=== PATIENT | male | born 1935 | race Caucasian/White ===

== ENCOUNTER 2017-03-06 02:50 | Inpatient (IN) | payer MEDICARE, OTHER ==
[2017-03-06] VITALS (13 sets, daily range): BP systolic 92–126; BP diastolic 53–92; PULSE 54–88; RESP 16–24; TEMP 97.1–98.5; O2SAT 95–99
[~2017-03-06] VITALS: Ht 188 cm; Wt 72.0 kg
[2017-03-06] MEDS ORDERED: METO25TA3 PO (03:14)
[2017-03-06] MEDS ORDERED: BACT800T5 PO (03:14)
[2017-03-06] MEDS ORDERED: SPIR25TA PO (03:14)
[2017-03-06] MEDS ORDERED: FURO40TA PO (03:14)
[2017-03-06] MEDS ORDERED: PANT40TA3 PO (03:14)
[2017-03-06] MEDS ORDERED: DIGO0.12 PO (03:14)
[2017-03-06] MEDS ORDERED: ASPI325T PO (03:14)
[2017-03-06] MEDS ORDERED: ENAL5TAB PO (03:14)
[2017-03-06] MEDS ORDERED: CALC600T4 PO (03:14)
[2017-03-06] MEDS ORDERED: SODIUM CHLOR 0.9% 1000 ML INJ 1,000 ML IV SCH ×2 (03:17→05:51)
[2017-03-06] MEDS ORDERED: ONDANSETRON HCL 4 MG/2 ML VIAL IVP ONE (03:30)
[2017-03-06] MEDS ORDERED: MORPHINE SULFATE 4 MG/ML INJ IV PUSH ONE (03:30)
[2017-03-06] MEDS ORDERED: SODIUM CHLORIDE 0.9% FLUSH 10 ML FLUSH IV FLUSH PRN ×2 (03:30→06:00)
[2017-03-06] MEDS ORDERED: DIATRIZOATE MEGLUM/DIATRIZOATE SOD 9 ML CUP ONE (03:33)
--- NOTE | 2017-03-06 03:36 | PD ---
HPI Chief Complaint: Abdominal Pain Time Seen by Provider: 03:09 Travel History International Travel<30 days: No Contact w/Intl Traveler<30days: No Traveled to known affect area: No History of Present Illness HPI 81 year old male with history of bladder cancer, presents to ER with complaints of abdominal pain. Patient reports that he was recently seen at [facility] on March 03, 2017, at that time, he was diagnosed with a partial small bowel obstruction. Reports that he felt fine and was discharged from the emergency room. Reports that ultimately, he was told to follow up the [facility] as he also has "heart issues." Patient reports that he was unable to follow-up with the [facility] at this time. Patient reports that he began to feel nauseous and began to have severe lower abdominal pain. Patient is concerned for possible small bowel obstruction at this time, request a second opinion by [place] [facility]. Patient also reports that he is currently taking bactrim for an infection to his colon. PFSH Past Medical History Hx Anticoagulant Therapy: Yes (Aspirin) Cancer: Yes (bladder) Cardiovascular Problems: Yes (Mitral valve, aortic valve) Gastrointestinal Disorders: Yes (bowel obstuction) Tetanus Vaccination: Unknown Influenza Vaccination: Yes Past Surgical History Eye Surgery: Yes Social History Alcohol Use: No Tobacco Use: No Substance Use: No Allergies-Medications (Allergen,Severity, Reaction): Coded Allergies: Penicillins (Verified Allergy, Severe, 03/06/17) iohexol (Verified Allergy, Severe, Anaphylaxis, 03/06/17) Reported Meds & Prescriptions Reported Meds & Active Scripts Active Reported Bactrim DS (Sulfamethoxazole-Trimethoprim) 800-160 Mg Tab 1 Tab PO BID Spironolactone 25 Mg Tab 25 Mg PO DAILY Pantoprazole (Pantoprazole Sodium) 40 Mg Tab 40 Mg PO DAILY Metoprolol Tartrate 25 Mg Tab 12.5 Mg PO BID Furosemide 40 Mg Tab 40 Mg PO DAILY Enalapril (Enalapril Maleate) 5 Mg Tab 5 Mg PO DAILY Digoxin 0.125 Mg Tab 0.125 Mg PO DAILY Calcium Carbonate 1,500 Mg Tab 500 Mg PO BID 1,500 mg calcium carbonate (600 mg elemental calcium) Aspirin 325 Mg Tab 325 Mg PO DAILY Review of Systems General / Constitutional: No: Fever Eyes: No: Visual changes HENT: No: Headaches Cardiovascular: No: Chest Pain or Discomfort Respiratory: No: Shortness of Breath Gastrointestinal: Positive: Nausea, Vomiting, Abdominal Pain Genitourinary: No: Dysuria Musculoskeletal: No: Pain Skin: No Rash Neurologic: No: Weakness Psychiatric: No: Depression Endocrine: No: Polydipsia Hematologic/Lymphatic: No: Easy Bruising Physical Exam Narrative GENERAL: moderate distress SKIN: Focused skin assessment warm/dry. HEAD: Atraumatic. Normocephalic. EYES: Pupils equal and round. No scleral icterus. No injection or drainage. ENT: No nasal bleeding or discharge. Mucous membranes pink and moist. NECK: Trachea midline. No JVD. CARDIOVASCULAR: Regular rate and rhythm. No murmur appreciated. RESPIRATORY: No accessory muscle use. Clear to auscultation. Breath sounds equal bilaterally. GASTROINTESTINAL: Abdomen soft, increased tenderness to lower abdomen MUSCULOSKELETAL: No obvious deformities. No clubbing. No cyanosis. No edema. NEUROLOGICAL: Awake and alert. No obvious cranial nerve deficits. Motor grossly within normal limits. Normal speech. PSYCHIATRIC: Appropriate mood and affect; insight and judgment normal. Data Data Last Documented VS Vital Signs Date Time Temp Pulse Resp B/P (MAP) Pulse Ox O2 Delivery O2 Flow Rate FiO2 03/06/17 04:24 82 22 102/54 (70) 96 Room Air 03/06/17 02:51 97.1 Orders Orders Complete Blood Count With Diff (03/06/17 03:17) Comprehensive Metabolic Panel (03/06/17 03:17) Lipase (03/06/17 03:17) Lactic Acid (03/06/17 03:17) Prothrombin Time / Inr (Pt) (03/06/17 03:17) Act Partial Throm Time (Ptt) (03/06/17 03:17) Ct Abd/Pel W/O Iv Contrast (03/06/17 03:17) Iv Access Insert/Monitor (03/06/17 03:17) Ecg Monitoring (03/06/17 03:17) Oximetry (03/06/17 03:17) NPO (03/06/17 03:17) Morphine Inj (Morphine Inj) (03/06/17 03:30) Ondansetron Inj (Zofran Inj) (03/06/17 03:30) Sodium Chlor 0.9% 1000 Ml Inj (Ns 1000 M (03/06/17 03:17) Sodium Chloride 0.9% Flush (Ns Flush) (03/06/17 03:30) Chest, Single Ap (03/06/17 03:17) Oral Contrast - Adult (03/06/17 03:20) Diatrizoate Liq ( Gastroview Liq) (03/06/17 03:33) Sodium Chlor 0.9% 1000 Ml Inj (Ns 1000 M (03/06/17 04:45) Vancomycin Inj (Vancomycin Inj) (03/06/17 04:32) Aztreonam Inj (Azactam Inj) (03/06/17 04:32) Metronidazole 500 Mg Inj (Flagyl 500 Mg (03/06/17 04:32) Blood Culture (03/06/17 04:32) Consult General Surgery (03/06/17 ) (Hub Use Only)Inp Phy Cons/Ref (03/06/17 ) Arterial Blood Gas (Abg) (03/06/17 ) Admit Order (Ed Use Only) (03/06/17 05:50) Labs Laboratory Tests Test 03/06/17 03:45 White Blood Count 16.4 TH/MM3 Red Blood Count 5.32 MIL/MM3 Hemoglobin 17.6 GM/DL Hematocrit 52.4 % Mean Corpuscular Volume 98.5 FL Mean Corpuscular Hemoglobin 33.0 PG Mean Corpuscular Hemoglobin Concent 33.5 % Red Cell Distribution Width 13.8 % Platelet Count 246 TH/MM3 Mean Platelet Volume 8.2 FL Neutrophils (%) (Auto) 88.2 % Lymphocytes (%) (Auto) 7.0 % Monocytes (%) (Auto) 4.1 % Eosinophils (%) (Auto) 0.3 % Basophils (%) (Auto) 0.4 % Neutrophils # (Auto) 14.5 TH/MM3 Lymphocytes # (Auto) 1.2 TH/MM3 Monocytes # (Auto) 0.7 TH/MM3 Eosinophils # (Auto) 0.1 TH/MM3 Basophils # (Auto) 0.1 TH/MM3 CBC Comment DIFF FINAL Differential Comment Prothrombin Time 11.4 SEC Prothromb Time International Ratio 1.0 RATIO Activated Partial Thromboplast Time 23.8 SEC Blood Urea Nitrogen 15 MG/DL Creatinine 1.76 MG/DL Random Glucose 145 MG/DL Total Protein 8.9 GM/DL Albumin 4.4 GM/DL Calcium Level 10.4 MG/DL Alkaline Phosphatase 78 U/L Aspartate Amino Transf (AST/SGOT) 20 U/L Alanine Aminotransferase (ALT/SGPT) 27 U/L Total Bilirubin 1.0 MG/DL Sodium Level 135 MEQ/L Potassium Level 4.2 MEQ/L Chloride Level 97 MEQ/L Carbon Dioxide Level 24.5 MEQ/L Anion Gap 14 MEQ/L Estimat Glomerular Filtration Rate 37 ML/MIN Lactic Acid Level 5.7 mmol/L Lipase 206 U/L MDM Medical Decision Making Medical Screen Exam Complete: Yes Emergency Medical Condition: Yes Medical Record Reviewed: Yes Interpretation(s) Vital Signs Date Time Temp Pulse Resp B/P (MAP) Pulse Ox O2 Delivery O2 Flow Rate FiO2 03/06/17 02:51 97.1 83 24 93/53 (66) 95 Room Air Differential Diagnosis Differential includes SBO, pSBO, colitis, electrolyte abnormality, ischemic colitis Narrative Course 81 year old male who presents to ER with c/o of abdominal pain with nausea and vomiting. lab work a swell as ct with oral contrast ordered. ivf and antiemetics ordered as well. Vital Signs Date Time Temp Pulse Resp B/P (MAP) Pulse Ox O2 Delivery O2 Flow Rate FiO2 03/06/17 04:24 82 22 102/54 (70) 96 Room Air 03/06/17 02:51 97.1 83 24 93/53 (66) 95 Room Air Laboratory Tests Test 03/06/17 03:45 White Blood Count 16.4 TH/MM3 (4.0-11.0) Red Blood Count 5.32 MIL/MM3 (4.50-5.90) Hemoglobin 17.6 GM/DL (13.0-17.0) Hematocrit 52.4 % (39.0-51.0) Mean Corpuscular Volume 98.5 FL (80.0-100.0) Mean Corpuscular Hemoglobin 33.0 PG (27.0-34.0) Mean Corpuscular Hemoglobin Concent 33.5 % (32.0-36.0) Red Cell Distribution Width 13.8 % (11.6-17.2) Platelet Count 246 TH/MM3 (150-450) Mean Platelet Volume 8.2 FL (7.0-11.0) Neutrophils (%) (Auto) 88.2 % (16.0-70.0) Lymphocytes (%) (Auto) 7.0 % (9.0-44.0) Monocytes (%) (Auto) 4.1 % (0.0-8.0) Eosinophils (%) (Auto) 0.3 % (0.0-4.0) Basophils (%) (Auto) 0.4 % (0.0-2.0) Neutrophils # (Auto) 14.5 TH/MM3 (1.8-7.7) Lymphocytes # (Auto) 1.2 TH/MM3 (1.0-4.8) Monocytes # (Auto) 0.7 TH/MM3 (0-0.9) Eosinophils # (Auto) 0.1 TH/MM3 (0-0.4) Basophils # (Auto) 0.1 TH/MM3 (0-0.2) CBC Comment DIFF FINAL Differential Comment Prothrombin Time 11.4 SEC (9.8-11.6) Prothromb Time International Ratio 1.0 RATIO Activated Partial Thromboplast Time 23.8 SEC (24.3-30.1) Blood Urea Nitrogen 15 MG/DL (7-18) Creatinine 1.76 MG/DL (0.60-1.30) Random Glucose 145 MG/DL (74-106) Total Protein 8.9 GM/DL (6.4-8.2) Albumin 4.4 GM/DL (3.4-5.0) Calcium Level 10.4 MG/DL (8.5-10.1) Alkaline Phosphatase 78 U/L (45-117) Aspartate Amino Transf (AST/SGOT) 20 U/L (15-37) Alanine Aminotransferase (ALT/SGPT) 27 U/L (12-78) Total Bilirubin 1.0 MG/DL (0.2-1.0) Sodium Level 135 MEQ/L (136-145) Potassium Level 4.2 MEQ/L (3.5-5.1) Chloride Level 97 MEQ/L (98-107) Carbon Dioxide Level 24.5 MEQ/L (21.0-32.0) Anion Gap 14 MEQ/L (5-15) Estimat Glomerular Filtration Rate 37 ML/MIN (>89) Lactic Acid Level 5.7 mmol/L (0.4-2.0) Lipase 206 U/L (73-393) lactic acid 5.7, patient has been pancultured, will give Azactam, Flagyl and vancomycin as patient has a penicillin allergy. 30cc/kg bolus of IVF ordered Last Impressions Chest X-Ray 03/06/17316 Signed Impressions: Service Date/Time: Monday, March 06, 2017 03:20 - CONCLUSION: 1. Emphysematous changes. 2. Blunting of the left costophrenic angle either related to pleural scarring or tiny effusion. 3. No appreciable free air. Rebel Agee Jr., MD Abdomen/Pelvis CT 03/06/17316 Signed Impressions: Service Date/Time: Monday, March 06, 2017 04:50 - CONCLUSION: 1. Diffuse dilatation of the small bowel without an obstructing mass or lesion. There is a left inguinal hernia containing sigmoid colon but this is not felt relating to the dilatation of the small bowel. 2. Trace amount of free fluid. 3. Small left pleural effusion. Rebel Agee Jr., MD case reviewed with dr. kimbrough who accepts pt to service Patient reports that his allergy to IV dye is severe allergic reaction which causes him to "pass out." There is a concern for possible ischemic colitis, call made to Dr. Olsen with general surgery. He will see patient in consult. Critical Care Narrative Aggregate critical care time was 30 minutes. Time to perform other separately billable procedures was not included in the critical care time. My time did not include minutes spent treating any other patients simultaneously or on activities that did not directly contribute to the patient's treatment. The services I provided to this patient were to treat and/or prevent clinically significant deterioration that could result in: , decompensation, deterioration I provided critical care services requiring my management, as noted below: Chart data review, documentation time, medication orders and management, vital sign assessments/reviewing monitor data, ordering and reviewing lab tests, ordering and interpreting/reviewing x-rays and diagnostic studies, care of the patient and discussion of the patient with the admitting physicians. Diagnosis Primary Impression: Small bowel obstruction Additional Impression: Lactic acidosis Admitting Information Admitting Physician Requests: Admit Chelsie Landeros DO Mar 06, 2017 03:36
--- NOTE | 2017-03-06 03:54 | RADRPT ---
EXAM DATE/TIME: 03/06/2017 03:20 [facility] COMPARISON: No previous studies available for comparison. EXTERNAL COMPARISON : none INDICATIONS : Free air. MEDICAL HISTORY : Congestive heart failure. Carcinoma, bladder. Arrhythmia. SURGICAL HISTORY : None. ENCOUNTER: Initial ACUITY: 3 days PAIN SCORE: 0/10 LOCATION: Bilateral chest FINDINGS: 2 portable upright views of the chest show emphysematous changes. Calcified granulomas within the rig ht lung base. Blunting of the left costophrenic angle. No infiltrates. Heart is normal in size. Aorta is calcified and tortuous. Bony structures are unremarkable. No pneumoperitoneum observed below eith er hemidiaphragm. CONCLUSION: 1. Emphysematous changes. 2. Blunting of the left costophrenic angle either related to pleural scarring or tiny effusion. 3. No appreciable free air. Rebel Agee Jr., MD on March 06, 2017 at 3:51 Board Certified Radiologist. This report was verified electronically.
[2017-03-06 03:59] LABS: AUTOMATED NEUTROPHIL # 14.5 TH/MM3 (1.8-7.7); BASOPHIL # 0.1 TH/MM3 (0-0.2); BASOPHIL % 0.4 % (0.0-2.0); EOSINOPHIL # 0.1 TH/MM3 (0-0.4); EOSINOPHIL % 0.3 % (0.0-4.0); HEMATOCRIT 52.4 % (39.0-51.0); HEMO FLAGS DIFF FINAL; LYMPHOCYTE # 1.2 TH/MM3 (1.0-4.8); MEAN CELL VOLUME 98.5 FL (80.0-100.0); MEAN CORPUSCULAR HGB CONC 33.5 % (32.0-36.0); MONO % 4.1 % (0.0-8.0); NEUT % 88.2 % (16.0-70.0); PLATELET COUNT 246 TH/MM3 (150-450); RED BLOOD COUNT 5.32 MIL/MM3 (4.50-5.90); RED CELL DISTRIBUTION WIDTH 13.8 % (11.6-17.2); WHITE BLOOD COUNT 16.4 TH/MM3 (4.0-11.0)
[2017-03-06 04:05] LABS: APTT (PATIENT) 23.8 SEC (24.3-30.1); PROTHROMBIN TIME - PATIENT 11.4 SEC (9.8-11.6)
[2017-03-06 04:20] LABS: ANION GAP 14 MEQ/L (5-15); AST (GOT) 20 U/L (15-37); BICARBONATE 24.5 MEQ/L (21.0-32.0); BLOOD UREA NITROGEN 15 MG/DL (7-18); CHLORIDE 97 MEQ/L (98-107); GLOMERULAR FILTRATION RATE 37 ML/MIN (>89); POTASSIUM 4.2 MEQ/L (3.5-5.1); SODIUM (NA) 135 MEQ/L (136-145)
[2017-03-06 04:21] LABS: ALT (GPT) 27 U/L (12-78)
[2017-03-06 04:23] LABS: ALKALINE PHOSPHATASE 78 U/L (45-117)
[2017-03-06] MEDS ORDERED: metroNIDAZOLE 500 MG INJ 100 ML IV STA (04:32)
[2017-03-06] MEDS ORDERED: AZTREONAM INJ 2,000 MG in SODIUM CHLORIDE 0.9% INJ 100 ML IV STA (04:32)
[2017-03-06] MEDS ORDERED: VANCOMYCIN INJ 1,000 MG in SODIUM CHLOR 0.9% 250 ML INJ 250 ML IV STA (04:32)
[2017-03-06] MEDS ORDERED: SODIUM CHLOR 0.9% 1000 ML INJ 1,000 ML IV ONE (04:45)
--- NOTE | 2017-03-06 05:20 | RADRPT ---
EXAM DATE/TIME: 03/06/2017 04:50 [facility] COMPARISON: No previous studies available for comparison. INDICATIONS : Right lower quadrant pain with nausea and constipation. ORAL CONTRAST: Prescribed oral contrast ingested. RADIATION DOSE: 6.64 CTDIvol (mGy) MEDICAL HISTORY : Carcinoma, bladder. Bowel obstruction. SURGICAL HISTORY : Mitral valve replacement. ENCOUNTER: Initial ACUITY: 3 days PAIN SCALE: 8/10 LOCATION: Right lower quadrant TECHNIQUE: Volumetric scanning of the abdomen and pelvis was performed. Using automated exposure control and ad justment of the mA and/or kV according to patient size, radiation dose was kept as low as reasonably achievable to obtain optimal diagnostic quality images. DICOM format image data is available electro nically for review and comparison. FINDINGS: LOWER LUNGS: A small left pleural effusion. Tiny hiatal hernia. Calcified granuloma within the right lung base. LIVER: Homogeneous density without lesion. There is no dilation of the biliary tree. No calcified gallston es. SPLEEN: Normal size without lesion. PANCREAS: Within normal limits. KIDNEYS: Normal in size and shape. There is no mass, stone, or hydronephrosis. ADRENAL GLANDS: Within normal limits. VASCULAR: There is no aortic aneurysm. BOWEL/MESENTERY: Diffuse dilatation of the small bowel extending to the ileocecal valve. No obstructing mass or lesion observed. The colon is normal in caliber. Scattered colonic diverticuli. A trace amount of ascitic f luid. No free air. The appendix is normal by CT criteria. ABDOMINAL WALL: Within normal limits. RETROPERITONEUM: There is no lymphadenopathy. BLADDER: No wall thickening or mass. REPRODUCTIVE: Within normal limits. INGUINAL: There is a left renal hernia containing sigmoid colon. No CT evidence to suggest obstruction or incar ceration. MUSCULOSKELETAL: Within normal limits for patient age. CONCLUSION: 1. Diffuse dilatation of the small bowel without an obstructing mass or lesion. There is a left ingui nal hernia containing sigmoid colon but this is not felt relating to the dilatation of the small chris l. 2. Trace amount of free fluid. 3. Small left pleural effusion. Rebel Agee Jr., MD on March 06, 2017 at 5:14 Board Certified Radiologist. This report was verified electronically.
[2017-03-06] MEDS ORDERED: RESP: ALBUTEROL 2.5 MG/IPRATROPIUM 0.5 MG NEB (PRN) INH (06:00)
[2017-03-06] MEDS ORDERED: LACTULOSE SYRUP 20 GM/30 ML CUP PO PRN (06:00)
[2017-03-06] MEDS ORDERED: ACETAMINOPHEN 325 MG TAB PO PRN (06:00)
[2017-03-06] MEDS ORDERED: MAGNESIUM HYDROXIDE SUSP 30 ML CUP PO PRN (06:00)
[2017-03-06] MEDS ORDERED: BISACODYL 10 MG SUPP RECTAL PRN (06:00)
[2017-03-06] MEDS ORDERED: CHLORHEXIDINE GLUCONATE 2 % 1 PACK (2 CLOTHS) TOP PRN (06:00)
[2017-03-06] MEDS ORDERED: MISCELLANEOUS NURSING INFORMATION XX SCH (06:00)
[2017-03-06] MEDS ORDERED: SENNOSIDES 8.6 MG TAB PO PRN (06:00)
[2017-03-06] MEDS ORDERED: HEPARIN SODIUM - SQ 10,000 UNITS/ML VIAL SQ SCH (06:00)
[2017-03-06 06:03] LABS: BLOOD GAS BASE EXCESS -2.3 mmol/L (-2-2); BLOOD GAS CARBOXYHEMOGLOBIN 0.8 % (0-4); BLOOD GAS HCO3 22 mmol/L (22-26); BLOOD GAS METHEMOGLOBIN 0.6 % (0-2); BLOOD GAS O2 HGB SATURATION 95 % (90-100); BLOOD GAS OXYGEN CONTENT 17.8 Vol % (12.0-20.0); BLOOD GAS PCO2 35 mmHg (38-42); BLOOD GAS PO2 81 mmHG (61-120); BLOOD GAS TOTAL HGB 13.3 G/DL (12.0-16.0); CRITICAL VALUE NO; DRAW SITE RT RADIAL; FIO2 21 %; NUMBER OF ARTERIAL PUNCTURES 1; OXYGEN DEVICE ROOM AIR; STAT YES; TEMP CORR TO 98.6; ULNAR PULSE PRESENT
--- NOTE | 2017-03-06 06:45 | HHI.HP ---
HPI Service Critical Care Medicine Primary Care Physician Rohith Sanders M.D. Admission Diagnosis Sepsis, SBO, possible ischemic colitis Diagnosis: Chief Complaint: Abdominal pain. Travel History International Travel<30 Days: No Contact w/Intl Traveler <30 Da: No Traveled to Known Affected Are: No History of Present Illness 81 y/o man presents with a crescendo pattern of cramping abdominal pain, lasting for past several weeks. Now with vomiting and abdominal distention. Episodic explosive bowel movements. No prior abdominal surgery and left inguinal hernia is easily reducible. Dehydrated. No peritoneal irritation. Minimal tenderness to palpation. Lactic acid 5.7, wbc 16,000. CT abdomen shows small bowel obstruction, distal. No obvious transition point. at bedside. Hx significant for bladder cancer 40 years ago. Heart failure. Review of Systems Constitutional: DENIES: Diaphoretic episodes, Fatigue, Fever, Weight gain, Weight loss, Chills, Dizziness, Change in appetite, Night Sweats Endocrine: DENIES: Heat/cold intolerance, Polydipsia, Polyuria, Polyphagia Eyes: DENIES: Blurred vision, Diplopia, Eye inflammation, Eye pain, Vision loss , Photosensitivity, Double Vision Ears, nose, mouth, throat: DENIES: Tinnitus, Hearing loss, Vertigo, Nasal discharge, Oral lesions, Throat pain, Hoarseness, Ear Pain, Running Nose, Epistaxis, Sinus Pain, Toothache, Odynophagia Cardiovascular: DENIES: Chest pain, Palpitations, Syncope, Dyspnea on Exertion , PND, Lower Extremity Edema, Orthopnea, Claudication Gastrointestinal: COMPLAINS OF: Abdominal pain, Constipation, Diarrhea, Vomiting, Anorexia Integumentary: DENIES: Abnormal pigmentation, Nail changes, Pruritus, Rash Hematologic/lymphatic: DENIES: Bruising, Lymphadenopathy Immunologic/allergic: DENIES: Eczema, Urticaria Past Family Social History Allergies: Coded Allergies: Penicillins (Verified Allergy, Severe, 03/06/17) iohexol (Verified Allergy, Severe, Anaphylaxis, 03/06/17) Past Medical History Past Medical History Hx Anticoagulant Therapy: Yes (Aspirin) Cancer: Yes (bladder) Cardiovascular Problems: Yes (Mitral valve, aortic valve) Gastrointestinal Disorders: Yes (bowel obstuction) Tetanus Vaccination: Unknown Influenza Vaccination: Yes Past Surgical History Eye Surgery: Yes Social History Alcohol Use: No Tobacco Use: No Substance Use: No Allergies-Medications Allergies-Medications (Allergen,Severity, Reaction): Coded Allergies: Penicillins (Verified Allergy, Severe, 03/06/17) iohexol (Verified Allergy, Severe, Anaphylaxis, 03/06/17) Reported Meds & Prescriptions Reported Meds & Active Scripts Active Reported Bactrim DS (Sulfamethoxazole-Trimethoprim) 800-160 Mg Tab 1 Tab PO BID Spironolactone 25 Mg Tab 25 Mg PO DAILY Pantoprazole (Pantoprazole Sodium) 40 Mg Tab 40 Mg PO DAILY Metoprolol Tartrate 25 Mg Tab 12.5 Mg PO BID Furosemide 40 Mg Tab 40 Mg PO DAILY Enalapril (Enalapril Maleate) 5 Mg Tab 5 Mg PO DAILY Digoxin 0.125 Mg Tab 0.125 Mg PO DAILY Calcium Carbonate 1,500 Mg Tab 500 Mg PO BID 1,500 mg calcium carbonate (600 mg elemental calcium) Aspirin 325 Mg Tab 325 Mg PO DAILY Physical Exam Vital Signs Vital Signs Date Time Temp Pulse Resp B/P (MAP) Pulse Ox O2 Delivery O2 Flow Rate FiO2 03/06/17 06:18 78 22 112/58 (76) 96 Room Air 03/06/17 06:10 96 03/06/17 04:24 82 22 102/54 (70) 96 Room Air 03/06/17 02:51 97.1 83 24 93/53 (66) 95 Room Air Physical Exam Gen: Ill-appearing elderly man Head: Normal. Neck: Supple, airway widely patent. Lungs: Clear, no adventitious sounds. Heart: Irreg, no JVD. Abdomen: Mildly distended. Nontender. Tympanitic No guarding. BS few. Extremities: Tepid, well perfused. Neuro: O X 3, alert. Follows commands. Moves 4 limbs to command. Laboratory Laboratory Tests Test 03/06/17 03:45 03/06/17 05:50 White Blood Count 16.4 Red Blood Count 5.32 Hemoglobin 17.6 Hematocrit 52.4 Mean Corpuscular Volume 98.5 Mean Corpuscular Hemoglobin 33.0 Mean Corpuscular Hemoglobin Concent 33.5 Red Cell Distribution Width 13.8 Platelet Count 246 Mean Platelet Volume 8.2 Neutrophils (%) (Auto) 88.2 Lymphocytes (%) (Auto) 7.0 Monocytes (%) (Auto) 4.1 Eosinophils (%) (Auto) 0.3 Basophils (%) (Auto) 0.4 Neutrophils # (Auto) 14.5 Lymphocytes # (Auto) 1.2 Monocytes # (Auto) 0.7 Eosinophils # (Auto) 0.1 Basophils # (Auto) 0.1 CBC Comment DIFF FINAL Differential Comment Prothrombin Time 11.4 Prothromb Time International Ratio 1.0 Activated Partial Thromboplast Time 23.8 Blood Urea Nitrogen 15 Creatinine 1.76 Random Glucose 145 Total Protein 8.9 Albumin 4.4 Calcium Level 10.4 Alkaline Phosphatase 78 Aspartate Amino Transf (AST/SGOT) 20 Alanine Aminotransferase (ALT/SGPT) 27 Total Bilirubin 1.0 Sodium Level 135 Potassium Level 4.2 Chloride Level 97 Carbon Dioxide Level 24.5 Anion Gap 14 Estimat Glomerular Filtration Rate 37 Lactic Acid Level 5.7 Lipase 206 Blood Gas Puncture Site RT RADIAL Blood Gas Patient Temperature 98.6 Blood Gas HCO3 22 Blood Gas Base Excess -2.3 Blood Gas Oxygen Saturation 95 Arterial Blood pH 7.41 Arterial Blood Partial Pressure CO2 35 Arterial Blood Partial Pressure O2 81 Arterial Blood Oxygen Content 17.8 Arterial Blood Carboxyhemoglobin 0.8 Arterial Blood Methemoglobin 0.6 Blood Gas Hemoglobin 13.3 Oxygen Delivery Device ROOM AIR Blood Gas Inspired Oxygen 21 Date/Time Source Procedure Growth Status 03/06/17 04:44 Blood Peripheral Aerobic Blood Culture Pending Received 03/06/17 04:44 Blood Peripheral Anaerobic Blood Culture Pending Received Result Diagram: 03/06/17 0345 03/06/17 0345 Caprini VTE Risk Assessment Caprini VTE Risk Assessment: Mod/High Risk (score >= 2) Caprini Risk Assessment Model Point Value = 1 Point Value = 2 Point Value = 3 Point Value = 5 Age 41-60 Minor surgery BMI > 25 kg/m2 Swollen legs Varicose veins or History of unexplained or recurrent spontaneous Oral contraceptives or hormone replacement Sepsis (< 1 month) Serious lung disease, including pneumonia (< 1 month) Abnormal pulmonary function Acute myocardial infarction Congestive heart failure (< 1 month) History of inflammatory bowel disease Medical patient at bed rest Age 61-74 Arthroscopic surgery Major open surgery (> 45 min) Laparoscopic surgery (> 45 min) Malignancy Confined to bed (> 72 hours) Immobilizing plaster cast Central venous access Age >= 75 History of VTE Family history of VTE Factor V Leiden Prothrombin [id number] Lupus anticoagulant Anticardiolipin antibodies Elevated serum homocysteine Heparin-induced thrombocytopenia Other congenital or acquired thrombophilia Stroke (< 1 month) Elective arthroplasty Hip, pelvis, or leg fracture Acute spinal cord injury (< 1 month) Prophylaxis Regimen Total Risk Factor Score Risk Level Prophylaxis Regimen 0-1 Low Early ambulation 2 Moderate Order ONE of the following: *Sequential Compression Device (SCD) *Heparin 5000 units SQ BID 3-4 Higher Order ONE of the following medications: *Heparin 5000 units SQ TID *Enoxaparin/Lovenox 40 mg SQ daily (WT < 150 kg, CrCl > 30 mL/min) *Enoxaparin/Lovenox 30 mg SQ daily (WT < 150 kg, CrCl > 10-29 mL/min) *Enoxaparin/Lovenox 30 mg SQ BID (WT < 150 kg, CrCl > 30 mL/min) AND/OR *Sequential Compression Device (SCD) 5 or more Highest Order ONE of the following medications: *Heparin 5000 units SQ TID (Preferred with Epidurals) *Enoxaparin/Lovenox 40 mg SQ daily (WT < 150 kg, CrCl > 30 mL/min) *Enoxaparin/Lovenox 30 mg SQ daily (WT < 150 kg, CrCl > 10-29 mL/min) *Enoxaparin/Lovenox 30 mg SQ BID (WT < 150 kg, CrCl > 30 mL/min) AND *Sequential Compression Device (SCD) Assessment and Plan Assessment and Plan Assessment: 1. Small bowel obstruction. 2. JOSEE. 3. Dehydration. 4. Hx of bladder cancer. Plan: 1. IV hydration isotonic fluid. 2. NG to LIS. 3. Protonix. 4. Heparin sq for DVT. 5. Antiobiotic coverage. 6. I&O. 7. GI consult. 8. Serial abdominal exam. Overall impression: Man is critically ill with severe dehydration, acute kidney injury, and small bowel obstruction. Ideally we would define the cause of his obstruction prior to intervention but might not have that luxury. For now he will have NG decompression, seral exams, and aggressive fluid resuscitation. Discussed with patient's at bedside. Critical Care 43 mins Martin Ruiz MD Mar 06, 2017 06:45
[2017-03-06] MEDS: SODIUM CHLORIDE 0.9% FLUSH 10 ML FLUSH IV FLUSH SCH ×2 (08:18→20:06)
[2017-03-06] MEDS: NS + KCL 20 MEQ INJ 1,000 ML IV SCH ×2 (08:18→17:33)
[2017-03-06] MEDS: PANTOPRAZOLE SODIUM 40 MG VIAL IV PUSH SCH (08:18)
[2017-03-06] MEDS: DOCUSATE SODIUM 50 MG/SENNA 8.6 MG TAB PO SCH ×2 (08:18→21:00)
[2017-03-06] MEDS: DIGOXIN 0.5 MG/2 ML VIAL IV PUSH SCH (08:18)
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
[2017-03-06 13:21] LABS: BLOOD, URINE NEG (NEG); GLUCOSE,URINE NEG (NEG); KETONE, URINE NEG (NEG); MUCUS URINE FEW /lpf (OCC); NITRITE,URINE NEG (NEG); PH, URINE 5.5 (5.0-8.5); SQUAMOUS EPITHELIAL CELL URINE <1 /hpf (0-5); URINE COLOR YELLOW (YELLW/STRAW)
[2017-03-06 13:23] LABS: COMMENT (UR) CULT NOT INDICATED; CULTURE IF INDICATED CULT NOT INDICATED
[2017-03-06] MEDS ORDERED: PILL SPLITTER OTHER PRN (14:45)
[2017-03-06] MEDS: METOPROLOL TARTRATE 25 MG TAB PO SCH ×2 (14:52→21:00)
[2017-03-06 16:27] LABS: AUTOMATED NEUTROPHIL # 5.1 TH/MM3 (1.8-7.7); BASOPHIL % 0.6 % (0.0-2.0); EOSINOPHIL # 0.2 TH/MM3 (0-0.4); EOSINOPHIL % 2.7 % (0.0-4.0); HEMATOCRIT 39.6 % (39.0-51.0); HEMO FLAGS DIFF FINAL; LYMPH % 17.3 % (9.0-44.0); LYMPHOCYTE # 1.2 TH/MM3 (1.0-4.8); MEAN CELL VOLUME 97.9 FL (80.0-100.0); MEAN CORPUSCULAR HEMOGLOBIN 33.4 PG (27.0-34.0); MEAN CORPUSCULAR HGB CONC 34.1 % (32.0-36.0); MONO % 7.8 % (0.0-8.0); NEUT % 71.6 % (16.0-70.0); PLATELET COUNT 175 TH/MM3 (150-450); RED BLOOD COUNT 4.05 MIL/MM3 (4.50-5.90); RED CELL DISTRIBUTION WIDTH 14.3 % (11.6-17.2); WHITE BLOOD COUNT 7.1 TH/MM3 (4.0-11.0)
[2017-03-06 16:43] LABS: BICARBONATE 25.2 MEQ/L (21.0-32.0); POTASSIUM 4.3 MEQ/L (3.5-5.1)
--- NOTE | 2017-03-06 17:04 | RADRPT ---
EXAM DATE/TIME: 03/06/2017 16:14 [place] COMPARISON: CT ABDOMEN & PELVIS W/O CONTRAST, March 06, 2017, 4:50. CHEST SINGLE AP, March 06, 2017, 3:20. INDICATIONS : Abdominal pain. MEDICAL HISTORY : None. SURGICAL HISTORY : None. ENCOUNTER: Initial ACUITY: 2 days PAIN SCORE: 8/10 LOCATION: Abdomen FINDINGS: Mild fluid and gaseous distention of small bowel throughout the abdomen. Colon is decompressed. No carlton spicious calcific densities are seen. Regional skeleton is grossly intact with degenerative changes p resent in the spine and hips. CONCLUSION: Mild fluid and gaseous distention of small bowel Luca Lam MD on March 06, 2017 at 17:02 Board Certified Radiologist. This report was verified electronically.
[2017-03-06] MEDS: HEPARIN SODIUM - SQ 10,000 UNITS/ML VIAL SQ SCH (18:07)
[2017-03-06] MEDS: CHLORHEXIDINE GLUCONATE 2 % 1 PACK (2 CLOTHS) TOP SCH (20:07)
[2017-03-06] MEDS ORDERED: PADIMATE (CHAPSTICK) 4.5 GM TUBE TOPICAL PRN (20:30)
[2017-03-07] VITALS (11 sets, daily range): BP systolic 99–126; BP diastolic 57–64; PULSE 56–114; RESP 16–25; TEMP 95.5–98.4; O2SAT 95–99
--- NOTE | 2017-03-07 05:18 | EKG ---
Date Performed: 03/06/2017 Time Performed: 12:07:25 PTAGE: 81 years EKG: ATRIAL FIBRILLATION MARKED LEFT AXIS DEVIATION SEPTAL MYOCARDIAL INFARCTION , PROBABLY OLD ABNORMAL ECG NO PREVIOUS TRACING DOCTOR: Eliu Ojeda Interpretating Date/Time 03/07/2017 05:09:20
[2017-03-07 05:19] LABS: INTERNATIONAL NORMALIZED RATIO 1.1 RATIO; PROTHROMBIN TIME - PATIENT 12.3 SEC (9.8-11.6)
[2017-03-07 05:20] LABS: AUTOMATED NEUTROPHIL # 3.7 TH/MM3 (1.8-7.7); BASOPHIL # 0.1 TH/MM3 (0-0.2); BASOPHIL % 1.2 % (0.0-2.0); EOSINOPHIL # 0.3 TH/MM3 (0-0.4); EOSINOPHIL % 5.1 % (0.0-4.0); HEMATOCRIT 38.7 % (39.0-51.0); HEMO FLAGS DIFF FINAL; LYMPH % 19.7 % (9.0-44.0); LYMPHOCYTE # 1.1 TH/MM3 (1.0-4.8); MEAN CELL VOLUME 98.4 FL (80.0-100.0); MEAN CORPUSCULAR HEMOGLOBIN 33.2 PG (27.0-34.0); MEAN CORPUSCULAR HGB CONC 33.8 % (32.0-36.0); MONO % 7.6 % (0.0-8.0); NEUT % 66.4 % (16.0-70.0); PLATELET COUNT 166 TH/MM3 (150-450); RED BLOOD COUNT 3.93 MIL/MM3 (4.50-5.90); RED CELL DISTRIBUTION WIDTH 14.2 % (11.6-17.2); WHITE BLOOD COUNT 5.6 TH/MM3 (4.0-11.0)
[2017-03-07 05:31] LABS: ANION GAP 5 MEQ/L (5-15); AST (GOT) 18 U/L (15-37); BICARBONATE 24.7 MEQ/L (21.0-32.0); BLOOD UREA NITROGEN 11 MG/DL (7-18); CHLORIDE 108 MEQ/L (98-107); GLOMERULAR FILTRATION RATE 69 ML/MIN (>89); MAGNESIUM 1.8 MG/DL (1.5-2.5); POTASSIUM 4.3 MEQ/L (3.5-5.1); SODIUM (NA) 138 MEQ/L (136-145)
[2017-03-07 05:36] LABS: ALKALINE PHOSPHATASE 49 U/L (45-117); ALT (GPT) 14 U/L (12-78); TOTAL BILIRUBIN ADULT 0.6 MG/DL (0.2-1.0)
[2017-03-07] MEDS: HEPARIN SODIUM - SQ 10,000 UNITS/ML VIAL SQ SCH ×2 (06:42→17:57)
[2017-03-07] MEDS: NS + KCL 20 MEQ INJ 1,000 ML IV SCH (06:53)
[2017-03-07] MEDS ORDERED: DEXTROSE 50% IN WATER 50 ML VIAL(D50) IV PUSH PRN (07:00)
[2017-03-07] MEDS ORDERED: GLUCAGON 1 MG/ML VIAL IM PRN (07:00)
[2017-03-07] MEDS: PANTOPRAZOLE SODIUM 40 MG VIAL IV PUSH SCH (08:17)
[2017-03-07] MEDS: SPIRONOLACTONE 25 MG TAB PO SCH (08:17)
[2017-03-07] MEDS: SODIUM CHLORIDE 0.9% FLUSH 10 ML FLUSH IV FLUSH SCH ×2 (08:17→21:33)
[2017-03-07] MEDS: METOPROLOL TARTRATE 25 MG TAB PO SCH ×2 (08:17→21:00)
[2017-03-07] MEDS: DIGOXIN 0.5 MG/2 ML VIAL IV PUSH SCH (08:17)
[2017-03-07] MEDS: DOCUSATE SODIUM 50 MG/SENNA 8.6 MG TAB PO SCH ×2 (08:18→21:00)
[2017-03-07] MEDS: FUROSEMIDE 40 MG TAB PO SCH (10:00)
[2017-03-07] MEDS: SULFAMETHOXAZOLE-TRIMETHOPRIM DS 800-160 MG TAB PO SCH ×2 (10:00→21:32)
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
[2017-03-07] MEDS ORDERED: DIATRIZOATE MEGLUM/DIATRIZOATE SOD 120 ML BTL (for RAD DIAG) PO ONE (11:55)
--- NOTE | 2017-03-07 12:32 | RADRPT ---
EXAM DATE/TIME: 03/07/2017 10:12 [place] COMPARISON: ABDOMEN KUB ONLY, March 06, 2017, 16:14. INDICATIONS : Lower left quadarant abdominal pain FLUORO TIME: 0 minutes IMAGE COUNT: 7 CONTRAST: [facility] IMAGING TIME(S): 15 min, 30 min, 45 min, 1 hr MEDICAL HISTORY : None. SURGICAL HISTORY : None. ENCOUNTER: Initial ACUITY: 3 days PAIN SCORE: 2/10 LOCATION: Bilateral abdomen FINDINGS: [facility] radiograph: The driver manager radiograph demonstrates residual oral contrast within the colon. The patient was allowed to consume Gastrografin. There was prompt transit of contrast from the stomac h into the small bowel. Note is made of a hiatal hernia the gastroesophageal junction. There was contrast identified within the terminal ileum and colon at 45 minutes. The exam demonstrates some moderately thickened loops of distal small bowel but no bowel obstruction. CONCLUSION: There was normal transit of barium from the stomach down to the colon. The exam does demonstrate some thickening of the small bowel diffusely throughout the ileum suggesting enteritis. No findings to in dicate obstruction are seen. Liang Chen MD on March 07, 2017 at 12:29 Board Certified Radiologist. This report was verified electronically.
[2017-03-07] MEDS: ONDANSETRON HCL 4 MG/2 ML VIAL IV PUSH PRN (12:44)
--- NOTE | 2017-03-07 13:52 | HHI.PR ---
Subjective Subjective Notes Patient has extensive diarrhea Abdominal pain, except for crampiness with the diarrhea, has resolved. Objective Vitals/I&O Vital Signs Date Time Temp Pulse Resp B/P (MAP) Pulse Ox O2 Delivery O2 Flow Rate FiO2 03/07/17 12:00 114 03/07/17 08:00 98.2 21 106/64 (78) 99 03/07/17 07:00 Room Air Labs Laboratory Tests Test 03/06/17 16:05 03/06/17 20:25 03/07/17 04:49 03/07/17 12:32 White Blood Count 7.1 5.6 Red Blood Count 4.05 3.93 Hemoglobin 13.5 13.1 Hematocrit 39.6 38.7 Mean Corpuscular Volume 97.9 98.4 Mean Corpuscular Hemoglobin 33.4 33.2 Mean Corpuscular Hemoglobin Concent 34.1 33.8 Red Cell Distribution Width 14.3 14.2 Platelet Count 175 166 Mean Platelet Volume 8.0 7.7 Neutrophils (%) (Auto) 71.6 66.4 Lymphocytes (%) (Auto) 17.3 19.7 Monocytes (%) (Auto) 7.8 7.6 Eosinophils (%) (Auto) 2.7 5.1 Basophils (%) (Auto) 0.6 1.2 Neutrophils # (Auto) 5.1 3.7 Lymphocytes # (Auto) 1.2 1.1 Monocytes # (Auto) 0.6 0.4 Eosinophils # (Auto) 0.2 0.3 Basophils # (Auto) 0.0 0.1 CBC Comment DIFF FINAL DIFF FINAL Differential Comment Blood Urea Nitrogen 12 11 Creatinine 1.20 1.04 Random Glucose 77 67 Calcium Level 8.1 8.1 Sodium Level 138 138 Potassium Level 4.3 4.3 Chloride Level 107 108 Carbon Dioxide Level 25.2 24.7 Anion Gap 6 5 Estimat Glomerular Filtration Rate 58 69 Lactic Acid Level 1.1 1.0 0.9 B-Type Natriuretic Peptide 219 Prothrombin Time 12.3 Prothromb Time International Ratio 1.1 Total Protein 5.2 Albumin 2.6 Phosphorus Level 2.9 Magnesium Level 1.8 Alkaline Phosphatase 49 Aspartate Amino Transf (AST/SGOT) 18 Alanine Aminotransferase (ALT/SGPT) 14 Total Bilirubin 0.6 Date/Time Source Procedure Growth Status 03/06/17 04:44 Blood Peripheral Aerobic Blood Culture - Preliminary NO GROWTH IN 1 DAY Resulted 03/06/17 04:44 Anaerobic Blood Culture - Preliminary Staphylococcus Epidermidis Resulted Radiology Last 48 hours Impressions Chest X-Ray 03/06/17316 Signed Impressions: Service Date/Time: Monday, March 06, 2017 03:20 - CONCLUSION: 1. Emphysematous changes. 2. Blunting of the left costophrenic angle either related to pleural scarring or tiny effusion. 3. No appreciable free air. Rebel Agee Jr., MD Abdomen/Pelvis CT 03/06/17316 Signed Impressions: Service Date/Time: Monday, March 06, 2017 04:50 - CONCLUSION: 1. Diffuse dilatation of the small bowel without an obstructing mass or lesion. There is a left inguinal hernia containing sigmoid colon but this is not felt relating to the dilatation of the small bowel. 2. Trace amount of free fluid. 3. Small left pleural effusion. Rebel Agee Jr., MD Abdomen: Non-distended, Non-tender A/P Assessment and Plan Assessment: Partial SBO, resolved Plan: Start full liquids Decrease IVF, due to hx CHF Likely transfer to floor later today or tomorrow. Discussed with Dr. Best and nurse Lynnette, as well as patient. Emerson Hendricks MD Mar 07, 2017 13:52
[2017-03-07 15:33] LABS: C. DIFF EPI 027 PRESUMPTIVE NEGATIVE (NEGATIVE)
--- NOTE | 2017-03-07 16:31 | HHI.GIFU ---
Subjective Remarks Pt on commode, having loose water stool after small bowel xray. Denies pain, n/ v (Sadie Valenzuela) Objective Vitals I&O Vital Signs Date Time Temp Pulse Resp B/P (MAP) Pulse Ox O2 Delivery O2 Flow Rate FiO2 03/07/17 16:00 98.4 98 25 102/59 (73) 99 03/07/17 16:00 92 03/07/17 14:00 86 03/07/17 12:00 114 03/07/17 12:00 98.1 99 16 117/60 (79) 97 03/07/17 10:00 72 03/07/17 08:00 98.2 66 21 106/64 (78) 99 03/07/17 08:00 70 03/07/17 07:00 Room Air 03/07/17 07:00 97 03/07/17 06:00 76 03/07/17 05:00 56 03/07/17 05:00 97.8 56 16 126/57 (80) 99 03/07/17 02:00 58 03/07/17 00:00 65 03/07/17 00:00 97.6 65 17 109/57 (74) 95 03/06/17 22:00 64 03/06/17 20:00 67 03/06/17 20:00 97.9 64 24 98/58 (71) 99 03/06/17 20:00 Room Air 03/06/17 18:00 54 I/O 03/06/17 03/06/17 03/06/17 03/07/17 03/07/17 03/07/17 07:00 15:00 23:00 07:00 15:00 23:00 Intake Total 2200 ml 664 ml 916 ml Output Total 700 ml 950 ml 500 ml Balance 1500 ml -286 ml 916 ml -500 ml Intake Oral 0 ml IV Total 2200 ml 664 ml 916 ml Output Urine Total 700 ml 950 ml 500 ml # Voids 1 2 # Bowel Movements 0 0 0 9 Laboratory Laboratory Tests Test 03/06/17 20:25 03/07/17 04:49 03/07/17 12:32 Lactic Acid Level 1.0 0.9 White Blood Count 5.6 Red Blood Count 3.93 Hemoglobin 13.1 Hematocrit 38.7 Mean Corpuscular Volume 98.4 Mean Corpuscular Hemoglobin 33.2 Mean Corpuscular Hemoglobin Concent 33.8 Red Cell Distribution Width 14.2 Platelet Count 166 Mean Platelet Volume 7.7 Neutrophils (%) (Auto) 66.4 Lymphocytes (%) (Auto) 19.7 Monocytes (%) (Auto) 7.6 Eosinophils (%) (Auto) 5.1 Basophils (%) (Auto) 1.2 Neutrophils # (Auto) 3.7 Lymphocytes # (Auto) 1.1 Monocytes # (Auto) 0.4 Eosinophils # (Auto) 0.3 Basophils # (Auto) 0.1 CBC Comment DIFF FINAL Differential Comment Prothrombin Time 12.3 Prothromb Time International Ratio 1.1 Blood Urea Nitrogen 11 Creatinine 1.04 Random Glucose 67 Total Protein 5.2 Albumin 2.6 Calcium Level 8.1 Phosphorus Level 2.9 Magnesium Level 1.8 Alkaline Phosphatase 49 Aspartate Amino Transf (AST/SGOT) 18 Alanine Aminotransferase (ALT/SGPT) 14 Total Bilirubin 0.6 Sodium Level 138 Potassium Level 4.3 Chloride Level 108 Carbon Dioxide Level 24.7 Anion Gap 5 Estimat Glomerular Filtration Rate 69 Stool C. difficile Toxin (PCR) NEGATIVE Stl C. difficile Toxin Epiderm 027 PRESUMPTIVE NEGATIVE Date/Time Source Procedure Growth Status 03/06/17 04:44 Blood Peripheral Aerobic Blood Culture - Preliminary NO GROWTH IN 1 DAY Resulted 03/06/17 04:44 Anaerobic Blood Culture - Preliminary Staphylococcus Epidermidis Resulted Imaging Last Impressions Small Bowel X-Ray 03/07/17 0800 Signed Impressions: Service Date/Time: Tuesday, March 07, 2017 10:12 - CONCLUSION: There was normal transit of barium from the stomach down to the colon. The exam does demonstrate some thickening of the small bowel diffusely throughout the ileum suggesting enteritis. No findings to indicate obstruction are seen. Liang Chen MD Abdomen X-Ray 03/06/17 1600 Signed Impressions: Service Date/Time: Monday, March 06, 2017 16:14 - CONCLUSION: Mild fluid and gaseous distention of small bowel Luca Lam MD Chest X-Ray 03/06/17 0317 Signed Impressions: Service Date/Time: Monday, March 06, 2017 03:20 - CONCLUSION: 1. Emphysematous changes. 2. Blunting of the left costophrenic angle either related to pleural scarring or tiny effusion. 3. No appreciable free air. Rebel Agee Jr., MD Abdomen/Pelvis CT 03/06/17 0317 Signed Impressions: Service Date/Time: Monday, March 06, 2017 04:50 - CONCLUSION: 1. Diffuse dilatation of the small bowel without an obstructing mass or lesion. There is a left inguinal hernia containing sigmoid colon but this is not felt relating to the dilatation of the small bowel. 2. Trace amount of free fluid. 3. Small left pleural effusion. Rebel Agee Jr., MD Physical Exam HEENT: normocephalic; atraumatic; no jaundice. CHEST: respirations even unlabored ABDOMEN: deferred, pt on commode EXTREMITIES: No clubbing, cyanosis SKIN: Normal; no rash; no jaundice. ROUNDING MACHINE TENDER: No focal deficits; alert and oriented times three. (Sadie Valenzuela [employer]SEM[employer]ER) Assessment and Plan Plan ASSESSMENT: - Abnormal imaging suspicious for SBO with abdominal pain, N/V. Pt has had recurrent episodes over past month (3 episodes). About a month ago, he was hospitalized at [facility] for the same and GS recommended surgery. The patient states he refused, as he wanted to go to [facility], where he is already established with his valvular heart dz. He improved and went home, had another episode, but was not able to get into [place]. States this episode began suddenly last night. CT scan abdomen and pelvis (03/16/17)----> revealed diffuse dilatation of the small bowel without an obstructing mass or lesion. There is a left inguinal hernia containing the sigmoid colon but this is not felt to be the cause of the dilatation of the small bowel. Trace amount of free fluid. Small left pleural effusion. He has a hx of bladder cancer 40 years ago, treated with resection of the tumor. He has not had any other abdominal surgeries. Of note, he has a neurogenic bladder and has frequent UTI's and has been taking antibiotics frequently for this. NPO for now. NGT to [facility] if n/v. Stool studies. GS following. - Constipation, takes colace as needed. notes that his bouts of abdominal pain/bloating usually occur after colace, but he is probably taking the colace because of his recurrent symptoms. Did have a few loose stools and therefore will check cdiff, - Leukocytosis, WBC 16.4. Could be related to above. Also has neurogenic bladder with recurrent UTIs, being treated with bactrim ds at home. Need U/A, stool studies. - JOSEE, per CCM - Valvular heart disease, Neurogenic bladder, Remote hx of bladder cancer, s/p resection of tumor 40 years ago per attending. 03/07/17 c diff neg, other stool studies pending. having watery loose stool after small bowel xr which suggests enteritis; no obstruction. liquid diet per GS, will se how he does PLAN: - liquid diet per GS - await stool cx - GS following - Supportive care - Further recommendations to follow based on results of above - Pt seen and examined by Heriberto and myself and this note is written on her behalf (Sadie Valenzuela) Sadie Valenzuela Mar 07, 2017 16:31 Nessa Louis MD Mar 07, 2017 18:35
--- NOTE | 2017-03-07 17:39 | ECHRPT ---
Indication: Heart Failure CONCLUSIONS Mildly dilated left ventricle. Wall thickness is normal. The left ventricular systolic function is mildly reduced with an estimated ejection fraction in the range of 40- 45%. Moderate mitral valve regurgitation. Posterior mitral valve leaflet prolapse. Mitral annular calcification is present. Aortic valve sclerosis is present. Trace aortic valve regurgitation. There is moderate tricuspid valve regurgitation. There is estimated mild pulmonary hypertension present (48 mmHg). BP: 112 / 71 HR: 78 Rhythm: MEASUREMENTS (Male / Female) Normal Values Technical Quality: 2D ECHO LV Diastolic Diameter PLAX 5.6 cm 4.2 - 5.9 / 3.9 - 5.3 cm LV Systolic Diameter PLAX 4.6 cm IVS Diastolic Thickness 0.8 cm 0.6 - 1.0 / 0.6 - 0.9 cm LVPW Diastolic Thickness 0.8 cm 0.6 - 1.0 / 0.6 - 0.9 cm LV Relative Wall Thickness 0.3 RV Internal Dim ED PLAX 2.6 cm LA Systolic Diameter LX 4.5 cm 3.0 - 4.0 / 2.7 - 3.8 cm DOPPLER MR Peak Velocity 466.0 cm/s MR Peak Gradient 86.9 mmHg Mitral E Point Velocity 123.0 cm/s Mitral A Point Velocity 63.8 cm/s Mitral E to A Ratio 1.9 TR Peak Velocity 309.0 cm/s TR Peak Gradient 38.2 mmHg Right Atrial Pressure 10.0 mmHg Pulmonary Artery Systolic Pressu 48.2 mmHg Right Ventricular Systolic Press 48.2 mmHg FINDINGS LEFT VENTRICLE Mildly dilated left ventricle. Wall thickness is normal. The left ventricular systolic function is mildly reduced with an estimated ejection fraction in the range of 40- 45%. RIGHT VENTRICLE Normal right ventricular size and systolic function. LEFT ATRIUM The left atrial size is normal. RIGHT ATRIUM The right atrial size is normal. ATRIAL SEPTUM Normal atrial septal thickness without atrial level shunting by limited color doppler interrogation. AORTA The aortic root and proximal ascending aorta are normal in size on limited imaging. MITRAL VALVE Moderate mitral valve regurgitation. Posterior mitral valve leaflet prolapse. Mitral annular calcification is present. AORTIC VALVE Aortic valve sclerosis is present. Trace aortic valve regurgitation. TRICUSPID VALVE There is moderate tricuspid valve regurgitation. There is estimated mild pulmonary hypertension present (48 mmHg). PULMONARY VALVE No pulmonary valve regurgitation or stenosis. VESSELS The inferior vena cava is normal in size. PERICARDIUM No pericardial effusion. Joycelyn Layton MD, FACC (Electronically Signed) Final Date:07 March 2017 17:38
[2017-03-08] VITALS: BP 99/60; PULSE 75; RESP 17; TEMP 96.3; O2SAT 99
[2017-03-08] MEDS: CHLORHEXIDINE GLUCONATE 2 % 1 PACK (2 CLOTHS) TOP SCH (03:41)
[2017-03-08 04:00] VITALS: BP 99/62; PULSE 72; RESP 17; TEMP 96.2; O2SAT 98
[2017-03-08 05:37] LABS: AUTOMATED NEUTROPHIL # 3.7 TH/MM3 (1.8-7.7); BASOPHIL # 0.1 TH/MM3 (0-0.2); BASOPHIL % 1.1 % (0.0-2.0); EOSINOPHIL # 0.3 TH/MM3 (0-0.4); EOSINOPHIL % 4.8 % (0.0-4.0); HEMATOCRIT 36.1 % (39.0-51.0); HEMO FLAGS DIFF FINAL; LYMPH % 18.8 % (9.0-44.0); LYMPHOCYTE # 1.1 TH/MM3 (1.0-4.8); MEAN CORPUSCULAR HGB CONC 33.7 % (32.0-36.0); MONO % 9.9 % (0.0-8.0); NEUT % 65.4 % (16.0-70.0); PLATELET COUNT 171 TH/MM3 (150-450); RED BLOOD COUNT 3.68 MIL/MM3 (4.50-5.90); RED CELL DISTRIBUTION WIDTH 14.1 % (11.6-17.2); WHITE BLOOD COUNT 5.7 TH/MM3 (4.0-11.0)
[2017-03-08 05:54] LABS: BICARBONATE 23.1 MEQ/L (21.0-32.0); POTASSIUM 3.8 MEQ/L (3.5-5.1)
[2017-03-08] MEDS: HEPARIN SODIUM - SQ 10,000 UNITS/ML VIAL SQ SCH ×2 (06:32→16:53)
[2017-03-08 08:00] VITALS: BP 92/51; PULSE 59; RESP 16; TEMP 96; O2SAT 97
[2017-03-08] MEDS: DOCUSATE SODIUM 50 MG/SENNA 8.6 MG TAB PO SCH ×2 (08:30→21:00)
[2017-03-08] MEDS: PANTOPRAZOLE SODIUM 40 MG VIAL IV PUSH SCH (08:30)
[2017-03-08] MEDS: DIGOXIN 0.5 MG/2 ML VIAL IV PUSH SCH (08:30)
[2017-03-08] MEDS: METOPROLOL TARTRATE 25 MG TAB PO SCH ×2 (08:31→21:43)
[2017-03-08] MEDS: SULFAMETHOXAZOLE-TRIMETHOPRIM DS 800-160 MG TAB PO SCH ×2 (08:31→21:42)
[2017-03-08] MEDS: FUROSEMIDE 40 MG TAB PO SCH (08:31)
[2017-03-08] MEDS: SPIRONOLACTONE 25 MG TAB PO SCH (08:31)
--- NOTE | 2017-03-08 09:58 | HHI.PR ---
Subjective Remarks Patient states he has tolerated the liquid diet that he's had and wants to be advanced We will defer to surgery since there on the case A.m. labs Diet per surgery Increase activity Denies any diarrhea or constipation at the moment Objective Vitals Vital Signs Date Time Temp Pulse Resp B/P (MAP) Pulse Ox O2 Delivery O2 Flow Rate FiO2 03/08/17 08:00 96.0 59 16 92/51 (65) 97 03/08/17 04:00 96.2 72 17 99/62 (74) 98 03/08/17 00:00 96.3 75 17 99/60 (73) 99 03/07/17 20:00 95.5 69 17 99/61 (74) 98 03/07/17 19:17 Room Air 03/07/17 16:00 98.4 98 25 102/59 (73) 99 03/07/17 16:00 92 03/07/17 14:00 86 03/07/17 12:00 114 03/07/17 12:00 98.1 99 16 117/60 (79) 97 03/07/17 10:00 72 I/O 03/07/17 03/07/17 03/07/17 03/08/17 03/08/17 03/08/17 07:00 15:00 23:00 07:00 15:00 23:00 Intake Total 916 ml 240 ml Output Total 700 ml 200 ml Balance 916 ml -700 ml 40 ml Intake Oral 0 ml 240 ml IV Total 916 ml Output Urine Total 700 ml 200 ml # Voids 2 # Bowel Movements 12 3 Result Diagram: 03/08/17 0500 03/08/17 0500 Other Results Laboratory Tests Test 03/06/17 03:45 03/06/17 05:50 03/06/17 09:15 03/06/17 10:42 White Blood Count 16.4 TH/MM3 Red Blood Count 5.32 MIL/MM3 Hemoglobin 17.6 GM/DL Hematocrit 52.4 % Mean Corpuscular Volume 98.5 FL Mean Corpuscular Hemoglobin 33.0 PG Mean Corpuscular Hemoglobin Concent 33.5 % Red Cell Distribution Width 13.8 % Platelet Count 246 TH/MM3 Mean Platelet Volume 8.2 FL Neutrophils (%) (Auto) 88.2 % Lymphocytes (%) (Auto) 7.0 % Monocytes (%) (Auto) 4.1 % Eosinophils (%) (Auto) 0.3 % Basophils (%) (Auto) 0.4 % Neutrophils # (Auto) 14.5 TH/MM3 Lymphocytes # (Auto) 1.2 TH/MM3 Monocytes # (Auto) 0.7 TH/MM3 Eosinophils # (Auto) 0.1 TH/MM3 Basophils # (Auto) 0.1 TH/MM3 CBC Comment DIFF FINAL Differential Comment Prothrombin Time 11.4 SEC Prothromb Time International Ratio 1.0 RATIO Activated Partial Thromboplast Time 23.8 SEC Blood Urea Nitrogen 15 MG/DL Creatinine 1.76 MG/DL Random Glucose 145 MG/DL Total Protein 8.9 GM/DL Albumin 4.4 GM/DL Calcium Level 10.4 MG/DL Alkaline Phosphatase 78 U/L Aspartate Amino Transf (AST/SGOT) 20 U/L Alanine Aminotransferase (ALT/SGPT) 27 U/L Total Bilirubin 1.0 MG/DL Sodium Level 135 MEQ/L Potassium Level 4.2 MEQ/L Chloride Level 97 MEQ/L Carbon Dioxide Level 24.5 MEQ/L Anion Gap 14 MEQ/L Estimat Glomerular Filtration Rate 37 ML/MIN Lactic Acid Level 5.7 mmol/L 1.6 mmol/L Lipase 206 U/L Blood Gas Puncture Site RT RADIAL Blood Gas Patient Temperature 98.6 Blood Gas HCO3 22 mmol/L Blood Gas Base Excess -2.3 mmol/L Blood Gas Oxygen Saturation 95 % Arterial Blood pH 7.41 Arterial Blood Partial Pressure CO2 35 mmHg Arterial Blood Partial Pressure O2 81 mmHG Arterial Blood Oxygen Content 17.8 Vol % Arterial Blood Carboxyhemoglobin 0.8 % Arterial Blood Methemoglobin 0.6 % Blood Gas Hemoglobin 13.3 G/DL Oxygen Delivery Device ROOM AIR Blood Gas Inspired Oxygen 21 % Nasal Screen MRSA (PCR) MRSA NOT DETECTED Test 03/06/17 12:45 03/06/17 16:05 03/06/17 20:25 03/07/17 04:49 Urine Color YELLOW Urine Turbidity CLEAR Urine pH 5.5 Urine Specific [place] 1.010 Urine Protein NEG mg/dL Urine Glucose (UA) NEG mg/dL Urine Ketones NEG mg/dL Urine Occult Blood NEG Urine Nitrite NEG Urine Bilirubin NEG Urine Urobilinogen LESS THAN 2.0 MG/DL Urine Leukocyte Esterase SMALL Urine RBC 1 /hpf Urine WBC 4 /hpf Urine Squamous Epithelial Cells <1 /hpf Urine Mucus FEW /lpf Microscopic Urinalysis Comment CULT NOT INDICATED White Blood Count 7.1 TH/MM3 5.6 TH/MM3 Red Blood Count 4.05 MIL/MM3 3.93 MIL/MM3 Hemoglobin 13.5 GM/DL 13.1 GM/DL Hematocrit 39.6 % 38.7 % Mean Corpuscular Volume 97.9 FL 98.4 FL Mean Corpuscular Hemoglobin 33.4 PG 33.2 PG Mean Corpuscular Hemoglobin Concent 34.1 % 33.8 % Red Cell Distribution Width 14.3 % 14.2 % Platelet Count 175 TH/MM3 166 TH/MM3 Mean Platelet Volume 8.0 FL 7.7 FL Neutrophils (%) (Auto) 71.6 % 66.4 % Lymphocytes (%) (Auto) 17.3 % 19.7 % Monocytes (%) (Auto) 7.8 % 7.6 % Eosinophils (%) (Auto) 2.7 % 5.1 % Basophils (%) (Auto) 0.6 % 1.2 % Neutrophils # (Auto) 5.1 TH/MM3 3.7 TH/MM3 Lymphocytes # (Auto) 1.2 TH/MM3 1.1 TH/MM3 Monocytes # (Auto) 0.6 TH/MM3 0.4 TH/MM3 Eosinophils # (Auto) 0.2 TH/MM3 0.3 TH/MM3 Basophils # (Auto) 0.0 TH/MM3 0.1 TH/MM3 CBC Comment DIFF FINAL DIFF FINAL Differential Comment Blood Urea Nitrogen 12 MG/DL 11 MG/DL Creatinine 1.20 MG/DL 1.04 MG/DL Random Glucose 77 MG/DL 67 MG/DL Calcium Level 8.1 MG/DL 8.1 MG/DL Sodium Level 138 MEQ/L 138 MEQ/L Potassium Level 4.3 MEQ/L 4.3 MEQ/L Chloride Level 107 MEQ/L 108 MEQ/L Carbon Dioxide Level 25.2 MEQ/L 24.7 MEQ/L Anion Gap 6 MEQ/L 5 MEQ/L Estimat Glomerular Filtration Rate 58 ML/MIN 69 ML/MIN Lactic Acid Level 1.1 mmol/L 1.0 mmol/L 0.9 mmol/L B-Type Natriuretic Peptide 219 PG/ML Prothrombin Time 12.3 SEC Prothromb Time International Ratio 1.1 RATIO Total Protein 5.2 GM/DL Albumin 2.6 GM/DL Phosphorus Level 2.9 MG/DL Magnesium Level 1.8 MG/DL Alkaline Phosphatase 49 U/L Aspartate Amino Transf (AST/SGOT) 18 U/L Alanine Aminotransferase (ALT/SGPT) 14 U/L Total Bilirubin 0.6 MG/DL Test 03/07/17 12:32 03/08/17 05:00 Stool C. difficile Toxin (PCR) NEGATIVE Stl C. difficile Toxin Epiderm 027 PRESUMPTIVE NEGATIVE White Blood Count 5.7 TH/MM3 Red Blood Count 3.68 MIL/MM3 Hemoglobin 12.1 GM/DL Hematocrit 36.1 % Mean Corpuscular Volume 98.0 FL Mean Corpuscular Hemoglobin 33.0 PG Mean Corpuscular Hemoglobin Concent 33.7 % Red Cell Distribution Width 14.1 % Platelet Count 171 TH/MM3 Mean Platelet Volume 8.0 FL Neutrophils (%) (Auto) 65.4 % Lymphocytes (%) (Auto) 18.8 % Monocytes (%) (Auto) 9.9 % Eosinophils (%) (Auto) 4.8 % Basophils (%) (Auto) 1.1 % Neutrophils # (Auto) 3.7 TH/MM3 Lymphocytes # (Auto) 1.1 TH/MM3 Monocytes # (Auto) 0.6 TH/MM3 Eosinophils # (Auto) 0.3 TH/MM3 Basophils # (Auto) 0.1 TH/MM3 CBC Comment DIFF FINAL Differential Comment Blood Urea Nitrogen 12 MG/DL Creatinine 1.13 MG/DL Random Glucose 76 MG/DL Calcium Level 8.2 MG/DL Sodium Level 142 MEQ/L Potassium Level 3.8 MEQ/L Chloride Level 111 MEQ/L Carbon Dioxide Level 23.1 MEQ/L Anion Gap 8 MEQ/L Estimat Glomerular Filtration Rate 62 ML/MIN Imaging Last Impressions Small Bowel X-Ray 03/07/17 0800 Signed Impressions: Service Date/Time: Tuesday, March 07, 2017 10:12 - CONCLUSION: There was normal transit of barium from the stomach down to the colon. The exam does demonstrate some thickening of the small bowel diffusely throughout the ileum suggesting enteritis. No findings to indicate obstruction are seen. Liang Chen MD Abdomen X-Ray 03/06/17 1600 Signed Impressions: Service Date/Time: Monday, March 06, 2017 16:14 - CONCLUSION: Mild fluid and gaseous distention of small bowel Luca Lam MD Chest X-Ray 03/06/17 0317 Signed Impressions: Service Date/Time: Monday, March 06, 2017 03:20 - CONCLUSION: 1. Emphysematous changes. 2. Blunting of the left costophrenic angle either related to pleural scarring or tiny effusion. 3. No appreciable free air. Rebel Agee Jr., MD Abdomen/Pelvis CT 03/06/17 0317 Signed Impressions: Service Date/Time: Monday, March 06, 2017 04:50 - CONCLUSION: 1. Diffuse dilatation of the small bowel without an obstructing mass or lesion. There is a left inguinal hernia containing sigmoid colon but this is not felt relating to the dilatation of the small bowel. 2. Trace amount of free fluid. 3. Small left pleural effusion. Rebel Agee Jr., MD Objective Remarks GENERAL: Awake alert and oriented talkative and cooperative very thin at appearing male SKIN: Warm and dry. HEAD: Atraumatic. Normocephalic. EYES: Pupils equal and round. No scleral icterus. No injection or drainage. Extraocular muscles intact ENT: No nasal bleeding or discharge. Mucous membranes pink and moist. Tongue is midline NECK: Trachea midline. No JVD. Supple CARDIOVASCULAR: Regular rate and rhythm. S1 and S2 no S3 or S4 no heave or thrill or rub or gallop RESPIRATORY: No accessory muscle use. Clear to auscultation. Breath sounds equal bilaterally. GASTROINTESTINAL: Abdomen soft, non-tender, nondistended. Hepatic and splenic margins not palpable. MUSCULOSKELETAL: Extremities without clubbing, cyanosis, or edema. No obvious deformities. NEUROLOGICAL: Awake and alert. No obvious cranial nerve deficits. Motor grossly within normal limits. 4 out of 5 muscle strength in the arms and legs. Normal speech. PSYCHIATRIC: Appropriate mood and affect; insight and judgment normal. Medications and IVs Current Medications Morphine Sulfate (Morphine Inj) 4 mg ONCE ONCE IV PUSH Last administered on 04:22; Start 03/06/17 at 03:30; Stop 03/06/17 at 03:31; Status DC Ondansetron HCl (Zofran Inj) 4 mg ONCE ONCE IVP Last administered on 04:23; Start 03/06/17 at 03:30; Stop 03/06/17 at 03:31; Status DC Sodium Chloride 1,000 ml @ 1,000 mls/hr Q1H IV Last administered on 03/06/17 04:22; Start 03/06/17 at 03:17; Stop 03/06/17 at 04:16; Status DC Sodium Chloride (NS Flush) 2 ml UNSCH PRN IV FLUSH FLUSH AFTER USING IV ACCESS ; Start 03/06/17 at 03:30; Stop 03/06/17 at 06:11; Status DC Diatrizoate Meglum/ Diatrizoate Sod (Md Jose Storm) 18 ml STK-MED ONCE .ROUTE Last administered on 03/06/17 03:53; Start 03/06/17 at 03:33; Stop 03/06/17 at 03:34; Status DC Sodium Chloride 1,000 ml @ 999 mls/hr BOLUS ONCE IV Last administered on 03/06 04:36; Start 03/06/17 at 04:45; Stop 03/06/17 at 05:45; Status DC Vancomycin HCl 1000 mg/Sodium Chloride 250 ml @ 250 mls/hr ONCE STAT IV Last administered on 03/06/17 06:16; Start 03/06/17 at 04:32; Stop 03/06/17 at 05:31 ; Status DC Aztreonam 2000 mg/ Sodium Chloride 100 ml @ 200 mls/hr ONCE STAT IV Last administered on 03/06/17 04:47; Start 03/06/17 at 04:32; Stop 03/06/17 at 05:01 ; Status DC Metronidazole 100 ml @ 100 mls/hr ONCE STAT IV Last administered on 05:21; Start 03/06/17 at 04:32; Stop 03/06/17 at 05:31; Status DC Sodium Chloride 1,000 ml @ 84 mls/hr [id number] IV ; Start 03/06/17 at 05:51; Stop 03/06/17 at 06:11; Status DC Sodium Chloride (NS Flush) 2 ml UNSCH PRN IV FLUSH FLUSH AFTER USING IV ACCESS ; Start 03/06/17 at 06:00 Sodium Chloride (NS Flush) 2 ml BID IV FLUSH Last administered on 03/07/17 21: 33; Start 03/06/17 at 09:00 Acetaminophen (Tylenol) 650 mg Q6H PRN PO PAIN 1-10 AND/OR FEVER >101F; Start 03/06/17 at 06:00; Stop 03/06/17 at 06:33; Status DC Morphine Sulfate (Morphine Inj) 2 mg Q2H PRN IV PUSH PAIN SCALE 6 TO 10; Start 03/06/17 at 06:00 Pantoprazole Sodium (Protonix Inj) 40 mg DAILY IV PUSH Last administered on 08:30; Start 03/06/17 at 09:00 Ondansetron HCl (Zofran Inj) 4 mg Q6H PRN IV PUSH NAUSEA OR VOMITING Last administered on 03/07/17 12:44; Start 03/06/17 at 06:00 Albuterol/ Ipratropium (Duoneb Neb) 1 ampule Q2HR NEB PRN INH WHEEZING; Start 03/06/17 at 06:00 Heparin Sodium (Porcine) (Heparin Inj) 5,000 units Q8HR SQ Last administered on 03/06/17 06:23; Start 03/06/17 at 06:00; Stop 03/06/17 at 07:02; Status DC Miscellaneous Information 1 [id number] XX ; Start 03/06/17 at 06:00 Chlorhexidine Gluconate (Chlorhexidine 2% Cloth) 3 pack Taper DAILY@04 TOP ; Start 03/07/17 at 04:00; Stop 03/03/18 at 03:59 Chlorhexidine Gluconate (Chlorhexidine 2% Cloth) 3 pack UNSCH PRN TOP HYGIENIC CARE; Start 03/06/17 at 06:00 Senna/Docusate Sodium (Re-Colace) 1 tab BID PO Last administered on 08:18; Start 03/06/17 at 09:00 Magnesium Hydroxide (Milk Of Magnesia Liq) 30 ml Q12H PRN PO MILD - MODERATE CONSTIPATION; Start 03/06/17 at 06:00; Stop 03/06/17 at 06:36; Status DC Sennosides (Senokot) 17.2 mg Q12H PRN PO MODERATE - SEVERE CONSTIPATION; Start 03/06/17 at 06:00; Stop 03/06/17 at 06:33; Status DC Bisacodyl (Dulcolax Supp) 10 mg DAILY PRN RECTAL SEVERE CONSITIPATION; Start 03/06/17 at 06:00 Lactulose (Lactulose Liq) 30 ml DAILY PRN PO SEVERE CONSITIPATION; Start at 06:00; Stop 03/06/17 at 06:33; Status DC Digoxin (Lanoxin Inj) 0.125 mg DAILY IV PUSH Last administered on 03/08/17 08: 30; Start 03/06/17 at 09:00 Potassium Chloride/Sodium Chloride 1,000 ml @ 50 mls/hr Q20H IV Last administered on 03/06/17 08:18; Start 03/06/17 at 06:45; Stop 03/07/17 at 14:43 ; Status DC Heparin Sodium (Porcine) (Heparin Inj) 5,000 units Q12H SQ Last administered on 03/08/17 06:32; Start 03/06/17 at 18:00 Metoprolol Tartrate (Lopressor) 12.5 mg BID PO Last administered on 03/08/17 08:31; Start 03/06/17 at 15:00 Spironolactone (Aldactone) 25 mg DAILY PO Last administered on 03/08/17 08:31 ; Start 03/07/17 at 09:00 Miscellaneous (Pill Splitter) 1 ea UNSCH PRN OTHER SEE LABEL COMMENTS; Start 03/06/17 at 14:45 Padimate O (Chapstick) 1 applic UNSCH PRN TOPICAL DRY LIPS; Start 03/06/17 at 20:30 Dextrose (D50w (Vial) Inj) 50 ml UNSCH PRN IV PUSH HYPOGLYCEMIA-SEE COMMENTS Last administered on 03/07/17 07:08; Start 03/07/17 at 07:00 Glucagon (Glucagon Inj) 1 mg STAT PRN IM HYPOGLYCEMIA-SEE COMMENTS; Start 03/07 at 07:00 Furosemide (Lasix) 40 mg DAILY PO Last administered on 03/08/17 08:31; Start 03/07/17 at 10:00 Trimethoprim/ Sulfamethoxazole (Bactrim Ds 800-160 Mg) 1 tab BID PO Last administered on 03/08/17 08:31; Start 03/07/17 at 10:00 Diatrizoate Meglum/ Diatrizoate Sod ( Gastroview Liq) 360 ml STK-MED ONCE PO Last administered on 03/07/17 11:55; Start 03/07/17 at 11:55; Stop 03/07/17 at 11:56; Status DC A/P Assessment and Plan 81 yo male, critically ill with severe dehydration, acute kidney injury, and small bowel obstruction. Ideally we would define the cause of his obstruction prior to intervention but might not have that luxury. For now he will have NG decompression, serial exams, and aggressive fluid resuscitation. NG tube has been removed Small bowel obstruction. JOSEE. Dehydration. Hx of bladder cancer. IV hydration isotonic fluid. NG to LIS. Protonix. Heparin sq for DVT. Antibiotic coverage. Monitor I&O. GI consult, gen surgery consult . Had serial abdominal exam appears stable at this moment Advance diet to CLD Discussed with patient, nurse Diet per surgery Discharge Planning May need SNF versus home health care Jonatan Aburto DO Mar 08, 2017 09:58
--- NOTE | 2017-03-08 11:19 | HHI.GIFU ---
Subjective Remarks Patient is resting in bed tolerating fulls okay, denies abd pain, nausea or vomiting. No bm today, he had diarrhea all day yesterday after having SBFT (Aidee Horne) Objective Vitals I&O Vital Signs Date Time Temp Pulse Resp B/P (MAP) Pulse Ox O2 Delivery O2 Flow Rate FiO2 03/08/17 08:00 96.0 59 16 92/51 (65) 97 03/08/17 04:00 96.2 72 17 99/62 (74) 98 03/08/17 00:00 96.3 75 17 99/60 (73) 99 03/07/17 20:00 95.5 69 17 99/61 (74) 98 03/07/17 19:17 Room Air 03/07/17 16:00 98.4 98 25 102/59 (73) 99 03/07/17 16:00 92 03/07/17 14:00 86 03/07/17 12:00 114 03/07/17 12:00 98.1 99 16 117/60 (79) 97 I/O 03/07/17 03/07/17 03/07/17 03/08/17 03/08/17 03/08/17 07:00 15:00 23:00 07:00 15:00 23:00 Intake Total 916 ml 240 ml Output Total 700 ml 200 ml Balance 916 ml -700 ml 40 ml Intake Oral 0 ml 240 ml IV Total 916 ml Output Urine Total 700 ml 200 ml # Voids 2 # Bowel Movements 12 3 Laboratory Laboratory Tests Test 03/07/17 12:32 03/08/17 05:00 Stool C. difficile Toxin (PCR) NEGATIVE Stl C. difficile Toxin Epiderm 027 PRESUMPTIVE NEGATIVE White Blood Count 5.7 Red Blood Count 3.68 Hemoglobin 12.1 Hematocrit 36.1 Mean Corpuscular Volume 98.0 Mean Corpuscular Hemoglobin 33.0 Mean Corpuscular Hemoglobin Concent 33.7 Red Cell Distribution Width 14.1 Platelet Count 171 Mean Platelet Volume 8.0 Neutrophils (%) (Auto) 65.4 Lymphocytes (%) (Auto) 18.8 Monocytes (%) (Auto) 9.9 Eosinophils (%) (Auto) 4.8 Basophils (%) (Auto) 1.1 Neutrophils # (Auto) 3.7 Lymphocytes # (Auto) 1.1 Monocytes # (Auto) 0.6 Eosinophils # (Auto) 0.3 Basophils # (Auto) 0.1 CBC Comment DIFF FINAL Differential Comment Blood Urea Nitrogen 12 Creatinine 1.13 Random Glucose 76 Calcium Level 8.2 Sodium Level 142 Potassium Level 3.8 Chloride Level 111 Carbon Dioxide Level 23.1 Anion Gap 8 Estimat Glomerular Filtration Rate 62 Date/Time Source Procedure Growth Status 03/06/17 04:44 Blood Peripheral Aerobic Blood Culture - Preliminary NO GROWTH IN 2 DAYS Resulted 03/06/17 04:44 Anaerobic Blood Culture - Preliminary Staphylococcus Epidermidis Resulted Imaging Last Impressions Small Bowel X-Ray 03/07/17 0800 Signed Impressions: Service Date/Time: Tuesday, March 07, 2017 10:12 - CONCLUSION: There was normal transit of barium from the stomach down to the colon. The exam does demonstrate some thickening of the small bowel diffusely throughout the ileum suggesting enteritis. No findings to indicate obstruction are seen. Liang Chen MD Abdomen X-Ray 03/06/17 1600 Signed Impressions: Service Date/Time: Monday, March 06, 2017 16:14 - CONCLUSION: Mild fluid and gaseous distention of small bowel Luca Lam MD Chest X-Ray 03/06/17316 Signed Impressions: Service Date/Time: Monday, March 06, 2017 03:20 - CONCLUSION: 1. Emphysematous changes. 2. Blunting of the left costophrenic angle either related to pleural scarring or tiny effusion. 3. No appreciable free air. Rebel Agee Jr., MD Abdomen/Pelvis CT 03/06/17316 Signed Impressions: Service Date/Time: Monday, March 06, 2017 04:50 - CONCLUSION: 1. Diffuse dilatation of the small bowel without an obstructing mass or lesion. There is a left inguinal hernia containing sigmoid colon but this is not felt relating to the dilatation of the small bowel. 2. Trace amount of free fluid. 3. Small left pleural effusion. Rebel Agee Jr., MD Physical Exam HEENT: normocephalic; atraumatic; no jaundice. CHEST: respirations even unlabored ABDOMEN: soft, nondistended, active bowel sound in 4 regions EXTREMITIES: No clubbing, cyanosis SKIN: Normal; no rash; no jaundice. [employer]SEM[employer]ER G[employer]MENT FORM: No focal deficits; alert and oriented times three. (Aidee Horne) Assessment and Plan Plan ASSESSMENT: - Abnormal imaging suspicious for SBO with abdominal pain, N/V. Pt has had recurrent episodes over past month (3 episodes). About a month ago, he was hospitalized at [facility] for the same and GS recommended surgery. The patient states he refused, as he wanted to go to [facility], where he is already established with his valvular heart dz. He improved and went home, had another episode, but was not able to get into [place]. States this episode began suddenly last night. CT scan abdomen and pelvis (03/16/17)----> revealed diffuse dilatation of the small bowel without an obstructing mass or lesion. There is a left inguinal hernia containing the sigmoid colon but this is not felt to be the cause of the dilatation of the small bowel. Trace amount of free fluid. Small left pleural effusion. He has a hx of bladder cancer 40 years ago, treated with resection of the tumor. He has not had any other abdominal surgeries. Of note, he has a neurogenic bladder and has frequent UTI's and has been taking antibiotics frequently for this. NPO for now. NGT to [facility] if n/v. Stool studies. GS following. - Constipation, takes colace as needed. notes that his bouts of abdominal pain/bloating usually occur after colace, but he is probably taking the colace because of his recurrent symptoms. Did have a few loose stools and therefore will check cdiff, - Leukocytosis, WBC 16.4. Could be related to above. Also has neurogenic bladder with recurrent UTIs, being treated with bactrim ds at home. Need U/A, stool studies. - JOSEE, per [facility] - Valvular heart disease, Neurogenic bladder, Remote hx of bladder cancer, s/p resection of tumor 40 years ago per attending. 03/07/17 c diff neg, other stool studies pending. having watery loose stool after small bowel xr which suggests enteritis; no obstruction. liquid diet per GS, will se how he does 03/08/17-- No diarrhea today, tolerating fulls okay, no abd pain WBC today 5.7 PLAN: - Full liquid, - GS following - Supportive care - Further recommendations to follow based on results of above - Pt seen and examined by Heriberto and myself and this note is written on her behalf (Aidee Horne) Physician Comments seen, examined agree with above ok to dc home from [facility] point if tolerates food egd/colonoscopy op gi will sign off (Nessa Louis MD) Aidee Horne Mar 08, 2017 11:19 Nessa Louis MD Mar 08, 2017 13:58
[2017-03-08 12:00] VITALS: BP 98/61; PULSE 58; RESP 16; TEMP 95.5; O2SAT 97
--- NOTE | 2017-03-08 12:57 | HHI.PR ---
Subjective Subjective Notes sitting up. Had half a banana and full liquids, no N/V, stools between soft and diarrhea. Objective Vitals/I&O Vital Signs Date Time Temp Pulse Resp B/P (MAP) Pulse Ox O2 Delivery O2 Flow Rate FiO2 03/08/17 12:00 95.5 58 16 98/61 (73) 97 03/07/17 19:17 Room Air Labs Laboratory Tests Test 03/08/17 05:00 White Blood Count 5.7 Red Blood Count 3.68 Hemoglobin 12.1 Hematocrit 36.1 Mean Corpuscular Volume 98.0 Mean Corpuscular Hemoglobin 33.0 Mean Corpuscular Hemoglobin Concent 33.7 Red Cell Distribution Width 14.1 Platelet Count 171 Mean Platelet Volume 8.0 Neutrophils (%) (Auto) 65.4 Lymphocytes (%) (Auto) 18.8 Monocytes (%) (Auto) 9.9 Eosinophils (%) (Auto) 4.8 Basophils (%) (Auto) 1.1 Neutrophils # (Auto) 3.7 Lymphocytes # (Auto) 1.1 Monocytes # (Auto) 0.6 Eosinophils # (Auto) 0.3 Basophils # (Auto) 0.1 CBC Comment DIFF FINAL Differential Comment Blood Urea Nitrogen 12 Creatinine 1.13 Random Glucose 76 Calcium Level 8.2 Sodium Level 142 Potassium Level 3.8 Chloride Level 111 Carbon Dioxide Level 23.1 Anion Gap 8 Estimat Glomerular Filtration Rate 62 Date/Time Source Procedure Growth Status 03/06/17 04:44 Blood Peripheral Aerobic Blood Culture - Preliminary NO GROWTH IN 2 DAYS Resulted 03/06/17 04:44 Anaerobic Blood Culture - Preliminary Staphylococcus Epidermidis Resulted Radiology Last 48 hours Impressions Chest X-Ray 03/06/17316 Signed Impressions: Service Date/Time: Monday, March 06, 2017 03:20 - CONCLUSION: 1. Emphysematous changes. 2. Blunting of the left costophrenic angle either related to pleural scarring or tiny effusion. 3. No appreciable free air. Rbeel Agee Jr., MD Abdomen/Pelvis CT 03/06/17316 Signed Impressions: Service Date/Time: [place], March 06, 2017 04:50 - CONCLUSION: 1. Diffuse dilatation of the small bowel without an obstructing mass or lesion. There is a left inguinal hernia containing sigmoid colon but this is not felt relating to the dilatation of the small bowel. 2. Trace amount of free fluid. 3. Small left pleural effusion. Rebel Agee Jr., MD Abdomen: Non-distended, Non-tender A/P Assessment and Plan Normal SBFT. Moving bowels. Wants regular food. Will order. Mikael Olsen MD Mar 08, 2017 12:57
[2017-03-08 16:00] VITALS: BP 123/64; PULSE 65; RESP 16; TEMP 96.7; O2SAT 99
[2017-03-08 20:00] VITALS: BP 115/70; PULSE 73; RESP 17; TEMP 96.6; O2SAT 96
[2017-03-08] MEDS: SODIUM CHLORIDE 0.9% FLUSH 10 ML FLUSH IV FLUSH SCH (21:45)
[2017-03-09] VITALS: BP 108/72; PULSE 71; RESP 17; TEMP 96.2; O2SAT 96
[2017-03-09] MEDS: CHLORHEXIDINE GLUCONATE 2 % 1 PACK (2 CLOTHS) TOP SCH (01:06)
[2017-03-09] MEDS: MORPHINE SULFATE 4 MG/ML INJ IV PUSH PRN ×3 (05:44→18:22)
[2017-03-09] MEDS: HEPARIN SODIUM - SQ 10,000 UNITS/ML VIAL SQ SCH ×2 (05:48→18:22)
[2017-03-09 08:00] VITALS: BP 116/67; PULSE 78; RESP 16; TEMP 97.1; O2SAT 96
[2017-03-09 08:34] LABS: BASOPHIL # 0.1 TH/MM3 (0-0.2); BASOPHIL % 0.9 % (0.0-2.0); EOSINOPHIL # 0.3 TH/MM3 (0-0.4); EOSINOPHIL % 4.1 % (0.0-4.0); HEMATOCRIT 40.5 % (39.0-51.0); HEMO FLAGS DIFF FINAL; LYMPHOCYTE # 0.9 TH/MM3 (1.0-4.8); MEAN CELL VOLUME 97.8 FL (80.0-100.0); MEAN CORPUSCULAR HEMOGLOBIN 33.2 PG (27.0-34.0); MONO % 9.2 % (0.0-8.0); NEUT % 72.8 % (16.0-70.0); PLATELET COUNT 188 TH/MM3 (150-450); RED BLOOD COUNT 4.14 MIL/MM3 (4.50-5.90); RED CELL DISTRIBUTION WIDTH 14.1 % (11.6-17.2); WHITE BLOOD COUNT 6.9 TH/MM3 (4.0-11.0)
[2017-03-09 08:52] LABS: ALT (GPT) 17 U/L (12-78); ANION GAP 8 MEQ/L (5-15); AST (GOT) 19 U/L (15-37); BICARBONATE 24.9 MEQ/L (21.0-32.0); BLOOD UREA NITROGEN 10 MG/DL (7-18); CHLORIDE 106 MEQ/L (98-107); GLOMERULAR FILTRATION RATE 58 ML/MIN (>89); MAGNESIUM 1.7 MG/DL (1.5-2.5); POTASSIUM 3.5 MEQ/L (3.5-5.1); SODIUM (NA) 139 MEQ/L (136-145)
[2017-03-09 09:00] LABS: ALKALINE PHOSPHATASE 50 U/L (45-117); TOTAL BILIRUBIN ADULT 0.5 MG/DL (0.2-1.0)
[2017-03-09] MEDS: PANTOPRAZOLE SODIUM 40 MG VIAL IV PUSH SCH (09:16)
[2017-03-09] MEDS: DIGOXIN 0.5 MG/2 ML VIAL IV PUSH SCH (09:16)
[2017-03-09] MEDS: DOCUSATE SODIUM 50 MG/SENNA 8.6 MG TAB PO SCH ×2 (09:16→20:48)
[2017-03-09] MEDS: SULFAMETHOXAZOLE-TRIMETHOPRIM DS 800-160 MG TAB PO SCH ×2 (09:17→20:48)
[2017-03-09] MEDS: FUROSEMIDE 40 MG TAB PO SCH (09:17)
[2017-03-09] MEDS: METOPROLOL TARTRATE 25 MG TAB PO SCH ×2 (09:17→20:50)
[2017-03-09] MEDS: SPIRONOLACTONE 25 MG TAB PO SCH (09:17)
[2017-03-09 09:49] LABS: HEMOGLOBIN A1a 0.9 %; HEMOGLOBIN A1b 1.1 %; HEMOGLOBIN Ao 85.2 %; HEMOGLOBIN LA1C 2.1 %; HEMOGLOBIN P3 5.3 %
[2017-03-09 12:00] VITALS: BP 95/55; PULSE 64; RESP 17; TEMP 96.5; O2SAT 97
[2017-03-09] MEDS: ONDANSETRON HCL 4 MG/2 ML VIAL IV PUSH PRN ×2 (13:22→18:22)
--- NOTE | 2017-03-09 15:58 | HHI.PR ---
Subjective Subjective Notes Resting in bed Wants to try some oatmeal this morning Objective Vitals/I&O Vital Signs Date Time Temp Pulse Resp B/P (MAP) Pulse Ox O2 Delivery O2 Flow Rate FiO2 03/09/17 12:00 96.5 64 17 95/55 (68) 97 03/07/17 19:17 Room Air Labs Laboratory Tests Test 03/09/17 07:38 White Blood Count 6.9 Red Blood Count 4.14 Hemoglobin 13.7 Hematocrit 40.5 Mean Corpuscular Volume 97.8 Mean Corpuscular Hemoglobin 33.2 Mean Corpuscular Hemoglobin Concent 34.0 Red Cell Distribution Width 14.1 Platelet Count 188 Mean Platelet Volume 8.1 Neutrophils (%) (Auto) 72.8 Lymphocytes (%) (Auto) 13.0 Monocytes (%) (Auto) 9.2 Eosinophils (%) (Auto) 4.1 Basophils (%) (Auto) 0.9 Neutrophils # (Auto) 5.0 Lymphocytes # (Auto) 0.9 Monocytes # (Auto) 0.6 Eosinophils # (Auto) 0.3 Basophils # (Auto) 0.1 CBC Comment DIFF FINAL Differential Comment Blood Urea Nitrogen 10 Creatinine 1.21 Random Glucose 85 Total Protein 5.8 Albumin 2.8 Calcium Level 8.1 Phosphorus Level 3.1 Magnesium Level 1.7 Alkaline Phosphatase 50 Aspartate Amino Transf (AST/SGOT) 19 Alanine Aminotransferase (ALT/SGPT) 17 Total Bilirubin 0.5 Sodium Level 139 Potassium Level 3.5 Chloride Level 106 Carbon Dioxide Level 24.9 Anion Gap 8 Estimat Glomerular Filtration Rate 58 Hemoglobin A1c 5.5 Free Thyroxine 1.10 Thyroid Stimulating Hormone 3rd Gen 3.730 Date/Time Source Procedure Growth Status 03/06/17 04:44 Blood Peripheral Aerobic Blood Culture - Preliminary NO GROWTH IN 3 DAYS Resulted 03/06/17 04:44 Anaerobic Blood Culture - Final Staphylococcus Epidermidis Resulted Radiology Last 48 hours Impressions Chest X-Ray 03/06/17 9722 Signed Impressions: Service Date/Time: Monday, March 06, 2017 03:20 - CONCLUSION: 1. Emphysematous changes. 2. Blunting of the left costophrenic angle either related to pleural scarring or tiny effusion. 3. No appreciable free air. Rebel Agee Jr., MD Abdomen/Pelvis CT 03/06/17 0317 Signed Impressions: Service Date/Time: Monday, March 06, 2017 04:50 - CONCLUSION: 1. Diffuse dilatation of the small bowel without an obstructing mass or lesion. There is a left inguinal hernia containing sigmoid colon but this is not felt relating to the dilatation of the small bowel. 2. Trace amount of free fluid. 3. Small left pleural effusion. Rebel Agee Jr., MD Cardiovascular: Regular Lungs: Clear Abdomen: Non-distended, Non-tender Extremities: No edema A/P Assessment and Plan 81-year-old male with abdominal pain and CT abdomen and pelvis suspicious for small bowel obstruction. -SBFT unremarkable -Regular diet----encouraged small, frequent, bland meals -OOB and mobilize -Continue non op treatment at this time Attending Statement patient seen at bedside appears to be improving Attestation The exam, history, and the medical decision-making described in the above note were completed with the assistance of the mid-level provider. I reviewed and agree with the findings presented. I attest that I had a [id number] encounter with the patient on the same day, and personally performed and documented my assessment and findings in the medical record. Cheri Veliz Mar 09, 2017 15:58 Johnny Villar MD Mar 18, 2017 13:01
[2017-03-09 16:00] VITALS: BP_SYST 171; BP_SYST 179; BP_DIAS 129; BP_DIAS 86; PULSE 106; RESP 17; TEMP 96.7; O2SAT 100
--- NOTE | 2017-03-09 17:45 | HHI.PR ---
Subjective Remarks Patient states he has tolerated the liquid diet that he's had and wants to be advanced We will defer to surgery since there on the case A.m. labs Diet per surgery Increase activity Denies any diarrhea or constipation at the moment 03-09 NOT TOLERATING A DIET --- HAVING LOTS OF ABDOMINAL PAIN WILL TRY GAS-EX ARTEM RN AND PATIENT WENT BACKWARDS ON THE DIET TO CLEAR LIQUIDS Objective Vitals Vital Signs Date Time Temp Pulse Resp B/P (MAP) Pulse Ox O2 Delivery O2 Flow Rate FiO2 03/09/17 12:00 96.5 64 17 95/55 (68) 97 03/09/17 08:00 97.1 78 16 116/67 (83) 96 03/09/17 05:49 16 03/09/17 00:00 96.2 71 17 108/72 (84) 96 03/08/17 20:00 96.6 73 17 115/70 (85) 96 I/O 03/08/17 03/08/17 03/08/17 03/09/17 03/09/17 03/09/17 07:00 15:00 23:00 07:00 15:00 23:00 Intake Total 240 ml 960 ml 240 ml Output Total 200 ml 500 ml 1800 ml Balance 40 ml -500 ml 960 ml -1560 ml Intake Oral 240 ml 960 ml 240 ml Output Urine Total 200 ml 500 ml 1800 ml # Voids 1 # Bowel Movements 3 Result Diagram: 03/09/17 0738 03/09/1738 Other Results Laboratory Tests Test 03/06/17 20:25 03/07/17 04:49 03/07/17 12:32 03/08/17 05:00 Lactic Acid Level 1.0 mmol/L 0.9 mmol/L White Blood Count 5.6 TH/MM3 5.7 TH/MM3 Red Blood Count 3.93 MIL/MM3 3.68 MIL/MM3 Hemoglobin 13.1 GM/DL 12.1 GM/DL Hematocrit 38.7 % 36.1 % Mean Corpuscular Volume 98.4 FL 98.0 FL Mean Corpuscular Hemoglobin 33.2 PG 33.0 PG Mean Corpuscular Hemoglobin Concent 33.8 % 33.7 % Red Cell Distribution Width 14.2 % 14.1 % Platelet Count 166 TH/MM3 171 TH/MM3 Mean Platelet Volume 7.7 FL 8.0 FL Neutrophils (%) (Auto) 66.4 % 65.4 % Lymphocytes (%) (Auto) 19.7 % 18.8 % Monocytes (%) (Auto) 7.6 % 9.9 % Eosinophils (%) (Auto) 5.1 % 4.8 % Basophils (%) (Auto) 1.2 % 1.1 % Neutrophils # (Auto) 3.7 TH/MM3 3.7 TH/MM3 Lymphocytes # (Auto) 1.1 TH/MM3 1.1 TH/MM3 Monocytes # (Auto) 0.4 TH/MM3 0.6 TH/MM3 Eosinophils # (Auto) 0.3 TH/MM3 0.3 TH/MM3 Basophils # (Auto) 0.1 TH/MM3 0.1 TH/MM3 CBC Comment DIFF FINAL DIFF FINAL Differential Comment Prothrombin Time 12.3 SEC Prothromb Time International Ratio 1.1 RATIO Blood Urea Nitrogen 11 MG/DL 12 MG/DL Creatinine 1.04 MG/DL 1.13 MG/DL Random Glucose 67 MG/DL 76 MG/DL Total Protein 5.2 GM/DL Albumin 2.6 GM/DL Calcium Level 8.1 MG/DL 8.2 MG/DL Phosphorus Level 2.9 MG/DL Magnesium Level 1.8 MG/DL Alkaline Phosphatase 49 U/L Aspartate Amino Transf (AST/SGOT) 18 U/L Alanine Aminotransferase (ALT/SGPT) 14 U/L Total Bilirubin 0.6 MG/DL Sodium Level 138 MEQ/L 142 MEQ/L Potassium Level 4.3 MEQ/L 3.8 MEQ/L Chloride Level 108 MEQ/L 111 MEQ/L Carbon Dioxide Level 24.7 MEQ/L 23.1 MEQ/L Anion Gap 5 MEQ/L 8 MEQ/L Estimat Glomerular Filtration Rate 69 ML/MIN 62 ML/MIN Stool C. difficile Toxin (PCR) NEGATIVE Stl C. difficile Toxin Epiderm 027 PRESUMPTIVE NEGATIVE Test 03/09/17 07:38 White Blood Count 6.9 TH/MM3 Red Blood Count 4.14 MIL/MM3 Hemoglobin 13.7 GM/DL Hematocrit 40.5 % Mean Corpuscular Volume 97.8 FL Mean Corpuscular Hemoglobin 33.2 PG Mean Corpuscular Hemoglobin Concent 34.0 % Red Cell Distribution Width 14.1 % Platelet Count 188 TH/MM3 Mean Platelet Volume 8.1 FL Neutrophils (%) (Auto) 72.8 % Lymphocytes (%) (Auto) 13.0 % Monocytes (%) (Auto) 9.2 % Eosinophils (%) (Auto) 4.1 % Basophils (%) (Auto) 0.9 % Neutrophils # (Auto) 5.0 TH/MM3 Lymphocytes # (Auto) 0.9 TH/MM3 Monocytes # (Auto) 0.6 TH/MM3 Eosinophils # (Auto) 0.3 TH/MM3 Basophils # (Auto) 0.1 TH/MM3 CBC Comment DIFF FINAL Differential Comment Blood Urea Nitrogen 10 MG/DL Creatinine 1.21 MG/DL Random Glucose 85 MG/DL Total Protein 5.8 GM/DL Albumin 2.8 GM/DL Calcium Level 8.1 MG/DL Phosphorus Level 3.1 MG/DL Magnesium Level 1.7 MG/DL Alkaline Phosphatase 50 U/L Aspartate Amino Transf (AST/SGOT) 19 U/L Alanine Aminotransferase (ALT/SGPT) 17 U/L Total Bilirubin 0.5 MG/DL Sodium Level 139 MEQ/L Potassium Level 3.5 MEQ/L Chloride Level 106 MEQ/L Carbon Dioxide Level 24.9 MEQ/L Anion Gap 8 MEQ/L Estimat Glomerular Filtration Rate 58 ML/MIN Hemoglobin A1c 5.5 % Free Thyroxine 1.10 NG/DL Thyroid Stimulating Hormone 3rd Gen 3.730 uIU/ML Imaging Last Impressions Small Bowel X-Ray 03/07/17 0800 Signed Impressions: Service Date/Time: Tuesday, March 07, 2017 10:12 - CONCLUSION: There was normal transit of barium from the stomach down to the colon. The exam does demonstrate some thickening of the small bowel diffusely throughout the ileum suggesting enteritis. No findings to indicate obstruction are seen. Liang Chen MD Abdomen X-Ray 03/06/17 1600 Signed Impressions: Service Date/Time: Monday, March 06, 2017 16:14 - CONCLUSION: Mild fluid and gaseous distention of small bowel Luca Lam MD Chest X-Ray 03/06/17316 Signed Impressions: Service Date/Time: Monday, March 06, 2017 03:20 - CONCLUSION: 1. Emphysematous changes. 2. Blunting of the left costophrenic angle either related to pleural scarring or tiny effusion. 3. No appreciable free air. Rebel Agee Jr., MD Abdomen/Pelvis CT 03/06/17316 Signed Impressions: Service Date/Time: Monday, March 06, 2017 04:50 - CONCLUSION: 1. Diffuse dilatation of the small bowel without an obstructing mass or lesion. There is a left inguinal hernia containing sigmoid colon but this is not felt relating to the dilatation of the small bowel. 2. Trace amount of free fluid. 3. Small left pleural effusion. Rebel Agee Jr., MD Objective Remarks GENERAL: Awake alert and oriented talkative and cooperative very thin at appearing male SKIN: Warm and dry. HEAD: Atraumatic. Normocephalic. EYES: Pupils equal and round. No scleral icterus. No injection or drainage. Extraocular muscles intact ENT: No nasal bleeding or discharge. Mucous membranes pink and moist. Tongue is midline NECK: Trachea midline. No JVD. Supple CARDIOVASCULAR: Regular rate and rhythm. S1 and S2 no S3 or S4 no heave or thrill or rub or gallop RESPIRATORY: No accessory muscle use. Clear to auscultation. Breath sounds equal bilaterally. GASTROINTESTINAL: Abdomen soft, non-tender, nondistended. Hepatic and splenic margins not palpable. MUSCULOSKELETAL: Extremities without clubbing, cyanosis, or edema. No obvious deformities. NEUROLOGICAL: Awake and alert. No obvious cranial nerve deficits. Motor grossly within normal limits. 4 out of 5 muscle strength in the arms and legs. Normal speech. PSYCHIATRIC: Appropriate mood and affect; insight and judgment normal. Medications and IVs Current Medications Morphine Sulfate (Morphine Inj) 4 mg ONCE ONCE IV PUSH Last administered on 04:22; Start 03/06/17 at 03:30; Stop 03/06/17 at 03:31; Status DC Ondansetron HCl (Zofran Inj) 4 mg ONCE ONCE IVP Last administered on 04:23; Start 03/06/17 at 03:30; Stop 03/06/17 at 03:31; Status DC Sodium Chloride 1,000 ml @ 1,000 mls/hr Q1H IV Last administered on 03/06/17 04:22; Start 03/06/17 at 03:17; Stop 03/06/17 at 04:16; Status DC Sodium Chloride (NS Flush) 2 ml UNSCH PRN IV FLUSH FLUSH AFTER USING IV ACCESS ; Start 03/06/17 at 03:30; Stop 03/06/17 at 06:11; Status DC Diatrizoate Meglum/ Diatrizoate Sod (Md Jose Storm) 18 ml STK-MED ONCE .ROUTE Last administered on 03/06/17 03:53; Start 03/06/17 at 03:33; Stop 03/06/17 at 03:34; Status DC Sodium Chloride 1,000 ml @ 999 mls/hr BOLUS ONCE IV Last administered on 03/06 04:36; Start 03/06/17 at 04:45; Stop 03/06/17 at 05:45; Status DC Vancomycin HCl 1000 mg/Sodium Chloride 250 ml @ 250 mls/hr ONCE STAT IV Last administered on 03/06/17 06:16; Start 03/06/17 at 04:32; Stop 03/06/17 at 05:31 ; Status DC Aztreonam 2000 mg/ Sodium Chloride 100 ml @ 200 mls/hr ONCE STAT IV Last administered on 03/06/17 04:47; Start 03/06/17 at 04:32; Stop 03/06/17 at 05:01 ; Status DC Metronidazole 100 ml @ 100 mls/hr ONCE STAT IV Last administered on 05:21; Start 03/06/17 at 04:32; Stop 03/06/17 at 05:31; Status DC Sodium Chloride 1,000 ml @ 84 mls/hr [id number] IV ; Start 03/06/17 at 05:51; Stop 03/06/17 at 06:11; Status DC Sodium Chloride (NS Flush) 2 ml UNSCH PRN IV FLUSH FLUSH AFTER USING IV ACCESS ; Start 03/06/17 at 06:00 Sodium Chloride (NS Flush) 2 ml BID IV FLUSH Last administered on 03/08/17 21: 45; Start 03/06/17 at 09:00 Acetaminophen (Tylenol) 650 mg Q6H PRN PO PAIN 1-10 AND/OR FEVER >101F; Start 03/06/17 at 06:00; Stop 03/06/17 at 06:33; Status DC Morphine Sulfate (Morphine Inj) 2 mg Q2H PRN IV PUSH PAIN SCALE 6 TO 10 Last administered on 03/09/17 13:22; Start 03/06/17 at 06:00 Pantoprazole Sodium (Protonix Inj) 40 mg DAILY IV PUSH Last administered on 09:16; Start 03/06/17 at 09:00 Ondansetron HCl (Zofran Inj) 4 mg Q6H PRN IV PUSH NAUSEA OR VOMITING Last administered on 03/09/17 13:22; Start 03/06/17 at 06:00 Albuterol/ Ipratropium (Duoneb Neb) 1 ampule Q2HR NEB PRN INH WHEEZING; Start 03/06/17 at 06:00 Heparin Sodium (Porcine) (Heparin Inj) 5,000 units Q8HR SQ Last administered on 03/06/17 06:23; Start 03/06/17 at 06:00; Stop 03/06/17 at 07:02; Status DC Miscellaneous Information 1 [id number] XX ; Start 03/06/17 at 06:00 Chlorhexidine Gluconate (Chlorhexidine 2% Cloth) 3 pack Taper DAILY@04 TOP ; Start 03/07/17 at 04:00; Stop 03/03/18 at 03:59 Chlorhexidine Gluconate (Chlorhexidine 2% Cloth) 3 pack UNSCH PRN TOP HYGIENIC CARE; Start 03/06/17 at 06:00 Senna/Docusate Sodium (Re-Colace) 1 tab BID PO Last administered on 09:16; Start 03/06/17 at 09:00 Magnesium Hydroxide (Milk Of Magnesia Liq) 30 ml Q12H PRN PO MILD - MODERATE CONSTIPATION; Start 03/06/17 at 06:00; Stop 03/06/17 at 06:36; Status DC Sennosides (Senokot) 17.2 mg Q12H PRN PO MODERATE - SEVERE CONSTIPATION; Start 03/06/17 at 06:00; Stop 03/06/17 at 06:33; Status DC Bisacodyl (Dulcolax Supp) 10 mg DAILY PRN RECTAL SEVERE CONSITIPATION; Start 03/06/17 at 06:00 Lactulose (Lactulose Liq) 30 ml DAILY PRN PO SEVERE CONSITIPATION; Start at 06:00; Stop 03/06/17 at 06:33; Status DC Digoxin (Lanoxin Inj) 0.125 mg DAILY IV PUSH Last administered on 03/09/17 09: 16; Start 03/06/17 at 09:00 Potassium Chloride/Sodium Chloride 1,000 ml @ 50 mls/hr Q20H IV Last administered on 03/06/17 08:18; Start 03/06/17 at 06:45; Stop 03/07/17 at 14:43 ; Status DC Heparin Sodium (Porcine) (Heparin Inj) 5,000 units Q12H SQ Last administered on 03/09/17 05:48; Start 03/06/17 at 18:00 Metoprolol Tartrate (Lopressor) 12.5 mg BID PO Last administered on 03/09/17 09:17; Start 03/06/17 at 15:00 Spironolactone (Aldactone) 25 mg DAILY PO Last administered on 03/09/17 09:17 ; Start 03/07/17 at 09:00 Miscellaneous (Pill Splitter) 1 ea UNSCH PRN OTHER SEE LABEL COMMENTS; Start 03/06/17 at 14:45 Padimate O (Chapstick) 1 applic UNSCH PRN TOPICAL DRY LIPS; Start 03/06/17 at 20:30 Dextrose (D50w (Vial) Inj) 50 ml UNSCH PRN IV PUSH HYPOGLYCEMIA-SEE COMMENTS Last administered on 03/07/17 07:08; Start 03/07/17 at 07:00 Glucagon (Glucagon Inj) 1 mg STAT PRN IM HYPOGLYCEMIA-SEE COMMENTS; Start 03/07 at 07:00 Furosemide (Lasix) 40 mg DAILY PO Last administered on 03/09/17 09:17; Start 03/07/17 at 10:00 Trimethoprim/ Sulfamethoxazole (Bactrim Ds 800-160 Mg) 1 tab BID PO Last administered on 03/09/17 09:17; Start 03/07/17 at 10:00 Diatrizoate Meglum/ Diatrizoate Sod ( Gastroview Liq) 360 ml STK-MED ONCE PO Last administered on 03/07/17 11:55; Start 03/07/17 at 11:55; Stop 03/07/17 at 11:56; Status DC Urinary Catheter: No Vascular Central Line Catheter: No A/P Assessment and Plan 81 yo male, critically ill with severe dehydration, acute kidney injury, and small bowel obstruction. Ideally we would define the cause of his obstruction prior to intervention but might not have that luxury. For now he will have NG decompression, serial exams, and aggressive fluid resuscitation. NG tube has been removed Small bowel obstruction. JOSEE. Dehydration. Hx of bladder cancer. IV hydration isotonic fluid. NG to LIS. Protonix. Heparin sq for DVT. Antibiotic coverage. Monitor I&O. GI consult, gen surgery consult . Had serial abdominal exam appears stable at this moment Advance diet to CLD Discussed with patient, nurse Diet per surgery Discharge Planning May need SNF versus home health care Jonatan Aburto DO Mar 09, 2017 17:45
[2017-03-09 20:25] VITALS: BP 97/65; PULSE 78; RESP 18; TEMP 97.3; O2SAT 98
[2017-03-09] MEDS: SIMETHICONE 125 MG CHEWABLE TAB PO SCH (20:48)
[2017-03-09] MEDS: SODIUM CHLORIDE 0.9% FLUSH 10 ML FLUSH IV FLUSH SCH (21:00)
[2017-03-10] MEDS: CHLORHEXIDINE GLUCONATE 2 % 1 PACK (2 CLOTHS) TOP SCH (04:00)
[2017-03-10 04:32] VITALS: O2SAT 94
[2017-03-10] MEDS: SIMETHICONE 125 MG CHEWABLE TAB PO SCH ×3 (05:58→21:58)
[2017-03-10] MEDS: HEPARIN SODIUM - SQ 10,000 UNITS/ML VIAL SQ SCH ×2 (05:59→18:03)
[2017-03-10] MEDS: ONDANSETRON HCL 4 MG/2 ML VIAL IV PUSH PRN ×2 (06:10→15:52)
[2017-03-10 08:00] VITALS: BP 116/69; PULSE 54; RESP 18; TEMP 97; O2SAT 95
[2017-03-10 08:20] LABS: AUTOMATED NEUTROPHIL # 6.1 TH/MM3 (1.8-7.7); BASOPHIL % 0.6 % (0.0-2.0); EOSINOPHIL # 0.1 TH/MM3 (0-0.4); EOSINOPHIL % 1.5 % (0.0-4.0); HEMATOCRIT 45.7 % (39.0-51.0); HEMO FLAGS DIFF FINAL; LYMPH % 11.2 % (9.0-44.0); LYMPHOCYTE # 0.9 TH/MM3 (1.0-4.8); MEAN CELL VOLUME 97.4 FL (80.0-100.0); MEAN CORPUSCULAR HEMOGLOBIN 33.2 PG (27.0-34.0); MEAN CORPUSCULAR HGB CONC 34.1 % (32.0-36.0); MONO % 7.8 % (0.0-8.0); NEUT % 78.9 % (16.0-70.0); PLATELET COUNT 211 TH/MM3 (150-450); RED BLOOD COUNT 4.69 MIL/MM3 (4.50-5.90); RED CELL DISTRIBUTION WIDTH 14.3 % (11.6-17.2); WHITE BLOOD COUNT 7.7 TH/MM3 (4.0-11.0)
[2017-03-10 08:48] LABS: ALT (GPT) 23 U/L (12-78); ANION GAP 9 MEQ/L (5-15); AST (GOT) 26 U/L (15-37); BICARBONATE 26.1 MEQ/L (21.0-32.0); BLOOD UREA NITROGEN 10 MG/DL (7-18); CHLORIDE 101 MEQ/L (98-107); GLOMERULAR FILTRATION RATE 49 ML/MIN (>89); MAGNESIUM 1.9 MG/DL (1.5-2.5); POTASSIUM 3.7 MEQ/L (3.5-5.1); SODIUM (NA) 136 MEQ/L (136-145)
[2017-03-10 08:51] LABS: ALKALINE PHOSPHATASE 55 U/L (45-117); TOTAL BILIRUBIN ADULT 0.5 MG/DL (0.2-1.0)
[2017-03-10] MEDS: SODIUM CHLORIDE 0.9% FLUSH 10 ML FLUSH IV FLUSH SCH ×2 (09:00→21:00)
[2017-03-10] MEDS: DIGOXIN 0.5 MG/2 ML VIAL IV PUSH SCH (09:00)
[2017-03-10] MEDS: PANTOPRAZOLE SODIUM 40 MG VIAL IV PUSH SCH (09:00)
[2017-03-10] MEDS: SPIRONOLACTONE 25 MG TAB PO SCH (09:07)
[2017-03-10] MEDS: FUROSEMIDE 40 MG TAB PO SCH (09:07)
[2017-03-10] MEDS: SULFAMETHOXAZOLE-TRIMETHOPRIM DS 800-160 MG TAB PO SCH ×2 (09:07→21:57)
[2017-03-10] MEDS: DOCUSATE SODIUM 50 MG/SENNA 8.6 MG TAB PO SCH ×2 (09:08→21:58)
[2017-03-10] MEDS: METOPROLOL TARTRATE 25 MG TAB PO SCH ×3 (09:08→21:58)
[2017-03-10 09:14] VITALS: O2SAT 95
[2017-03-10] MEDS: SODIUM CHLOR 0.9% 1000 ML INJ 1,000 ML IV SCH ×2 (09:27→22:00)
[2017-03-10] MEDS: MORPHINE SULFATE 4 MG/ML INJ IV PUSH PRN (09:32)
--- NOTE | 2017-03-10 10:10 | HHI.FF ---
Face to Face Verification Diagnosis: (1) Small bowel obstruction (2) Lactic acidosis Physical Therapy Order: Evaluate and Treat, Improve ambulation, Strength and gait training Occupational Therapy Order: Evaluate and Treat, Gross motor coordination, Fine motor coordination Home Health Nursing Order: Medical education Nursing assessment with vital signs Home Health Aide Order: To Assist In: Bathing and personal care, night worker and meal prep I have seen patient Nestor John on 03/10/17. My clinical findings support the need for the requested home health care services because: Deconditioned w/ increased weakness High risk of falls I certify that my clinical findings support that this patient is homebound because: Unsteady gait/balance Jonatan Aburto DO Mar 10, 2017 10:10
--- NOTE | 2017-03-10 10:49 | HHI.PR ---
Subjective Subjective Notes Resting in bed Had some acute abdominal pain overnight Objective Vitals/I&O Vital Signs Date Time Temp Pulse Resp B/P (MAP) Pulse Ox O2 Delivery O2 Flow Rate FiO2 03/10/17 09:14 95 21 03/10/17 08:00 97.0 54 18 116/69 (85) 03/07/17 19:17 Room Air Labs Laboratory Tests Test 03/10/17 07:17 White Blood Count 7.7 Red Blood Count 4.69 Hemoglobin 15.6 Hematocrit 45.7 Mean Corpuscular Volume 97.4 Mean Corpuscular Hemoglobin 33.2 Mean Corpuscular Hemoglobin Concent 34.1 Red Cell Distribution Width 14.3 Platelet Count 211 Mean Platelet Volume 8.3 Neutrophils (%) (Auto) 78.9 Lymphocytes (%) (Auto) 11.2 Monocytes (%) (Auto) 7.8 Eosinophils (%) (Auto) 1.5 Basophils (%) (Auto) 0.6 Neutrophils # (Auto) 6.1 Lymphocytes # (Auto) 0.9 Monocytes # (Auto) 0.6 Eosinophils # (Auto) 0.1 Basophils # (Auto) 0.0 CBC Comment DIFF FINAL Differential Comment Blood Urea Nitrogen 10 Creatinine 1.40 Random Glucose 106 Total Protein 6.4 Albumin 3.0 Calcium Level 8.8 Phosphorus Level 4.0 Magnesium Level 1.9 Alkaline Phosphatase 55 Aspartate Amino Transf (AST/SGOT) 26 Alanine Aminotransferase (ALT/SGPT) 23 Total Bilirubin 0.5 Sodium Level 136 Potassium Level 3.7 Chloride Level 101 Carbon Dioxide Level 26.1 Anion Gap 9 Estimat Glomerular Filtration Rate 49 Date/Time Source Procedure Growth Status 03/06/17 04:44 Blood Peripheral Aerobic Blood Culture - Preliminary NO GROWTH IN 3 DAYS Resulted 03/06/17 04:44 Anaerobic Blood Culture - Final Staphylococcus Epidermidis Resulted Radiology Last 48 hours Impressions Chest X-Ray 03/06/17 1374 Signed Impressions: Service Date/Time: Monday, March 06, 2017 03:20 - CONCLUSION: 1. Emphysematous changes. 2. Blunting of the left costophrenic angle either related to pleural scarring or tiny effusion. 3. No appreciable free air. Rebel Agee Jr., MD Abdomen/Pelvis CT 03/06/17 0317 Signed Impressions: Service Date/Time: Monday, March 06, 2017 04:50 - CONCLUSION: 1. Diffuse dilatation of the small bowel without an obstructing mass or lesion. There is a left inguinal hernia containing sigmoid colon but this is not felt relating to the dilatation of the small bowel. 2. Trace amount of free fluid. 3. Small left pleural effusion. Rebel Agee Jr., MD Cardiovascular: Regular Lungs: Clear Abdomen: Non-distended, Other (minimally tender to palpation ) Extremities: No edema A/P Assessment and Plan 81-year-old male with abdominal pain and CT abdomen and pelvis suspicious for small bowel obstruction. -SBFT unremarkable -Continue regular diet----encouraged small, frequent, bland meals -OOB and mobilize -IVF until PO intake better -Continue non op treatment at this time Attending Statement patient seen at bedside sbft shows bowel is now open Cheri Veliz Mar 10, 2017 10:49 Johnny Villar MD Mar 18, 2017 13:01
[2017-03-10 12:00] VITALS: BP 113/73; PULSE 80; RESP 19; TEMP 96.3; O2SAT 97
[2017-03-10 16:00] VITALS: BP 107/70; PULSE 67; RESP 16; TEMP 96.3; O2SAT 96
[2017-03-10] MEDS ORDERED: NALOXONE HCL 0.4 MG/ML AMP IV PUSH PRN (16:15)
[2017-03-10] MEDS ORDERED: MAGNESIUM HYDROXIDE SUSP 30 ML CUP PO PRN (16:15)
[2017-03-10] MEDS ORDERED: BISACODYL 10 MG SUPP RECTAL PRN (16:15)
[2017-03-10] MEDS ORDERED: SENNOSIDES 8.6 MG TAB PO PRN (16:15)
[2017-03-10] MEDS ORDERED: LACTULOSE SYRUP 20 GM/30 ML CUP PO PRN (16:15)
--- NOTE | 2017-03-10 16:19 | HHI.PR ---
Subjective Remarks Patient states he has tolerated the liquid diet that he's had and wants to be advanced We will defer to surgery since there on the case A.m. labs Diet per surgery Increase activity Denies any diarrhea or constipation at the moment 10 NOT TOLERATING A DIET --- HAVING LOTS OF ABDOMINAL PAIN WILL TRY GAS-EX ARTEM RN AND PATIENT WENT BACKWARDS ON THE DIET TO CLEAR LIQUIDS 10-10 STILL HAVING LOTS OF ABDOMINAL PAIN BACK ON CLEAR LIQUIDS DOES NOT LIKE THE MORPHINE WILL MAKE PERCOCETS AVAILABLE DW RN AND PT Objective Vitals Vital Signs Date Time Temp Pulse Resp B/P (MAP) Pulse Ox O2 Delivery O2 Flow Rate FiO2 03/10/17 12:00 96.3 80 19 113/73 (86) 97 03/10/17 09:14 95 21 03/10/17 08:00 97.0 54 18 116/69 (85) 95 03/10/17 04:32 94 03/09/17 20:25 97.3 78 18 97/65 (76) 98 I/O 03/09/17 03/09/17 03/09/17 03/10/17 03/10/17 03/10/17 07:00 15:00 23:00 07:00 15:00 23:00 Intake Total 240 ml 415 ml 580 ml Output Total 1800 ml 975 ml 1050 ml Balance -1560 ml -560 ml -470 ml Intake Oral 240 ml 415 ml 580 ml Output Urine Total 1800 ml 975 ml 1050 ml # Bowel Movements 0 Result Diagram: 03/10/1717 03/10/1717 Other Results Laboratory Tests Test 03/08/17 05:00 03/09/17 07:38 03/10/17 07:17 White Blood Count 5.7 TH/MM3 6.9 TH/MM3 7.7 TH/MM3 Red Blood Count 3.68 MIL/MM3 4.14 MIL/MM3 4.69 MIL/MM3 Hemoglobin 12.1 GM/DL 13.7 GM/DL 15.6 GM/DL Hematocrit 36.1 % 40.5 % 45.7 % Mean Corpuscular Volume 98.0 FL 97.8 FL 97.4 FL Mean Corpuscular Hemoglobin 33.0 PG 33.2 PG 33.2 PG Mean Corpuscular Hemoglobin Concent 33.7 % 34.0 % 34.1 % Red Cell Distribution Width 14.1 % 14.1 % 14.3 % Platelet Count 171 TH/MM3 188 TH/MM3 211 TH/MM3 Mean Platelet Volume 8.0 FL 8.1 FL 8.3 FL Neutrophils (%) (Auto) 65.4 % 72.8 % 78.9 % Lymphocytes (%) (Auto) 18.8 % 13.0 % 11.2 % Monocytes (%) (Auto) 9.9 % 9.2 % 7.8 % Eosinophils (%) (Auto) 4.8 % 4.1 % 1.5 % Basophils (%) (Auto) 1.1 % 0.9 % 0.6 % Neutrophils # (Auto) 3.7 TH/MM3 5.0 TH/MM3 6.1 TH/MM3 Lymphocytes # (Auto) 1.1 TH/MM3 0.9 TH/MM3 0.9 TH/MM3 Monocytes # (Auto) 0.6 TH/MM3 0.6 TH/MM3 0.6 TH/MM3 Eosinophils # (Auto) 0.3 TH/MM3 0.3 TH/MM3 0.1 TH/MM3 Basophils # (Auto) 0.1 TH/MM3 0.1 TH/MM3 0.0 TH/MM3 CBC Comment DIFF FINAL DIFF FINAL DIFF FINAL Differential Comment Blood Urea Nitrogen 12 MG/DL 10 MG/DL 10 MG/DL Creatinine 1.13 MG/DL 1.21 MG/DL 1.40 MG/DL Random Glucose 76 MG/DL 85 MG/DL 106 MG/DL Calcium Level 8.2 MG/DL 8.1 MG/DL 8.8 MG/DL Sodium Level 142 MEQ/L 139 MEQ/L 136 MEQ/L Potassium Level 3.8 MEQ/L 3.5 MEQ/L 3.7 MEQ/L Chloride Level 111 MEQ/L 106 MEQ/L 101 MEQ/L Carbon Dioxide Level 23.1 MEQ/L 24.9 MEQ/L 26.1 MEQ/L Anion Gap 8 MEQ/L 8 MEQ/L 9 MEQ/L Estimat Glomerular Filtration Rate 62 ML/MIN 58 ML/MIN 49 ML/MIN Total Protein 5.8 GM/DL 6.4 GM/DL Albumin 2.8 GM/DL 3.0 GM/DL Phosphorus Level 3.1 MG/DL 4.0 MG/DL Magnesium Level 1.7 MG/DL 1.9 MG/DL Alkaline Phosphatase 50 U/L 55 U/L Aspartate Amino Transf (AST/SGOT) 19 U/L 26 U/L Alanine Aminotransferase (ALT/SGPT) 17 U/L 23 U/L Total Bilirubin 0.5 MG/DL 0.5 MG/DL Hemoglobin A1c 5.5 % Free Thyroxine 1.10 NG/DL Thyroid Stimulating Hormone 3rd Gen 3.730 uIU/ML Imaging Last Impressions Small Bowel X-Ray 03/07/17 0800 Signed Impressions: Service Date/Time: Tuesday, March 07, 2017 10:12 - CONCLUSION: There was normal transit of barium from the stomach down to the colon. The exam does demonstrate some thickening of the small bowel diffusely throughout the ileum suggesting enteritis. No findings to indicate obstruction are seen. Liang Chen MD Abdomen X-Ray 03/06/17 1600 Signed Impressions: Service Date/Time: Monday, March 06, 2017 16:14 - CONCLUSION: Mild fluid and gaseous distention of small bowel Luca Lam MD Chest X-Ray 03/06/17316 Signed Impressions: Service Date/Time: Monday, March 06, 2017 03:20 - CONCLUSION: 1. Emphysematous changes. 2. Blunting of the left costophrenic angle either related to pleural scarring or tiny effusion. 3. No appreciable free air. Rebel Agee Jr., MD Abdomen/Pelvis CT 03/06/17316 Signed Impressions: Service Date/Time: Monday, March 06, 2017 04:50 - CONCLUSION: 1. Diffuse dilatation of the small bowel without an obstructing mass or lesion. There is a left inguinal hernia containing sigmoid colon but this is not felt relating to the dilatation of the small bowel. 2. Trace amount of free fluid. 3. Small left pleural effusion. Rebel Agee Jr., MD Objective Remarks GENERAL: Awake alert and oriented talkative and cooperative very thin at appearing male SKIN: Warm and dry. HEAD: Atraumatic. Normocephalic. EYES: Pupils equal and round. No scleral icterus. No injection or drainage. Extraocular muscles intact ENT: No nasal bleeding or discharge. Mucous membranes pink and moist. Tongue is midline NECK: Trachea midline. No JVD. Supple CARDIOVASCULAR: Regular rate and rhythm. S1 and S2 no S3 or S4 no heave or thrill or rub or gallop RESPIRATORY: No accessory muscle use. Clear to auscultation. Breath sounds equal bilaterally. GASTROINTESTINAL: Abdomen soft, MILDLY tender, nondistended. Hepatic and splenic margins not palpable. MUSCULOSKELETAL: Extremities without clubbing, cyanosis, or edema. No obvious deformities. NEUROLOGICAL: Awake and alert. No obvious cranial nerve deficits. Motor grossly within normal limits. 4 out of 5 muscle strength in the arms and legs. Normal speech. PSYCHIATRIC: Appropriate mood and affect; insight and judgment normal. Medications and IVs Current Medications Morphine Sulfate (Morphine Inj) 4 mg ONCE ONCE IV PUSH Last administered on 04:22; Start 03/06/17 at 03:30; Stop 03/06/17 at 03:31; Status DC Ondansetron HCl (Zofran Inj) 4 mg ONCE ONCE IVP Last administered on 04:23; Start 03/06/17 at 03:30; Stop 03/06/17 at 03:31; Status DC Sodium Chloride 1,000 ml @ 1,000 mls/hr Q1H IV Last administered on 03/06/17 04:22; Start 03/06/17 at 03:17; Stop 03/06/17 at 04:16; Status DC Sodium Chloride (NS Flush) 2 ml UNSCH PRN IV FLUSH FLUSH AFTER USING IV ACCESS ; Start 03/06/17 at 03:30; Stop 03/06/17 at 06:11; Status DC Diatrizoate Meglum/ Diatrizoate Sod ( Gastroview Liq) 18 ml STK-MED ONCE .ROUTE Last administered on 03/06/17 03:53; Start 03/06/17 at 03:33; Stop 03/06/17 at 03:34; Status DC Sodium Chloride 1,000 ml @ 999 mls/hr BOLUS ONCE IV Last administered on 03/06 04:36; Start 03/06/17 at 04:45; Stop 03/06/17 at 05:45; Status DC Vancomycin HCl 1000 mg/Sodium Chloride 250 ml @ 250 mls/hr ONCE STAT IV Last administered on 03/06/17 06:16; Start 03/06/17 at 04:32; Stop 03/06/17 at 05:31 ; Status DC Aztreonam 2000 mg/ Sodium Chloride 100 ml @ 200 mls/hr ONCE STAT IV Last administered on 03/06/17 04:47; Start 03/06/17 at 04:32; Stop 03/06/17 at 05:01 ; Status DC Metronidazole 100 ml @ 100 mls/hr ONCE STAT IV Last administered on 05:21; Start 03/06/17 at 04:32; Stop 03/06/17 at 05:31; Status DC Sodium Chloride 1,000 ml @ 84 mls/hr [id number] IV ; Start 03/06/17 at 05:51; Stop 03/06/17 at 06:11; Status DC Sodium Chloride (NS Flush) 2 ml UNSCH PRN IV FLUSH FLUSH AFTER USING IV ACCESS ; Start 03/06/17 at 06:00 Sodium Chloride (NS Flush) 2 ml BID IV FLUSH Last administered on 03/10/17 09 :00; Start 03/06/17 at 09:00 Acetaminophen (Tylenol) 650 mg Q6H PRN PO PAIN 1-10 AND/OR FEVER >101F; Start 03/06/17 at 06:00; Stop 03/06/17 at 06:33; Status DC Morphine Sulfate (Morphine Inj) 2 mg Q2H PRN IV PUSH PAIN SCALE 6 TO 10 Last administered on 03/10/17 09:32; Start 03/06/17 at 06:00 Pantoprazole Sodium (Protonix Inj) 40 mg DAILY IV PUSH Last administered on 09:00; Start 03/06/17 at 09:00 Ondansetron HCl (Zofran Inj) 4 mg Q6H PRN IV PUSH NAUSEA OR VOMITING Last administered on 03/10/17 15:52; Start 03/06/17 at 06:00 Albuterol/ Ipratropium (Duoneb Neb) 1 ampule Q2HR NEB PRN INH WHEEZING; Start 03/06/17 at 06:00 Heparin Sodium (Porcine) (Heparin Inj) 5,000 units Q8HR SQ Last administered on 03/06/17 06:23; Start 03/06/17 at 06:00; Stop 03/06/17 at 07:02; Status DC Miscellaneous Information 1 [id number] ; Start 03/06/17 at 06:00 Chlorhexidine Gluconate (Chlorhexidine 2% Cloth) 3 pack Taper DAILY@04 TOP ; Start 03/07/17 at 04:00; Stop 03/03/18 at 03:59 Chlorhexidine Gluconate (Chlorhexidine 2% Cloth) 3 pack UNSCH PRN TOP HYGIENIC CARE; Start 03/06/17 at 06:00 Senna/Docusate Sodium (Re-Colace) 1 tab BID PO Last administered on 09:08; Start 03/06/17 at 09:00 Magnesium Hydroxide (Milk Of Magnesia Liq) 30 ml Q12H PRN PO MILD - MODERATE CONSTIPATION; Start 03/06/17 at 06:00; Stop 03/06/17 at 06:36; Status DC Sennosides (Senokot) 17.2 mg Q12H PRN PO MODERATE - SEVERE CONSTIPATION; Start 03/06/17 at 06:00; Stop 03/06/17 at 06:33; Status DC Bisacodyl (Dulcolax Supp) 10 mg DAILY PRN RECTAL SEVERE CONSITIPATION; Start 03/06/17 at 06:00 Lactulose (Lactulose Liq) 30 ml DAILY PRN PO SEVERE CONSITIPATION; Start at 06:00; Stop 03/06/17 at 06:33; Status DC Digoxin (Lanoxin Inj) 0.125 mg DAILY IV PUSH Last administered on 03/10/17 09 :00; Start 03/06/17 at 09:00 Potassium Chloride/Sodium Chloride 1,000 ml @ 50 mls/hr Q20H IV Last administered on 03/06/17 08:18; Start 03/06/17 at 06:45; Stop 03/07/17 at 14:43 ; Status DC Heparin Sodium (Porcine) (Heparin Inj) 5,000 units Q12H SQ Last administered on 03/10/17 05:59; Start 03/06/17 at 18:00 Metoprolol Tartrate (Lopressor) 12.5 mg BID PO Last administered on 03/10/17 09:08; Start 03/06/17 at 15:00 Spironolactone (Aldactone) 25 mg DAILY PO Last administered on 03/10/17 09:07 ; Start 03/07/17 at 09:00 Miscellaneous (Pill Splitter) 1 ea UNSCH PRN OTHER SEE LABEL COMMENTS; Start 03/06/17 at 14:45 Padimate O (Chapstick) 1 applic UNSCH PRN TOPICAL DRY LIPS; Start 03/06/17 at 20:30 Dextrose (D50w (Vial) Inj) 50 ml UNSCH PRN IV PUSH HYPOGLYCEMIA-SEE COMMENTS Last administered on 03/07/17 07:08; Start 03/07/17 at 07:00 Glucagon (Glucagon Inj) 1 mg STAT PRN IM HYPOGLYCEMIA-SEE COMMENTS; Start 03/07 at 07:00 Furosemide (Lasix) 40 mg DAILY PO Last administered on 03/10/17 09:07; Start 03/07/17 at 10:00 Trimethoprim/ Sulfamethoxazole (Bactrim Ds 800-160 Mg) 1 tab BID PO Last administered on 03/10/17 09:07; Start 03/07/17 at 10:00 Diatrizoate Meglum/ Diatrizoate Sod ( Gastroview Liq) 360 ml STK-MED ONCE PO Last administered on 03/07/17 11:55; Start 03/07/17 at 11:55; Stop 03/07/17 at 11:56; Status DC Simethicone (Phazyme Chew) 125 mg Q8HR PO Last administered on 03/10/17 14:22 ; Start 03/09/17 at 22:00 Sodium Chloride 1,000 ml @ 84 mls/hr [id number] IV Last administered on 09:27; Start 03/10/17 at 09:00 Urinary Catheter: No Vascular Central Line Catheter: No A/P Assessment and Plan 81 yo male, critically ill with severe dehydration, acute kidney injury, and small bowel obstruction. Ideally we would define the cause of his obstruction prior to intervention but might not have that luxury. For now he will have NG decompression, serial exams, and aggressive fluid resuscitation. NG tube has been removed Small bowel obstruction. JOSEE. Dehydration. Hx of bladder cancer. ABDOMINAL PAIN STILL- LOTS OF GAS- STILL NEEDING PAIN MEDS Protonix. Heparin sq for DVT. Antibiotic coverage. Monitor I&O. GI consult, gen surgery consult . Had serial abdominal exam appears stable at this moment Advance diet to CLEAR LIQUID DIET PERCOCET Discussed with patient, nurse Diet per surgery Discharge Planning May need SNF versus home health care Jonatan Aburto DO Mar 10, 2017 16:19
[2017-03-10] MEDS ORDERED: oxyCODONE/ACETAMINOPHEN 5 MG/325 MG TAB PO PRN ×2 (16:30)
[2017-03-10 20:00] VITALS: BP 108/58; PULSE 80; RESP 22; TEMP 96.2; O2SAT 95
[2017-03-10] MEDS ORDERED: METOCLOPRAMIDE HCL 10 MG/2 ML VIAL IV PUSH ONE (20:15)
[2017-03-11] VITALS: BP 94/53; PULSE 85; RESP 20; TEMP 97.9; O2SAT 93
[2017-03-11] MEDS: CHLORHEXIDINE GLUCONATE 2 % 1 PACK (2 CLOTHS) TOP SCH (03:38)
[2017-03-11] MEDS: ONDANSETRON HCL 4 MG/2 ML VIAL IV PUSH PRN ×2 (05:41→13:07)
[2017-03-11] MEDS: SIMETHICONE 125 MG CHEWABLE TAB PO SCH ×3 (05:44→21:22)
[2017-03-11] MEDS: HEPARIN SODIUM - SQ 10,000 UNITS/ML VIAL SQ SCH ×2 (05:44→18:04)
[2017-03-11] MEDS: SODIUM CHLOR 0.9% 1000 ML INJ 1,000 ML IV SCH ×3 (05:45→16:41)
[2017-03-11 08:00] VITALS: BP 114/73; PULSE 110; RESP 17; TEMP 96.4; O2SAT 91
[2017-03-11] MEDS: SULFAMETHOXAZOLE-TRIMETHOPRIM DS 800-160 MG TAB PO SCH ×3 (08:22→21:09)
[2017-03-11] MEDS: DOCUSATE SODIUM 50 MG/SENNA 8.6 MG TAB PO SCH ×2 (08:22→21:22)
[2017-03-11] MEDS: METOPROLOL TARTRATE 25 MG TAB PO SCH ×2 (08:22→21:09)
[2017-03-11] MEDS: PANTOPRAZOLE SODIUM 40 MG VIAL IV PUSH SCH (08:27)
[2017-03-11] MEDS: SODIUM CHLORIDE 0.9% FLUSH 10 ML FLUSH IV FLUSH SCH ×2 (08:27→21:22)
[2017-03-11] MEDS: SPIRONOLACTONE 25 MG TAB PO SCH (08:27)
[2017-03-11] MEDS: DIGOXIN 0.5 MG/2 ML VIAL IV PUSH SCH (08:27)
--- NOTE | 2017-03-11 10:05 | RADRPT ---
EXAM DATE/TIME: 03/11/2017 08:50 [facility] COMPARISON: ABDOMEN [facility] ONLY, March 06, 2017, 16:14. INDICATIONS : Abdomen distention, pain, nausea, and vomiting. MEDICAL HISTORY : Carcinoma, bladder. Bowel obstruction SURGICAL HISTORY : Mitral valve replacement. ENCOUNTER: Subsequent ACUITY: 1 week PAIN SCORE: 5/10 LOCATION: Bilateral Abdomen. FINDINGS: Essentially stable mild diffuse gaseous distention of small bowel with air noted throughout the colon . No pneumatosis or free air. No abnormal new calcifications. Remainder of exam is unchanged. CONCLUSION: 1. Stable mild diffuse gaseous distention of small bowel consistent with adynamic ileus given normal small bowel transit time on recent small bowel series. Jay Jay Hernandez MD on March 11, 2017 at 9:56 Board Certified Radiologist. This report was verified electronically.
[2017-03-11 10:09] LABS: AUTOMATED NEUTROPHIL # 8.3 TH/MM3 (1.8-7.7); BASOPHIL # 0.1 TH/MM3 (0-0.2); BASOPHIL % 0.6 % (0.0-2.0); EOSINOPHIL % 0.5 % (0.0-4.0); HEMO FLAGS DIFF FINAL; LYMPH % 13.9 % (9.0-44.0); LYMPHOCYTE # 1.5 TH/MM3 (1.0-4.8); MEAN CELL VOLUME 98.9 FL (80.0-100.0); MEAN CORPUSCULAR HEMOGLOBIN 32.9 PG (27.0-34.0); MEAN CORPUSCULAR HGB CONC 33.3 % (32.0-36.0); MONO % 8.7 % (0.0-8.0); NEUT % 76.3 % (16.0-70.0); PLATELET COUNT 250 TH/MM3 (150-450); RED BLOOD COUNT 4.86 MIL/MM3 (4.50-5.90); RED CELL DISTRIBUTION WIDTH 14.2 % (11.6-17.2); WHITE BLOOD COUNT 10.8 TH/MM3 (4.0-11.0)
[2017-03-11 10:42] LABS: ALT (GPT) 26 U/L (12-78); ANION GAP 8 MEQ/L (5-15); AST (GOT) 27 U/L (15-37); BICARBONATE 28.1 MEQ/L (21.0-32.0); BLOOD UREA NITROGEN 12 MG/DL (7-18); CHLORIDE 98 MEQ/L (98-107); GLOMERULAR FILTRATION RATE 41 ML/MIN (>89); SODIUM (NA) 134 MEQ/L (136-145)
[2017-03-11 10:45] LABS: ALKALINE PHOSPHATASE 60 U/L (45-117); TOTAL BILIRUBIN ADULT 0.7 MG/DL (0.2-1.0)
--- NOTE | 2017-03-11 11:37 | HHI.PR ---
Subjective Remarks Patient states he has tolerated the liquid diet that he's had and wants to be advanced We will defer to surgery since there on the case A.m. labs Diet per surgery Increase activity Denies any diarrhea or constipation at the moment 03-09 NOT TOLERATING A DIET --- HAVING LOTS OF ABDOMINAL PAIN WILL TRY GAS-EX ARTEM RN AND PATIENT WENT BACKWARDS ON THE DIET TO CLEAR LIQUIDS 10- STILL HAVING LOTS OF ABDOMINAL PAIN BACK ON CLEAR LIQUIDS DOES NOT LIKE THE MORPHINE WILL MAKE PERCOCETS AVAILABLE DW RN AND PT 10-11 HAD NAUSEA AND VOMITING LAST NIGHT HAS ILEUS ON KUB NOT TOLERATING A FULL DIET YET NEEDS TO TOLERATE A DIET BEFORE DISCHARGE INCREASE FLUIDS TO 150ML/HR POOR ORAL INTAKE STILL Objective Vitals Vital Signs Date Time Temp Pulse Resp B/P (MAP) Pulse Ox O2 Delivery O2 Flow Rate FiO2 03/11/17 08:00 96.4 110 17 114/73 (87) 91 03/11/17 00:00 97.9 85 20 94/53 (67) 93 03/10/17 22:57 18 03/10/17 20:00 96.2 80 22 108/58 (75) 95 03/10/17 16:00 96.3 67 16 107/70 (82) 96 03/10/17 12:00 96.3 80 19 113/73 (86) 97 I/O 03/10/17 03/10/17 03/10/17 03/11/17 03/11/17 03/11/17 07:00 15:00 23:00 07:00 15:00 23:00 Intake Total 580 ml 540 ml 240 ml Output Total 1050 ml 415 ml Balance -470 ml 125 ml 240 ml Intake Oral 580 ml 540 ml 240 ml Output Urine Total 1050 ml 375 ml Emesis 40 ml # Bowel Movements 0 Result Diagram: 03/11/17 0829 03/11/17 0829 Other Results Laboratory Tests Test 03/09/17 07:38 03/10/17 07:17 03/11/17 08:29 White Blood Count 6.9 TH/MM3 7.7 TH/MM3 10.8 TH/MM3 Red Blood Count 4.14 MIL/MM3 4.69 MIL/MM3 4.86 MIL/MM3 Hemoglobin 13.7 GM/DL 15.6 GM/DL 16.0 GM/DL Hematocrit 40.5 % 45.7 % 48.0 % Mean Corpuscular Volume 97.8 FL 97.4 FL 98.9 FL Mean Corpuscular Hemoglobin 33.2 PG 33.2 PG 32.9 PG Mean Corpuscular Hemoglobin Concent 34.0 % 34.1 % 33.3 % Red Cell Distribution Width 14.1 % 14.3 % 14.2 % Platelet Count 188 TH/MM3 211 TH/MM3 250 TH/MM3 Mean Platelet Volume 8.1 FL 8.3 FL 8.4 FL Neutrophils (%) (Auto) 72.8 % 78.9 % 76.3 % Lymphocytes (%) (Auto) 13.0 % 11.2 % 13.9 % Monocytes (%) (Auto) 9.2 % 7.8 % 8.7 % Eosinophils (%) (Auto) 4.1 % 1.5 % 0.5 % Basophils (%) (Auto) 0.9 % 0.6 % 0.6 % Neutrophils # (Auto) 5.0 TH/MM3 6.1 TH/MM3 8.3 TH/MM3 Lymphocytes # (Auto) 0.9 TH/MM3 0.9 TH/MM3 1.5 TH/MM3 Monocytes # (Auto) 0.6 TH/MM3 0.6 TH/MM3 0.9 TH/MM3 Eosinophils # (Auto) 0.3 TH/MM3 0.1 TH/MM3 0.0 TH/MM3 Basophils # (Auto) 0.1 TH/MM3 0.0 TH/MM3 0.1 TH/MM3 CBC Comment DIFF FINAL DIFF FINAL DIFF FINAL Differential Comment Blood Urea Nitrogen 10 MG/DL 10 MG/DL 12 MG/DL Creatinine 1.21 MG/DL 1.40 MG/DL 1.63 MG/DL Random Glucose 85 MG/DL 106 MG/DL 104 MG/DL Total Protein 5.8 GM/DL 6.4 GM/DL 6.7 GM/DL Albumin 2.8 GM/DL 3.0 GM/DL 3.2 GM/DL Calcium Level 8.1 MG/DL 8.8 MG/DL 8.9 MG/DL Phosphorus Level 3.1 MG/DL 4.0 MG/DL 4.2 MG/DL Magnesium Level 1.7 MG/DL 1.9 MG/DL 2.0 MG/DL Alkaline Phosphatase 50 U/L 55 U/L 60 U/L Aspartate Amino Transf (AST/SGOT) 19 U/L 26 U/L 27 U/L Alanine Aminotransferase (ALT/SGPT) 17 U/L 23 U/L 26 U/L Total Bilirubin 0.5 MG/DL 0.5 MG/DL 0.7 MG/DL Sodium Level 139 MEQ/L 136 MEQ/L 134 MEQ/L Potassium Level 3.5 MEQ/L 3.7 MEQ/L 4.0 MEQ/L Chloride Level 106 MEQ/L 101 MEQ/L 98 MEQ/L Carbon Dioxide Level 24.9 MEQ/L 26.1 MEQ/L 28.1 MEQ/L Anion Gap 8 MEQ/L 9 MEQ/L 8 MEQ/L Estimat Glomerular Filtration Rate 58 ML/MIN 49 ML/MIN 41 ML/MIN Hemoglobin A1c 5.5 % Free Thyroxine 1.10 NG/DL Thyroid Stimulating Hormone 3rd Gen 3.730 uIU/ML Imaging Last Impressions Abdomen X-Ray 03/11/17 0000 Signed Impressions: Service Date/Time: Saturday, March 11, 2017 08:50 - CONCLUSION: 1. Stable mild diffuse gaseous distention of small bowel consistent with adynamic ileus given normal small bowel transit time on recent small bowel series. Jay Jay Hernandez MD Small Bowel X-Ray 03/07/17 0800 Signed Impressions: Service Date/Time: Tuesday, March 07, 2017 10:12 - CONCLUSION: There was normal transit of barium from the stomach down to the colon. The exam does demonstrate some thickening of the small bowel diffusely throughout the ileum suggesting enteritis. No findings to indicate obstruction are seen. Liang Chen MD Chest X-Ray 03/06/17316 Signed Impressions: Service Date/Time: Monday, March 06, 2017 03:20 - CONCLUSION: 1. Emphysematous changes. 2. Blunting of the left costophrenic angle either related to pleural scarring or tiny effusion. 3. No appreciable free air. Rebel Agee Jr., MD Abdomen/Pelvis CT 03/06/17316 Signed Impressions: Service Date/Time: Monday, March 06, 2017 04:50 - CONCLUSION: 1. Diffuse dilatation of the small bowel without an obstructing mass or lesion. There is a left inguinal hernia containing sigmoid colon but this is not felt relating to the dilatation of the small bowel. 2. Trace amount of free fluid. 3. Small left pleural effusion. Rebel Agee Jr., MD Objective Remarks GENERAL: Awake alert and oriented talkative and cooperative very thin at appearing male SKIN: Warm and dry. HEAD: Atraumatic. Normocephalic. EYES: Pupils equal and round. No scleral icterus. No injection or drainage. Extraocular muscles intact ENT: No nasal bleeding or discharge. Mucous membranes pink and moist. Tongue is midline NECK: Trachea midline. No JVD. Supple CARDIOVASCULAR: Regular rate and rhythm. S1 and S2 no S3 or S4 no heave or thrill or rub or gallop RESPIRATORY: No accessory muscle use. Clear to auscultation. Breath sounds equal bilaterally. GASTROINTESTINAL: Abdomen soft, MILDLY tender, nondistended. Hepatic and splenic margins not palpable. MUSCULOSKELETAL: Extremities without clubbing, cyanosis, or edema. No obvious deformities. NEUROLOGICAL: Awake and alert. No obvious cranial nerve deficits. Motor grossly within normal limits. 4 out of 5 muscle strength in the arms and legs. Normal speech. PSYCHIATRIC: Appropriate mood and affect; insight and judgment normal. Medications and IVs Current Medications Morphine Sulfate (Morphine Inj) 4 mg ONCE ONCE IV PUSH Last administered on 04:22; Start 03/06/17 at 03:30; Stop 03/06/17 at 03:31; Status DC Ondansetron HCl (Zofran Inj) 4 mg ONCE ONCE IVP Last administered on 04:23; Start 03/06/17 at 03:30; Stop 03/06/17 at 03:31; Status DC Sodium Chloride 1,000 ml @ 1,000 mls/hr Q1H IV Last administered on 03/06/17 04:22; Start 03/06/17 at 03:17; Stop 03/06/17 at 04:16; Status DC Sodium Chloride (NS Flush) 2 ml UNSCH PRN IV FLUSH FLUSH AFTER USING IV ACCESS ; Start 03/06/17 at 03:30; Stop 03/06/17 at 06:11; Status DC Diatrizoate Meglum/ Diatrizoate Sod ( Gastroview Liq) 18 ml STK-MED ONCE .ROUTE Last administered on 03/06/17 03:53; Start 03/06/17 at 03:33; Stop 03/06/17 at 03:34; Status DC Sodium Chloride 1,000 ml @ 999 mls/hr BOLUS ONCE IV Last administered on 03/06 04:36; Start 03/06/17 at 04:45; Stop 03/06/17 at 05:45; Status DC Vancomycin HCl 1000 mg/Sodium Chloride 250 ml @ 250 mls/hr ONCE STAT IV Last administered on 03/06/17 06:16; Start 03/06/17 at 04:32; Stop 03/06/17 at 05:31 ; Status DC Aztreonam 2000 mg/ Sodium Chloride 100 ml @ 200 mls/hr ONCE STAT IV Last administered on 03/06/17 04:47; Start 03/06/17 at 04:32; Stop 03/06/17 at 05:01 ; Status DC Metronidazole 100 ml @ 100 mls/hr ONCE STAT IV Last administered on 05:21; Start 03/06/17 at 04:32; Stop 03/06/17 at 05:31; Status DC Sodium Chloride 1,000 ml @ 84 mls/hr [id number] IV ; Start 03/06/17 at 05:51; Stop 03/06/17 at 06:11; Status DC Sodium Chloride (NS Flush) 2 ml UNSCH PRN IV FLUSH FLUSH AFTER USING IV ACCESS ; Start 03/06/17 at 06:00 Sodium Chloride (NS Flush) 2 ml BID IV FLUSH Last administered on 03/11/17 08 :27; Start 03/06/17 at 09:00 Acetaminophen (Tylenol) 650 mg Q6H PRN PO PAIN 1-10 AND/OR FEVER >101F; Start 03/06/17 at 06:00; Stop 03/06/17 at 06:33; Status DC Morphine Sulfate (Morphine Inj) 2 mg Q2H PRN IV PUSH PAIN SCALE 6 TO 10 Last administered on 03/10/17 09:32; Start 03/06/17 at 06:00; Stop 03/10/17 at 17: 09; Status DC Pantoprazole Sodium (Protonix Inj) 40 mg DAILY IV PUSH Last administered on 08:27; Start 03/06/17 at 09:00 Ondansetron HCl (Zofran Inj) 4 mg Q6H PRN IV PUSH NAUSEA OR VOMITING Last administered on 03/11/17 05:41; Start 03/06/17 at 06:00 Albuterol/ Ipratropium (Duoneb Neb) 1 ampule Q2HR NEB PRN INH WHEEZING; Start 03/06/17 at 06:00 Heparin Sodium (Porcine) (Heparin Inj) 5,000 units Q8HR SQ Last administered on 03/06/17 06:23; Start 03/06/17 at 06:00; Stop 03/06/17 at 07:02; Status DC Miscellaneous Information 1 [id number] XX ; Start 03/06/17 at 06:00 Chlorhexidine Gluconate (Chlorhexidine 2% Cloth) 3 pack Taper DAILY@04 TOP ; Start 03/07/17 at 04:00; Stop 03/03/18 at 03:59 Chlorhexidine Gluconate (Chlorhexidine 2% Cloth) 3 pack UNSCH PRN TOP HYGIENIC CARE; Start 03/06/17 at 06:00 Senna/Docusate Sodium (Re-Colace) 1 tab BID PO Last administered on 09:08; Start 03/06/17 at 09:00; Stop 03/10/17 at 16:13; Status DC Magnesium Hydroxide (Milk Of Magnesia Liq) 30 ml Q12H PRN PO MILD - MODERATE CONSTIPATION; Start 03/06/17 at 06:00; Stop 03/06/17 at 06:36; Status DC Sennosides (Senokot) 17.2 mg Q12H PRN PO MODERATE - SEVERE CONSTIPATION; Start 03/06/17 at 06:00; Stop 03/06/17 at 06:33; Status DC Bisacodyl (Dulcolax Supp) 10 mg DAILY PRN RECTAL SEVERE CONSITIPATION; Start 03/06/17 at 06:00; Stop 03/10/17 at 16:12; Status DC Lactulose (Lactulose Liq) 30 ml DAILY PRN PO SEVERE CONSITIPATION; Start at 06:00; Stop 03/06/17 at 06:33; Status DC Digoxin (Lanoxin Inj) 0.125 mg DAILY IV PUSH Last administered on 03/11/17 08 :27; Start 03/06/17 at 09:00 Potassium Chloride/Sodium Chloride 1,000 ml @ 50 mls/hr Q20H IV Last administered on 03/06/17 08:18; Start 03/06/17 at 06:45; Stop 03/07/17 at 14:43 ; Status DC Heparin Sodium (Porcine) (Heparin Inj) 5,000 units Q12H SQ Last administered on 03/11/17 05:44; Start 03/06/17 at 18:00 Metoprolol Tartrate (Lopressor) 12.5 mg BID PO Last administered on 03/11/17 08:22; Start 03/06/17 at 15:00 Spironolactone (Aldactone) 25 mg DAILY PO Last administered on 03/11/17 08:27 ; Start 03/07/17 at 09:00 Miscellaneous (Pill Splitter) 1 ea UNSCH PRN OTHER SEE LABEL COMMENTS; Start 03/06/17 at 14:45 Padimate O (Chapstick) 1 applic UNSCH PRN TOPICAL DRY LIPS; Start 03/06/17 at 20:30 Dextrose (D50w (Vial) Inj) 50 ml UNSCH PRN IV PUSH HYPOGLYCEMIA-SEE COMMENTS Last administered on 03/07/17 07:08; Start 03/07/17 at 07:00 Glucagon (Glucagon Inj) 1 mg STAT PRN IM HYPOGLYCEMIA-SEE COMMENTS; Start 03/07 at 07:00 Furosemide (Lasix) 40 mg DAILY PO Last administered on 03/10/17 09:07; Start 03/07/17 at 10:00; Status Future Hold Trimethoprim/ Sulfamethoxazole (Bactrim Ds 800-160 Mg) 1 tab BID PO Last administered on 03/11/17 08:22; Start 03/07/17 at 10:00 Diatrizoate Meglum/ Diatrizoate Sod ( Gastroview Liq) 360 ml STK-MED ONCE PO Last administered on 03/07/17 11:55; Start 03/07/17 at 11:55; Stop 03/07/17 at 11:56; Status DC Simethicone (Phazyme Chew) 125 mg Q8HR PO Last administered on 03/10/17 21:58 ; Start 03/09/17 at 22:00 Sodium Chloride 1,000 ml @ 100 mls/hr Q10H IV Last administered on 03/11/17 08:20; Start 03/10/17 at 09:00 Naloxone HCl (Narcan Inj) 0.4 mg UNSCH PRN IV PUSH SEE LABEL COMMENTS; Start 03/10/17 at 16:15 Senna/Docusate Sodium (Re-Colace) 1 tab BID PO Last administered on 08:22; Start 03/10/17 at 21:00 Magnesium Hydroxide (Milk Of Magnesia Liq) 30 ml Q12H PRN PO MILD - MODERATE CONSTIPATION Last administered on 03/10/17 16:50; Start 03/10/17 at 16:15 Sennosides (Senokot) 17.2 mg Q12H PRN PO MODERATE - SEVERE CONSTIPATION Last administered on 03/10/17 16:50; Start 03/10/17 at 16:15 Bisacodyl (Dulcolax Supp) 10 mg DAILY PRN RECTAL SEVERE CONSITIPATION; Start 03/10/17 at 16:15 Lactulose (Lactulose Liq) 30 ml DAILY PRN PO SEVERE CONSITIPATION Last administered on 03/11/17 08:52; Start 03/10/17 at 16:15 Oxycodone/ Acetaminophen (Percocet 5-325 Mg) 1 tab Q6H PRN PO PAIN 3 TO 5 Last administered on 03/10/17 21:57; Start 03/10/17 at 16:30 Oxycodone/ Acetaminophen (Percocet 5-325 Mg) 2 tab Q6H PRN PO PAIN 6 TO 10; Start 03/10/17 at 16:30 Metoclopramide HCl (Reglan Inj) 5 mg ONCE ONCE IV PUSH Last administered on 20:39; Start 03/10/17 at 20:15; Stop 03/10/17 at 20:16; Status DC Urinary Catheter: No Vascular Central Line Catheter: No A/P Assessment and Plan 81 yo male, critically ill with severe dehydration, acute kidney injury, and small bowel obstruction. Ideally we would define the cause of his obstruction prior to intervention but might not have that luxury. For now he will have NG decompression, serial exams, and aggressive fluid resuscitation. NG tube has been removed Small bowel obstruction. JOSEE. BORDERLINE- CONTINUE IV FLUIDS INCREASE TO 150ML/HR Dehydration.- CONTINUE IV FLUIDS INCREASE TO 150ML/HR Hx of bladder cancer.- SELF CATHS MULTIPLE TIMES THROUGHOUT THE DAY ABDOMINAL PAIN STILL- LOTS OF GAS- STILL NEEDING PAIN MEDS NAUSEA AND VOMITING ADYNAMIC ILEUS- SLOWLY INCREASE DIET Protonix. Heparin sq for DVT. Antibiotic coverage. Monitor I&O. GI consult, gen surgery consult . Advance diet to CLEAR LIQUID DIET PERCOCET Discussed with patient, nurse Diet per surgery Discharge Planning May need SNF versus home health care NEEDS TO TOLERATE A DIET BEFORE DC Jonatan Aburto DO Mar 11, 2017 11:37
[2017-03-11 12:00] VITALS: BP 103/55; PULSE 65; RESP 19; TEMP 97.7; O2SAT 96
[2017-03-11 16:00] VITALS: BP 98/61; PULSE 77; RESP 18; TEMP 96.2; O2SAT 98
[2017-03-11 20:00] VITALS: BP 100/55; PULSE 82; RESP 20; TEMP 97.7; O2SAT 95
[2017-03-12] VITALS: BP 92/51; PULSE 62; RESP 20; TEMP 97.6; O2SAT 90
[2017-03-12] MEDS: CHLORHEXIDINE GLUCONATE 2 % 1 PACK (2 CLOTHS) TOP SCH (03:36)
[2017-03-12] MEDS: SODIUM CHLOR 0.9% 1000 ML INJ 1,000 ML IV SCH ×3 (05:44→20:10)
[2017-03-12] MEDS: SIMETHICONE 125 MG CHEWABLE TAB PO SCH ×3 (05:45→20:56)
[2017-03-12] MEDS: HEPARIN SODIUM - SQ 10,000 UNITS/ML VIAL SQ SCH ×2 (05:45→18:34)
[2017-03-12 07:25] LABS: AUTOMATED NEUTROPHIL # 6.5 TH/MM3 (1.8-7.7); BASOPHIL % 0.5 % (0.0-2.0); EOSINOPHIL # 0.3 TH/MM3 (0-0.4); EOSINOPHIL % 3.5 % (0.0-4.0); HEMATOCRIT 37.4 % (39.0-51.0); HEMO FLAGS DIFF FINAL; LYMPH % 12.4 % (9.0-44.0); LYMPHOCYTE # 1.1 TH/MM3 (1.0-4.8); MEAN CELL VOLUME 98.2 FL (80.0-100.0); MEAN CORPUSCULAR HGB CONC 33.6 % (32.0-36.0); MONO % 8.7 % (0.0-8.0); NEUT % 74.9 % (16.0-70.0); PLATELET COUNT 187 TH/MM3 (150-450); RED CELL DISTRIBUTION WIDTH 14.2 % (11.6-17.2); WHITE BLOOD COUNT 8.7 TH/MM3 (4.0-11.0)
[2017-03-12 07:53] LABS: ALKALINE PHOSPHATASE 45 U/L (45-117); ALT (GPT) 16 U/L (12-78); ANION GAP 8 MEQ/L (5-15); AST (GOT) 19 U/L (15-37); BICARBONATE 25.5 MEQ/L (21.0-32.0); BLOOD UREA NITROGEN 13 MG/DL (7-18); CHLORIDE 105 MEQ/L (98-107); GLOMERULAR FILTRATION RATE 62 ML/MIN (>89); SODIUM (NA) 138 MEQ/L (136-145); TOTAL BILIRUBIN ADULT 0.6 MG/DL (0.2-1.0)
[2017-03-12 08:00] VITALS: BP 101/55; PULSE 90; RESP 18; TEMP 96; O2SAT 96
--- NOTE | 2017-03-12 08:15 | HHI.PR ---
Subjective Remarks Patient still with nausea, he did vomit yesterday. He was not able to keep down any food. Says she will try today morning to eat something. Feels improved some in the morning today but not able to eat. No fever or chills. No abd pain. Objective Vitals Vital Signs Date Time Temp Pulse Resp B/P (MAP) Pulse Ox O2 Delivery O2 Flow Rate FiO2 03/12/17 00:00 97.6 62 20 92/51 (65) 90 03/11/17 20:00 97.7 82 20 100/55 (70) 95 03/11/17 16:00 96.2 77 18 98/61 (73) 98 03/11/17 12:00 97.7 65 19 103/55 (71) 96 I/O 03/11/17 03/11/17 03/11/17 03/12/17 03/12/17 03/12/17 06:59 14:59 22:59 06:59 14:59 22:59 Intake Total 240 ml 240 ml 240 ml Output Total 775 ml Balance 240 ml -535 ml 240 ml Intake Oral 240 ml 240 ml 240 ml Output Urine Total 775 ml # Bowel Movements 2 Result Diagram: 03/12/17 0520 03/12/17 0520 Imaging Last Impressions Abdomen X-Ray 03/11/17 0000 Signed Impressions: Service Date/Time: Saturday, March 11, 2017 08:50 - CONCLUSION: 1. Stable mild diffuse gaseous distention of small bowel consistent with adynamic ileus given normal small bowel transit time on recent small bowel series. Jay Jay Hernandez MD Small Bowel X-Ray 03/07/17 0800 Signed Impressions: Service Date/Time: Tuesday, March 07, 2017 10:12 - CONCLUSION: There was normal transit of barium from the stomach down to the colon. The exam does demonstrate some thickening of the small bowel diffusely throughout the ileum suggesting enteritis. No findings to indicate obstruction are seen. Liang Chen MD Chest X-Ray 03/06/17 0317 Signed Impressions: Service Date/Time: Monday, March 06, 2017 03:20 - CONCLUSION: 1. Emphysematous changes. 2. Blunting of the left costophrenic angle either related to pleural scarring or tiny effusion. 3. No appreciable free air. Rebel Agee Jr., MD Abdomen/Pelvis CT 03/06/17 0317 Signed Impressions: Service Date/Time: Monday, March 06, 2017 04:50 - CONCLUSION: 1. Diffuse dilatation of the small bowel without an obstructing mass or lesion. There is a left inguinal hernia containing sigmoid colon but this is not felt relating to the dilatation of the small bowel. 2. Trace amount of free fluid. 3. Small left pleural effusion. Rebel Agee Jr., MD Objective Remarks GENERAL: Ill-appearing elderly male CARDIOVASCULAR: Irregularly irreg rate and rhythm. RESPIRATORY: No accessory muscle use. Clear to auscultation. Breath sounds equal bilaterally. GASTROINTESTINAL: decreased BS. Mildly distended. Nontender. Tympanitic No guarding. MUSCULOSKELETAL: Extremities without clubbing, cyanosis, or edema. No obvious deformities. NEUROLOGICAL: Awake and alert. No obvious cranial nerve deficits. Motor grossly within normal limits.Moves all limbs. A/P Assessment and Plan 81 yo male, critically ill with severe dehydration, acute kidney injury, and small bowel obstruction. Ideally we would define the cause of his obstruction prior to intervention but might not have that luxury. For now he will have NG decompression, seral exams, and aggressive fluid resuscitation. Small bowel obstruction. JOSEE. Dehydration. Hx of bladder cancer. IV hydration isotonic fluid. Protonix. Heparin sq for DVT. Antibiotic coverage. Monitor I&O. GI consult, gen surgery consult . Had serial abdominal exam Advance diet as tolerated DC when tolerated diet and cleared by consultants Discussed with patient, nurse Kiara Fleming MD Mar 12, 2017 08:15
[2017-03-12] MEDS ORDERED: SENN1TAB PO (08:23)
--- NOTE | 2017-03-12 08:23 | HHI.DS ---
Discharge Summary Admission Date Mar 06, 2017 at 05:52 Discharge Date: Mar 14, 2017 Admitting Diagnosis Sepsis, SBO, possible ischemic colitis (1) H/O carcinoma of bladder ICD Code: Z85.51 - Personal history of malignant neoplasm of bladder (2) Dehydration ICD Code: E86.0 - Dehydration (3) JOSEE (acute kidney injury) ICD Code: N17.9 - Acute kidney failure, unspecified (4) Small bowel obstruction ICD Code: K56.609 - Unspecified intestinal obstruction, unspecified as to partial versus complete obstruction Procedures none Brief History - From Admission 81 y/o man presents with a crescendo pattern of cramping abdominal pain, lasting for past several weeks. Now with vomiting and abdominal distention. Episodic explosive bowel movements. No prior abdominal surgery and left inguinal hernia is easily reducible. Dehydrated. No peritoneal irritation. Minimal tenderness to palpation. Lactic acid 5.7, wbc 16,000. CT abdomen shows small bowel obstruction, distal. No obvious transition point. at bedside. Hx significant for bladder cancer 40 years ago. Heart failure. CBC/BMP: 03/12/17 0520 03/12/17 0520 Significant Findings Laboratory Tests Test 03/10/17 07:17 03/11/17 08:29 03/12/17 05:20 Neutrophils (%) (Auto) 78.9 % (16.0-70.0) 76.3 % (16.0-70.0) 74.9 % (16.0-70.0) Lymphocytes # (Auto) 0.9 TH/MM3 (1.0-4.8) Creatinine 1.40 MG/DL (0.60-1.30) 1.63 MG/DL (0.60-1.30) Albumin 3.0 GM/DL (3.4-5.0) 3.2 GM/DL (3.4-5.0) 2.4 GM/DL (3.4-5.0) Estimat Glomerular Filtration Rate 49 ML/MIN (>89) 41 ML/MIN (>89) 62 ML/MIN (>89) Monocytes (%) (Auto) 8.7 % (0.0-8.0) 8.7 % (0.0-8.0) Neutrophils # (Auto) 8.3 TH/MM3 (1.8-7.7) Sodium Level 134 MEQ/L (136-145) Red Blood Count 3.80 MIL/MM3 (4.50-5.90) Hemoglobin 12.6 GM/DL (13.0-17.0) Hematocrit 37.4 % (39.0-51.0) Random Glucose 69 MG/DL (74-106) Total Protein 4.9 GM/DL (6.4-8.2) Calcium Level 8.0 MG/DL (8.5-10.1) Imaging Last Impressions Abdomen X-Ray 03/11/17 0000 Signed Impressions: Service Date/Time: Saturday, March 11, 2017 08:50 - CONCLUSION: 1. Stable mild diffuse gaseous distention of small bowel consistent with adynamic ileus given normal small bowel transit time on recent small bowel series. Jay Jay Hernandez MD Small Bowel X-Ray 03/07/17 0800 Signed Impressions: Service Date/Time: Tuesday, March 07, 2017 10:12 - CONCLUSION: There was normal transit of barium from the stomach down to the colon. The exam does demonstrate some thickening of the small bowel diffusely throughout the ileum suggesting enteritis. No findings to indicate obstruction are seen. Liang Chen MD Chest X-Ray 03/06/17316 Signed Impressions: Service Date/Time: Monday, March 06, 2017 03:20 - CONCLUSION: 1. Emphysematous changes. 2. Blunting of the left costophrenic angle either related to pleural scarring or tiny effusion. 3. No appreciable free air. Rebel Agee Jr., MD Abdomen/Pelvis CT 03/06/17316 Signed Impressions: Service Date/Time: Monday, March 06, 2017 04:50 - CONCLUSION: 1. Diffuse dilatation of the small bowel without an obstructing mass or lesion. There is a left inguinal hernia containing sigmoid colon but this is not felt relating to the dilatation of the small bowel. 2. Trace amount of free fluid. 3. Small left pleural effusion. Rebel Agee Jr., MD PE at Discharge GENERAL: Awake alert and oriented talkative and cooperative very thin at appearing male SKIN: Warm and dry. HEAD: Atraumatic. Normocephalic. EYES: Pupils equal and round. No scleral icterus. No injection or drainage. Extraocular muscles intact ENT: No nasal bleeding or discharge. Mucous membranes pink and moist. Tongue is midline NECK: Trachea midline. No JVD. Supple CARDIOVASCULAR: Regular rate and rhythm. S1 and S2 no S3 or S4 no heave or thrill or rub or gallop RESPIRATORY: No accessory muscle use. Clear to auscultation. Breath sounds equal bilaterally. GASTROINTESTINAL: Abdomen soft, MILDLY tender, nondistended. Hepatic and splenic margins not palpable. MUSCULOSKELETAL: Extremities without clubbing, cyanosis, or edema. No obvious deformities. NEUROLOGICAL: Awake and alert. No obvious cranial nerve deficits. Motor grossly within normal limits. 4 out of 5 muscle strength in the arms and legs. Normal speech. PSYCHIATRIC: Appropriate mood and affect; insight and judgment normal. Pt update on day of discharge No events overnight. Tolerates food. Hospital Course 81 yo male, critically ill with severe dehydration, acute kidney injury, and small bowel obstruction. Ideally we would define the cause of his obstruction prior to intervention but might not have that luxury. For now he will have NG decompression, serial exams, and aggressive fluid resuscitation. Patient with SBO, JOSEE , dehydration, h/o bladder ca. Patient was managed medically no surgery. Surgical team was also following. Patient improved was discharged home in stable conditon to follow up as OP with PCP and consultants. Small bowel obstruction. JOSEE. Dehydration. Hx of bladder cancer. IV hydration isotonic fluid. Protonix. Heparin sq for DVT. Antibiotic coverage. Monitor I&O. GI consult, gen surgery consult . Had serial abdominal exam Advance diet as tolerated DC when tolerated diet and cleared by consultants Pt Condition on Discharge: Stable Discharge Disposition: Disch w/ Home Health Serv Discharge Time: > 30 minutes Discharge Instructions DIET: Follow Instructions for: Heart Healthy Diet Activities you can perform: Regular-No Restrictions Follow up Referrals: Gastroenterology - 2 Weeks PCP Follow-up - 2-3 Days Surgical - 1 Week New Medications: Sennosides-Docusate Sodium (Senna Plus 8.6-50 mg) 8.6 Mg-50 Mg Tab 1 TAB PO BID for Constipation, #60 TAB Continued Medications: Aspirin (Aspirin) 325 Mg Tab 325 MG PO DAILY, #30 TAB 0 Refills Calcium Carbonate (Calcium Carbonate) 1,500 Mg Tab 500 MG PO BID for Calcium Supplement, TAB 0 Refills 1,500 mg calcium carbonate (600 mg elemental calcium) Digoxin (Digoxin) 0.125 Mg Tab 0.125 MG PO DAILY for Regulate Heart Beat, #30 TAB 0 Refills Enalapril (Enalapril) 5 Mg Tab 5 MG PO DAILY, #30 TAB 0 Refills Furosemide (Furosemide) 40 Mg Tab 40 MG PO DAILY, #30 TAB 0 Refills Metoprolol Tartrate (Metoprolol Tartrate) 25 Mg Tab 12.5 MG PO BID, #60 TAB 0 Refills Pantoprazole (Pantoprazole) 40 Mg Tab 40 MG PO DAILY for Reflux, #30 TAB 0 Refills Spironolactone (Spironolactone) 25 Mg Tab 25 MG PO DAILY, #60 TAB 0 Refills Sulfamethoxazole-Trimethoprim (Bactrim DS) 800-160 Mg Tab 1 TAB PO BID for Infection, TAB 0 Refills Kiara Fleming MD Mar 12, 2017 08:23
[2017-03-12] MEDS: METOPROLOL TARTRATE 25 MG TAB PO SCH ×2 (09:00→20:10)
[2017-03-12] MEDS: DOCUSATE SODIUM 50 MG/SENNA 8.6 MG TAB PO SCH ×3 (10:26→20:14)
[2017-03-12] MEDS: SULFAMETHOXAZOLE-TRIMETHOPRIM DS 800-160 MG TAB PO SCH ×2 (10:26→20:10)
[2017-03-12] MEDS: SODIUM CHLORIDE 0.9% FLUSH 10 ML FLUSH IV FLUSH SCH ×2 (10:32→20:10)
[2017-03-12] MEDS: PANTOPRAZOLE SODIUM 40 MG VIAL IV PUSH SCH (10:32)
[2017-03-12 12:00] VITALS: BP 100/63; PULSE 95; RESP 20; TEMP 96.5; O2SAT 98
--- NOTE | 2017-03-12 14:34 | HHI.PR ---
Subjective Subjective Notes Feeling better today Had large BM yesterday Walked in hallways Objective Vitals/I&O Vital Signs Date Time Temp Pulse Resp B/P (MAP) Pulse Ox O2 Delivery O2 Flow Rate FiO2 03/12/17 12:00 96.5 95 20 100/63 (75) 98 03/10/17 09:14 21 Labs Laboratory Tests Test 03/12/17 05:20 White Blood Count 8.7 Red Blood Count 3.80 Hemoglobin 12.6 Hematocrit 37.4 Mean Corpuscular Volume 98.2 Mean Corpuscular Hemoglobin 33.0 Mean Corpuscular Hemoglobin Concent 33.6 Red Cell Distribution Width 14.2 Platelet Count 187 Mean Platelet Volume 8.1 Neutrophils (%) (Auto) 74.9 Lymphocytes (%) (Auto) 12.4 Monocytes (%) (Auto) 8.7 Eosinophils (%) (Auto) 3.5 Basophils (%) (Auto) 0.5 Neutrophils # (Auto) 6.5 Lymphocytes # (Auto) 1.1 Monocytes # (Auto) 0.8 Eosinophils # (Auto) 0.3 Basophils # (Auto) 0.0 CBC Comment DIFF FINAL Differential Comment Blood Urea Nitrogen 13 Creatinine 1.14 Random Glucose 69 Total Protein 4.9 Albumin 2.4 Calcium Level 8.0 Phosphorus Level 2.8 Magnesium Level 2.0 Alkaline Phosphatase 45 Aspartate Amino Transf (AST/SGOT) 19 Alanine Aminotransferase (ALT/SGPT) 16 Total Bilirubin 0.6 Sodium Level 138 Potassium Level 4.0 Chloride Level 105 Carbon Dioxide Level 25.5 Anion Gap 8 Estimat Glomerular Filtration Rate 62 Date/Time Source Procedure Growth Status 03/06/17 04:44 Blood Peripheral Aerobic Blood Culture - Final NO GROWTH IN 5 DAYS Complete 03/06/17 04:44 Anaerobic Blood Culture - Final Staphylococcus Epidermidis Complete Radiology Last 48 hours Impressions Chest X-Ray 03/06/17 5236 Signed Impressions: Service Date/Time: Monday, March 06, 2017 03:20 - CONCLUSION: 1. Emphysematous changes. 2. Blunting of the left costophrenic angle either related to pleural scarring or tiny effusion. 3. No appreciable free air. Rebel Agee Jr., MD Abdomen/Pelvis CT 03/06/17 0317 Signed Impressions: Service Date/Time: Monday, March 06, 2017 04:50 - CONCLUSION: 1. Diffuse dilatation of the small bowel without an obstructing mass or lesion. There is a left inguinal hernia containing sigmoid colon but this is not felt relating to the dilatation of the small bowel. 2. Trace amount of free fluid. 3. Small left pleural effusion. Rebel Agee Jr., MD Cardiovascular: Regular Lungs: Clear Abdomen: Non-distended, Non-tender Extremities: No edema A/P Assessment and Plan 81-year-old male with abdominal pain and CT abdomen and pelvis suspicious for small bowel obstruction. -Minimal abdominal pain after large BM yesterday -KUB shows ileus -Continue soft foods as tolerated + Ensure shakes -SBFT unremarkable -OOB and mobilize -IVF until PO intake better -Continue non op treatment at this time Attending Statement patient seen at bedside abdomen benign large bm advance diet d/c planning Attestation The exam, history, and the medical decision-making described in the above note were completed with the assistance of the mid-level provider. I reviewed and agree with the findings presented. I attest that I had a [id number] encounter with the patient on the same day, and personally performed and documented my assessment and findings in the medical record. Cheri Veliz Mar 12, 2017 14:34 Johnny Villar MD Mar 18, 2017 13:55
[2017-03-12 16:00] VITALS: BP 92/57; PULSE 67; RESP 19; TEMP 96.2; O2SAT 96
[2017-03-12 20:00] VITALS: BP 93/60; PULSE 87; RESP 20; TEMP 97; O2SAT 98
[2017-03-13] VITALS: BP 91/53; PULSE 70; RESP 20; O2SAT 98
[2017-03-13] MEDS: SODIUM CHLOR 0.9% 1000 ML INJ 1,000 ML IV SCH ×3 (01:30→22:57)
[2017-03-13] MEDS: CHLORHEXIDINE GLUCONATE 2 % 1 PACK (2 CLOTHS) TOP SCH ×2 (04:00→22:57)
[2017-03-13] MEDS: HEPARIN SODIUM - SQ 10,000 UNITS/ML VIAL SQ SCH ×2 (05:22→17:42)
[2017-03-13] MEDS: SIMETHICONE 125 MG CHEWABLE TAB PO SCH ×3 (05:22→22:00)
[2017-03-13 08:00] VITALS: BP 108/58; PULSE 72; RESP 17; TEMP 96.9; O2SAT 95
[2017-03-13] MEDS: DIGOXIN 0.125 MG TAB PO SCH (09:00)
[2017-03-13] MEDS: METOPROLOL TARTRATE 25 MG TAB PO SCH ×2 (09:00→21:00)
[2017-03-13] MEDS: DOCUSATE SODIUM 50 MG/SENNA 8.6 MG TAB PO SCH ×2 (09:00→21:00)
[2017-03-13] MEDS: SULFAMETHOXAZOLE-TRIMETHOPRIM DS 800-160 MG TAB PO SCH ×2 (09:39→22:56)
[2017-03-13] MEDS: SODIUM CHLORIDE 0.9% FLUSH 10 ML FLUSH IV FLUSH SCH ×2 (09:43→21:00)
[2017-03-13] MEDS: PANTOPRAZOLE SODIUM 40 MG VIAL IV PUSH SCH (09:43)
--- NOTE | 2017-03-13 11:21 | HHI.PR ---
Subjective Remarks In bed, appears in nad. Says he fels nauseated yesterday. Not much vomiting. Not eating much doesn't feel comfortable to go home. Had diarrhea x1 time. No fever or chills. No abd pain. Objective Vitals Vital Signs Date Time Temp Pulse Resp B/P (MAP) Pulse Ox O2 Delivery O2 Flow Rate FiO2 03/13/17 08:00 96.9 72 17 108/58 (75) 95 03/13/17 00:00 70 20 91/53 (66) 98 03/12/17 20:00 97.0 87 20 93/60 (71) 98 03/12/17 16:00 96.2 67 19 92/57 (69) 96 03/12/17 12:00 96.5 95 20 100/63 (75) 98 I/O 03/12/17 03/12/17 03/12/17 03/13/17 03/13/17 03/13/17 07:00 15:00 23:00 07:00 15:00 23:00 Intake Total 240 ml 772 ml 960 ml 1200 ml Output Total 1250 ml Balance 240 ml 772 ml -290 ml 1200 ml Intake Oral 240 ml 960 ml IV Total 772 ml 1200 ml Output Urine Total 1250 ml # Voids 3 # Bowel Movements 5 Result Diagram: 03/12/17 0520 03/12/17 0520 Imaging Last Impressions Abdomen X-Ray 03/11/17 0000 Signed Impressions: Service Date/Time: Saturday, March 11, 2017 08:50 - CONCLUSION: 1. Stable mild diffuse gaseous distention of small bowel consistent with adynamic ileus given normal small bowel transit time on recent small bowel series. Jay Jay Hernandez MD Small Bowel X-Ray 03/07/17 0800 Signed Impressions: Service Date/Time: Tuesday, March 07, 2017 10:12 - CONCLUSION: There was normal transit of barium from the stomach down to the colon. The exam does demonstrate some thickening of the small bowel diffusely throughout the ileum suggesting enteritis. No findings to indicate obstruction are seen. Liang Chen MD Chest X-Ray 03/06/17 4171 Signed Impressions: Service Date/Time: Monday, March 06, 2017 03:20 - CONCLUSION: 1. Emphysematous changes. 2. Blunting of the left costophrenic angle either related to pleural scarring or tiny effusion. 3. No appreciable free air. Rebel Agee Jr., MD Abdomen/Pelvis CT 03/06/17 0317 Signed Impressions: Service Date/Time: Monday, March 06, 2017 04:50 - CONCLUSION: 1. Diffuse dilatation of the small bowel without an obstructing mass or lesion. There is a left inguinal hernia containing sigmoid colon but this is not felt relating to the dilatation of the small bowel. 2. Trace amount of free fluid. 3. Small left pleural effusion. Rebel Agee Jr., MD Objective Remarks GENERAL: Ill-appearing elderly male CARDIOVASCULAR: Irregularly irreg rate and rhythm. RESPIRATORY: No accessory muscle use. Clear to auscultation. Breath sounds equal bilaterally. GASTROINTESTINAL: decreased BS. Mildly distended. Nontender. Tympanitic No guarding. MUSCULOSKELETAL: Extremities without clubbing, cyanosis, or edema. No obvious deformities. NEUROLOGICAL: Awake and alert. No obvious cranial nerve deficits. Motor grossly within normal limits.Moves all limbs. A/P Assessment and Plan 81 yo male, critically ill with severe dehydration, acute kidney injury, and small bowel obstruction. Ideally we would define the cause of his obstruction prior to intervention but might not have that luxury. For now he will have NG decompression, seral exams, and aggressive fluid resuscitation. Small bowel obstruction. JOSEE. Dehydration. Hx of bladder cancer. IV hydration isotonic fluid. Protonix. Heparin sq for DVT. Antibiotic coverage. Monitor I&O. GI consult, gen surgery consult . Had serial abdominal exam Advance diet as tolerated DC when tolerated diet and cleared by consultants Discussed with patient, nurse, surgicl tesm DC plan: Poss DC tomorrow if tolerated food and improved. Kiara Fleming MD Mar 13, 2017 11:21
[2017-03-13 12:00] VITALS: BP 93/60; PULSE 82; RESP 18; TEMP 96; O2SAT 97
--- NOTE | 2017-03-13 13:03 | HHI.PR ---
Subjective Subjective Notes Resting in bed Uneventful night Objective Vitals/I&O Vital Signs Date Time Temp Pulse Resp B/P (MAP) Pulse Ox O2 Delivery O2 Flow Rate FiO2 03/13/17 12:00 96.0 82 18 93/60 (71) 97 03/10/17 09:14 21 Labs Date/Time Source Procedure Growth Status 03/06/17 04:44 Blood Peripheral Aerobic Blood Culture - Final NO GROWTH IN 5 DAYS Complete 03/06/17 04:44 Anaerobic Blood Culture - Final Staphylococcus Epidermidis Complete Radiology Last 48 hours Impressions Chest X-Ray 03/06/17316 Signed Impressions: Service Date/Time: Monday, March 06, 2017 03:20 - CONCLUSION: 1. Emphysematous changes. 2. Blunting of the left costophrenic angle either related to pleural scarring or tiny effusion. 3. No appreciable free air. Rebel Agee Jr., MD Abdomen/Pelvis CT 03/06/17316 Signed Impressions: Service Date/Time: Monday, March 06, 2017 04:50 - CONCLUSION: 1. Diffuse dilatation of the small bowel without an obstructing mass or lesion. There is a left inguinal hernia containing sigmoid colon but this is not felt relating to the dilatation of the small bowel. 2. Trace amount of free fluid. 3. Small left pleural effusion. Rebel Agee Jr., MD Cardiovascular: Regular Lungs: Clear Abdomen: Non-distended, Non-tender Extremities: No edema A/P Assessment and Plan 81-year-old male with abdominal pain and CT abdomen and pelvis suspicious for small bowel obstruction. -Abdominal exam benign -+BM -Continue soft foods as tolerated + Ensure shakes -SBFT unremarkable -OOB and mobilize -Continue non op treatment at this time -Discussed with Dr. Fleming----likely DC tomorrow if continues to improve Attending Note - Dr. Hendricks Abdomen remains soft; will keep in hospital one more day to make sure he can tolerate solid foods. The exam, history, and the medical decision-making described in the above note were completed with the assistance of the mid-level provider. I reviewed and agree with the findings presented. I attest that I had a [id number] encounter with the patient on the same day, and personally performed and documented my assessment and findings in the medical record. Cheri Veliz Mar 13, 2017 13:03 Emerson Hendricks MD Mar 22, 2017 14:50
[2017-03-13 16:00] VITALS: BP 131/82; PULSE 83; RESP 17; TEMP 96.1; O2SAT 98
[2017-03-13 20:00] VITALS: BP 103/64; PULSE 75; RESP 18; TEMP 97.5; O2SAT 96
[2017-03-14] VITALS: BP 139/82; PULSE 91; RESP 18; TEMP 97.1; O2SAT 99
[2017-03-14] MEDS: SIMETHICONE 125 MG CHEWABLE TAB PO SCH (04:49)
[2017-03-14] MEDS: SODIUM CHLOR 0.9% 1000 ML INJ 1,000 ML IV SCH (04:49)
[2017-03-14] MEDS: HEPARIN SODIUM - SQ 10,000 UNITS/ML VIAL SQ SCH (04:49)
[2017-03-14 08:00] VITALS: BP 100/57; PULSE 76; RESP 15; TEMP 96.7; O2SAT 96
[2017-03-14] MEDS: PANTOPRAZOLE SODIUM 40 MG VIAL IV PUSH SCH (08:29)
[2017-03-14] MEDS: DIGOXIN 0.125 MG TAB PO SCH (08:30)
[2017-03-14] MEDS: METOPROLOL TARTRATE 25 MG TAB PO SCH (08:37)
[2017-03-14] MEDS: DOCUSATE SODIUM 50 MG/SENNA 8.6 MG TAB PO SCH (08:37)
[2017-03-14] MEDS: SODIUM CHLORIDE 0.9% FLUSH 10 ML FLUSH IV FLUSH SCH (08:38)
[2017-03-14] MEDS: SULFAMETHOXAZOLE-TRIMETHOPRIM DS 800-160 MG TAB PO SCH (08:41)
--- NOTE | 2017-03-14 11:32 | HHI.PR ---
Objective Vitals Vital Signs Date Time Temp Pulse Resp B/P (MAP) Pulse Ox O2 Delivery O2 Flow Rate FiO2 03/14/17 08:00 96.7 76 15 100/57 (71) 96 03/14/17 00:00 97.1 91 18 139/82 (101) 99 03/13/17 20:00 97.5 75 18 103/64 (77) 96 03/13/17 16:00 96.1 83 17 131/82 (98) 98 03/13/17 12:00 96.0 82 18 93/60 (71) 97 I/O 03/13/17 03/13/17 03/13/17 03/14/17 03/14/17 03/14/17 06:59 14:59 22:59 06:59 14:59 22:59 Intake Total 1200 ml 1380 ml 750 ml Output Total 600 ml 650 ml 750 ml Balance 1200 ml 780 ml 100 ml -750 ml Intake Oral 480 ml IV Total 1200 ml 900 ml 750 ml Output Urine Total 600 ml 650 ml 750 ml # Voids 3 # Bowel Movements 4 Result Diagram: 03/12/1751903/12/17519 Objective Remarks GENERAL: Ill-appearing elderly male CARDIOVASCULAR: Irregularly irreg rate and rhythm. RESPIRATORY: No accessory muscle use. Clear to auscultation. Breath sounds equal bilaterally. GASTROINTESTINAL: decreased BS. Mildly distended. Nontender. Tympanitic No guarding. MUSCULOSKELETAL: Extremities without clubbing, cyanosis, or edema. No obvious deformities. NEUROLOGICAL: Awake and alert. No obvious cranial nerve deficits. Motor grossly within normal limits.Moves all limbs. A/P Assessment and Plan 81 yo male, critically ill with severe dehydration, acute kidney injury, and small bowel obstruction. Ideally we would define the cause of his obstruction prior to intervention but might not have that luxury. For now he will have NG decompression, seral exams, and aggressive fluid resuscitation. Small bowel obstruction. JOSEE. Dehydration. Hx of bladder cancer. IV hydration isotonic fluid. Protonix. Heparin sq for DVT. Antibiotic coverage. Monitor I&O. GI consult, gen surgery consult . Had serial abdominal exam Advance diet as tolerated DC when tolerated diet and cleared by consultants Discussed with patient, nurse, surgicl tesm DC plan: Poss DC tomorrow if tolerated food and improved. Kiara Fleming MD Mar 14, 2017 11:32
== END 2017-03-14 11:50 | disposition home health service (06) | DRG 389 ==
LOC: NEPC 02:50 → NEDA 05:52 → N03A 07:33 → N07B 03-07 16:50
PROVIDERS: ADMIT Hospitalist; ATTEND Hospitalist
PROC: 0D9670Z Drainage of Stomach with Drainage Device, Via Natural or Artificial Opening (ICD-10-PCS; principal; 2017-03-07)
DX: K56.609 Unspecified intestinal obstruction, unspecified as to partial versus complete obstruction (principal); E87.2 Acidosis; N17.9 Acute kidney failure, unspecified; I50.9 Heart failure, unspecified; I48.91 Unspecified atrial fibrillation; E86.0 Dehydration; N31.9 Neuromuscular dysfunction of bladder, unspecified; K40.90 Unilateral inguinal hernia, without obstruction or gangrene, not specified as recurrent; R19.7 Diarrhea, unspecified; Z91.041 Radiographic dye allergy status; Z85.51 Personal history of malignant neoplasm of bladder; Z95.2 Presence of prosthetic heart valve
CPT/HCPCS: 36600; 71010; 74000; 74176; 74250; 80048; 80053; 81001; 82805; 82948; 83036; 83605; 83690; 83735; 83880; 84100; 84439; 84443; 85025; 85610; 85730; 87040; 87186; 87205; 87493; 87641; 93005; 93306; 94150; 96365; 96375; C9113; J1160; J1644; J2270; J2405; J2765; J3370; J3480; J7030; J7050; Q9963

== ENCOUNTER 2017-03-15 13:59 | Inpatient (IN) | payer MEDICARE, OTHER ==
[~2017-03-15] VITALS: Ht 188 cm; Wt 71.2 kg
[~2017-03-15 13:59] MED LIST: ASPI325T PO; BACT800T5 PO; CALC600T4 PO; DIGO0.12 PO; ENAL5TAB PO; FURO40TA PO; METO25TA3 PO; PANT40TA3 PO; SENN1TAB PO; SPIR25TA PO
[2017-03-15 14:13] VITALS: BP 123/60; PULSE 57; RESP 30; TEMP 97.4; O2SAT 95
[2017-03-15] MEDS ORDERED: SODIUM CHLOR 0.9% 1000 ML INJ 1,000 ML IV SCH (14:36)
--- NOTE | 2017-03-15 14:43 | PD ---
HPI Chief Complaint: GI Complaint Time Seen by Provider: 14:30 Travel History International Travel<30 days: No Contact w/Intl Traveler<30days: No Traveled to known affect area: No History of Present Illness HPI 81-year-old male presents to the emergency department for abdominal pain. Patient was just admitted March 06, 2017 and was discharged yesterday. His is at bedside. She states he was discharged around noon and was doing much better. However, he states he started with the pain again last night. It has been worsening throughout the day. Patient states the exact same pain he just had. Patient reports dry heaving, intense abdominal pain. Patient was admitted for sepsis, small bowel obstruction, possible ischemic colitis, acute kidney injury, dehydration. He has had no prior abdominal surgeries. Patient does have history of bladder cancer 40 years ago. Patient denies any blood in his stool. He denies any chest pain or shortness of breath. No fevers or chills. No alleviating or exacerbating factors. 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) Endocrine: No Gastrointestinal Disorders: Yes (bowel obstuction) Genitourinary: Yes (STRAIGHT CATH Q6) Immune Disorder: No Medical other: Yes (recent diag." bowel obstruction") Musculoskeletal: No Neurologic: No Psychiatric: No Respiratory: No Past Surgical History Eye Surgery: Yes (YUE LOZOYA, SURGERY AT [facility]) Genitourinary Surgery: Yes (BLADDER CANCER SURGERY 40 YRS AGO, PATIENT STRAIGHT CATHS BECAUSE OF IT) Other Surgery: Yes Social History Alcohol Use: Yes (rare) Tobacco Use: No Substance Use: No Allergies-Medications (Allergen,Severity, Reaction): Coded Allergies: Penicillins (Verified Allergy, Severe, 03/06/17) iohexol (Verified Allergy, Severe, Anaphylaxis, 03/06/17) Reported Meds & Prescriptions Reported Meds & Active Scripts Active Senna Plus 8.6-50 mg (Sennosides-Docusate Sodium) 8.6 Mg-50 Mg Tab 1 Tab PO BID Reported Bactrim DS (Sulfamethoxazole-Trimethoprim) 800-160 Mg Tab 1 Tab PO BID Spironolactone 25 Mg Tab 25 Mg PO DAILY Pantoprazole (Pantoprazole Sodium) 40 Mg Tab 40 Mg PO DAILY Metoprolol Tartrate 25 Mg Tab 12.5 Mg PO BID Furosemide 40 Mg Tab 40 Mg PO DAILY Enalapril (Enalapril Maleate) 5 Mg Tab 5 Mg PO DAILY Digoxin 0.125 Mg Tab 0.125 Mg PO DAILY Calcium Carbonate 1,500 Mg Tab 500 Mg PO BID 1,500 mg calcium carbonate (600 mg elemental calcium) Aspirin 325 Mg Tab 325 Mg PO DAILY Review of Systems Except as stated in HPI: all other systems reviewed are Neg Physical Exam Narrative GENERAL: Well-nourished, well-developed elderly male patient, afebrile. Patient is lying on his right side, moaning in pain. SKIN: Focused skin assessment warm/dry. HEAD: Normocephalic. Atraumatic. EYES: No scleral icterus. No injection or drainage. NECK: Supple, trachea midline. No JVD or lymphadenopathy. CARDIOVASCULAR: Regular rate and rhythm without murmurs, gallops, or rubs. RESPIRATORY: Breath sounds equal bilaterally. No accessory muscle use. Lungs sounds are clear to auscultation. Patient is Tachypneic. GASTROINTESTINAL: Abdomen soft and patient has diffuse tenderness, worse in the lower abdomen. MUSCULOSKELETAL: No cyanosis, or edema. BACK: Nontender without obvious deformity. No CVA tenderness. Data Data Last Documented VS Vital Signs Date Time Temp Pulse Resp B/P (MAP) Pulse Ox O2 Delivery O2 Flow Rate FiO2 03/15/17 16:50 82 20 144/89 (107) 98 Room Air 03/15/17 14:13 97.4 Orders Orders Complete Blood Count With Diff (03/15/17 14:36) Comprehensive Metabolic Panel (03/15/17 14:36) Lipase (03/15/17 14:36) Lactic Acid (03/15/17 14:36) Prothrombin Time / Inr (Pt) (03/15/17 14:36) Act Partial Throm Time (Ptt) (03/15/17 14:36) Urinalysis - C+S If Indicated (03/15/17 14:36) Ct Abd/Pel W/O Iv Contrast (03/15/17 14:36) Iv Access Insert/Monitor (03/15/17 14:36) Ecg Monitoring (03/15/17 14:36) Oximetry (03/15/17 14:36) NPO (03/15/17 14:36) Morphine Inj (Morphine Inj) (03/15/17 14:45) Ondansetron Inj (Zofran Inj) (03/15/17 14:45) Sodium Chlor 0.9% 1000 Ml Inj (Ns 1000 M (03/15/17 14:36) Sodium Chloride 0.9% Flush (Ns Flush) (03/15/17 14:45) Electrocardiogram (03/15/17 14:36) Blood Culture (03/15/17 14:38) Oral Contrast - Adult (03/15/17 15:16) Diatrizoate Liq ( Gastroview Liq) (03/15/17 15:27) Insert Ng Tube (03/15/17 17:44) Morphine Inj (Morphine Inj) (03/15/17 17:45) Morphine Inj (Morphine Inj) (03/15/17 18:15) Admit Order (Ed Use Only) (03/15/17 18:10) Labs Laboratory Tests Test 03/15/17 15:10 03/15/17 16:50 White Blood Count 8.4 TH/MM3 Red Blood Count 4.97 MIL/MM3 Hemoglobin 16.3 GM/DL Hematocrit 49.0 % Mean Corpuscular Volume 98.6 FL Mean Corpuscular Hemoglobin 32.9 PG Mean Corpuscular Hemoglobin Concent 33.3 % Red Cell Distribution Width 14.7 % Platelet Count 285 TH/MM3 Mean Platelet Volume 8.2 FL Neutrophils (%) (Auto) 80.6 % Lymphocytes (%) (Auto) 11.2 % Monocytes (%) (Auto) 7.0 % Eosinophils (%) (Auto) 0.7 % Basophils (%) (Auto) 0.5 % Neutrophils # (Auto) 6.8 TH/MM3 Lymphocytes # (Auto) 0.9 TH/MM3 Monocytes # (Auto) 0.6 TH/MM3 Eosinophils # (Auto) 0.1 TH/MM3 Basophils # (Auto) 0.0 TH/MM3 CBC Comment DIFF FINAL Differential Comment Prothrombin Time 11.3 SEC Prothromb Time International Ratio 1.0 RATIO Activated Partial Thromboplast Time 25.2 SEC Blood Urea Nitrogen 7 MG/DL Creatinine 1.23 MG/DL Random Glucose 106 MG/DL Total Protein 6.5 GM/DL Albumin 3.0 GM/DL Calcium Level 9.2 MG/DL Alkaline Phosphatase 51 U/L Aspartate Amino Transf (AST/SGOT) 27 U/L Alanine Aminotransferase (ALT/SGPT) 20 U/L Total Bilirubin 0.8 MG/DL Sodium Level 138 MEQ/L Potassium Level 4.8 MEQ/L Chloride Level 106 MEQ/L Carbon Dioxide Level 20.2 MEQ/L Anion Gap 12 MEQ/L Estimat Glomerular Filtration Rate 57 ML/MIN Lactic Acid Level 2.3 mmol/L Lipase 157 U/L Urine Color YELLOW Urine Turbidity CLEAR Urine pH 6.0 Urine Specific [place] 1.012 Urine Protein TRACE mg/dL Urine Glucose (UA) NEG mg/dL Urine Ketones 10 mg/dL Urine Occult Blood NEG Urine Nitrite NEG Urine Bilirubin NEG Urine Urobilinogen LESS THAN 2.0 MG/DL Urine Leukocyte Esterase NEG Urine RBC 1 /hpf Urine WBC 3 /hpf Urine Squamous Epithelial Cells <1 /hpf Urine Hyaline Casts 1 /lpf Urine Mucus FEW /lpf Microscopic Urinalysis Comment CULT NOT INDICATED MDM Medical Decision Making Medical Screen Exam Complete: Yes Emergency Medical Condition: Yes Medical Record Reviewed: Yes Interpretation(s) CT abdomen/pelvis - CONCLUSION: 1. Increasing small bowel ileus characteristics of worsening high grade small bowel destruction. 2. Increasing fluid in the abdomen. 3. Increasing pleural fluid with small bilateral pleural effusions. 4. Persistent left inguinal hernia containing a segment of sigmoid colon which is not felt to be the obstructing point. Differential Diagnosis Small bowel obstruction versus dehydration versus electrolyte abnormality versus diverticulitis versus UTI versus sepsis Narrative Course 81-year-old male presents to the emergency department for evaluation of abdominal pain. He was discharged yesterday for the same. Patient lying on his right side and moaning in pain. He is dry heaving upon my exam. EKG, CBC, CMP, lipase, lactic acid, PTT, PT/INR, UA are ordered and pending. Chest x-ray and CT abdomen/pelvis without IV contrast, with oral contrast are ordered and pending. Patient is given normal saline 1 L IV bolus, Zofran 4 mg IV, morphine 4 mg IV. EKG shows atrial fibrillation, heart rate 87, no acute ST changes. CBC shows no acute abnormality. CMP shows no acute abnormality. Lipase is 157. Lactic acid is 2.3. Coags are unremarkable. UA is negative for acute infection. Chest x-ray was declined by patient's since he just had one yesterday. CT abdomen/pelvis shows 1. Increasing small bowel ileus characteristics of worsening high grade small bowel destruction; Increasing fluid in the abdomen; Increasing pleural fluid with small bilateral pleural effusions; Persistent left inguinal hernia containing a segment of sigmoid colon which is not felt to be the obstructing point. NG tube is inserted. Dr. Aburto accepted admission. Diagnosis Primary Impression: Small bowel obstruction Admitting Information Admitting Physician Requests: Admit Rachel Talamantes Mar 15, 2017 14:43
[2017-03-15] MEDS ORDERED: MORPHINE SULFATE 4 MG/ML INJ IV PUSH ONE (14:45)
[2017-03-15] MEDS ORDERED: ONDANSETRON HCL 4 MG/2 ML VIAL IVP ONE (14:45)
[2017-03-15] MEDS: SODIUM CHLORIDE 0.9% FLUSH 10 ML FLUSH IV FLUSH PRN ×2 (14:58→17:59)
[2017-03-15] MEDS ORDERED: DIATRIZOATE MEGLUM/DIATRIZOATE SOD 9 ML CUP ONE (15:27)
[2017-03-15 16:27] LABS: AUTOMATED NEUTROPHIL # 6.8 TH/MM3 (1.8-7.7); BASOPHIL % 0.5 % (0.0-2.0); EOSINOPHIL # 0.1 TH/MM3 (0-0.4); EOSINOPHIL % 0.7 % (0.0-4.0); HEMO FLAGS DIFF FINAL; LYMPH % 11.2 % (9.0-44.0); LYMPHOCYTE # 0.9 TH/MM3 (1.0-4.8); MEAN CELL VOLUME 98.6 FL (80.0-100.0); MEAN CORPUSCULAR HEMOGLOBIN 32.9 PG (27.0-34.0); MEAN CORPUSCULAR HGB CONC 33.3 % (32.0-36.0); NEUT % 80.6 % (16.0-70.0); PLATELET COUNT 285 TH/MM3 (150-450); RED BLOOD COUNT 4.97 MIL/MM3 (4.50-5.90); RED CELL DISTRIBUTION WIDTH 14.7 % (11.6-17.2); WHITE BLOOD COUNT 8.4 TH/MM3 (4.0-11.0)
[2017-03-15 16:42] LABS: APTT (PATIENT) 25.2 SEC (24.3-30.1); PROTHROMBIN TIME - PATIENT 11.3 SEC (9.8-11.6)
[2017-03-15 16:50] VITALS: BP 144/89; PULSE 82; RESP 20; O2SAT 98
[2017-03-15 16:51] LABS: ALKALINE PHOSPHATASE 51 U/L (45-117); ALT (GPT) 20 U/L (12-78); ANION GAP 12 MEQ/L (5-15); AST (GOT) 27 U/L (15-37); BICARBONATE 20.2 MEQ/L (21.0-32.0); BLOOD UREA NITROGEN 7 MG/DL (7-18); CHLORIDE 106 MEQ/L (98-107); GLOMERULAR FILTRATION RATE 57 ML/MIN (>89); POTASSIUM 4.8 MEQ/L (3.5-5.1); SODIUM (NA) 138 MEQ/L (136-145); TOTAL BILIRUBIN ADULT 0.8 MG/DL (0.2-1.0)
[2017-03-15 17:04] LABS: BLOOD, URINE NEG (NEG); COMMENT (UR) CULT NOT INDICATED; CULTURE IF INDICATED CULT NOT INDICATED; GLUCOSE,URINE NEG (NEG); HYALINE CAST, URINE 1 /lpf (RARE); KETONE, URINE 10 mg/dL (NEG); MUCUS URINE FEW /lpf (OCC); NITRITE,URINE NEG (NEG); SQUAMOUS EPITHELIAL CELL URINE <1 /hpf (0-5); URINE COLOR YELLOW (YELLW/STRAW)
[2017-03-15] MEDS ORDERED: MORPHINE SULFATE 2 MG/ML INJ IV PUSH ONE ×2 (17:45→18:15)
--- NOTE | 2017-03-15 18:08 | RADRPT ---
EXAM DATE/TIME: 03/15/2017 17:35 [facility] COMPARISON: CT ABDOMEN & PELVIS W/O CONTRAST, March 06, 2017, 4:50. INDICATIONS : Increasingly worse abdominal pain, vomiting. ORAL CONTRAST: No oral contrast ingested. RADIATION DOSE: 6.69 CTDIvol (mGy) MEDICAL HISTORY : Cardiovascular disease. Carcinoma, bladder. SURGICAL HISTORY : Retina seperation. Bowel obstruction ENCOUNTER: Initial ACUITY: 2 days PAIN SCALE: 8/10 LOCATION: abdominal. TECHNIQUE: Volumetric scanning of the abdomen and pelvis was performed. Using automated exposure control and ad justment of the mA and/or kV according to patient size, radiation dose was kept as low as reasonably achievable to obtain optimal diagnostic quality images. DICOM format image data is available electro nically for review and comparison. FINDINGS: LOWER LUNGS: Small bilateral effusions are noted. LIVER: Homogeneous density without lesion. There is no dilation of the biliary tree. No calcified gallston es. SPLEEN: Normal size without lesion. PANCREAS: Within normal limits. KIDNEYS: Normal in size and shape. There is no mass, stone, or hydronephrosis. ADRENAL GLANDS: Within normal limits. VASCULAR: There is no aortic aneurysm. BOWEL/MESENTERY: Small amount of free fluid is identified in the peritoneal cavity. Increasing small bowel distention with air-fluid levels is noted compared to the recent exam. A clearly defined transition is not evide nt. The colon is collapsed and contains stool and gas. A left inguinal hernia containing a segment of sigmoid colon is noted. The colon proximal to this is collapsed. ABDOMINAL WALL: Within normal limits. RETROPERITONEUM: There is no lymphadenopathy. BLADDER: No wall thickening or mass. REPRODUCTIVE: Within normal limits. INGUINAL: There is no lymphadenopathy or hernia. MUSCULOSKELETAL: Lumbar facet arthropathy CONCLUSION: 1. Increasing small bowel ileus characteristics of worsening high grade small bowel destruction. 2. Increasing fluid in the abdomen. 3. Increasing pleural fluid with small bilateral pleural effusions. 4. Persistent left inguinal hernia containing a segment of sigmoid colon which is not felt to be the obstructing point. Taurus Peterson MD on March 15, 2017 at 17:58 Board Certified Radiologist. This report was verified electronically.
[2017-03-15] MEDS ORDERED: MORPHINE SULFATE 4 MG/ML INJ IV PUSH PRN (18:30)
[2017-03-15] MEDS ORDERED: NALOXONE HCL 0.4 MG/ML AMP IV PUSH PRN (18:30)
[2017-03-15] MEDS ORDERED: BISACODYL 10 MG SUPP RECTAL PRN (18:30)
[2017-03-15] MEDS ORDERED: METOPROLOL TARTRATE 5 MG/5 ML VIAL IV PUSH PRN (18:30)
[2017-03-15] MEDS ORDERED: LACTULOSE SYRUP 20 GM/30 ML CUP PO PRN (18:30)
[2017-03-15] MEDS ORDERED: PROCHLORPERAZINE 25 MG SUPP RECTAL PRN (18:30)
[2017-03-15] MEDS ORDERED: ACETAMINOPHEN 325 MG TAB PO PRN (18:30)
[2017-03-15] MEDS ORDERED: SENNOSIDES 8.6 MG TAB PO PRN (18:30)
[2017-03-15] MEDS ORDERED: MAGNESIUM HYDROXIDE SUSP 30 ML CUP PO PRN (18:30)
--- NOTE | 2017-03-15 18:47 | HHI.HP ---
[facility] Rohith Sanders M.D. Admission Diagnosis SBO Diagnoses: (1) H/O carcinoma of bladder Diagnosis: Secondary (2) JOSEE (acute kidney injury) Diagnosis: Secondary (3) Small bowel obstruction Diagnosis: Principal (4) Dehydration Diagnosis: Principal Chief Complaint: Small bowel obstruction Travel History International Travel<30 Days: No Contact w/Intl Traveler <30 Da: No Traveled to Known Affected Are: No History of Present Illness Patient is an 81-year-old gentleman presenting emergency department today after being seen by his home health care RN for abdominal pain. Patient had recently admitted 03/06/17 was discharged yesterday 03/14/17. His is at bedside states, he was discharged yesterday and was doing much better yesterday. However he started having pain last night. And worsened throughout the day today. Patient reports that he was having dry heaving and intense abdominal pain. Patient was admitted for sepsis small bowel obstruction questionable ischemic colitis and acute kidney injury and dehydration. He denies any prior abdominal surgeries but does have a history of bladder cancer 40 years ago denies any blood in the stools denies any chest pain denies any shortness of breath denies any fever or chills no alleviating or exacerbating factors He will be admitted, WE will consult general surgery and NG tube will be placed. He will be given pain medications and IV fluids Review of Systems Constitutional: COMPLAINS OF: Fatigue, DENIES: Diaphoretic episodes, Fever, Weight gain, Weight loss, Chills, Dizziness, Night Sweats Endocrine: DENIES: Heat/cold intolerance, Polydipsia, Polyuria Eyes: DENIES: Blurred vision, Diplopia, Eye inflammation, Eye pain Ears, nose, mouth, throat: DENIES: Tinnitus, Hearing loss, Vertigo Respiratory: DENIES: Apneas, Cough, Snoring, Wheezing Cardiovascular: DENIES: Chest pain, Palpitations, Syncope Gastrointestinal: COMPLAINS OF: Abdominal pain, Nausea, Vomiting, DENIES: Black stools, Bloody stools, Constipation, Diarrhea Genitourinary: COMPLAINS OF: Urinary frequency (uses chronic self- catheterization due to bladder cancer), DENIES: Sexual dysfunction Musculoskeletal: DENIES: Joint pain, Muscle aches, Stiffness Integumentary: DENIES: Abnormal pigmentation, Nail changes Hematologic/lymphatic: DENIES: Bruising, Lymphadenopathy Immunologic/allergic: DENIES: Eczema, Urticaria Neurologic: COMPLAINS OF: Localized weakness, DENIES: Abnormal gait, Headache, Paresthesias, Seizures, Speech Problems Psychiatric: DENIES: Anxiety, Confusion, Mood changes, Depression, Hallucinations, Delusions Except as stated in HPI: all other systems reviewed are Neg Past Family Social History Past Medical History Anticoagulation therapy with aspirin Atrial fibrillation History of bladder cancer Mitral and aortic valve regurgitation History of bowel obstruction Chronic straight catheterization every 6 hours Past Surgical History Retina surgery at [facility] Bladder cancer surgery 40 years ago Patient chronically is straight catheters every 6 hours Reported Medications Reported Meds & Active Scripts Active Senna Plus 8.6-50 mg (Sennosides-Docusate Sodium) 8.6 Mg-50 Mg Tab 1 Tab PO BID Reported Bactrim DS (Sulfamethoxazole-Trimethoprim) 800-160 Mg Tab 1 Tab PO BID Spironolactone 25 Mg Tab 25 Mg PO DAILY Pantoprazole (Pantoprazole Sodium) 40 Mg Tab 40 Mg PO DAILY Metoprolol Tartrate 25 Mg Tab 12.5 Mg PO BID Furosemide 40 Mg Tab 40 Mg PO DAILY Enalapril (Enalapril Maleate) 5 Mg Tab 5 Mg PO DAILY Digoxin 0.125 Mg Tab 0.125 Mg PO DAILY Calcium Carbonate 1,500 Mg Tab 500 Mg PO BID 1,500 mg calcium carbonate (600 mg elemental calcium) Aspirin 325 Mg Tab 325 Mg PO DAILY Allergies: Coded Allergies: Penicillins (Verified Allergy, Severe, 03/06/17) iohexol (Verified Allergy, Severe, Anaphylaxis, 03/06/17) Active Ordered Medications Current Medications Morphine Sulfate (Morphine Inj) 4 mg ONCE ONCE IV PUSH Last administered on 14:56; Start 03/15/17 at 14:45; Stop 03/15/17 at 14:46; Status DC Ondansetron HCl (Zofran Inj) 4 mg ONCE ONCE IVP Last administered on 14:56; Start 03/15/17 at 14:45; Stop 03/15/17 at 14:46; Status DC Sodium Chloride 1,000 ml @ 1,000 mls/hr Q1H IV Last administered on 14:58; Start 03/15/17 at 14:36; Stop 03/15/17 at 15:35; Status DC Sodium Chloride (NS Flush) 2 ml UNSCH PRN IV FLUSH FLUSH AFTER USING IV ACCESS Last administered on 03/15/17 17:59; Start 03/15/17 at 14:45 Diatrizoate Meglum/ Diatrizoate Sod ( Gastroview Liq) 18 ml STK-MED ONCE .ROUTE Last administered on 03/15/17 15:31; Start 03/15/17 at 15:27; Stop 03/15/17 at 15:28; Status DC Morphine Sulfate (Morphine Inj) 2 mg ONCE ONCE IV PUSH Last administered on 17:59; Start 03/15/17 at 17:45; Stop 03/15/17 at 17:47; Status DC Morphine Sulfate (Morphine Inj) 2 mg ONCE ONCE IV PUSH ; Start 03/15/17 at 18: 15; Stop 03/15/17 at 18:22; Status DC Family History Noncontributory at this time Parents are Social History Denies any tobacco Rare alcoholic beverage Denies any substance abuse Physical Exam Vital Signs Vital Signs Date Time Temp Pulse Resp B/P (MAP) Pulse Ox O2 Delivery O2 Flow Rate FiO2 03/15/17 16:50 82 20 144/89 (107) 98 Room Air 03/15/17 14:13 97.4 57 30 123/60 (81) 95 Physical Exam GENERAL: This is a well-nourished, well-developed patient, in moderate distress. SKIN: No rashes, ecchymoses or lesions. Cool and dry. HEAD: Atraumatic. Normocephalic. No temporal or scalp tenderness. EYES: Pupils equal round and reactive. Extraocular motions intact. No scleral icterus. No injection or drainage. ENT: Nose without bleeding, purulent drainage or septal hematoma. Throat without erythema, tonsillar hypertrophy or exudate. Uvula midline. Airway patent NG tube in place tongue is midline NECK: Trachea midline. No JVD or lymphadenopathy. Supple, nontender, no meningeal signs. CARDIOVASCULAR: IRRegular rate and rhythm without murmurs, gallops, or rubs. S1 -S2 no S3 or S4 RESPIRATORY: Clear to auscultation. Breath sounds equal bilaterally. No wheezes , rales, or rhonchi. GASTROINTESTINAL: Abdomen soft, some tenderness and distended. No hepato- splenomegaly, or palpable masses. No guarding. Mild rebound MUSCULOSKELETAL: Extremities without clubbing, cyanosis, or edema. No joint tenderness, effusion, or edema noted. No calf tenderness. Negative Homans sign bilaterally. NEUROLOGICAL: Awake and alert. Cranial nerves II through XII intact. Motor and sensory grossly within normal limits. 4 out of 5 muscle strength in all muscle groups. Normal speech. Insight and judgment is good, mood and behavior is appropriate Laboratory Laboratory Tests Test 03/15/17 15:10 03/15/17 16:50 White Blood Count 8.4 Red Blood Count 4.97 Hemoglobin 16.3 Hematocrit 49.0 Mean Corpuscular Volume 98.6 Mean Corpuscular Hemoglobin 32.9 Mean Corpuscular Hemoglobin Concent 33.3 Red Cell Distribution Width 14.7 Platelet Count 285 Mean Platelet Volume 8.2 Neutrophils (%) (Auto) 80.6 Lymphocytes (%) (Auto) 11.2 Monocytes (%) (Auto) 7.0 Eosinophils (%) (Auto) 0.7 Basophils (%) (Auto) 0.5 Neutrophils # (Auto) 6.8 Lymphocytes # (Auto) 0.9 Monocytes # (Auto) 0.6 Eosinophils # (Auto) 0.1 Basophils # (Auto) 0.0 CBC Comment DIFF FINAL Differential Comment Prothrombin Time 11.3 Prothromb Time International Ratio 1.0 Activated Partial Thromboplast Time 25.2 Blood Urea Nitrogen 7 Creatinine 1.23 Random Glucose 106 Total Protein 6.5 Albumin 3.0 Calcium Level 9.2 Alkaline Phosphatase 51 Aspartate Amino Transf (AST/SGOT) 27 Alanine Aminotransferase (ALT/SGPT) 20 Total Bilirubin 0.8 Sodium Level 138 Potassium Level 4.8 Chloride Level 106 Carbon Dioxide Level 20.2 Anion Gap 12 Estimat Glomerular Filtration Rate 57 Lactic Acid Level 2.3 Lipase 157 Urine Color YELLOW Urine Turbidity CLEAR Urine pH 6.0 Urine Specific [place] 1.012 Urine Protein TRACE Urine Glucose (UA) NEG Urine Ketones 10 Urine Occult Blood NEG Urine Nitrite NEG Urine Bilirubin NEG Urine Urobilinogen LESS THAN 2.0 Urine Leukocyte Esterase NEG Urine RBC 1 Urine WBC 3 Urine Squamous Epithelial Cells <1 Urine Hyaline Casts 1 Urine Mucus FEW Microscopic Urinalysis Comment CULT NOT INDICATED Date/Time Source Procedure Growth Status 03/15/17 15:15 Blood Peripheral Aerobic Blood Culture Pending Received 10 15:15 Blood Peripheral Anaerobic Blood Culture Pending Received Result Diagram: 03/15/17 1510 03/15/17 1510 Imaging CAt scan shows small bowel obstruction Caprini VTE Risk Assessment Caprini VTE Risk Assessment: Mod/High Risk (score >= 2) Caprini Risk Assessment Model Point Value = 1 Point Value = 2 Point Value = 3 Point Value = 5 Age 41-60 Minor surgery BMI > 25 kg/m2 Swollen legs Varicose veins or History of unexplained or recurrent spontaneous Oral contraceptives or hormone replacement Sepsis (< 1 month) Serious lung disease, including pneumonia (< 1 month) Abnormal pulmonary function Acute myocardial infarction Congestive heart failure (< 1 month) History of inflammatory bowel disease Medical patient at bed rest Age 61-74 Arthroscopic surgery Major open surgery (> 45 min) Laparoscopic surgery (> 45 min) Malignancy Confined to bed (> 72 hours) Immobilizing plaster cast Central venous access Age >= 75 History of VTE Family history of VTE Factor V Leiden Prothrombin [id number] Lupus anticoagulant Anticardiolipin antibodies Elevated serum homocysteine Heparin-induced thrombocytopenia Other congenital or acquired thrombophilia Stroke (< 1 month) Elective arthroplasty Hip, pelvis, or leg fracture Acute spinal cord injury (< 1 month) Prophylaxis Regimen Total Risk Factor Score Risk Level Prophylaxis Regimen 0-1 Low Early ambulation 2 Moderate Order ONE of the following: *Sequential Compression Device (SCD) *Heparin 5000 units SQ BID 3-4 Higher Order ONE of the following medications: *Heparin 5000 units SQ TID *Enoxaparin/Lovenox 40 mg SQ daily (WT < 150 kg, CrCl > 30 mL/min) *Enoxaparin/Lovenox 30 mg SQ daily (WT < 150 kg, CrCl > 10-29 mL/min) *Enoxaparin/Lovenox 30 mg SQ BID (WT < 150 kg, CrCl > 30 mL/min) AND/OR *Sequential Compression Device (SCD) 5 or more Highest Order ONE of the following medications: *Heparin 5000 units SQ TID (Preferred with Epidurals) *Enoxaparin/Lovenox 40 mg SQ daily (WT < 150 kg, CrCl > 30 mL/min) *Enoxaparin/Lovenox 30 mg SQ daily (WT < 150 kg, CrCl > 10-29 mL/min) *Enoxaparin/Lovenox 30 mg SQ BID (WT < 150 kg, CrCl > 30 mL/min) AND *Sequential Compression Device (SCD) Assessment and Plan Assessment and Plan Small bowel obstruction consult surgery continue IV pain control continue on fluids and keep nothing by mouth Atrial fibrillation continue on metoprolol IV and digoxin IV A new pain control for small bowel obstruction GI prophylaxis continue on Protonix IV daily DVT prophylaxis continue on Lovenox subcutaneous daily Chronic neurogenic bladder chronically self catheterizes every 6 hours as needed Continue on antibiotics IV Bactrim Code Status Full code Discussed Condition With DISCUSSED WITH PATIENT AND RN AND EMERGENCY ROOM PHYSICIAN AND Physician Certification 2 Midnight Certification Type: Admission for Inpatient Services Order for Inpatient Services The services are ordered in accordance with Medicare regulations or non- Medicare payer requirements, as applicable. In the case of services not specified as inpatient-only, they are appropriately provided as inpatient services in accordance with the 2-midnight benchmark. Estimated LOS (days): 5 5 days is the estimated time the patient will need to remain in the hospital, assuming treatment plan goals are met and no additional complications. Post-Hospital Plan: Not yet determined Jonatan Aburto DO Mar 15, 2017 18:47
[2017-03-15] MEDS: D5-1/2 NS + KCL 20 MEQ INJ 1,000 ML IV SCH (18:48)
[2017-03-15] MEDS: PANTOPRAZOLE SODIUM 40 MG VIAL IV PUSH SCH (18:49)
[2017-03-15 19:00] VITALS: BP 99/65; PULSE 83; RESP 15; TEMP 96.7; O2SAT 95
[2017-03-15 19:31] VITALS: BP 127/67; PULSE 89; RESP 18; O2SAT 96
[2017-03-15 20:00] VITALS: O2SAT 94
[2017-03-15] MEDS: ACETAMINOPHEN 1000 MG/100 ML 100 ML IV SCH (20:00)
[2017-03-15] MEDS: DOCUSATE SODIUM 50 MG/SENNA 8.6 MG TAB PO SCH (21:00)
[2017-03-15] MEDS: SODIUM CHLORIDE 0.9% FLUSH 10 ML FLUSH IV FLUSH SCH (21:00)
[2017-03-15] MEDS: ENOXAPARIN SODIUM 40 MG/0.4 ML SYRINGE SQ SCH (22:18)
[2017-03-16] VITALS (10 sets, daily range): BP systolic 98–103; BP diastolic 57–69; PULSE 70–86; RESP 16–46; TEMP 95.5–97.1; O2SAT 94–98
[2017-03-16] MEDS: ACETAMINOPHEN 1000 MG/100 ML 100 ML IV SCH ×3 (02:00→14:00)
[2017-03-16] MEDS: D5-1/2 NS + KCL 20 MEQ INJ 1,000 ML IV SCH ×2 (03:54→14:21)
[2017-03-16 07:33] LABS: AUTOMATED NEUTROPHIL # 5.1 TH/MM3 (1.8-7.7); BASOPHIL # 0.1 TH/MM3 (0-0.2); EOSINOPHIL # 0.2 TH/MM3 (0-0.4); HEMO FLAGS DIFF FINAL; LYMPH % 14.1 % (9.0-44.0); MEAN CORPUSCULAR HEMOGLOBIN 33.3 PG (27.0-34.0); MEAN CORPUSCULAR HGB CONC 33.6 % (32.0-36.0); NEUT % 73.9 % (16.0-70.0); PLATELET COUNT 215 TH/MM3 (150-450); RED BLOOD COUNT 4.25 MIL/MM3 (4.50-5.90); RED CELL DISTRIBUTION WIDTH 14.7 % (11.6-17.2)
[2017-03-16 08:20] LABS: ALKALINE PHOSPHATASE 42 U/L (45-117); ALT (GPT) 16 U/L (12-78); ANION GAP 6 MEQ/L (5-15); AST (GOT) 18 U/L (15-37); BICARBONATE 24.3 MEQ/L (21.0-32.0); BLOOD UREA NITROGEN 6 MG/DL (7-18); CHLORIDE 108 MEQ/L (98-107); FREE T4 1.24 NG/DL (0.76-1.46); GLOMERULAR FILTRATION RATE 72 ML/MIN (>89); POTASSIUM 4.4 MEQ/L (3.5-5.1); SODIUM (NA) 138 MEQ/L (136-145); TOTAL BILIRUBIN ADULT 0.6 MG/DL (0.2-1.0)
[2017-03-16] MEDS: DOCUSATE SODIUM 50 MG/SENNA 8.6 MG TAB PO SCH ×2 (09:00→19:42)
[2017-03-16] MEDS: PANTOPRAZOLE SODIUM 40 MG VIAL IV PUSH SCH (10:25)
[2017-03-16] MEDS: SODIUM CHLORIDE 0.9% FLUSH 10 ML FLUSH IV FLUSH SCH ×2 (10:25→19:42)
[2017-03-16] MEDS: DIGOXIN 0.5 MG/2 ML VIAL IV PUSH SCH (10:25)
--- NOTE | 2017-03-16 12:39 | HHI.PR ---
Subjective Remarks Patient is an 81-year-old gentleman presenting emergency department today after being seen by his home health care RN for abdominal pain. Patient had recently admitted 03/06/17 was discharged yesterday 03/14/17. His is at bedside states, he was discharged yesterday and was doing much better yesterday. However he started having pain last night. And worsened throughout the day today. Patient reports that he was having dry heaving and intense abdominal pain. Patient was admitted for sepsis small bowel obstruction questionable ischemic colitis and acute kidney injury and dehydration. He denies any prior abdominal surgeries but does have a history of bladder cancer 40 years ago denies any blood in the stools denies any chest pain denies any shortness of breath denies any fever or chills no alleviating or exacerbating factors He will be admitted, WE will consult general surgery and NG tube will be placed. He will be given pain medications and IV fluids 03-16 PATIENT STATES HE IS FEELING BETTER HAS NGT TO LIS HAS NOT SEEN SURGERY YET ARTEM RN AND PT AND CONTINUE CURRENT CARE AM LABS NPO DIET PER SURGERY Objective Vitals Vital Signs Date Time Temp Pulse Resp B/P (MAP) Pulse Ox O2 Delivery O2 Flow Rate FiO2 03/16/17 12:00 97.1 71 18 98/61 (73) 98 03/16/17 09:26 94 03/16/17 08:00 95.5 86 16 101/69 (80) 97 03/16/17 04:00 96.5 70 46 100/60 (73) 94 03/16/17 00:10 74 03/16/17 00:00 95.6 75 17 103/57 (72) 95 03/15/17 20:00 94 03/15/17 19:40 03/15/17 19:31 89 18 127/67 (87) 96 Room Air 03/15/17 19:00 96.7 83 15 99/65 (76) 95 03/15/17 16:50 82 20 144/89 (107) 98 Room Air 03/15/17 14:13 97.4 57 30 123/60 (81) 95 I/O 03/15/17 03/15/17 03/15/17 03/16/17 03/16/17 03/16/17 07:00 15:00 23:00 07:00 15:00 23:00 Intake Total 1000 ml 1067 ml Output Total 1300 ml Balance 1000 ml -233 ml Intake Oral 0 ml 0 ml IV Total 1000 ml 1067 ml Output Urine Total 1200 ml Gastric Drainage Total 100 ml # Voids 1 # Bowel Movements 0 Result Diagram: 03/16/17 0635 03/16/17 0635 Other Results Laboratory Tests Test 03/15/17 15:10 03/15/17 16:50 03/16/17 06:35 White Blood Count 8.4 TH/MM3 7.0 TH/MM3 Red Blood Count 4.97 MIL/MM3 4.25 MIL/MM3 Hemoglobin 16.3 GM/DL 14.1 GM/DL Hematocrit 49.0 % 42.0 % Mean Corpuscular Volume 98.6 FL 99.0 FL Mean Corpuscular Hemoglobin 32.9 PG 33.3 PG Mean Corpuscular Hemoglobin Concent 33.3 % 33.6 % Red Cell Distribution Width 14.7 % 14.7 % Platelet Count 285 TH/MM3 215 TH/MM3 Mean Platelet Volume 8.2 FL 8.2 FL Neutrophils (%) (Auto) 80.6 % 73.9 % Lymphocytes (%) (Auto) 11.2 % 14.1 % Monocytes (%) (Auto) 7.0 % 8.0 % Eosinophils (%) (Auto) 0.7 % 3.0 % Basophils (%) (Auto) 0.5 % 1.0 % Neutrophils # (Auto) 6.8 TH/MM3 5.1 TH/MM3 Lymphocytes # (Auto) 0.9 TH/MM3 1.0 TH/MM3 Monocytes # (Auto) 0.6 TH/MM3 0.6 TH/MM3 Eosinophils # (Auto) 0.1 TH/MM3 0.2 TH/MM3 Basophils # (Auto) 0.0 TH/MM3 0.1 TH/MM3 CBC Comment DIFF FINAL DIFF FINAL Differential Comment Prothrombin Time 11.3 SEC Prothromb Time International Ratio 1.0 RATIO Activated Partial Thromboplast Time 25.2 SEC Blood Urea Nitrogen 7 MG/DL 6 MG/DL Creatinine 1.23 MG/DL 1.00 MG/DL Random Glucose 106 MG/DL 107 MG/DL Total Protein 6.5 GM/DL 5.2 GM/DL Albumin 3.0 GM/DL 2.4 GM/DL Calcium Level 9.2 MG/DL 8.1 MG/DL Alkaline Phosphatase 51 U/L 42 U/L Aspartate Amino Transf (AST/SGOT) 27 U/L 18 U/L Alanine Aminotransferase (ALT/SGPT) 20 U/L 16 U/L Total Bilirubin 0.8 MG/DL 0.6 MG/DL Sodium Level 138 MEQ/L 138 MEQ/L Potassium Level 4.8 MEQ/L 4.4 MEQ/L Chloride Level 106 MEQ/L 108 MEQ/L Carbon Dioxide Level 20.2 MEQ/L 24.3 MEQ/L Anion Gap 12 MEQ/L 6 MEQ/L Estimat Glomerular Filtration Rate 57 ML/MIN 72 ML/MIN Lactic Acid Level 2.3 mmol/L Lipase 157 U/L Urine Color YELLOW Urine Turbidity CLEAR Urine pH 6.0 Urine Specific [place] 1.012 Urine Protein TRACE mg/dL Urine Glucose (UA) NEG mg/dL Urine Ketones 10 mg/dL Urine Occult Blood NEG Urine Nitrite NEG Urine Bilirubin NEG Urine Urobilinogen LESS THAN 2.0 MG/DL Urine Leukocyte Esterase NEG Urine RBC 1 /hpf Urine WBC 3 /hpf Urine Squamous Epithelial Cells <1 /hpf Urine Hyaline Casts 1 /lpf Urine Mucus FEW /lpf Microscopic Urinalysis Comment CULT NOT INDICATED Phosphorus Level 2.5 MG/DL Magnesium Level 2.0 MG/DL Free Thyroxine 1.24 NG/DL Thyroid Stimulating Hormone 3rd Gen 4.640 uIU/ML Imaging Last Impressions Abdomen/Pelvis CT 03/15/17 1436 Signed Impressions: Service Date/Time: Wednesday, March 15, 2017 17:35 - CONCLUSION: 1. Increasing small bowel ileus characteristics of worsening high grade small bowel destruction. 2. Increasing fluid in the abdomen. 3. Increasing pleural fluid with small bilateral pleural effusions. 4. Persistent left inguinal hernia containing a segment of sigmoid colon which is not felt to be the obstructing point. Taurus Peterson MD Objective Remarks GENERAL: This is a well-nourished, well-developed patient, in NO distress. SKIN: No rashes, ecchymoses or lesions. Cool and dry. HEAD: Atraumatic. Normocephalic. No temporal or scalp tenderness. EYES: Pupils equal round and reactive. Extraocular motions intact. No scleral icterus. No injection or drainage. ENT: Nose without bleeding, purulent drainage or septal hematoma. Throat without erythema, tonsillar hypertrophy or exudate. Uvula midline. Airway patent - NG tube in place- tongue is midline NECK: Trachea midline. No JVD or lymphadenopathy. Supple, nontender, no meningeal signs. CARDIOVASCULAR: IRRegular rate and rhythm without murmurs, gallops, or rubs. S1 -S2 no S3 or S4 RESPIRATORY: Clear to auscultation. Breath sounds equal bilaterally. No wheezes , rales, or rhonchi. GASTROINTESTINAL: Abdomen soft, some MILD tenderness and NOT distended. No hepato-splenomegaly, or palpable masses. No guarding. Mild rebound HYPOACTIVE BOWEL SOUNDS MUSCULOSKELETAL: Extremities without clubbing, cyanosis, or edema. No joint tenderness, effusion, or edema noted. No calf tenderness. Negative Homans sign bilaterally. NEUROLOGICAL: Awake and alert. Cranial nerves II through XII intact. Motor and sensory grossly within normal limits. 4 out of 5 muscle strength in all muscle groups. Normal speech. Insight and judgment is good, mood and behavior is appropriate Medications and IVs Current Medications Morphine Sulfate (Morphine Inj) 4 mg ONCE ONCE IV PUSH Last administered on 14:56; Start 03/15/17 at 14:45; Stop 03/15/17 at 14:46; Status DC Ondansetron HCl (Zofran Inj) 4 mg ONCE ONCE IVP Last administered on 14:56; Start 03/15/17 at 14:45; Stop 03/15/17 at 14:46; Status DC Sodium Chloride 1,000 ml @ 1,000 mls/hr Q1H IV Last administered on 14:58; Start 03/15/17 at 14:36; Stop 03/15/17 at 15:35; Status DC Sodium Chloride (NS Flush) 2 ml UNSCH PRN IV FLUSH FLUSH AFTER USING IV ACCESS Last administered on 03/15/17 17:59; Start 03/15/17 at 14:45 Diatrizoate Meglum/ Diatrizoate Sod ( Gastroview Liq) 18 ml STK-MED ONCE .ROUTE Last administered on 03/15/17 15:31; Start 03/15/17 at 15:27; Stop 03/15/17 at 15:28; Status DC Morphine Sulfate (Morphine Inj) 2 mg ONCE ONCE IV PUSH Last administered on 17:59; Start 03/15/17 at 17:45; Stop 03/15/17 at 17:47; Status DC Morphine Sulfate (Morphine Inj) 2 mg ONCE ONCE IV PUSH ; Start 03/15/17 at 18: 15; Stop 03/15/17 at 18:22; Status DC Metoprolol Tartrate (Lopressor Inj) 5 mg Q6H PRN IV PUSH SBP>160, DBP>90; Start 03/15/17 at 18:30 Digoxin (Lanoxin Inj) 0.125 mg DAILY IV PUSH Last administered on 03/16/17 10 :25; Start 03/16/17 at 09:00 Potassium Chloride/Dextrose/ Sod Cl 1,000 ml @ 100 mls/hr Q10H IV Last administered on 03/16/17 03:54; Start 03/15/17 at 18:28 Sodium Chloride (NS Flush) 2 ml UNSCH PRN IV FLUSH FLUSH AFTER USING IV ACCESS ; Start 03/15/17 at 18:30 Sodium Chloride (NS Flush) 2 ml BID IV FLUSH Last administered on 03/16/17 10 :25; Start 03/15/17 at 21:00 Ondansetron HCl (Zofran Inj) 4 mg Q6H PRN IVP NAUSEA OR VOMITING; Start at 18:30 Prochlorperazine (Compazine Supp) 25 mg Q12H PRN RECTAL NAUSEA OR VOMITING; Start 03/15/17 at 18:30 Enoxaparin Sodium (Lovenox Inj) 40 mg Q24H SQ Last administered on 03/15/17 22:18; Start 03/15/17 at 20:00 Acetaminophen (Tylenol) 650 mg Q6H PRN PO PAIN SCALE 1 TO 2; Start 03/15/17 at 18:30 Morphine Sulfate (Morphine Inj) 2 mg Q3H PRN IV PUSH Pain 3-5; if unable to take PO; Start 03/15/17 at 18:30 Morphine Sulfate (Morphine Inj) 4 mg Q3H PRN IV PUSH Pain 6-10;if unable to take PO; Start 03/15/17 at 18:30 Acetaminophen 100 ml @ 400 mls/hr Q6H IV ; Start 03/15/17 at 20:00; Stop at 14:14 Morphine Sulfate (Morphine Inj) 4 mg Q3H PRN IV PUSH BREAKTHROUGH PAIN; Start 03/15/17 at 18:30 Naloxone HCl (Narcan Inj) 0.4 mg UNSCH PRN IV PUSH SEE LABEL COMMENTS; Start 03/15/17 at 18:30 Senna/Docusate Sodium (Re-Colace) 1 tab BID PO ; Start 03/15/17 at 21:00 Magnesium Hydroxide (Milk Of Magnesia Liq) 30 ml Q12H PRN PO Mild constipation ; Start 03/15/17 at 18:30 Sennosides (Senokot) 17.2 mg Q12H PRN PO Moderate constipation; Start at 18:30 Bisacodyl (Dulcolax Supp) 10 mg DAILY PRN RECTAL SEVERE CONSITIPATION; Start 03/15/17 at 18:30 Lactulose (Lactulose Liq) 30 ml DAILY PRN PO SEVERE CONSITIPATION; Start 03/15 at 18:30 Pantoprazole Sodium (Protonix Inj) 40 mg DAILY IV PUSH Last administered on t 10:25; Start 03/15/17 at 18:30 Urinary Catheter: No Vascular Central Line Catheter: No A/P Problem List: (1) H/O carcinoma of bladder ICD Code: Z85.51 - Personal history of malignant neoplasm of bladder (2) JOSEE (acute kidney injury) ICD Code: N17.9 - Acute kidney failure, unspecified (3) Small bowel obstruction ICD Code: K56.609 - Unspecified intestinal obstruction, unspecified as to partial versus complete obstruction (4) Dehydration ICD Code: E86.0 - Dehydration Assessment and Plan Small bowel obstruction consult surgery continue IV pain control continue on fluids and keep nothing by mouth Atrial fibrillation continue on metoprolol IV and digoxin IV pain control for small bowel obstruction GI prophylaxis continue on Protonix IV daily DVT prophylaxis continue on Lovenox subcutaneous daily Chronic neurogenic bladder chronically self catheterizes every 6 hours as needed Continue on antibiotics IV Bactrim Discharge Planning NEEDS TO BE ABLE TO TOLERATE A DIET AND HAVE BMS Jonatan Aburto DO Mar 16, 2017 12:39
--- NOTE | 2017-03-16 15:49 | PD.CONS ---
cc: Jan Judd MD [facility] Service General Surgery Consult Requested By Dr. Aburto Reason for Consult SBO Primary Care Physician Rohith Sanders M.D. History of Present Illness This is an 81 year old male with a past medical history of of macular degeneration, glaucoma, mitral valve regurgitation, a history of fibrillation, and bladder cancer. The patient was just recently admitted for abdominal pain and small bowel obstruction. During that last admission the patient had a small bowel follow-through which did not show an obstruction. The patient was slowly advanced to a regular soft diet was able to tolerate. The patient was able to have a bowel movement. The patient's abdominal exam improved and the patient was treated nonoperatively. The patient was discharged this past Thursday at noon. The is at the bedside and states he had some beef broth with small pieces of chicken. The patient was doing fine Thursday night and when he woke up on Thursday morning he had the acute onset of abdominal pain similar to that presentation around to the emergency department the first time. The patient's called the home health care nurse and she instructed the patient to come to the emergency department. In the ED a CT abdomen and pelvis was obtained which showed small bowel ileus with characteristics of a worsening high-grade small bowel obstruction. An NG tube was placed and minimal output. A General Surgery consultation has been requested for evaluation of small bowel obstruction. Review of Systems Constitutional: COMPLAINS OF: Fatigue, Change in appetite Endocrine: DENIES: Polydipsia, Polyuria, Polyphagia Eyes: DENIES: Diplopia Ears, nose, mouth, throat: DENIES: Hearing loss Respiratory: DENIES: Cough, Snoring Cardiovascular: DENIES: Palpitations, Syncope Gastrointestinal: COMPLAINS OF: Abdominal pain, Nausea, DENIES: Vomiting Genitourinary: DENIES: Hematuria Musculoskeletal: DENIES: Joint pain Integumentary: DENIES: Abnormal pigmentation Hematologic/lymphatic: DENIES: Bruising Immunologic/allergic: DENIES: Eczema Neurologic: DENIES: Headache, Localized weakness Psychiatric: DENIES: Confusion, Mood changes, Depression Past Family Social History Past Medical History Macular degeneration Glaucoma Mitral valve regurgitation Atrial fibrillation Bladder cancer Past Surgical History Bladder tumor resection Reported Medications Digoxin Metoprolol Enalapril Spironolactone Aspirin Calcium carbonate Lasix Senna Protonix Allergies: Coded Allergies: Penicillins (Verified Allergy, Severe, 03/06/17) iohexol (Verified Allergy, Severe, Anaphylaxis, 03/06/17) Active Ordered Medications Current Medications Medications (Trade) Dose Ordered Sig/Danielle Route Start Time Stop Time Status Last Admin (NS Flush) 2 ml UNSCH PRN IV FLUSH 03/15/17 14:45 03/15/17 17:59 (Lopressor Inj) 5 mg Q6H PRN IV PUSH 03/15/17 18:30 (Lanoxin Inj) 0.125 mg DAILY IV PUSH 03/16/17 09:00 03/16/17 10:25 Potassium Chloride/Dextrose/ Sod Cl 1,000 ml @ 100 mls/hr Q10H IV 03/15/17 18:28 03/16/17 14:21 (NS Flush) 2 ml UNSCH PRN IV FLUSH 03/15/17 18:30 (NS Flush) 2 ml BID IV FLUSH 03/15/17 21:00 03/16/17 10:25 (Zofran Inj) 4 mg Q6H PRN IVP 03/15/17 18:30 (Compazine Supp) 25 mg Q12H PRN RECTAL 03/15/17 18:30 (Lovenox Inj) 40 mg Q24H SQ 03/15/17 20:00 03/15/17 22:18 (Tylenol) 650 mg Q6H PRN PO 03/15/17 18:30 (Morphine Inj) 2 mg Q3H PRN IV PUSH 03/15/17 18:30 (Morphine Inj) 4 mg Q3H PRN IV PUSH 03/15/17 18:30 (Morphine Inj) 4 mg Q3H PRN IV PUSH 03/15/17 18:30 (Narcan Inj) 0.4 mg UNSCH PRN IV PUSH 03/15/17 18:30 (Re-Colace) 1 tab BID PO 03/15/17 21:00 (Milk Of Magnesia Liq) 30 ml Q12H PRN PO 03/15/17 18:30 (Senokot) 17.2 mg Q12H PRN PO 03/15/17 18:30 (Dulcolax Supp) 10 mg DAILY PRN RECTAL 03/15/17 18:30 (Lactulose Liq) 30 ml DAILY PRN PO 03/15/17 18:30 (Protonix Inj) 40 mg DAILY IV PUSH 03/15/17 18:30 03/16/17 10:25 Family History Denies esophagus, colon or rectal cancers Social History Denies tobacco use Denies EtOH she is noted Denies illicit drug use Lives with . Physical Exam Vital Signs Vital Signs Date Time Temp Pulse Resp B/P (MAP) Pulse Ox O2 Delivery O2 Flow Rate FiO2 03/16/17 12:00 97.1 71 18 98/61 (73) 98 03/16/17 09:26 94 03/16/17 08:00 95.5 86 16 101/69 (80) 97 03/16/17 04:00 96.5 70 46 100/60 (73) 94 03/16/17 00:10 74 03/16/17 00:00 95.6 75 17 103/57 (72) 95 03/15/17 20:00 94 03/15/17 19:40 03/15/17 19:31 89 18 127/67 (87) 96 Room Air 03/15/17 19:00 96.7 83 15 99/65 (76) 95 03/15/17 16:50 82 20 144/89 (107) 98 Room Air Physical Exam GENERAL: 81 year old male resting in bed in no acute distress. SKIN: Warm and dry. HEAD: Atraumatic. Normocephalic. EYES: Pupils equal and round. No scleral icterus. No injection or drainage. ENT: No nasal bleeding or discharge. Mucous membranes pink and moist. NECK: Trachea midline. CARDIOVASCULAR: Regular rate and rhythm. RESPIRATORY: No accessory muscle use. Clear to auscultation. Breath sounds equal bilaterally. GASTROINTESTINAL: Abdomen soft, minimal tenderness in pelvis with palpation; non distended. MUSCULOSKELETAL: Extremities without clubbing, cyanosis, or edema. No obvious deformities. NEUROLOGICAL: Awake and alert. No obvious cranial nerve deficits. Motor grossly within normal limits. Five out of 5 muscle strength in the arms and legs. Normal speech. PSYCHIATRIC: Appropriate mood and affect; insight and judgment normal. Laboratory Laboratory Tests Test 03/15/17 16:50 03/16/17 06:35 Urine Color YELLOW Urine Turbidity CLEAR Urine pH 6.0 Urine Specific [place] 1.012 Urine Protein TRACE Urine Glucose (UA) NEG Urine Ketones 10 Urine Occult Blood NEG Urine Nitrite NEG Urine Bilirubin NEG Urine Urobilinogen LESS THAN 2.0 Urine Leukocyte Esterase NEG Urine RBC 1 Urine WBC 3 Urine Squamous Epithelial Cells <1 Urine Hyaline Casts 1 Urine Mucus FEW Microscopic Urinalysis Comment CULT NOT INDICATED White Blood Count 7.0 Red Blood Count 4.25 Hemoglobin 14.1 Hematocrit 42.0 Mean Corpuscular Volume 99.0 Mean Corpuscular Hemoglobin 33.3 Mean Corpuscular Hemoglobin Concent 33.6 Red Cell Distribution Width 14.7 Platelet Count 215 Mean Platelet Volume 8.2 Neutrophils (%) (Auto) 73.9 Lymphocytes (%) (Auto) 14.1 Monocytes (%) (Auto) 8.0 Eosinophils (%) (Auto) 3.0 Basophils (%) (Auto) 1.0 Neutrophils # (Auto) 5.1 Lymphocytes # (Auto) 1.0 Monocytes # (Auto) 0.6 Eosinophils # (Auto) 0.2 Basophils # (Auto) 0.1 CBC Comment DIFF FINAL Differential Comment Blood Urea Nitrogen 6 Creatinine 1.00 Random Glucose 107 Total Protein 5.2 Albumin 2.4 Calcium Level 8.1 Phosphorus Level 2.5 Magnesium Level 2.0 Alkaline Phosphatase 42 Aspartate Amino Transf (AST/SGOT) 18 Alanine Aminotransferase (ALT/SGPT) 16 Total Bilirubin 0.6 Sodium Level 138 Potassium Level 4.4 Chloride Level 108 Carbon Dioxide Level 24.3 Anion Gap 6 Estimat Glomerular Filtration Rate 72 Free Thyroxine 1.24 Thyroid Stimulating Hormone 3rd Gen 4.640 Date/Time Source Procedure Growth Status 03/15/17 15:15 Blood Peripheral Aerobic Blood Culture - Preliminary NO GROWTH IN 1 DAY Resulted 03/15/17 15:15 Blood Peripheral Anaerobic Blood Culture - Preliminary NO GROWTH IN 1 DAY Resulted Result Diagram: 03/16/17 0635 03/16/17 0635 Imaging Last 48 hours Impressions Abdomen/Pelvis CT 03/15/17 1436 Signed Impressions: Service Date/Time: Wednesday, March 15, 2017 17:35 - CONCLUSION: 1. Increasing small bowel ileus characteristics of worsening high grade small bowel destruction. 2. Increasing fluid in the abdomen. 3. Increasing pleural fluid with small bilateral pleural effusions. 4. Persistent left inguinal hernia containing a segment of sigmoid colon which is not felt to be the obstructing point. Taurus Peterson MD Assessment and Plan Assessment and Plan 81 year old male with abdominal pain; CT abdomen/pelvis shows SBO -Okay to DC NGT as output is minimal -Start sips of clear liquids -Continue IVF -WIll discuss possible surgical intervention should that be necessary -OOB and mobilize -Thank you for this consult; We will follow along Discussed Condition With Dr. Judd Mr. John + Jada RN Attending Statement The exam, history, and the medical decision-making described in the above note were completed with the assistance of the mid-level provider. I reviewed and agree with the findings presented. I attest that I had a [id number] encounter with the patient on the same day, and personally performed and documented my assessment and findings in the medical record. Physical Exam: Abdomen soft, no rebound tenderness or guarding, non-distended recurrent SBO, initial management should be non-operative, will give trial of clears may require surgery if does not improve next 24-48h consider TPN Cheri Veliz Mar 16, 2017 15:49 Jan Judd MD Mar 20, 2017 17:02
[2017-03-16 16:16] LABS: HEMOGLOBIN A1b 1.1 %; HEMOGLOBIN Ao 85.1 %; HEMOGLOBIN LA1C 2.1 %
[2017-03-16] MEDS: ENOXAPARIN SODIUM 40 MG/0.4 ML SYRINGE SQ SCH (19:42)
--- NOTE | 2017-03-16 22:57 | EKG ---
Date Performed: 03/15/2017 Time Performed: 15:24:45 PTAGE: 81 years EKG: ATRIAL FIBRILLATION MARKED LEFT AXIS DEVIATION SEPTAL Q WAVES ABNORMAL ECG Compared to prio r tracing no significant change DOCTOR: Joycelyn Layton Interpretating Date/Time 03/16/2017 22:52:31
[2017-03-17] VITALS (8 sets, daily range): BP systolic 99–118; BP diastolic 57–77; PULSE 61–86; RESP 16–18; TEMP 96–97.9; O2SAT 95–98
[2017-03-17] MEDS: D5-1/2 NS + KCL 20 MEQ INJ 1,000 ML IV SCH ×3 (00:28→20:28)
[2017-03-17] MEDS: ONDANSETRON HCL 4 MG/2 ML VIAL IVP PRN (00:50)
[2017-03-17 07:09] LABS: AUTOMATED NEUTROPHIL # 4.2 TH/MM3 (1.8-7.7); BASOPHIL # 0.1 TH/MM3 (0-0.2); BASOPHIL % 0.9 % (0.0-2.0); EOSINOPHIL # 0.2 TH/MM3 (0-0.4); EOSINOPHIL % 3.3 % (0.0-4.0); HEMATOCRIT 39.7 % (39.0-51.0); HEMO FLAGS DIFF FINAL; LYMPH % 15.3 % (9.0-44.0); LYMPHOCYTE # 0.9 TH/MM3 (1.0-4.8); MEAN CELL VOLUME 98.5 FL (80.0-100.0); MEAN CORPUSCULAR HEMOGLOBIN 33.3 PG (27.0-34.0); MEAN CORPUSCULAR HGB CONC 33.8 % (32.0-36.0); MONO % 9.2 % (0.0-8.0); NEUT % 71.3 % (16.0-70.0); PLATELET COUNT 224 TH/MM3 (150-450); RED BLOOD COUNT 4.03 MIL/MM3 (4.50-5.90); RED CELL DISTRIBUTION WIDTH 14.6 % (11.6-17.2); WHITE BLOOD COUNT 5.9 TH/MM3 (4.0-11.0)
[2017-03-17 07:38] LABS: ANION GAP 6 MEQ/L (5-15); AST (GOT) 17 U/L (15-37); BICARBONATE 24.3 MEQ/L (21.0-32.0); BLOOD UREA NITROGEN 5 MG/DL (7-18); CHLORIDE 110 MEQ/L (98-107); GLOMERULAR FILTRATION RATE 77 ML/MIN (>89); MAGNESIUM 1.9 MG/DL (1.5-2.5); POTASSIUM 4.4 MEQ/L (3.5-5.1); SODIUM (NA) 140 MEQ/L (136-145)
[2017-03-17 07:49] LABS: ALKALINE PHOSPHATASE 45 U/L (45-117); ALT (GPT) 16 U/L (12-78); TOTAL BILIRUBIN ADULT 0.5 MG/DL (0.2-1.0)
[2017-03-17] MEDS: PANTOPRAZOLE SODIUM 40 MG VIAL IV PUSH SCH (08:47)
[2017-03-17] MEDS: DIGOXIN 0.5 MG/2 ML VIAL IV PUSH SCH (08:48)
[2017-03-17] MEDS: DOCUSATE SODIUM 50 MG/SENNA 8.6 MG TAB PO SCH ×2 (08:51→20:14)
[2017-03-17] MEDS: SODIUM CHLORIDE 0.9% FLUSH 10 ML FLUSH IV FLUSH SCH ×2 (08:51→20:14)
--- NOTE | 2017-03-17 09:53 | RADRPT ---
EXAM DATE/TIME: 03/17/2017 09:29 [place] COMPARISON: ABDOMEN KUB ONLY, March 11, 2017, 8:50. INDICATIONS : Abdominal pain. Small bowel obstruction. MEDICAL HISTORY : Cardiovascular disease. Carcinoma, bladder. SURGICAL HISTORY : Retina seperation. Bowel obstruction ENCOUNTER: Subsequent ACUITY: 2 days PAIN SCORE: 7/10 LOCATION: abdomen FINDINGS: 2 portable supine views of the abdomen show gas distended loops of small bowel. The degree of distent ion is less pronounced from the prior study. Gas is seen throughout a normal caliber colon. Oral cont rast is seen within the rectal vault. No organomegaly observed. Consolidation is seen within the left lung base medially. No effusions. Heart is mildly enlarged. CONCLUSION: Less distention of the small bowel relative to the prior study. Rebel Agee Jr., MD on March 17, 2017 at 9:44 Board Certified Radiologist. This report was verified electronically.
--- NOTE | 2017-03-17 12:16 | HHI.PR ---
Subjective Subjective Notes Resting in bed Feeling about the same as yesterday Objective Vitals/I&O Vital Signs Date Time Temp Pulse Resp B/P (MAP) Pulse Ox O2 Delivery O2 Flow Rate FiO2 03/17/17 08:22 62 03/17/17 08:00 96.2 18 104/69 (81) 95 03/15/17 19:31 Room Air Labs Laboratory Tests Test 03/17/17 06:24 White Blood Count 5.9 Red Blood Count 4.03 Hemoglobin 13.4 Hematocrit 39.7 Mean Corpuscular Volume 98.5 Mean Corpuscular Hemoglobin 33.3 Mean Corpuscular Hemoglobin Concent 33.8 Red Cell Distribution Width 14.6 Platelet Count 224 Mean Platelet Volume 7.5 Neutrophils (%) (Auto) 71.3 Lymphocytes (%) (Auto) 15.3 Monocytes (%) (Auto) 9.2 Eosinophils (%) (Auto) 3.3 Basophils (%) (Auto) 0.9 Neutrophils # (Auto) 4.2 Lymphocytes # (Auto) 0.9 Monocytes # (Auto) 0.5 Eosinophils # (Auto) 0.2 Basophils # (Auto) 0.1 CBC Comment DIFF FINAL Differential Comment Blood Urea Nitrogen 5 Creatinine 0.94 Random Glucose 89 Total Protein 4.7 Albumin 2.1 Calcium Level 7.5 Phosphorus Level 2.4 Magnesium Level 1.9 Alkaline Phosphatase 45 Aspartate Amino Transf (AST/SGOT) 17 Alanine Aminotransferase (ALT/SGPT) 16 Total Bilirubin 0.5 Sodium Level 140 Potassium Level 4.4 Chloride Level 110 Carbon Dioxide Level 24.3 Anion Gap 6 Estimat Glomerular Filtration Rate 77 Date/Time Source Procedure Growth Status 03/15/17 15:15 Blood Peripheral Aerobic Blood Culture - Preliminary NO GROWTH IN 2 DAYS Resulted 03/15/17 15:15 Blood Peripheral Anaerobic Blood Culture - Preliminary NO GROWTH IN 2 DAYS Resulted Radiology Last 48 hours Impressions Abdomen/Pelvis CT 03/15/17 4886 Signed Impressions: Service Date/Time: Wednesday, March 15, 2017 17:35 - CONCLUSION: 1. Increasing small bowel ileus characteristics of worsening high grade small bowel destruction. 2. Increasing fluid in the abdomen. 3. Increasing pleural fluid with small bilateral pleural effusions. 4. Persistent left inguinal hernia containing a segment of sigmoid colon which is not felt to be the obstructing point. Taurus Peterson MD Cardiovascular: Regular Lungs: Clear Abdomen: Other (minimally tender with palpation; non distended ) Extremities: No edema A/P Assessment and Plan 81 year old male with abdominal pain; SBO -Continue clear liquids -NPO after MN -Plan for tentative diagnostic laparoscopy; possible exploratory laparotomy for tomorrow if no improvement -OOB and mobilize -Continue IVF Cheri Veliz [facility] Mar 17, 2017 12:16
--- NOTE | 2017-03-17 14:23 | HHI.PR ---
Subjective Remarks Patient is an 81-year-old gentleman presenting emergency department today after being seen by his home health care RN for abdominal pain. Patient had recently admitted 03/06/17 was discharged yesterday 03/14/17. His is at bedside states, he was discharged yesterday and was doing much better yesterday. However he started having pain last night. And worsened throughout the day today. Patient reports that he was having dry heaving and intense abdominal pain. Patient was admitted for sepsis small bowel obstruction questionable ischemic colitis and acute kidney injury and dehydration. He denies any prior abdominal surgeries but does have a history of bladder cancer 40 years ago denies any blood in the stools denies any chest pain denies any shortness of breath denies any fever or chills no alleviating or exacerbating factors He will be admitted, WE will consult general surgery and NG tube will be placed. He will be given pain medications and IV fluids 03-16 PATIENT STATES HE IS FEELING BETTER HAS NGT TO LIS HAS NOT SEEN SURGERY YET ARTEM RN AND PT AND CONTINUE CURRENT CARE AM LABS NPO DIET PER SURGERY 03-17 FOR LAPAROSCOPY TOMORROW PER SURGERY AM LABS NPO AFTER MIDNIGHT ARTEM RN AND PT ON CLEARS AT THIS TIME SEEN BY SURGERY HAD DIARRHEA TODAY Objective Vitals Vital Signs Date Time Temp Pulse Resp B/P (MAP) Pulse Ox O2 Delivery O2 Flow Rate FiO2 03/17/17 12:00 96.0 70 18 99/70 (80) 98 03/17/17 08:22 62 03/17/17 08:00 96.2 61 18 104/69 (81) 95 03/17/17 03:40 96.4 74 18 99/57 (71) 96 03/17/17 00:32 97.9 86 18 118/77 (91) 95 03/16/17 21:00 76 03/16/17 19:48 96.7 81 18 100/63 (75) 96 03/16/17 16:00 95.8 75 18 100/63 (75) 98 I/O 03/16/17 03/16/17 03/16/17 03/17/17 03/17/17 03/17/17 07:00 15:00 23:00 07:00 15:00 23:00 Intake Total 1067 ml 841 ml 360 ml 360 ml Output Total 1300 ml 730 ml 920 ml 800 ml Balance -233 ml 111 ml -560 ml -440 ml Intake Oral 0 ml 0 ml 360 ml 360 ml IV Total 1067 ml 841 ml Output Urine Total 1200 ml 650 ml 800 ml 800 ml Gastric Drainage Total 100 ml 80 ml 120 ml # Bowel Movements 0 0 1 Result Diagram: 03/17/17 0624 03/17/17623 Other Results Laboratory Tests Test 03/15/17 15:10 03/15/17 16:50 03/16/17 06:35 03/17/17 06:24 White Blood Count 8.4 TH/MM3 7.0 TH/MM3 5.9 TH/MM3 Red Blood Count 4.97 MIL/MM3 4.25 MIL/MM3 4.03 MIL/MM3 Hemoglobin 16.3 GM/DL 14.1 GM/DL 13.4 GM/DL Hematocrit 49.0 % 42.0 % 39.7 % Mean Corpuscular Volume 98.6 FL 99.0 FL 98.5 FL Mean Corpuscular Hemoglobin 32.9 PG 33.3 PG 33.3 PG Mean Corpuscular Hemoglobin Concent 33.3 % 33.6 % 33.8 % Red Cell Distribution Width 14.7 % 14.7 % 14.6 % Platelet Count 285 TH/MM3 215 TH/MM3 224 TH/MM3 Mean Platelet Volume 8.2 FL 8.2 FL 7.5 FL Neutrophils (%) (Auto) 80.6 % 73.9 % 71.3 % Lymphocytes (%) (Auto) 11.2 % 14.1 % 15.3 % Monocytes (%) (Auto) 7.0 % 8.0 % 9.2 % Eosinophils (%) (Auto) 0.7 % 3.0 % 3.3 % Basophils (%) (Auto) 0.5 % 1.0 % 0.9 % Neutrophils # (Auto) 6.8 TH/MM3 5.1 TH/MM3 4.2 TH/MM3 Lymphocytes # (Auto) 0.9 TH/MM3 1.0 TH/MM3 0.9 TH/MM3 Monocytes # (Auto) 0.6 TH/MM3 0.6 TH/MM3 0.5 TH/MM3 Eosinophils # (Auto) 0.1 TH/MM3 0.2 TH/MM3 0.2 TH/MM3 Basophils # (Auto) 0.0 TH/MM3 0.1 TH/MM3 0.1 TH/MM3 CBC Comment DIFF FINAL DIFF FINAL DIFF FINAL Differential Comment Prothrombin Time 11.3 SEC Prothromb Time International Ratio 1.0 RATIO Activated Partial Thromboplast Time 25.2 SEC Blood Urea Nitrogen 7 MG/DL 6 MG/DL 5 MG/DL Creatinine 1.23 MG/DL 1.00 MG/DL 0.94 MG/DL Random Glucose 106 MG/DL 107 MG/DL 89 MG/DL Total Protein 6.5 GM/DL 5.2 GM/DL 4.7 GM/DL Albumin 3.0 GM/DL 2.4 GM/DL 2.1 GM/DL Calcium Level 9.2 MG/DL 8.1 MG/DL 7.5 MG/DL Alkaline Phosphatase 51 U/L 42 U/L 45 U/L Aspartate Amino Transf (AST/SGOT) 27 U/L 18 U/L 17 U/L Alanine Aminotransferase (ALT/SGPT) 20 U/L 16 U/L 16 U/L Total Bilirubin 0.8 MG/DL 0.6 MG/DL 0.5 MG/DL Sodium Level 138 MEQ/L 138 MEQ/L 140 MEQ/L Potassium Level 4.8 MEQ/L 4.4 MEQ/L 4.4 MEQ/L Chloride Level 106 MEQ/L 108 MEQ/L 110 MEQ/L Carbon Dioxide Level 20.2 MEQ/L 24.3 MEQ/L 24.3 MEQ/L Anion Gap 12 MEQ/L 6 MEQ/L 6 MEQ/L Estimat Glomerular Filtration Rate 57 ML/MIN 72 ML/MIN 77 ML/MIN Lactic Acid Level 2.3 mmol/L Lipase 157 U/L Urine Color YELLOW Urine Turbidity CLEAR Urine pH 6.0 Urine Specific [place] 1.012 Urine Protein TRACE mg/dL Urine Glucose (UA) NEG mg/dL Urine Ketones 10 mg/dL Urine Occult Blood NEG Urine Nitrite NEG Urine Bilirubin NEG Urine Urobilinogen LESS THAN 2.0 MG/DL Urine Leukocyte Esterase NEG Urine RBC 1 /hpf Urine WBC 3 /hpf Urine Squamous Epithelial Cells <1 /hpf Urine Hyaline Casts 1 /lpf Urine Mucus FEW /lpf Microscopic Urinalysis Comment CULT NOT INDICATED Phosphorus Level 2.5 MG/DL 2.4 MG/DL Magnesium Level 2.0 MG/DL 1.9 MG/DL Hemoglobin A1c 5.4 % Free Thyroxine 1.24 NG/DL Thyroid Stimulating Hormone 3rd Gen 4.640 uIU/ML Imaging Last Impressions Abdomen X-Ray 03/17/17 0000 Signed Impressions: Service Date/Time: Friday, March 17, 2017 09:29 - CONCLUSION: Less distention of the small bowel relative to the prior study. Reble Agee Jr., MD Abdomen/Pelvis CT 03/15/17 1436 Signed Impressions: Service Date/Time: Wednesday, March 15, 2017 17:35 - CONCLUSION: 1. Increasing small bowel ileus characteristics of worsening high grade small bowel destruction. 2. Increasing fluid in the abdomen. 3. Increasing pleural fluid with small bilateral pleural effusions. 4. Persistent left inguinal hernia containing a segment of sigmoid colon which is not felt to be the obstructing point. Taurus Peterson MD Objective Remarks GENERAL: This is a well-nourished, well-developed patient, in NO distress. SKIN: No rashes, ecchymoses or lesions. Cool and dry. HEAD: Atraumatic. Normocephalic. No temporal or scalp tenderness. EYES: Pupils equal round and reactive. Extraocular motions intact. No scleral icterus. No injection or drainage. ENT: Nose without bleeding, purulent drainage or septal hematoma. Throat without erythema, tonsillar hypertrophy or exudate. Uvula midline. Airway patent - NG tube in place- tongue is midline NECK: Trachea midline. No JVD or lymphadenopathy. Supple, nontender, no meningeal signs. CARDIOVASCULAR: IRRegular rate and rhythm without murmurs, gallops, or rubs. S1 -S2 no S3 or S4 RESPIRATORY: Clear to auscultation. Breath sounds equal bilaterally. No wheezes , rales, or rhonchi. GASTROINTESTINAL: Abdomen soft, some MILD tenderness and NOT distended. No hepato-splenomegaly, or palpable masses. No guarding. Mild rebound HYPOACTIVE BOWEL SOUNDS MUSCULOSKELETAL: Extremities without clubbing, cyanosis, or edema. No joint tenderness, effusion, or edema noted. No calf tenderness. Negative Homans sign bilaterally. NEUROLOGICAL: Awake and alert. Cranial nerves II through XII intact. Motor and sensory grossly within normal limits. 4 out of 5 muscle strength in all muscle groups. Normal speech. Insight and judgment is good, mood and behavior is appropriate Medications and IVs Current Medications Morphine Sulfate (Morphine Inj) 4 mg ONCE ONCE IV PUSH Last administered on t 14:56; Start 03/15/17 at 14:45; Stop 03/15/17 at 14:46; Status DC Ondansetron HCl (Zofran Inj) 4 mg ONCE ONCE IVP Last administered on 14:56; Start 03/15/17 at 14:45; Stop 03/15/17 at 14:46; Status DC Sodium Chloride 1,000 ml @ 1,000 mls/hr Q1H IV Last administered on 14:58; Start 03/15/17 at 14:36; Stop 03/15/17 at 15:35; Status DC Sodium Chloride (NS Flush) 2 ml UNSCH PRN IV FLUSH FLUSH AFTER USING IV ACCESS Last administered on 03/15/17 17:59; Start 03/15/17 at 14:45 Diatrizoate Meglum/ Diatrizoate Sod ( Gastrokhris Liq) 18 ml STK-MED ONCE .ROUTE Last administered on 03/15/17 15:31; Start 03/15/17 at 15:27; Stop 03/15/17 at 15:28; Status DC Morphine Sulfate (Morphine Inj) 2 mg ONCE ONCE IV PUSH Last administered on 17:59; Start 03/15/17 at 17:45; Stop 03/15/17 at 17:47; Status DC Morphine Sulfate (Morphine Inj) 2 mg ONCE ONCE IV PUSH ; Start 03/15/17 at 18: 15; Stop 03/15/17 at 18:22; Status DC Metoprolol Tartrate (Lopressor Inj) 5 mg Q6H PRN IV PUSH SBP>160, DBP>90; Start 03/15/17 at 18:30 Digoxin (Lanoxin Inj) 0.125 mg DAILY IV PUSH Last administered on 03/17/17 08 :48; Start 03/16/17 at 09:00 Potassium Chloride/Dextrose/ Sod Cl 1,000 ml @ 100 mls/hr Q10H IV Last administered on 03/17/17 10:43; Start 03/15/17 at 18:28 Sodium Chloride (NS Flush) 2 ml UNSCH PRN IV FLUSH FLUSH AFTER USING IV ACCESS ; Start 03/15/17 at 18:30 Sodium Chloride (NS Flush) 2 ml BID IV FLUSH Last administered on 03/17/17 08 :51; Start 03/15/17 at 21:00 Ondansetron HCl (Zofran Inj) 4 mg Q6H PRN IVP NAUSEA OR VOMITING Last administered on 03/17/17 00:50; Start 03/15/17 at 18:30 Prochlorperazine (Compazine Supp) 25 mg Q12H PRN RECTAL NAUSEA OR VOMITING; Start 03/15/17 at 18:30 Enoxaparin Sodium (Lovenox Inj) 40 mg Q24H SQ Last administered on 03/16/17 19:42; Start 03/15/17 at 20:00 Acetaminophen (Tylenol) 650 mg Q6H PRN PO PAIN SCALE 1 TO 2; Start 03/15/17 at 18:30 Morphine Sulfate (Morphine Inj) 2 mg Q3H PRN IV PUSH Pain 3-5; if unable to take PO; Start 03/15/17 at 18:30 Morphine Sulfate (Morphine Inj) 4 mg Q3H PRN IV PUSH Pain 6-10;if unable to take PO; Start 03/15/17 at 18:30 Acetaminophen 100 ml @ 400 mls/hr Q6H IV ; Start 03/15/17 at 20:00; Stop at 14:14; Status DC Morphine Sulfate (Morphine Inj) 4 mg Q3H PRN IV PUSH BREAKTHROUGH PAIN; Start 03/15/17 at 18:30 Naloxone HCl (Narcan Inj) 0.4 mg UNSCH PRN IV PUSH SEE LABEL COMMENTS; Start 03/15/17 at 18:30 Senna/Docusate Sodium (Re-Colace) 1 tab BID PO ; Start 03/15/17 at 21:00 Magnesium Hydroxide (Milk Of Magnesia Liq) 30 ml Q12H PRN PO Mild constipation ; Start 03/15/17 at 18:30 Sennosides (Senokot) 17.2 mg Q12H PRN PO Moderate constipation; Start at 18:30 Bisacodyl (Dulcolax Supp) 10 mg DAILY PRN RECTAL SEVERE CONSITIPATION; Start 03/15/17 at 18:30 Lactulose (Lactulose Liq) 30 ml DAILY PRN PO SEVERE CONSITIPATION; Start 03/15 at 18:30 Pantoprazole Sodium (Protonix Inj) 40 mg DAILY IV PUSH Last administered on 08:47; Start 10/15/17 at 18:30 A/P Problem List: (1) H/O carcinoma of bladder ICD Code: Z85.51 - Personal history of malignant neoplasm of bladder (2) JOSEE (acute kidney injury) ICD Code: N17.9 - Acute kidney failure, unspecified (3) Small bowel obstruction ICD Code: K56.609 - Unspecified intestinal obstruction, unspecified as to partial versus complete obstruction (4) Dehydration ICD Code: E86.0 - Dehydration Assessment and Plan Small bowel obstruction consult surgery continue IV pain control continue on fluids Atrial fibrillation continue on metoprolol IV and digoxin IV pain control for small bowel obstruction GI prophylaxis continue on Protonix IV daily DVT prophylaxis continue on Lovenox subcutaneous daily Chronic neurogenic bladder chronically self catheterizes every 6 hours as needed Continue on antibiotics IV Bactrim FOR LAPAROSCOPY TOMORROW KEEP NPO AFTER MIDNIGHT DW RN AND PT AND Discharge Planning NEEDS TO BE ABLE TO TOLERATE A DIET AND HAVE BMS Jonatan Aburto DO Mar 17, 2017 14:23
[2017-03-17] MEDS: ENOXAPARIN SODIUM 40 MG/0.4 ML SYRINGE SQ SCH (20:00)
[2017-03-17] MEDS ORDERED: INSULIN HUMAN REGULAR 1,000 UNITS/10 ML VIAL SQ PRN (22:45)
[2017-03-17] MEDS ORDERED: CHLORHEXIDINE GLUCONATE 2 % 1 PACK (2 CLOTHS) TOPICAL PRN (22:45)
[2017-03-17] MEDS ORDERED: LACTATED RINGER'S 1000 ML IV PRN (22:45)
[2017-03-17] MEDS ORDERED: SODIUM CHLORID 0.9% 500 ML IV PRN (22:45)
[2017-03-17] MEDS ORDERED: METOPROLOL TARTRATE 25 MG TAB PO PRN (22:45)
[2017-03-18 00:20] VITALS: BP 105/69; PULSE 73; RESP 17; TEMP 96.7; O2SAT 93
[2017-03-18 03:31] VITALS: BP 104/70; PULSE 61; RESP 18; TEMP 96.7; O2SAT 94
[2017-03-18] MEDS: D5-1/2 NS + KCL 20 MEQ INJ 1,000 ML IV SCH ×2 (05:01→17:19)
[2017-03-18] MEDS: PANTOPRAZOLE SODIUM 40 MG VIAL IV PUSH SCH (07:59)
[2017-03-18 08:00] VITALS: BP 97/51; PULSE 60; RESP 18; TEMP 95.3; O2SAT 94
[2017-03-18] MEDS: DIGOXIN 0.5 MG/2 ML VIAL IV PUSH SCH (08:03)
[2017-03-18] MEDS: SODIUM CHLORIDE 0.9% FLUSH 10 ML FLUSH IV FLUSH SCH ×2 (08:03→21:05)
[2017-03-18] MEDS: DOCUSATE SODIUM 50 MG/SENNA 8.6 MG TAB PO SCH ×2 (08:03→21:05)
[2017-03-18 08:26] LABS: AUTOMATED NEUTROPHIL # 3.4 TH/MM3 (1.8-7.7); BASOPHIL % 0.9 % (0.0-2.0); EOSINOPHIL # 0.2 TH/MM3 (0-0.4); HEMATOCRIT 40.5 % (39.0-51.0); HEMO FLAGS DIFF FINAL; LYMPH % 19.8 % (9.0-44.0); LYMPHOCYTE # 1.1 TH/MM3 (1.0-4.8); MEAN CELL VOLUME 98.6 FL (80.0-100.0); MEAN CORPUSCULAR HEMOGLOBIN 33.3 PG (27.0-34.0); MEAN CORPUSCULAR HGB CONC 33.7 % (32.0-36.0); MONO % 10.3 % (0.0-8.0); PLATELET COUNT 224 TH/MM3 (150-450); RED CELL DISTRIBUTION WIDTH 14.8 % (11.6-17.2); WHITE BLOOD COUNT 5.3 TH/MM3 (4.0-11.0)
[2017-03-18 08:28] LABS: INTERNATIONAL NORMALIZED RATIO 1.1 RATIO; PROTHROMBIN TIME - PATIENT 12.1 SEC (9.8-11.6)
[2017-03-18 08:58] LABS: ANION GAP 7 MEQ/L (5-15); AST (GOT) 16 U/L (15-37); BICARBONATE 25.4 MEQ/L (21.0-32.0); BLOOD UREA NITROGEN 5 MG/DL (7-18); CHLORIDE 108 MEQ/L (98-107); GLOMERULAR FILTRATION RATE 76 ML/MIN (>89); MAGNESIUM 1.8 MG/DL (1.5-2.5); POTASSIUM 4.1 MEQ/L (3.5-5.1); SODIUM (NA) 140 MEQ/L (136-145)
[2017-03-18 08:59] LABS: ALT (GPT) 13 U/L (12-78)
[2017-03-18 09:02] LABS: ALKALINE PHOSPHATASE 45 U/L (45-117); TOTAL BILIRUBIN ADULT 0.7 MG/DL (0.2-1.0)
--- NOTE | 2017-03-18 11:02 | HHI.PR ---
Subjective Remarks Patient is an 81-year-old gentleman presenting emergency department today after being seen by his home health care RN for abdominal pain. Patient had recently admitted 03/06/17 was discharged yesterday 03/14/17. His is at bedside states, he was discharged yesterday and was doing much better yesterday. However he started having pain last night. And worsened throughout the day today. Patient reports that he was having dry heaving and intense abdominal pain. Patient was admitted for sepsis small bowel obstruction questionable ischemic colitis and acute kidney injury and dehydration. He denies any prior abdominal surgeries but does have a history of bladder cancer 40 years ago denies any blood in the stools denies any chest pain denies any shortness of breath denies any fever or chills no alleviating or exacerbating factors He will be admitted, WE will consult general surgery and NG tube will be placed. He will be given pain medications and IV fluids 03-16 PATIENT STATES HE IS FEELING BETTER HAS NGT TO LIS HAS NOT SEEN SURGERY YET [facility] RN AND PT AND CONTINUE CURRENT CARE AM LABS NPO DIET PER SURGERY 03-17 FOR LAPAROSCOPY TOMORROW PER SURGERY AM LABS NPO AFTER MIDNIGHT ARTEM RN AND PT ON CLEARS AT THIS TIME SEEN BY SURGERY HAD DIARRHEA TODAY 03-18 for LAPAROSCOPY TODAY NO NEW COMPLAINTS NO ABDOMINAL PAIN Objective Vitals Vital Signs Date Time Temp Pulse Resp B/P (MAP) Pulse Ox O2 Delivery O2 Flow Rate FiO2 03/18/17 08:00 95.3 60 18 97/51 (66) 94 03/18/17 03:31 96.7 61 18 104/70 (81) 94 03/18/17 00:20 96.7 73 17 105/69 (81) 93 03/17/17 20:00 97.1 72 16 103/65 (78) 97 03/17/17 16:05 97.6 86 17 102/58 (73) 97 03/17/17 12:00 96.0 70 18 99/70 (80) 98 I/O 03/17/17 03/17/17 03/17/17 03/18/17 03/18/17 03/18/17 07:00 15:00 23:00 07:00 15:00 23:00 Intake Total 360 ml 1440 ml 480 ml 0 ml Output Total 800 ml 950 ml 750 ml 900 ml Balance -440 ml 490 ml -270 ml -900 ml Intake Oral 360 ml 1440 ml 480 ml 0 ml Output Urine Total 800 ml 950 ml 750 ml 900 ml # Bowel Movements 1 1 0 0 Result Diagram: 03/18/1771603/18/17716 Other Results Laboratory Tests Test 03/15/17 15:10 03/15/17 16:50 03/16/17 06:35 03/17/17 06:24 White Blood Count 8.4 TH/MM3 7.0 TH/MM3 5.9 TH/MM3 Red Blood Count 4.97 MIL/MM3 4.25 MIL/MM3 4.03 MIL/MM3 Hemoglobin 16.3 GM/DL 14.1 GM/DL 13.4 GM/DL Hematocrit 49.0 % 42.0 % 39.7 % Mean Corpuscular Volume 98.6 FL 99.0 FL 98.5 FL Mean Corpuscular Hemoglobin 32.9 PG 33.3 PG 33.3 PG Mean Corpuscular Hemoglobin Concent 33.3 % 33.6 % 33.8 % Red Cell Distribution Width 14.7 % 14.7 % 14.6 % Platelet Count 285 TH/MM3 215 TH/MM3 224 TH/MM3 Mean Platelet Volume 8.2 FL 8.2 FL 7.5 FL Neutrophils (%) (Auto) 80.6 % 73.9 % 71.3 % Lymphocytes (%) (Auto) 11.2 % 14.1 % 15.3 % Monocytes (%) (Auto) 7.0 % 8.0 % 9.2 % Eosinophils (%) (Auto) 0.7 % 3.0 % 3.3 % Basophils (%) (Auto) 0.5 % 1.0 % 0.9 % Neutrophils # (Auto) 6.8 TH/MM3 5.1 TH/MM3 4.2 TH/MM3 Lymphocytes # (Auto) 0.9 TH/MM3 1.0 TH/MM3 0.9 TH/MM3 Monocytes # (Auto) 0.6 TH/MM3 0.6 TH/MM3 0.5 TH/MM3 Eosinophils # (Auto) 0.1 TH/MM3 0.2 TH/MM3 0.2 TH/MM3 Basophils # (Auto) 0.0 TH/MM3 0.1 TH/MM3 0.1 TH/MM3 CBC Comment DIFF FINAL DIFF FINAL DIFF FINAL Differential Comment Prothrombin Time 11.3 SEC Prothromb Time International Ratio 1.0 RATIO Activated Partial Thromboplast Time 25.2 SEC Blood Urea Nitrogen 7 MG/DL 6 MG/DL 5 MG/DL Creatinine 1.23 MG/DL 1.00 MG/DL 0.94 MG/DL Random Glucose 106 MG/DL 107 MG/DL 89 MG/DL Total Protein 6.5 GM/DL 5.2 GM/DL 4.7 GM/DL Albumin 3.0 GM/DL 2.4 GM/DL 2.1 GM/DL Calcium Level 9.2 MG/DL 8.1 MG/DL 7.5 MG/DL Alkaline Phosphatase 51 U/L 42 U/L 45 U/L Aspartate Amino Transf (AST/SGOT) 27 U/L 18 U/L 17 U/L Alanine Aminotransferase (ALT/SGPT) 20 U/L 16 U/L 16 U/L Total Bilirubin 0.8 MG/DL 0.6 MG/DL 0.5 MG/DL Sodium Level 138 MEQ/L 138 MEQ/L 140 MEQ/L Potassium Level 4.8 MEQ/L 4.4 MEQ/L 4.4 MEQ/L Chloride Level 106 MEQ/L 108 MEQ/L 110 MEQ/L Carbon Dioxide Level 20.2 MEQ/L 24.3 MEQ/L 24.3 MEQ/L Anion Gap 12 MEQ/L 6 MEQ/L 6 MEQ/L Estimat Glomerular Filtration Rate 57 ML/MIN 72 ML/MIN 77 ML/MIN Lactic Acid Level 2.3 mmol/L Lipase 157 U/L Urine Color YELLOW Urine Turbidity CLEAR Urine pH 6.0 Urine Specific [place] 1.012 Urine Protein TRACE mg/dL Urine Glucose (UA) NEG mg/dL Urine Ketones 10 mg/dL Urine Occult Blood NEG Urine Nitrite NEG Urine Bilirubin NEG Urine Urobilinogen LESS THAN 2.0 MG/DL Urine Leukocyte Esterase NEG Urine RBC 1 /hpf Urine WBC 3 /hpf Urine Squamous Epithelial Cells <1 /hpf Urine Hyaline Casts 1 /lpf Urine Mucus FEW /lpf Microscopic Urinalysis Comment CULT NOT INDICATED Phosphorus Level 2.5 MG/DL 2.4 MG/DL Magnesium Level 2.0 MG/DL 1.9 MG/DL Hemoglobin A1c 5.4 % Free Thyroxine 1.24 NG/DL Thyroid Stimulating Hormone 3rd Gen 4.640 uIU/ML Test 03/18/17 07:17 White Blood Count 5.3 TH/MM3 Red Blood Count 4.10 MIL/MM3 Hemoglobin 13.6 GM/DL Hematocrit 40.5 % Mean Corpuscular Volume 98.6 FL Mean Corpuscular Hemoglobin 33.3 PG Mean Corpuscular Hemoglobin Concent 33.7 % Red Cell Distribution Width 14.8 % Platelet Count 224 TH/MM3 Mean Platelet Volume 7.8 FL Neutrophils (%) (Auto) 65.0 % Lymphocytes (%) (Auto) 19.8 % Monocytes (%) (Auto) 10.3 % Eosinophils (%) (Auto) 4.0 % Basophils (%) (Auto) 0.9 % Neutrophils # (Auto) 3.4 TH/MM3 Lymphocytes # (Auto) 1.1 TH/MM3 Monocytes # (Auto) 0.5 TH/MM3 Eosinophils # (Auto) 0.2 TH/MM3 Basophils # (Auto) 0.0 TH/MM3 CBC Comment DIFF FINAL Differential Comment Prothrombin Time 12.1 SEC Prothromb Time International Ratio 1.1 RATIO Blood Urea Nitrogen 5 MG/DL Creatinine 0.95 MG/DL Random Glucose 76 MG/DL Total Protein 4.9 GM/DL Albumin 2.3 GM/DL Calcium Level 8.1 MG/DL Phosphorus Level 3.0 MG/DL Magnesium Level 1.8 MG/DL Alkaline Phosphatase 45 U/L Aspartate Amino Transf (AST/SGOT) 16 U/L Alanine Aminotransferase (ALT/SGPT) 13 U/L Total Bilirubin 0.7 MG/DL Sodium Level 140 MEQ/L Potassium Level 4.1 MEQ/L Chloride Level 108 MEQ/L Carbon Dioxide Level 25.4 MEQ/L Anion Gap 7 MEQ/L Estimat Glomerular Filtration Rate 76 ML/MIN Imaging Last Impressions Abdomen X-Ray 03/17/17 0000 Signed Impressions: Service Date/Time: Friday, March 17, 2017 09:29 - CONCLUSION: Less distention of the small bowel relative to the prior study. Rebel Agee Jr., MD Abdomen/Pelvis CT 03/15/17 1436 Signed Impressions: Service Date/Time: Wednesday, March 15, 2017 17:35 - CONCLUSION: 1. Increasing small bowel ileus characteristics of worsening high grade small bowel destruction. 2. Increasing fluid in the abdomen. 3. Increasing pleural fluid with small bilateral pleural effusions. 4. Persistent left inguinal hernia containing a segment of sigmoid colon which is not felt to be the obstructing point. Taurus Peterson MD Objective Remarks GENERAL: This is a well-nourished, well-developed patient, in NO distress. SKIN: No rashes, ecchymoses or lesions. Cool and dry. HEAD: Atraumatic. Normocephalic. No temporal or scalp tenderness. EYES: Pupils equal round and reactive. Extraocular motions intact. No scleral icterus. No injection or drainage. ENT: Nose without bleeding, purulent drainage or septal hematoma. Throat without erythema, tonsillar hypertrophy or exudate. Uvula midline. Airway patent - NG tube in place- tongue is midline NECK: Trachea midline. No JVD or lymphadenopathy. Supple, nontender, no meningeal signs. CARDIOVASCULAR: IRRegular rate and rhythm without murmurs, gallops, or rubs. S1 -S2 no S3 or S4 RESPIRATORY: Clear to auscultation. Breath sounds equal bilaterally. No wheezes , rales, or rhonchi. GASTROINTESTINAL: Abdomen soft, some MILD tenderness and NOT distended. No hepato-splenomegaly, or palpable masses. No guarding. POSITIVE BOWEL SOUNDS MUSCULOSKELETAL: Extremities without clubbing, cyanosis, or edema. No joint tenderness, effusion, or edema noted. No calf tenderness. Negative Homans sign bilaterally. NEUROLOGICAL: Awake and alert. Cranial nerves II through XII intact. Motor and sensory grossly within normal limits. 4 out of 5 muscle strength in all muscle groups. Normal speech. Insight and judgment is good, mood and behavior is appropriate Medications and IVs Current Medications Morphine Sulfate (Morphine Inj) 4 mg ONCE ONCE IV PUSH Last administered on 14:56; Start 03/15/17 at 14:45; Stop 03/15/17 at 14:46; Status DC Ondansetron HCl (Zofran Inj) 4 mg ONCE ONCE IVP Last administered on 14:56; Start 03/15/17 at 14:45; Stop 03/15/17 at 14:46; Status DC Sodium Chloride 1,000 ml @ 1,000 mls/hr Q1H IV Last administered on 14:58; Start 03/15/17 at 14:36; Stop 03/15/17 at 15:35; Status DC Sodium Chloride (NS Flush) 2 ml UNSCH PRN IV FLUSH FLUSH AFTER USING IV ACCESS Last administered on 03/15/17 17:59; Start 03/15/17 at 14:45; Stop 03/17/17 at 22:33; Status DC Diatrizoate Meglum/ Diatrizoate Sod (Md Jose Storm) 18 ml STK-MED ONCE .ROUTE Last administered on 03/15/17 15:31; Start 03/15/17 at 15:27; Stop 03/15/17 at 15:28; Status DC Morphine Sulfate (Morphine Inj) 2 mg ONCE ONCE IV PUSH Last administered on 17:59; Start 03/15/17 at 17:45; Stop 03/15/17 at 17:47; Status DC Morphine Sulfate (Morphine Inj) 2 mg ONCE ONCE IV PUSH ; Start 03/15/17 at 18: 15; Stop 03/15/17 at 18:22; Status DC Metoprolol Tartrate (Lopressor Inj) 5 mg Q6H PRN IV PUSH SBP>160, DBP>90; Start 03/15/17 at 18:30 Digoxin (Lanoxin Inj) 0.125 mg DAILY IV PUSH Last administered on 03/18/17 08 :03; Start 03/16/17 at 09:00 Potassium Chloride/Dextrose/ Sod Cl 1,000 ml @ 100 mls/hr Q10H IV Last administered on 03/17/17 10:43; Start 03/15/17 at 18:28 Sodium Chloride (NS Flush) 2 ml UNSCH PRN IV FLUSH FLUSH AFTER USING IV ACCESS ; Start 03/15/17 at 18:30 Sodium Chloride (NS Flush) 2 ml BID IV FLUSH Last administered on 03/18/17 08 :03; Start 03/15/17 at 21:00 Ondansetron HCl (Zofran Inj) 4 mg Q6H PRN IVP NAUSEA OR VOMITING Last administered on 03/17/17 00:50; Start 03/15/17 at 18:30 Prochlorperazine (Compazine Supp) 25 mg Q12H PRN RECTAL NAUSEA OR VOMITING; Start 03/15/17 at 18:30 Enoxaparin Sodium (Lovenox Inj) 40 mg Q24H SQ Last administered on 03/16/17 19:42; Start 03/15/17 at 20:00 Acetaminophen (Tylenol) 650 mg Q6H PRN PO PAIN SCALE 1 TO 2; Start 03/15/17 at 18:30 Morphine Sulfate (Morphine Inj) 2 mg Q3H PRN IV PUSH Pain 3-5; if unable to take PO; Start 03/15/17 at 18:30 Morphine Sulfate (Morphine Inj) 4 mg Q3H PRN IV PUSH Pain 6-10;if unable to take PO; Start 03/15/17 at 18:30 Acetaminophen 100 ml @ 400 mls/hr Q6H IV ; Start 03/15/17 at 20:00; Stop at 14:14; Status DC Morphine Sulfate (Morphine Inj) 4 mg Q3H PRN IV PUSH BREAKTHROUGH PAIN; Start 03/15/17 at 18:30 Naloxone HCl (Narcan Inj) 0.4 mg UNSCH PRN IV PUSH SEE LABEL COMMENTS; Start 03/15/17 at 18:30 Senna/Docusate Sodium (Re-Colace) 1 tab BID PO ; Start 03/15/17 at 21:00 Magnesium Hydroxide (Milk Of Magnesia Liq) 30 ml Q12H PRN PO Mild constipation ; Start 03/15/17 at 18:30 Sennosides (Senokot) 17.2 mg Q12H PRN PO Moderate constipation; Start at 18:30 Bisacodyl (Dulcolax Supp) 10 mg DAILY PRN RECTAL SEVERE CONSITIPATION; Start 03/15/17 at 18:30 Lactulose (Lactulose Liq) 30 ml DAILY PRN PO SEVERE CONSITIPATION; Start 03/15 at 18:30 Pantoprazole Sodium (Protonix Inj) 40 mg DAILY IV PUSH Last administered on t 07:59; Start 03/15/17 at 18:30 Lactated Ringer's 1,000 ml @ 30 mls/hr Q24H PRN IV SEE LABEL COMMENTS; Start 03/17/17 at 22:45; Stop 03/20/17 at 22:44 Sodium Chloride 500 ml @ 30 mls/hr [id number] PRN IV SEE LABEL COMMENTS; Start at 22:45; Stop 03/20/17 at 22:44 Metoprolol Tartrate (Lopressor) 25 mg ELECTRICAL DESIGN ENGINEER PRN PO SEE LABEL COMMENTS; Start 03/17/17 at 22:45; Stop 03/20/17 at 22:44 Chlorhexidine Gluconate (Chlorhexidine 2% Cloth) 3 pack ELECTRICAL DESIGN ENGINEER PRN TOPICAL SEE LABEL COMMENTS; Start 03/17/17 at 22:45; Stop 03/20/17 at 22:44 Insulin Human Regular (NovoLIN R INJ) See Protocol Table ... ELECTRICAL DESIGN ENGINEER PRN SQ SEE PROTOCOL TABLE; Start 03/17/17 at 22:45; Stop 03/20/17 at 22:44 Urinary Catheter: No Vascular Central Line Catheter: No A/P Problem List: (1) H/O carcinoma of bladder ICD Code: Z85.51 - Personal history of malignant neoplasm of bladder (2) JOSEE (acute kidney injury) ICD Code: N17.9 - Acute kidney failure, unspecified (3) Small bowel obstruction ICD Code: K56.609 - Unspecified intestinal obstruction, unspecified as to partial versus complete obstruction (4) Dehydration ICD Code: E86.0 - Dehydration Assessment and Plan Small bowel obstruction consult surgery continue IV pain control continue on fluids Atrial fibrillation continue on metoprolol IV and digoxin IV pain control for small bowel obstruction GI prophylaxis continue on Protonix IV daily DVT prophylaxis continue on Lovenox subcutaneous daily Chronic neurogenic bladder chronically self catheterizes every 6 hours as needed FOR LAPAROSCOPY 10-189 DW RN AND PT AND Discharge Planning NEEDS TO BE ABLE TO TOLERATE A DIET AND HAVE BMS Jonatan Aburto DO Mar 18, 2017 11:02
[2017-03-18 11:16] VITALS: PULSE 71
[2017-03-18] MEDS ORDERED: PHENYLEPHRINE HCL 10 MG/ML VIAL IV ONE (11:47)
[2017-03-18] MEDS ORDERED: ePHEDrine/NS 25 MG/5 ML SYR IV ONE (11:47)
[2017-03-18] MEDS ORDERED: SODIUM CHLORIDE 0.9% 20 ML VIAL IV ONE (11:47)
[2017-03-18] MEDS ORDERED: PHENYLEPH/NS 1000 MCG/10 ML SYR IV ONE (11:47)
[2017-03-18] MEDS ORDERED: MORPHINE SULFATE 4 MG/ML INJ IV ONE (11:47)
[2017-03-18 11:58] VITALS: BP 121/71; PULSE 52; RESP 18; TEMP 96; O2SAT 97
[2017-03-18] MEDS ORDERED: SUGAMMADEX SODIUM 200 MG/2 ML VIAL IV PUSH ONE ×2 (13:13)
[2017-03-18] MEDS ORDERED: PROPOFOL 200 MG/20 ML AMP ONE (13:13)
[2017-03-18] MEDS ORDERED: MIDAZOLAM HCL 2 MG/2 ML VIAL ONE (13:13)
[2017-03-18] MEDS ORDERED: ROCURONIUM INJ 50 MG/5 ML SYRINGE IV PUSH ONE (13:14)
[2017-03-18] MEDS ORDERED: LIDOCAINE HCL 2% 100 MG/5 ML SYRINGE ONE (13:14)
[2017-03-18] MEDS ORDERED: BUPIVACAINE/EPINEPHRINE 0.25% 50 ML VIAL ONE (13:38)
--- NOTE | 2017-03-18 13:40 | EKG ---
Date Performed: 03/18/2017 Time Performed: 10:22:49 PTAGE: 81 years EKG: ATRIAL FIBRILLATION MARKED LEFT AXIS DEVIATION SEPTAL MYOCARDIAL INFARCTION , PROBABLY OLD ABNORMAL ECG PREVIOUS TRACING : 03/15/2017 15.24 DOCTOR: Gallo Richard Interpretating Date/Time 03/18/2017 13:38:58
--- NOTE | 2017-03-18 14:02 | HHI.PR ---
Immediate Post Op Note Procedure Date: Mar 18, 2017 Pre Op Diagnosis: small bowel obstruction Post Op Diagnosis: same Surgeon: Johnny Villar MD Electrical Lineman(s): see or sheet Procedure: dx lap, lap quoc Findings: multiple adhesions Complications: none Specimen(s) removed: none Estimated blood loss: 5cc Anesthesia: General Drains: None Patient to: PACU Patient Condition: Good Johnny Villar MD Mar 18, 2017 14:02
[2017-03-18] MEDS ORDERED: CLINDAMYCIN PHOS 600 MG/4 ML VIAL ONE (14:31)
[2017-03-18] MEDS ORDERED: DO NOT ADM ANY ANTICOAGULANT DRUGS PRN (16:57)
[2017-03-18] MEDS ORDERED: *morphine SULFATE 8 MG/ML PERIprocedure ONLY ONE (17:09)
[2017-03-18 19:30] VITALS: BP 118/75; PULSE 78; RESP 16; TEMP 96.1; O2SAT 96
[2017-03-18] MEDS: ENOXAPARIN SODIUM 40 MG/0.4 ML SYRINGE SQ SCH (20:00)
[2017-03-18] MEDS: ONDANSETRON HCL 4 MG/2 ML VIAL IVP PRN (21:06)
[2017-03-18] MEDS: MORPHINE SULFATE 4 MG/ML INJ IV PUSH PRN (21:07)
[2017-03-19] VITALS (10 sets, daily range): BP systolic 96–122; BP diastolic 52–83; PULSE 61–87; RESP 15–22; TEMP 96–97.5; O2SAT 95–96
[2017-03-19] MEDS: MORPHINE SULFATE 4 MG/ML INJ IV PUSH PRN ×5 (02:38→23:37)
[2017-03-19] MEDS: ONDANSETRON HCL 4 MG/2 ML VIAL IVP PRN ×3 (03:15→23:36)
[2017-03-19] MEDS: D5-1/2 NS + KCL 20 MEQ INJ 1,000 ML IV SCH ×3 (03:23→22:56)
[2017-03-19 07:03] LABS: AUTOMATED NEUTROPHIL # 7.3 TH/MM3 (1.8-7.7); BASOPHIL % 0.3 % (0.0-2.0); EOSINOPHIL # 0.1 TH/MM3 (0-0.4); EOSINOPHIL % 0.6 % (0.0-4.0); HEMATOCRIT 38.8 % (39.0-51.0); HEMO FLAGS DIFF FINAL; LYMPH % 6.8 % (9.0-44.0); LYMPHOCYTE # 0.6 TH/MM3 (1.0-4.8); MEAN CELL VOLUME 98.5 FL (80.0-100.0); MEAN CORPUSCULAR HEMOGLOBIN 33.3 PG (27.0-34.0); MEAN CORPUSCULAR HGB CONC 33.8 % (32.0-36.0); MONO % 6.9 % (0.0-8.0); NEUT % 85.4 % (16.0-70.0); PLATELET COUNT 215 TH/MM3 (150-450); RED BLOOD COUNT 3.94 MIL/MM3 (4.50-5.90); RED CELL DISTRIBUTION WIDTH 14.9 % (11.6-17.2); WHITE BLOOD COUNT 8.6 TH/MM3 (4.0-11.0)
[2017-03-19 07:16] LABS: ANION GAP 5 MEQ/L (5-15); AST (GOT) 17 U/L (15-37); BICARBONATE 27.1 MEQ/L (21.0-32.0); BLOOD UREA NITROGEN 6 MG/DL (7-18); CHLORIDE 104 MEQ/L (98-107); GLOMERULAR FILTRATION RATE 77 ML/MIN (>89); MAGNESIUM 1.7 MG/DL (1.5-2.5); POTASSIUM 4.3 MEQ/L (3.5-5.1); SODIUM (NA) 136 MEQ/L (136-145)
[2017-03-19 07:18] LABS: ALT (GPT) 14 U/L (12-78)
[2017-03-19 07:23] LABS: ALKALINE PHOSPHATASE 44 U/L (45-117); TOTAL BILIRUBIN ADULT 0.7 MG/DL (0.2-1.0)
[2017-03-19] MEDS: DOCUSATE SODIUM 50 MG/SENNA 8.6 MG TAB PO SCH ×4 (09:59→20:11)
[2017-03-19] MEDS: SODIUM CHLORIDE 0.9% FLUSH 10 ML FLUSH IV FLUSH SCH ×2 (10:00→20:08)
[2017-03-19] MEDS: PANTOPRAZOLE SODIUM 40 MG VIAL IV PUSH SCH (10:00)
[2017-03-19] MEDS: DIGOXIN 0.5 MG/2 ML VIAL IV PUSH SCH (10:01)
[2017-03-19] MEDS ORDERED: CLINDAMYCIN INJ 600 MG in SODIUM CHLORIDE 0.9% INJ 100 ML IV SCH (10:15)
--- NOTE | 2017-03-19 11:05 | HHI.PR ---
Subjective Remarks Abdominal pain reported today. An element of postop adynamic ileus could be present given hypoactive bowel sounds. He is status post adhesion lysis and mechanical obstruction is likely no longer be present, but based on symptoms is too early to tell. Objective Vital Signs Date Time Temp Pulse Resp B/P (MAP) Pulse Ox O2 Delivery O2 Flow Rate FiO2 03/19/17 10:27 76 110/57 (74) 03/19/17 08:00 96.0 85 20 96/60 (72) 95 03/19/17 04:00 96.0 87 15 103/62 (76) 96 03/19/17 00:00 97.2 76 17 122/83 (96) 96 03/18/17 19:30 96.1 78 16 118/75 (89) 96 03/18/17 18:00 97.5 84 24 127/74 (91) 97 Room Air 03/18/17 17:45 90 25 130/69 (89) 95 Room Air 03/18/17 17:30 84 25 118/69 (85) 94 Room Air 03/18/17 17:15 83 25 124/69 (87) 94 Room Air 03/18/17 17:00 83 27 126/70 (88) 98 Room Air 03/18/17 16:52 97.4 84 27 138/79 (98) 99 Room Air 03/18/17 11:58 96.0 52 18 121/71 (88) 97 03/18/17 11:16 71 I/O 03/18/17 03/18/17 03/18/17 03/19/17 03/19/17 03/19/17 07:00 15:00 23:00 07:00 15:00 23:00 Intake Total 0 ml 0 ml 1830 ml 480 ml Output Total 900 ml 200 ml 380 ml 240 ml Balance -900 ml -200 ml 1450 ml 240 ml Intake Oral 0 ml 0 ml 480 ml 480 ml IV Total 50 ml Other 1300 ml Output Urine Total 900 ml 200 ml 330 ml 240 ml Estimated Blood Loss 50 ml # Bowel Movements 0 0 0 Result Diagram: 03/19/1754703/19/1748 Objective Remarks GENERAL: NAD, A&Ox3 HEAD: Normocephalic. NECK: Supple, trachea midline. No lymphadenopathy. EYES: No scleral icterus. No injection or drainage. CARDIOVASCULAR: Regular rate and rhythm without murmurs, gallops, or rubs. RESPIRATORY: Breath sounds equal bilaterally. No accessory muscle use. GASTROINTESTINAL: Abdomen soft, non-tender, nondistended. Hypoactive bowel sounds. MUSCULOSKELETAL: No cyanosis, or edema. SKIN: Warm and dry. NEURO: No focal neurological deficitis. A/P Problem List: (1) Small bowel obstruction ICD Code: K56.609 - Unspecified intestinal obstruction, unspecified as to partial versus complete obstruction (2) H/O carcinoma of bladder ICD Code: Z85.51 - Personal history of malignant neoplasm of bladder (3) JOSEE (acute kidney injury) ICD Code: N17.9 - Acute kidney failure, unspecified Assessment and Plan Assessment and plan 81-year-old male admitted secondary to small bowel obstruction with history of bladder cancer and significant adhesions, now status post lysis of adhesions via laparoscopic surgery. Small bowel obstruction Continue pain treatments Continue IV hydration Status post adhesion lysis surgery via laparoscopy Surgery following Continue ice chips Ileus May be related to prior small bowel obstruction or postop or pain medication related Continue ice chips Follow clinically for improvement Chronic neurogenic bladder Catheter is in place Monitor urine output Patient self catheterizes at baseline Atrial fibrillation Continue metoprolol IV Continue digoxin IV Return to by mouth treatments once patient transitions to by mouth intake DVT prophylaxis Liang Vidal MD Mar 19, 2017 11:05
[2017-03-19] MEDS: SODIUM CHLORIDE 0.9% FLUSH 10 ML FLUSH IV FLUSH PRN ×2 (11:15→17:00)
--- NOTE | 2017-03-19 12:33 | HHI.PR ---
Subjective Subjective Notes no acute issues, c/o incisional pain. Objective Vitals/I&O Vital Signs Date Time Temp Pulse Resp B/P (MAP) Pulse Ox O2 Delivery O2 Flow Rate FiO2 03/19/17 10:27 76 110/57 (74) 03/19/17 08:00 96.0 20 95 03/18/17 18:00 Room Air Labs Laboratory Tests Test 03/19/17 05:48 White Blood Count 8.6 Red Blood Count 3.94 Hemoglobin 13.1 Hematocrit 38.8 Mean Corpuscular Volume 98.5 Mean Corpuscular Hemoglobin 33.3 Mean Corpuscular Hemoglobin Concent 33.8 Red Cell Distribution Width 14.9 Platelet Count 215 Mean Platelet Volume 7.5 Neutrophils (%) (Auto) 85.4 Lymphocytes (%) (Auto) 6.8 Monocytes (%) (Auto) 6.9 Eosinophils (%) (Auto) 0.6 Basophils (%) (Auto) 0.3 Neutrophils # (Auto) 7.3 Lymphocytes # (Auto) 0.6 Monocytes # (Auto) 0.6 Eosinophils # (Auto) 0.1 Basophils # (Auto) 0.0 CBC Comment DIFF FINAL Differential Comment Blood Urea Nitrogen 6 Creatinine 0.94 Random Glucose 122 Total Protein 5.0 Albumin 2.3 Calcium Level 7.9 Phosphorus Level 3.0 Magnesium Level 1.7 Alkaline Phosphatase 44 Aspartate Amino Transf (AST/SGOT) 17 Alanine Aminotransferase (ALT/SGPT) 14 Total Bilirubin 0.7 Sodium Level 136 Potassium Level 4.3 Chloride Level 104 Carbon Dioxide Level 27.1 Anion Gap 5 Estimat Glomerular Filtration Rate 77 Date/Time Source Procedure Growth Status 03/15/17 15:15 Blood Peripheral Aerobic Blood Culture - Preliminary NO GROWTH IN 4 DAYS Resulted 03/15/17 15:15 Blood Peripheral Anaerobic Blood Culture - Preliminary NO GROWTH IN 4 DAYS Resulted Radiology Last 48 hours Impressions Abdomen/Pelvis CT 03/15/17 9416 Signed Impressions: Service Date/Time: Wednesday, March 15, 2017 17:35 - CONCLUSION: 1. Increasing small bowel ileus characteristics of worsening high grade small bowel destruction. 2. Increasing fluid in the abdomen. 3. Increasing pleural fluid with small bilateral pleural effusions. 4. Persistent left inguinal hernia containing a segment of sigmoid colon which is not felt to be the obstructing point. Taurus Peterson MD Abdomen: Other (soft incision well approximated, ttp appropriate) A/P Assessment and Plan POD 1 lap ileocectomy stable PLAN Ok for clears pain control oob keep stein d/c tomorrow, pt with hx of straight cath dvt ppx Johnny Villar MD Mar 19, 2017 12:33
[2017-03-19] MEDS: CLINDAMYCIN INJ 600 MG in SODIUM CHLORIDE 0.9% INJ 100 ML IV SCH ×2 (12:49→20:08)
--- NOTE | 2017-03-19 12:57 | MP ---
cc: JOVITA VILLAR MD DATE OF SURGERY 03/18/2017 PREOPERATIVE DIAGNOSIS Bowel obstruction. POSTOPERATIVE DIAGNOSIS Bowel obstruction. PROCEDURE PERFORMED 1. Diagnostic laparoscopy. 2. Laparoscopic lysis of adhesions. 3. Laparoscopic ileocecectomy with primary anastomosis. SURGEON Jovita Villar MD CHILD SUPPORT CASE OFFICER See OR sheet. ANESTHESIA GETA. IV FLUIDS See anesthesia sheet. ESTIMATED BLOOD LOSS 30 cc. DRAINS None. COMPLICATIONS None. WOUND CLASSIFICATION Clean/contaminated. SPECIMENS Ileocecectomy. FINDINGS Distended diffuse small bowel. Concerning mass at ileocecal valve. INDICATIONS The patient is an 81-year-old male who presented with onset of abdominal distention and evidence of bowel obstruction. He was initially treated nonoperatively and did actually have some improvement with bowel movements and was doing well. The patient did develop recurrence of obstruction and therefore the decision was made for operative intervention including diagnostic laparoscopy and laparoscopic evaluation. DETAILS OF PROCEDURE The patient was taken to the operating suite, was placed in supine position. He was prepped and draped in the usual sterile fashion after induction of general endotracheal anesthesia. A brief time-out was done stating correct patient, procedure and surgical site. We were all in agreement with this. Attention first directed to the umbilicus where a stab/dhruv incision was made with an 11 blade. Further dissection was done. In order to enter the abdominal space, Visiport was obtained 5-mm with the endoscope. The abdomen was entered, insufflation done. Cursory inspection revealed no evidence of injury. Minimal adhesions noted. Two other ports were placed one left lower quadrant and a left mid-quadrant port to begin exploration of the small bowel. Small omental adhesions were taken with harmonic scalpel. The bowel was run from the terminal ileum all the way up to the ligament of Treitz. The bowel was noted to be somewhat diffusely dilated and there was evidence of hardening at the ileocecal junction. Given concern, decision was made to proceed with ileocecectomy. Another port was placed in the right lower quadrant, 5-mm. The left mid-quadrant port was up-sized to a 12-mm port. The cecum was mobilized to its lateral attachments, staying close to the cecum and avoiding the ureter. A small window was made in the mesentery of the colon and a green load Endo-MARIAH stapler was used to transect this proximal portion. Approximately 10 cm distally to the terminal ileum was identified and a small window made in the mesentery in order to transect this with a blue load endostaple MARIAH stapler. Harmonic scalpel was used to assist in transecting the mesentery. Several other white load staple loads were used to transect the mesentery and vessels to remove the specimen. Next, the two ends of the staple line were identified, stay suture was placed. Small enterotomies were made on either side of the small bowel and colon. A green load Endo-MARIAH stapler 60 was used to create the [id number] layer. Next, three stay sutures were used to approximate the enterotomy. The green load was used to transect and staple this to complete the stapled anastomosis. A crotch stitch was placed at the crotch of the staple line for added support. The mesenteric defect was closed with several [id number] sutures. Hemostasis was obtained with electro Bovie cautery, also harmonic. Also, hemostatic agent was placed down in the right lower quadrant wound bed to cover the anastomosis as well. A drape of omentum was then placed over the anastomosis. On further evaluation and exploration, no evidence of other significant abnormality was noted. At this point the large EndoCatch bag was obtained to place the specimen inside to remove it from the left mid-quadrant port. The port was dilated in order to remove the specimen. Irrigation was done to the abdomen with clear effluent. The pneumoperitoneum was removed. The ports were removed as well. The left mid-quadrant incision was closed with #1 Prolene to the peritoneum and then to the anterior fascia and then 3-0 Vicryl and 4-0 Monocryl were placed. 4-0 Monocryl was placed at all port sites. Sterile dressing was in place. The patient tolerated the procedure well. There was no intraoperative complication. The patient was extubated and taken stable to the PACU. MD HAWA Perdomo/GEOVANNY /12:23 PM /12:31 PM
[2017-03-19] MEDS: ENOXAPARIN SODIUM 40 MG/0.4 ML SYRINGE SQ SCH (20:08)
[2017-03-20] VITALS (9 sets, daily range): BP systolic 102–119; BP diastolic 56–73; PULSE 72–97; RESP 16–18; TEMP 95.5–97.4; O2SAT 93–98
[2017-03-20 08:37] LABS: AUTOMATED NEUTROPHIL # 5.5 TH/MM3 (1.8-7.7); BASOPHIL % 0.5 % (0.0-2.0); EOSINOPHIL # 0.2 TH/MM3 (0-0.4); EOSINOPHIL % 2.7 % (0.0-4.0); HEMO FLAGS DIFF FINAL; LYMPH % 11.3 % (9.0-44.0); LYMPHOCYTE # 0.8 TH/MM3 (1.0-4.8); MEAN CELL VOLUME 98.6 FL (80.0-100.0); MEAN CORPUSCULAR HEMOGLOBIN 33.7 PG (27.0-34.0); MEAN CORPUSCULAR HGB CONC 34.2 % (32.0-36.0); MONO % 9.2 % (0.0-8.0); NEUT % 76.3 % (16.0-70.0); PLATELET COUNT 218 TH/MM3 (150-450); RED BLOOD COUNT 4.06 MIL/MM3 (4.50-5.90); RED CELL DISTRIBUTION WIDTH 14.7 % (11.6-17.2); WHITE BLOOD COUNT 7.2 TH/MM3 (4.0-11.0)
--- NOTE | 2017-03-20 09:01 | HHI.PR ---
Subjective Subjective Notes no acute issues, tolerating clears, no flatus Objective Vitals/I&O Vital Signs Date Time Temp Pulse Resp B/P (MAP) Pulse Ox O2 Delivery O2 Flow Rate FiO2 03/20/17 07:54 96.7 75 18 116/73 (87) 95 03/18/17 18:00 Room Air Labs Laboratory Tests Test 03/20/17 06:48 White Blood Count 7.2 Red Blood Count 4.06 Hemoglobin 13.7 Hematocrit 40.0 Mean Corpuscular Volume 98.6 Mean Corpuscular Hemoglobin 33.7 Mean Corpuscular Hemoglobin Concent 34.2 Red Cell Distribution Width 14.7 Platelet Count 218 Mean Platelet Volume 7.7 Neutrophils (%) (Auto) 76.3 Lymphocytes (%) (Auto) 11.3 Monocytes (%) (Auto) 9.2 Eosinophils (%) (Auto) 2.7 Basophils (%) (Auto) 0.5 Neutrophils # (Auto) 5.5 Lymphocytes # (Auto) 0.8 Monocytes # (Auto) 0.7 Eosinophils # (Auto) 0.2 Basophils # (Auto) 0.0 CBC Comment DIFF FINAL Differential Comment Date/Time Source Procedure Growth Status 03/15/17 15:15 Blood Peripheral Aerobic Blood Culture - Preliminary NO GROWTH IN 4 DAYS Resulted 03/15/17 15:15 Blood Peripheral Anaerobic Blood Culture - Preliminary NO GROWTH IN 4 DAYS Resulted Radiology Last 48 hours Impressions Abdomen/Pelvis CT 03/15/17 1436 Signed Impressions: Service Date/Time: Wednesday, March 15, 2017 17:35 - CONCLUSION: 1. Increasing small bowel ileus characteristics of worsening high grade small bowel destruction. 2. Increasing fluid in the abdomen. 3. Increasing pleural fluid with small bilateral pleural effusions. 4. Persistent left inguinal hernia containing a segment of sigmoid colon which is not felt to be the obstructing point. Taurus Peterson MD Abdomen: Other (incisional tenderness, incisions c/d/i) A/P Assessment and Plan POD 2 lap ileocectomy stable advance to fulls path pending, check CEA pain control oob keep stein for Is and Os d/c tomorrow, pt with hx of straight cath dvt ppx Johnny Villar MD Mar 20, 2017 09:01
[2017-03-20 09:20] LABS: ALT (GPT) 12 U/L (12-78); ANION GAP 7 MEQ/L (5-15); AST (GOT) 11 U/L (15-37); BICARBONATE 27.1 MEQ/L (21.0-32.0); BLOOD UREA NITROGEN 6 MG/DL (7-18); CHLORIDE 101 MEQ/L (98-107); GLOMERULAR FILTRATION RATE 77 ML/MIN (>89); POTASSIUM 4.1 MEQ/L (3.5-5.1); SODIUM (NA) 135 MEQ/L (136-145)
[2017-03-20 09:21] LABS: ALKALINE PHOSPHATASE 80 U/L (45-117); TOTAL BILIRUBIN ADULT 0.9 MG/DL (0.2-1.0)
[2017-03-20] MEDS: SODIUM CHLORIDE 0.9% FLUSH 10 ML FLUSH IV FLUSH SCH ×2 (09:41→20:36)
[2017-03-20] MEDS: DOCUSATE SODIUM 50 MG/SENNA 8.6 MG TAB PO SCH ×2 (09:41→20:35)
[2017-03-20] MEDS: DIGOXIN 0.125 MG TAB PO SCH (09:42)
[2017-03-20] MEDS: PANTOPRAZOLE SOD 40 MG DELAYED RELEASE TAB PO SCH (09:42)
--- NOTE | 2017-03-20 10:55 | HHI.PR ---
Subjective Remarks Follow-up bowel obstruction and NSVT. Improving surgical pain scale of 5 out of 10. No BM or gas. Tolerating liquid diet. Discussed with RN 6 beat run of NSVT. Patient denies chest pain, palpitations, shortness of breath, dizziness and syncope. Patient states this is nothing new. History of A. fib, congestive heart failure, aortic and mitral valvulopathy requiring intervention. [id number] of 2. Not a candidate for NOAC because of valvulopathy. Refuses to be on Coumadin. He is on aspirin will clarify with general surgery if it can be restarted. Also discussed with RN to update medication list Objective Vitals Vital Signs Date Time Temp Pulse Resp B/P (MAP) Pulse Ox O2 Delivery O2 Flow Rate FiO2 03/20/17 07:54 96.7 75 18 116/73 (87) 95 03/20/17 04:00 97.3 97 17 102/58 (73) 95 03/20/17 00:00 97.4 82 16 109/56 (73) 95 03/19/17 21:21 96 03/19/17 20:46 95 03/19/17 19:55 97.5 82 20 105/62 (76) 03/19/17 15:30 96.5 70 22 97/60 (72) 95 03/19/17 14:38 95 03/19/17 12:00 96.4 73 18 99/52 (68) 95 I/O 03/19/17 03/19/17 03/19/17 03/20/17 03/20/17 03/20/17 07:00 15:00 23:00 07:00 15:00 23:00 Intake Total 480 ml 100 ml 2636 ml Output Total 240 ml 1425 ml Balance 240 ml 100 ml 1211 ml Intake Oral 480 ml 360 ml IV Total 100 ml 2276 ml Output Urine Total 240 ml 1425 ml # Bowel Movements 0 Result Diagram: 03/20/17 0648 03/20/17 0648 Imaging Last Impressions Abdomen X-Ray 03/17/17 0000 Signed Impressions: Service Date/Time: Friday, March 17, 2017 09:29 - CONCLUSION: Less distention of the small bowel relative to the prior study. Rebel Agee Jr., MD Abdomen/Pelvis CT 03/15/17 1436 Signed Impressions: Service Date/Time: Wednesday, March 15, 2017 17:35 - CONCLUSION: 1. Increasing small bowel ileus characteristics of worsening high grade small bowel destruction. 2. Increasing fluid in the abdomen. 3. Increasing pleural fluid with small bilateral pleural effusions. 4. Persistent left inguinal hernia containing a segment of sigmoid colon which is not felt to be the obstructing point. Taurus Peterson MD Objective Remarks GENERAL: Well-developed, well-nourished in no distress SKIN: Warm and dry. HEAD: Atraumatic. Normocephalic. EYES: Pupils equal and round. No scleral icterus. No injection or drainage. ENT: No nasal bleeding or discharge. Mucous membranes pink and moist. NECK: Trachea midline. No JVD. CARDIOVASCULAR: Regular rate and rhythm. Systolic murmur noted RESPIRATORY: No accessory muscle use. Clear to auscultation. Breath sounds equal bilaterally. GASTROINTESTINAL: Abdomen soft, tender over incision sites, nondistended. MUSCULOSKELETAL: Extremities without clubbing, cyanosis, or edema. No obvious deformities. NEUROLOGICAL: Awake and alert. No obvious cranial nerve deficits. Motor grossly within normal limits. Five out of 5 muscle strength in the arms and legs. Normal speech. PSYCHIATRIC: Appropriate mood and affect; insight and judgment normal. Procedures 03/18/17 PROCEDURE PERFORMED 1. Diagnostic laparoscopy. 2. Laparoscopic lysis of adhesions. 3. Laparoscopic ileocecectomy with primary anastomosis. A/P Problem List: (1) H/O carcinoma of bladder ICD Code: Z85.51 - Personal history of malignant neoplasm of bladder (2) JOSEE (acute kidney injury) ICD Code: N17.9 - Acute kidney failure, unspecified (3) Small bowel obstruction ICD Code: K56.609 - Unspecified intestinal obstruction, unspecified as to partial versus complete obstruction (4) Dehydration ICD Code: E86.0 - Dehydration Assessment and Plan 81-year-old male admitted secondary to small bowel obstruction with history of bladder cancer and significant adhesions, now status post lysis of adhesions via laparoscopic surgery. Small bowel obstruction. Resolved Continue pain treatments Continue IV hydration Status post adhesion lysis surgery via laparoscopy Advance diet as tolerated Ileus May be related to prior small bowel obstruction or postop or pain medication related Continue ice chips Follow clinically for improvement. Patient advised to get out of bed as frequent as possible Chronic neurogenic bladder. UA no evidence of infection Catheter is in place Monitor urine output Patient self catheterizes at baseline Atrial fibrillation with CVR. [id number] of 2. Not a candidate for NOAC because of valvulopathy. Refuses to be on Coumadin. He is on aspirin will clarify with general surgery if it can be restarted. Switch Lopressor to by mouth with improved BP Continue digoxin switch to by mouth Return to by mouth treatments once patient transitions to by mouth intake NSVT. TSH 4.6. Potassium 4.1 per check magnesium. Continue to monitor. Restart beta jerome DVT prophylaxis Torito Frausto MD Mar 20, 2017 10:55
[2017-03-20] MEDS: METOPROLOL TARTRATE 25 MG TAB PO SCH ×2 (11:30→20:36)
[2017-03-20] MEDS ORDERED: PILL SPLITTER OTHER PRN (12:00)
[2017-03-20] MEDS: ONDANSETRON HCL 4 MG/2 ML VIAL IVP PRN ×2 (13:08→19:11)
[2017-03-20] MEDS: MORPHINE SULFATE 4 MG/ML INJ IV PUSH PRN ×2 (13:09→18:42)
[2017-03-20] MEDS: D5-1/2 NS + KCL 20 MEQ INJ 1,000 ML IV SCH ×2 (13:14→23:15)
[2017-03-20] MEDS ORDERED: MAGNESIUM SULFATE 1 GM PREMIX 100 ML IV ONE (13:30)
--- NOTE | 2017-03-20 15:23 | HHI.DCPOC ---
Discharge Care Plan Diagnosis: (1) JOSEE (acute kidney injury) (2) Small bowel obstruction Your Health Problems Are: Difficulty with ADL Exercise Tolerance Goals to Promote Your Health * To prevent worsening of your condition and complications * To maintain your health at the optimal level Directions to Meet Your Goals Take your medications as prescribed Follow your dietary instruction Follow activity as directed Keep your appointments as scheduled Take your immunizations and boosters as scheduled If your symptoms worsen call your PCP, if no PCP go to Urgent Care Center or Emergency Room Smoking is Dangerous to Your Health. Avoid second hand smoke Call the 24-hour hour crisis hotline for domestic abuse at Torito Frausto MD Mar 20, 2017 15:23
[2017-03-20] MEDS: SODIUM CHLORIDE 0.9% FLUSH 10 ML FLUSH IV FLUSH PRN (18:43)
[2017-03-20] MEDS: ENOXAPARIN SODIUM 40 MG/0.4 ML SYRINGE SQ SCH (20:37)
[2017-03-21] VITALS (8 sets, daily range): BP systolic 91–109; BP diastolic 48–69; PULSE 66–80; RESP 16–18; TEMP 96.3–99; O2SAT 94–96
[2017-03-21] MEDS: ONDANSETRON HCL 4 MG/2 ML VIAL IVP PRN ×3 (01:47→19:34)
[2017-03-21] MEDS: MORPHINE SULFATE 4 MG/ML INJ IV PUSH PRN ×3 (01:48→19:34)
[2017-03-21 06:44] LABS: MAGNESIUM 1.8 MG/DL (1.5-2.5)
[2017-03-21] MEDS: DOCUSATE SODIUM 50 MG/SENNA 8.6 MG TAB PO SCH ×2 (09:00→20:23)
[2017-03-21] MEDS: SODIUM CHLORIDE 0.9% FLUSH 10 ML FLUSH IV FLUSH SCH ×2 (09:00→20:22)
[2017-03-21] MEDS: METOPROLOL TARTRATE 25 MG TAB PO SCH ×2 (09:00→20:22)
[2017-03-21] MEDS: DIGOXIN 0.125 MG TAB PO SCH (10:09)
[2017-03-21] MEDS: PANTOPRAZOLE SOD 40 MG DELAYED RELEASE TAB PO SCH (10:09)
[2017-03-21] MEDS: D5-1/2 NS + KCL 20 MEQ INJ 1,000 ML IV SCH (10:28)
--- NOTE | 2017-03-21 14:01 | HHI.PR ---
Subjective Remarks F/U SBO. Passed flatus. Tolerating po. Biopsy results dw pt and GS. Recommended op f/u Onc Objective Vitals Vital Signs Date Time Temp Pulse Resp B/P (MAP) Pulse Ox O2 Delivery O2 Flow Rate FiO2 03/21/17 09:59 96 21 03/21/17 08:00 96.3 66 16 103/69 (80) 95 03/21/17 04:00 97.1 80 16 109/63 (78) 96 03/21/17 00:00 99.0 76 16 106/53 (70) 94 03/20/17 20:50 93 21 03/20/17 20:00 83 03/20/17 20:00 97.2 78 17 102/57 (72) 95 03/20/17 15:46 96.3 83 18 113/71 (85) 98 I/O 03/20/17 03/20/17 03/20/17 03/21/17 03/21/17 03/21/17 07:00 15:00 23:00 07:00 15:00 23:00 Intake Total 650 ml 2323 ml 1360 ml Output Total 900 ml 900 ml 350 ml Balance -250 ml 1423 ml 1010 ml Intake Oral 650 ml 500 ml 360 ml IV Total 1823 ml 1000 ml Output Urine Total 900 ml 900 ml 350 ml # Bowel Movements 0 Result Diagram: 03/20/17 0648 03/21/17 0541 Imaging Last Impressions Abdomen X-Ray 03/17/17 0000 Signed Impressions: Service Date/Time: Friday, March 17, 2017 09:29 - CONCLUSION: Less distention of the small bowel relative to the prior study. Rebel Agee Jr., MD Abdomen/Pelvis CT 03/15/17 1436 Signed Impressions: Service Date/Time: Wednesday, March 15, 2017 17:35 - CONCLUSION: 1. Increasing small bowel ileus characteristics of worsening high grade small bowel destruction. 2. Increasing fluid in the abdomen. 3. Increasing pleural fluid with small bilateral pleural effusions. 4. Persistent left inguinal hernia containing a segment of sigmoid colon which is not felt to be the obstructing point. Taurus Peterson MD Objective Remarks GENERAL: Well-developed, well-nourished in no distress SKIN: Warm and dry. HEAD: Atraumatic. Normocephalic. EYES: Pupils equal and round. No scleral icterus. No injection or drainage. ENT: No nasal bleeding or discharge. Mucous membranes pink and moist. NECK: Trachea midline. No JVD. CARDIOVASCULAR: Regular rate and rhythm. Systolic murmur noted RESPIRATORY: No accessory muscle use. Clear to auscultation. Breath sounds equal bilaterally. GASTROINTESTINAL: Abdomen soft, tender over incision sites, nondistended. MUSCULOSKELETAL: Extremities without clubbing, cyanosis, or edema. No obvious deformities. NEUROLOGICAL: Awake and alert. No obvious cranial nerve deficits. Motor grossly within normal limits. Five out of 5 muscle strength in the arms and legs. Normal speech. Procedures 03/18/17 PROCEDURE PERFORMED 1. Diagnostic laparoscopy. 2. Laparoscopic lysis of adhesions. 3. Laparoscopic ileocecectomy with primary anastomosis. A/P Problem List: (1) H/O carcinoma of bladder ICD Code: Z85.51 - Personal history of malignant neoplasm of bladder (2) JOSEE (acute kidney injury) ICD Code: N17.9 - Acute kidney failure, unspecified (3) Small bowel obstruction ICD Code: K56.609 - Unspecified intestinal obstruction, unspecified as to partial versus complete obstruction (4) Dehydration ICD Code: E86.0 - Dehydration Assessment and Plan 81-year-old male admitted secondary to small bowel obstruction with history of bladder cancer and significant adhesions, now status post lysis of adhesions via laparoscopic surgery. Small bowel obstruction. Resolved Continue pain treatments Continue IV hydration Status post adhesion lysis surgery via laparoscopy Advance diet as tolerated per GS Path with invasive adeno Ca. Recommended op f/u Onc needs to recover from surgery dw GS Ileus May be related to prior small bowel obstruction or postop or pain medication related Continue ice chips Follow clinically for improvement. Patient advised to get out of bed as frequent as possible Chronic neurogenic bladder. UA no evidence of infection Catheter is in place Monitor urine output Patient self catheterizes at baseline Atrial fibrillation with CVR. [id number] of 2. Not a candidate for NOAC because of valvulopathy. Refuses to be on Coumadin. He is on aspirin will clarify with general surgery if it can be restarted. Switch Lopressor to by mouth with improved BP Continue digoxin switch to by mouth Return to by mouth treatments once patient transitions to by mouth intake NSVT. TSH 4.6. Potassium 4.1 per check magnesium. Continue to monitor. Restart beta jerome. No recurrence DVT prophylaxis - Lovenox Abando,Colt MD Mar 21, 2017 14:01
--- NOTE | 2017-03-21 14:01 | HHI.PR ---
Objective Vitals Vital Signs Date Time Temp Pulse Resp B/P (MAP) Pulse Ox O2 Delivery O2 Flow Rate FiO2 03/21/17 09:59 96 21 03/21/17 08:00 96.3 66 16 103/69 (80) 95 03/21/17 04:00 97.1 80 16 109/63 (78) 96 03/21/17 00:00 99.0 76 16 106/53 (70) 94 03/20/17 20:50 93 21 03/20/17 20:00 83 03/20/17 20:00 97.2 78 17 102/57 (72) 95 03/20/17 15:46 96.3 83 18 113/71 (85) 98 I/O 03/20/17 03/20/17 03/20/17 03/21/17 03/21/17 03/21/17 07:00 15:00 23:00 07:00 15:00 23:00 Intake Total 650 ml 2323 ml 1360 ml Output Total 900 ml 900 ml 350 ml Balance -250 ml 1423 ml 1010 ml Intake Oral 650 ml 500 ml 360 ml IV Total 1823 ml 1000 ml Output Urine Total 900 ml 900 ml 350 ml # Bowel Movements 0 Result Diagram: 03/20/17 0648 03/21/17 0541 Objective Remarks GENERAL: Well-developed, well-nourished in no distress SKIN: Warm and dry. HEAD: Atraumatic. Normocephalic. EYES: Pupils equal and round. No scleral icterus. No injection or drainage. ENT: No nasal bleeding or discharge. Mucous membranes pink and moist. NECK: Trachea midline. No JVD. CARDIOVASCULAR: Regular rate and rhythm. Systolic murmur noted RESPIRATORY: No accessory muscle use. Clear to auscultation. Breath sounds equal bilaterally. GASTROINTESTINAL: Abdomen soft, tender over incision sites, nondistended. MUSCULOSKELETAL: Extremities without clubbing, cyanosis, or edema. No obvious deformities. NEUROLOGICAL: Awake and alert. No obvious cranial nerve deficits. Motor grossly within normal limits. Five out of 5 muscle strength in the arms and legs. Normal speech. PSYCHIATRIC: Appropriate mood and affect; insight and judgment normal. Procedures 03/18/17 PROCEDURE PERFORMED 1. Diagnostic laparoscopy. 2. Laparoscopic lysis of adhesions. 3. Laparoscopic ileocecectomy with primary anastomosis. A/P Problem List: (1) H/O carcinoma of bladder ICD Code: Z85.51 - Personal history of malignant neoplasm of bladder (2) JOSEE (acute kidney injury) ICD Code: N17.9 - Acute kidney failure, unspecified (3) Small bowel obstruction ICD Code: K56.609 - Unspecified intestinal obstruction, unspecified as to partial versus complete obstruction (4) Dehydration ICD Code: E86.0 - Dehydration Assessment and Plan 81-year-old male admitted secondary to small bowel obstruction with history of bladder cancer and significant adhesions, now status post lysis of adhesions via laparoscopic surgery. Small bowel obstruction. Resolved Continue pain treatments Continue IV hydration Status post adhesion lysis surgery via laparoscopy Advance diet as tolerated Ileus May be related to prior small bowel obstruction or postop or pain medication related Continue ice chips Follow clinically for improvement. Patient advised to get out of bed as frequent as possible Chronic neurogenic bladder. UA no evidence of infection Catheter is in place Monitor urine output Patient self catheterizes at baseline Atrial fibrillation with CVR. [id number] of 2. Not a candidate for NOAC because of valvulopathy. Refuses to be on Coumadin. He is on aspirin will clarify with general surgery if it can be restarted. Switch Lopressor to by mouth with improved BP Continue digoxin switch to by mouth Return to by mouth treatments once patient transitions to by mouth intake NSVT. TSH 4.6. Potassium 4.1 per check magnesium. Continue to monitor. Restart beta jerome DVT prophylaxis Torito Frausto MD Mar 21, 2017 14:01
[2017-03-21] MEDS: ENOXAPARIN SODIUM 40 MG/0.4 ML SYRINGE SQ SCH (20:20)
[2017-03-22 03:05] VITALS: BP 104/54; PULSE 79; RESP 18; TEMP 96.4; O2SAT 95
[2017-03-22 08:00] VITALS: BP 110/67; PULSE 83; RESP 16; TEMP 97.5; O2SAT 92
[2017-03-22] MEDS: METOPROLOL TARTRATE 25 MG TAB PO SCH ×2 (09:00→19:57)
[2017-03-22] MEDS: DOCUSATE SODIUM 50 MG/SENNA 8.6 MG TAB PO SCH ×2 (09:00→19:54)
[2017-03-22] MEDS ORDERED: HYDR-3580 PO (09:02)
[2017-03-22] MEDS: PANTOPRAZOLE SOD 40 MG DELAYED RELEASE TAB PO SCH (09:53)
[2017-03-22] MEDS: DIGOXIN 0.125 MG TAB PO SCH (09:53)
[2017-03-22] MEDS ORDERED: ACETAMINOPHEN/HYDROcodone 325 MG/7.5 MG TAB PO PRN (10:00)
[2017-03-22] MEDS: SODIUM CHLORIDE 0.9% FLUSH 10 ML FLUSH IV FLUSH SCH ×2 (10:00→19:56)
[2017-03-22 12:00] VITALS: BP 113/65; PULSE 95; RESP 16; TEMP 97; O2SAT 94
--- NOTE | 2017-03-22 12:49 | HHI.DS ---
Discharge Summary Admission Date Mar 15, 2017 at 18:12 Discharge Date: Mar 24, 2017 Admitting Diagnosis SBO (1) H/O carcinoma of bladder ICD Code: Z85.51 - Personal history of malignant neoplasm of bladder Diagnosis: Secondary (2) JOSEE (acute kidney injury) ICD Code: N17.9 - Acute kidney failure, unspecified Diagnosis: Secondary (3) Small bowel obstruction ICD Code: K56.609 - Unspecified intestinal obstruction, unspecified as to partial versus complete obstruction Diagnosis: Principal (4) Dehydration ICD Code: E86.0 - Dehydration Diagnosis: Principal Procedures 03/18/17 PROCEDURE PERFORMED 1. Diagnostic laparoscopy. 2. Laparoscopic lysis of adhesions. 3. Laparoscopic ileocecectomy with primary anastomosis. Brief History - From Admission Patient is an 81-year-old gentleman presenting emergency department today after being seen by his home health care RN for abdominal pain. Patient had recently admitted 03/06/17 was discharged yesterday 03/14/17. His is at bedside states, he was discharged yesterday and was doing much better yesterday. However he started having pain last night. And worsened throughout the day today. Patient reports that he was having dry heaving and intense abdominal pain. Patient was admitted for sepsis small bowel obstruction questionable ischemic colitis and acute kidney injury and dehydration. He denies any prior abdominal surgeries but does have a history of bladder cancer 40 years ago denies any blood in the stools denies any chest pain denies any shortness of breath denies any fever or chills no alleviating or exacerbating factors He will be admitted, WE will consult general surgery and NG tube will be placed. He will be given pain medications and IV fluids CBC/BMP: 03/20/17 0648 03/21/17 0541 Significant Findings Laboratory Tests Test 03/20/17 06:48 03/20/17 10:56 03/21/17 05:41 Red Blood Count 4.06 MIL/MM3 (4.50-5.90) Neutrophils (%) (Auto) 76.3 % (16.0-70.0) Monocytes (%) (Auto) 9.2 % (0.0-8.0) Lymphocytes # (Auto) 0.8 TH/MM3 (1.0-4.8) Blood Urea Nitrogen 6 MG/DL (7-18) Total Protein 5.3 GM/DL (6.4-8.2) Albumin 2.4 GM/DL (3.4-5.0) Calcium Level 8.3 MG/DL (8.5-10.1) 7.8 MG/DL (8.5-10.1) Aspartate Amino Transf (AST/SGOT) 11 U/L (15-37) Sodium Level 135 MEQ/L (136-145) Estimat Glomerular Filtration Rate 77 ML/MIN (>89) 78 ML/MIN (>89) Imaging Last Impressions Abdomen X-Ray 03/17/17 0000 Signed Impressions: Service Date/Time: Friday, March 17, 2017 09:29 - CONCLUSION: Less distention of the small bowel relative to the prior study. Rebel Agee Jr., MD Abdomen/Pelvis CT 03/15/17 1436 Signed Impressions: Service Date/Time: Wednesday, March 15, 2017 17:35 - CONCLUSION: 1. Increasing small bowel ileus characteristics of worsening high grade small bowel destruction. 2. Increasing fluid in the abdomen. 3. Increasing pleural fluid with small bilateral pleural effusions. 4. Persistent left inguinal hernia containing a segment of sigmoid colon which is not felt to be the obstructing point. Taurus Peterson MD PE at Discharge GENERAL: Well-developed, well-nourished in no distress SKIN: Warm and dry. HEAD: Atraumatic. Normocephalic. EYES: Pupils equal and round. No scleral icterus. No injection or drainage. ENT: No nasal bleeding or discharge. Mucous membranes pink and moist. NECK: Trachea midline. No JVD. CARDIOVASCULAR: Regular rate and rhythm. Systolic murmur noted RESPIRATORY: No accessory muscle use. Clear to auscultation. Breath sounds equal bilaterally. GASTROINTESTINAL: Abdomen soft, tender over incision sites, nondistended. MUSCULOSKELETAL: Extremities without clubbing, cyanosis, or edema. No obvious deformities. NEUROLOGICAL: Awake and alert. No obvious cranial nerve deficits. Motor grossly within normal limits. Five out of 5 muscle strength in the arms and legs. Normal speech. Hospital Course 81-year-old male admitted secondary to small bowel obstruction with history of bladder cancer and significant adhesions, now status post lysis of adhesions via laparoscopic surgery. Small bowel obstruction. Resolved Continue pain treatments Discontinue IV hydration Status post adhesion lysis surgery via laparoscopy Advance diet as tolerated per GS Path with invasive adeno Ca. Recommended op f/u with Onc needs to recover from surgery dw GS Ileus May be related to prior small bowel obstruction or postop or pain medication related Continue ice chips Follow clinically for improvement. Patient advised to get out of bed as frequent as possible. Patient has been noncompliant. Counseled Chronic neurogenic bladder. UA no evidence of infection Catheter is in place. Refuses to discontinue Alva catheter stating it's more convenient than straight catheterization. He is aware risk of UTI Monitor urine output Patient self catheterizes at baseline Atrial fibrillation with CVR. [id number] of 2. Not a candidate for NOAC because of valvulopathy. Refuses to be on Coumadin. He is on aspirin will clarify with general surgery if it can be restarted. Switch Lopressor to by mouth with improved BP Continue digoxin switch to by mouth Return to by mouth treatments once patient transitions to by mouth intake NSVT. TSH 4.6. Repeat labs unremarkable. Continue to monitor. Continue beta jerome. No recurrence . Patient states this is chronic and recurrent DVT prophylaxis - Lovenox Pt Condition on Discharge: Stable Discharge Disposition: Discharge Home Discharge Time: > 30 minutes Discharge Instructions DIET: Follow Instructions for: Full Liquid Diet Activities you can perform: Regular-No Restrictions Activities to Avoid: Driving Follow up Referrals: Oncology - 1 Week PCP Follow-up - 1 Week Surgical - 1 Week with Johnny Villar MD New Medications: Hydrocodone-Acetaminophen (Hydrocodone-Acetaminophen) 7.5-325 mg Tab 1 TAB PO Q6H PRN for pain, #28 TAB Continued Medications: Aspirin (Aspirin) 325 Mg Tab 325 MG PO DAILY, #30 TAB 0 Refills Calcium Carbonate (Calcium Carbonate) 1,500 Mg Tab 500 MG PO BID for Calcium Supplement, TAB 0 Refills 1,500 mg calcium carbonate (600 mg elemental calcium) Digoxin (Digoxin) 0.125 Mg Tab 0.125 MG PO DAILY for Regulate Heart Beat, #30 TAB 0 Refills Metoprolol Tartrate (Metoprolol Tartrate) 25 Mg Tab 12.5 MG PO BID, #60 TAB 0 Refills Pantoprazole (Pantoprazole) 40 Mg Tab 40 MG PO DAILY for Reflux, #30 TAB 0 Refills Sennosides-Docusate Sodium (Senna Plus 8.6-50 mg) 8.6 Mg-50 Mg Tab 1 TAB PO BID for Constipation, #60 TAB Discontinued Medications: Enalapril (Enalapril) 5 Mg Tab 5 MG PO DAILY, #30 TAB 0 Refills Furosemide (Furosemide) 40 Mg Tab 40 MG PO DAILY, #30 TAB 0 Refills Spironolactone (Spironolactone) 25 Mg Tab 25 MG PO DAILY, #60 TAB 0 Refills Sulfamethoxazole-Trimethoprim (Bactrim DS) 800-160 Mg Tab 1 TAB PO BID for Infection, TAB 0 Refills Torito Frausto MD Mar 22, 2017 12:49
--- NOTE | 2017-03-22 12:58 | HHI.PR ---
Subjective Subjective Notes Patient reports flatus, no BM yet. Requests tsein be left in place, as he straight caths himself and does not feel strong enough to sit at bedside to do it. Objective Vitals/I&O Vital Signs Date Time Temp Pulse Resp B/P (MAP) Pulse Ox O2 Delivery O2 Flow Rate FiO2 03/22/17 08:00 97.5 83 16 110/67 (81) 92 03/21/17 09:59 21 03/18/17 18:00 Room Air Labs Date/Time Source Procedure Growth Status 03/15/17 15:15 Blood Peripheral Aerobic Blood Culture - Final NO GROWTH IN 5 DAYS Complete 03/15/17 15:15 Blood Peripheral Anaerobic Blood Culture - Final NO GROWTH IN 5 DAYS Complete Radiology Last 48 hours Impressions Abdomen/Pelvis CT 03/15/17 1436 Signed Impressions: Service Date/Time: Wednesday, March 15, 2017 17:35 - CONCLUSION: 1. Increasing small bowel ileus characteristics of worsening high grade small bowel destruction. 2. Increasing fluid in the abdomen. 3. Increasing pleural fluid with small bilateral pleural effusions. 4. Persistent left inguinal hernia containing a segment of sigmoid colon which is not felt to be the obstructing point. Taurus Peterson MD Abdomen: Non-distended, Post-op tenderness Narrative Exam Blistering of skin at upper wound A/P Assessment and Plan Assessment and Plan POD #4 lap ileocectomy stable tolerating full liquid diet path - adenoca; pt. not aware of diagnosis yet. oob keep stein for Is and Os d/c tomorrow, pt with hx of straight cath dvt ppx Emerson Hendricks MD Mar 22, 2017 12:58
--- NOTE | 2017-03-22 15:21 | HHI.PR ---
Subjective Remarks Follow-up SBO. Still no BM but passing flatus. Tolerating diet. Refuses to discontinue Alva catheter stating it's more convenient done doing straight catheterization. Discussed with general surgery not ready for discharge and the patient has a bowel movement. Discussed with RN Objective Vitals Vital Signs Date Time Temp Pulse Resp B/P (MAP) Pulse Ox O2 Delivery O2 Flow Rate FiO2 03/22/17 08:00 97.5 83 16 110/67 (81) 92 03/22/17 03:05 96.4 79 18 104/54 (71) 95 03/21/17 23:30 96.7 68 18 98/61 (73) 96 03/21/17 19:45 96.8 80 18 96/58 (71) 95 03/21/17 16:00 97.4 78 16 109/69 (82) 95 I/O 03/21/17 03/21/17 03/21/17 03/22/17 03/22/17 03/22/17 07:00 15:00 23:00 07:00 15:00 23:00 Intake Total 1360 ml 1344 ml 360 ml Output Total 350 ml 2600 ml 250 ml Balance 1010 ml -1256 ml 110 ml Intake Oral 360 ml 960 ml 360 ml IV Total 1000 ml 384 ml Output Urine Total 350 ml 2600 ml 250 ml # Bowel Movements 0 0 Result Diagram: 03/20/17 0648 03/21/17 0541 Imaging Last Impressions Abdomen X-Ray 03/17/17 0000 Signed Impressions: Service Date/Time: Friday, March 17, 2017 09:29 - CONCLUSION: Less distention of the small bowel relative to the prior study. Rebel Agee Jr., MD Abdomen/Pelvis CT 03/15/17 1436 Signed Impressions: Service Date/Time: Wednesday, March 15, 2017 17:35 - CONCLUSION: 1. Increasing small bowel ileus characteristics of worsening high grade small bowel destruction. 2. Increasing fluid in the abdomen. 3. Increasing pleural fluid with small bilateral pleural effusions. 4. Persistent left inguinal hernia containing a segment of sigmoid colon which is not felt to be the obstructing point. Taurus Peterson MD Objective Remarks GENERAL: Well-developed, well-nourished in no distress SKIN: Warm and dry. CARDIOVASCULAR: Regular rate and rhythm. Systolic murmur noted RESPIRATORY: No accessory muscle use. Clear to auscultation. Breath sounds equal bilaterally. GASTROINTESTINAL: Abdomen soft, tender over incision sites, nondistended. MUSCULOSKELETAL: Extremities without clubbing, cyanosis, or edema. No obvious deformities. NEUROLOGICAL: Awake and alert. No obvious cranial nerve deficits. Motor grossly within normal limits. Five out of 5 muscle strength in the arms and legs. Normal speech. Procedures 03/18/17 PROCEDURE PERFORMED 1. Diagnostic laparoscopy. 2. Laparoscopic lysis of adhesions. 3. Laparoscopic ileocecectomy with primary anastomosis. A/P Problem List: (1) H/O carcinoma of bladder ICD Code: Z85.51 - Personal history of malignant neoplasm of bladder (2) JOSEE (acute kidney injury) ICD Code: N17.9 - Acute kidney failure, unspecified (3) Small bowel obstruction ICD Code: K56.609 - Unspecified intestinal obstruction, unspecified as to partial versus complete obstruction (4) Dehydration ICD Code: E86.0 - Dehydration Assessment and Plan 81-year-old male admitted secondary to small bowel obstruction with history of bladder cancer and significant adhesions, now status post lysis of adhesions via laparoscopic surgery. Small bowel obstruction. Resolved Continue pain treatments Continue IV hydration Status post adhesion lysis surgery via laparoscopy Advance diet as tolerated per GS Path with invasive adeno Ca. Recommended op f/u Onc needs to recover from surgery dw GS Ileus May be related to prior small bowel obstruction or postop or pain medication related Continue ice chips Follow clinically for improvement. Patient advised to get out of bed as frequent as possible Chronic neurogenic bladder. UA no evidence of infection Catheter is in place. Refuses to discontinue Alva catheter stating it's more convenient than straight catheterization. He is aware of UTI Monitor urine output Patient self catheterizes at baseline Atrial fibrillation with CVR. [id number] of 2. Not a candidate for NOAC because of valvulopathy. Refuses to be on Coumadin. He is on aspirin will clarify with general surgery if it can be restarted. Switch Lopressor to by mouth with improved BP Continue digoxin switch to by mouth Return to by mouth treatments once patient transitions to by mouth intake NSVT. TSH 4.6. Potassium 4.1 per check magnesium. Continue to monitor. Restart beta jerome. No recurrence DVT prophylaxis - Lovenox Discharge Planning Discharge after Bowel movement Torito Frausto MD Mar 22, 2017 15:21
[2017-03-22 16:00] VITALS: BP 110/70; PULSE 83; RESP 16; TEMP 98; O2SAT 98
[2017-03-22] MEDS: BACITRACIN TOP OINT 15 GM TUBE TOPICAL SCH (18:00)
[2017-03-22] MEDS: ENOXAPARIN SODIUM 40 MG/0.4 ML SYRINGE SQ SCH (19:54)
[2017-03-22 20:08] VITALS: PULSE 74
[2017-03-22 20:50] VITALS: BP 115/68; PULSE 67; RESP 17; TEMP 98.3; O2SAT 97
[2017-03-23] VITALS (8 sets, daily range): BP systolic 95–114; BP diastolic 56–70; PULSE 52–76; RESP 15–17; TEMP 95.7–98.3; O2SAT 75–97
[2017-03-23] MEDS: BACITRACIN TOP OINT 15 GM TUBE TOPICAL SCH ×2 (04:26→16:20)
--- NOTE | 2017-03-23 06:01 | HHI.PR ---
Addendum to Inpatient Note Addendum Reason: Additional Documentation Additional Information Called by RN. Patient had an asymptomatic, 9 beat run of v-tach. No change in vital signs. Ordered CBC, BMP, BNP, Magnesium level, and Troponin I. . Margariat Jeffries Mar 23, 2017 06:01
[2017-03-23 08:32] LABS: BASOPHIL % 0.6 % (0.0-2.0); EOSINOPHIL # 0.3 TH/MM3 (0-0.4); EOSINOPHIL % 4.7 % (0.0-4.0); HEMATOCRIT 39.9 % (39.0-51.0); HEMO FLAGS DIFF FINAL; LYMPH % 12.5 % (9.0-44.0); LYMPHOCYTE # 0.8 TH/MM3 (1.0-4.8); MEAN CORPUSCULAR HEMOGLOBIN 34.1 PG (27.0-34.0); MEAN CORPUSCULAR HGB CONC 34.8 % (32.0-36.0); MONO % 8.7 % (0.0-8.0); NEUT % 73.5 % (16.0-70.0); PLATELET COUNT 232 TH/MM3 (150-450); RED BLOOD COUNT 4.07 MIL/MM3 (4.50-5.90); RED CELL DISTRIBUTION WIDTH 14.4 % (11.6-17.2); WHITE BLOOD COUNT 6.7 TH/MM3 (4.0-11.0)
[2017-03-23] MEDS: METOPROLOL TARTRATE 25 MG TAB PO SCH ×2 (08:32→20:51)
[2017-03-23] MEDS: DIGOXIN 0.125 MG TAB PO SCH (08:32)
[2017-03-23] MEDS: PANTOPRAZOLE SOD 40 MG DELAYED RELEASE TAB PO SCH (08:33)
[2017-03-23] MEDS: DOCUSATE SODIUM 50 MG/SENNA 8.6 MG TAB PO SCH ×2 (08:33→20:59)
[2017-03-23] MEDS: SODIUM CHLORIDE 0.9% FLUSH 10 ML FLUSH IV FLUSH SCH ×2 (08:39→20:52)
[2017-03-23 08:44] LABS: BICARBONATE 28.6 MEQ/L (21.0-32.0); MAGNESIUM 1.9 MG/DL (1.5-2.5); POTASSIUM 4.3 MEQ/L (3.5-5.1)
--- NOTE | 2017-03-23 11:59 | HHI.PR ---
Subjective Subjective Notes doing better, tolerating diet, no nausea, small bm today, +flatus Objective Vitals/I&O Vital Signs Date Time Temp Pulse Resp B/P (MAP) Pulse Ox O2 Delivery O2 Flow Rate FiO2 03/23/17 07:00 96.4 73 16 112/61 (78) 94 03/21/17 09:59 21 Labs Laboratory Tests Test 03/23/17 07:55 White Blood Count 6.7 Red Blood Count 4.07 Hemoglobin 13.9 Hematocrit 39.9 Mean Corpuscular Volume 98.0 Mean Corpuscular Hemoglobin 34.1 Mean Corpuscular Hemoglobin Concent 34.8 Red Cell Distribution Width 14.4 Platelet Count 232 Mean Platelet Volume 8.0 Neutrophils (%) (Auto) 73.5 Lymphocytes (%) (Auto) 12.5 Monocytes (%) (Auto) 8.7 Eosinophils (%) (Auto) 4.7 Basophils (%) (Auto) 0.6 Neutrophils # (Auto) 5.0 Lymphocytes # (Auto) 0.8 Monocytes # (Auto) 0.6 Eosinophils # (Auto) 0.3 Basophils # (Auto) 0.0 CBC Comment DIFF FINAL Differential Comment Blood Urea Nitrogen 10 Creatinine 0.91 Random Glucose 84 Calcium Level 8.1 Magnesium Level 1.9 Sodium Level 139 Potassium Level 4.3 Chloride Level 105 Carbon Dioxide Level 28.6 Anion Gap 5 Estimat Glomerular Filtration Rate 80 Troponin I 0.03 B-Type Natriuretic Peptide 185 Date/Time Source Procedure Growth Status 03/15/17 15:15 Blood Peripheral Aerobic Blood Culture - Final NO GROWTH IN 5 DAYS Complete 03/15/17 15:15 Blood Peripheral Anaerobic Blood Culture - Final NO GROWTH IN 5 DAYS Complete Radiology Last 48 hours Impressions Abdomen/Pelvis CT 03/15/17 1436 Signed Impressions: Service Date/Time: Wednesday, March 15, 2017 17:35 - CONCLUSION: 1. Increasing small bowel ileus characteristics of worsening high grade small bowel destruction. 2. Increasing fluid in the abdomen. 3. Increasing pleural fluid with small bilateral pleural effusions. 4. Persistent left inguinal hernia containing a segment of sigmoid colon which is not felt to be the obstructing point. Taurus Peterson MD Abdomen: Other (soft mild incisional tenderness) A/P Assessment and Plan s/p lap ileocectomy stable advance to Reg soft diet Discussed path results with patient will consult med onc pain control oob, daily with PT pt with hx of straight cath dvt ppx Johnny Villar MD Mar 23, 2017 11:59
--- NOTE | 2017-03-23 13:42 | HHI.PR ---
Subjective Remarks Follow-up SBO. Patient stooling and tolerating by mouth. Discussed with general surgery who wants oncology to see patient before discharge. Patient had nonsustained V. tach earlier today and was asymptomatic. Discussed with RN , PT and case management. Objective Vitals Vital Signs Date Time Temp Pulse Resp B/P (MAP) Pulse Ox O2 Delivery O2 Flow Rate FiO2 03/23/17 12:02 68 03/23/17 07:00 96.4 73 16 112/61 (78) 94 03/23/17 06:00 68 03/23/17 04:35 96.2 76 17 96/62 (73) 75 03/23/17 00:35 97.2 52 17 95/69 (78) 95 03/22/17 20:50 98.3 67 17 115/68 (84) 97 03/22/17 20:08 74 03/22/17 16:00 98.0 83 16 110/70 (83) 98 I/O 03/22/17 03/22/17 03/22/17 03/23/17 03/23/17 03/23/17 07:00 15:00 23:00 07:00 15:00 23:00 Intake Total 360 ml 600 ml 360 ml 120 ml Output Total 250 ml 1300 ml 550 ml 550 ml Balance 110 ml -700 ml -190 ml -430 ml Intake Oral 360 ml 600 ml 360 ml 120 ml Output Urine Total 250 ml 1300 ml 550 ml 550 ml # Bowel Movements 0 0 0 0 Result Diagram: 03/23/17 0755 03/23/17 0755 Objective Remarks GENERAL: Well-developed, well-nourished in no distress SKIN: Warm and dry. CARDIOVASCULAR: Regular rate and rhythm. Systolic murmur noted RESPIRATORY: No accessory muscle use. Clear to auscultation. Breath sounds equal bilaterally. GASTROINTESTINAL: Abdomen soft, tender over incision sites, nondistended. MUSCULOSKELETAL: Extremities without clubbing, cyanosis, or edema. No obvious deformities. NEUROLOGICAL: Awake and alert. No obvious cranial nerve deficits. Motor grossly within normal limits. Five out of 5 muscle strength in the arms and legs. Normal speech. Procedures 03/18/17 PROCEDURE PERFORMED 1. Diagnostic laparoscopy. 2. Laparoscopic lysis of adhesions. 3. Laparoscopic ileocecectomy with primary anastomosis. A/P Problem List: (1) H/O carcinoma of bladder ICD Code: Z85.51 - Personal history of malignant neoplasm of bladder (2) JOSEE (acute kidney injury) ICD Code: N17.9 - Acute kidney failure, unspecified (3) Small bowel obstruction ICD Code: K56.609 - Unspecified intestinal obstruction, unspecified as to partial versus complete obstruction (4) Dehydration ICD Code: E86.0 - Dehydration Assessment and Plan 81-year-old male admitted secondary to small bowel obstruction with history of bladder cancer and significant adhesions, now status post lysis of adhesions via laparoscopic surgery. Small bowel obstruction. Resolved Continue pain treatments Discontinue IV hydration Status post adhesion lysis surgery via laparoscopy Advance diet as tolerated per GS Path with invasive adeno Ca. Recommended op f/u Onc needs to recover from surgery dw GS Ileus May be related to prior small bowel obstruction or postop or pain medication related Continue ice chips Follow clinically for improvement. Patient advised to get out of bed as frequent as possible. Patient has been noncompliant. Counseled Chronic neurogenic bladder. UA no evidence of infection Catheter is in place. Refuses to discontinue Alva catheter stating it's more convenient than straight catheterization. He is aware risk of UTI Monitor urine output Patient self catheterizes at baseline Atrial fibrillation with CVR. [id number] of 2. Not a candidate for NOAC because of valvulopathy. Refuses to be on Coumadin. He is on aspirin will clarify with general surgery if it can be restarted. Switch Lopressor to by mouth with improved BP Continue digoxin switch to by mouth Return to by mouth treatments once patient transitions to by mouth intake NSVT. TSH 4.6. Repeat labs unremarkable. Continue to monitor. Continue beta jerome. No recurrence DVT prophylaxis - Lovenox Discharge Planning Discharge after oncology evaluation Torito Frausto MD Mar 23, 2017 13:42
--- NOTE | 2017-03-23 13:43 | HHI.FF ---
Face to Face Verification Diagnosis: (1) JOSEE (acute kidney injury) (2) Small bowel obstruction Physical Therapy Order: Evaluate and Treat, Improve ambulation, Strength and gait training Home Health Nursing Order: Medical education Signs/symptoms of disease process Medication education-adverse effect Wound care and dressing changes Nursing assessment with vital signs I have seen patient Nestor John on 03/23/17. My clinical findings support the need for the requested home health care services because: Ltd mobility - disease progression Deconditioned w/ increased weakness I certify that my clinical findings support that this patient is homebound because: Unsteady gait/balance Unsafe to leave home unassisted Torito Frausto MD Mar 23, 2017 13:43
[2017-03-23] MEDS: ACETAMINOPHEN/HYDROcodone 325 MG/5 MG TAB PO PRN (16:26)
[2017-03-23] MEDS: ENOXAPARIN SODIUM 40 MG/0.4 ML SYRINGE SQ SCH (20:47)
[2017-03-24] VITALS: BP 98/55; PULSE 77; RESP 16; TEMP 96.7; O2SAT 96
[2017-03-24] MEDS: ACETAMINOPHEN/HYDROcodone 325 MG/5 MG TAB PO PRN (00:40)
[2017-03-24 04:00] VITALS: BP 108/69; PULSE 63; RESP 18; TEMP 97; O2SAT 97
[2017-03-24] MEDS: BACITRACIN TOP OINT 15 GM TUBE TOPICAL SCH (06:29)
--- NOTE | 2017-03-24 07:22 | MB ---
cc: ANTHONY MARI M.D. DATE OF CONSULTATION 03/23/2017 REASON FOR CONSULTATION Consult requested by Dr. Villar for evaluation of obstructive colon cancer. HISTORY OF PRESENT ILLNESS This is an 81-year-old male. He has a history of urinary bladder cancer that was diagnosed 40 years ago when he used to live in [place]. He stated that he underwent partial cystectomy. He did not require any radiation or chemotherapy. He stated that at that time there was no radiation or chemo available. He never had any recurrent disease. He had also has a history of macular degeneration, glaucoma, mitral valve regurgitation, atrial fibrillation. He came into the emergency room complaining of abdominal distension and nausea and vomiting. He was found to have a small bowel obstruction. Nonsurgical management was initiated initially. The patient improved but then he got worse and had recurrent bowel obstruction. Recommendation was made for exploratory laparotomy. This was done by Dr. Vazquez on March 18 last week. He had a diagnostic laparoscopy and laparoscopic lysis of adhesions and laparoscopic ileal/cystectomy with primary anastomosis. The patient has tolerated the surgery well. The pathology report came back and shows that he has tumor at the ileocecal valve. It is high-grade adenocarcinoma. The tumor penetrates to the surface of the visceral peritoneum. The margins are negative. No lymphovascular invasion noted. No perineural invasion noted. 2/3 lymph nodes were positive for metastatic disease. He had a CAT scan of the abdomen and pelvis which does not show any liver metastasis. The patient is now being advised to be seen by a medical oncologist for further evaluation. REVIEW OF SYSTEMS The patient states that he is feeling much better since the surgery. He does not have any more abdominal distension and nausea or vomiting. He is complaining of abdominal discomfort due to his recent surgery. Prior to coming into the hospital he denies any blood in the stool or weight loss or any anorexia. The rest of the review of systems is negative. ASSESSMENT 1. Ileocecal colon cancer, status post surgery pT4a pN1 M0, Stage III colon cancer. 2. History of urinary bladder cancer status post partial cystectomy 40 years ago. 3. Atrial fibrillation. 4. Heart valve disease. PLAN I have reviewed his available records and I have discussed with the patient regarding the colon cancer. We discussed the staging of colon cancer. Given that 2/3 lymph node are positive for metastatic disease, he has Stage III colon cancer. The CT of the abdomen and pelvis does not show any liver metastasis. I have recommended adjuvant FOLFOX chemotherapy in 3-4 weeks as an outpatient. The patient states that his significant other is not available at the present time and he preferred to discuss this further in the presence of his significant other. I left my card with him so that we can discuss further about the adjuvant treatment approach once he gets stabilized and feels stronger. Once the patient is discharged to home, please give an appointment to see me in the office. Thank you for asking my opinion. The patient's CEA is normal. ADDENDUM: PAST MEDICAL HISTORY: Urinary bladder cancer diagnosed 40 years ago and underwent partial cystectomy Mitral valve regurgitation. Aortic valve regurgitation Atrial fibrillation. History of hypertension. PAST SURGICAL HISTORY Partial cystectomy for bladder cancer 40 years ago Retinal surgery. ALLERGIES PENICILLIN IOHEXOL MEDICATIONS Prior to coming to the hospital; 5. Bactrim DS 6. Aldactone 7. Pantoprazole 8. Metoprolol 9. Lasix 10. Natrol 11. Digoxin 12. Calcium 13. Aspirin. FAMILY HISTORY: Family history is noncontributory. SOCIAL HISTORY The patient does not smoke cigarettes, does not drink alcohol. PHYSICAL EXAMINATION: IN GENERAL: Physical examination is a well-developed, well-nourished white male in no apparent distress. VITAL SIGNS: Temperature 98.3, heart rate is 64, blood pressure 101/70, O2 saturation 97%. HEAD, EYES, EARS, NOSE, AND THROAT: Pupils equal, round, reactive to light and accommodation, extraocular muscles intact anicteric. No oral lesions are noted. NECK: No lymphadenopathy noted. LUNGS: The lungs are clear. No wheezing, rhonchi or rales. HEART: The heart is irregularly irregular. No murmur noted. ABDOMEN: The abdomen is soft, diffusely tender from his recent surgery. The surgical scar is healing well. EXTREMITIES: No pedal edema. NEUROLOGIC: Neurology awake, alert, oriented times three. SKIN: No significant lesions noted. MD AMAN Slavador/GEOVANNY /6:38 PM /8:16 AM
[2017-03-24 08:00] VITALS: BP 96/57; PULSE 66; RESP 18; TEMP 96; O2SAT 96
--- NOTE | 2017-03-24 08:07 | HHI.PR ---
Subjective Subjective Notes no acute issues, small bms this am, tolerating diet, pain better Objective Vitals/I&O Vital Signs Date Time Temp Pulse Resp B/P (MAP) Pulse Ox O2 Delivery O2 Flow Rate FiO2 03/24/17 04:00 97.0 63 18 108/69 (82) 97 03/21/17 09:59 21 Labs Date/Time Source Procedure Growth Status 03/15/17 15:15 Blood Peripheral Aerobic Blood Culture - Final NO GROWTH IN 5 DAYS Complete 03/15/17 15:15 Blood Peripheral Anaerobic Blood Culture - Final NO GROWTH IN 5 DAYS Complete Radiology Last 48 hours Impressions Abdomen/Pelvis CT 03/15/17 1436 Signed Impressions: Service Date/Time: Wednesday, March 15, 2017 17:35 - CONCLUSION: 1. Increasing small bowel ileus characteristics of worsening high grade small bowel destruction. 2. Increasing fluid in the abdomen. 3. Increasing pleural fluid with small bilateral pleural effusions. 4. Persistent left inguinal hernia containing a segment of sigmoid colon which is not felt to be the obstructing point. Taurus Peterson MD Abdomen: Other (incisions scant dry blood, incisional tenderness) A/P Assessment and Plan s/p lap ileocectomy stable advance to Reg soft diet Discussed path results with patient will consult med onc- will continue to follow as outpt pain control oob, daily with PT d/c stein pt to continue to straight cath dvt ppx d/c planning, pt requesting to stay one more day, will reassess this afternoon, pt doing well from surgery stand point Johnny Villar MD Mar 24, 2017 08:07
[2017-03-24] MEDS: METOPROLOL TARTRATE 25 MG TAB PO SCH (08:13)
[2017-03-24] MEDS: DOCUSATE SODIUM 50 MG/SENNA 8.6 MG TAB PO SCH (08:14)
[2017-03-24] MEDS: PANTOPRAZOLE SOD 40 MG DELAYED RELEASE TAB PO SCH (08:14)
[2017-03-24] MEDS: DIGOXIN 0.125 MG TAB PO SCH (08:14)
[2017-03-24] MEDS: SODIUM CHLORIDE 0.9% FLUSH 10 ML FLUSH IV FLUSH SCH (08:15)
--- NOTE | 2017-03-24 09:19 | PD.ONC.PN ---
Subjective Subjective Remarks Afebrile overnight. Patient resting in room. No complaints offered. Objective Data Date Time Temp Pulse Resp B/P (MAP) Pulse Ox O2 Delivery O2 Flow Rate FiO2 03/24/17 08:00 96.0 66 18 96/57 (70) 96 03/24/17 04:00 97.0 63 18 108/69 (82) 97 03/24/17 00:00 96.7 77 16 98/55 (69) 96 03/23/17 20:00 97.3 73 15 109/69 (82) 94 03/23/17 16:21 98.3 64 17 101/70 (80) 97 03/23/17 12:02 68 03/23/17 12:00 95.7 65 16 114/56 (75) 95 03/24/17 03/24/17 03/24/17 07:00 15:00 23:00 Intake Total 480 ml Output Total 600 ml Balance -120 ml Result Diagram: 03/23/17 0755 03/23/17 0755 Administered Medications Medications (Trade) Dose Ordered Sig/Danielle Route PRN Reason Start Time Stop Time Status Last Admin Dose Admin Sodium Chloride (NS Flush) 2 ml UNSCH PRN IV FLUSH FLUSH AFTER USING IV ACCESS 03/15/17 18:30 03/20/17 18:43 Sodium Chloride (NS Flush) 2 ml BID IV FLUSH 03/15/17 21:00 03/24/17 08:15 Ondansetron HCl (Zofran Inj) 4 mg Q6H PRN IVP NAUSEA OR VOMITING 03/15/17 18:30 03/21/17 19:34 Enoxaparin Sodium (Lovenox Inj) 40 mg Q24H SQ 03/15/17 20:00 03/23/17 20:47 Morphine Sulfate (Morphine Inj) 2 mg Q3H PRN IV PUSH Pain 3-5; if unable to take PO 03/15/17 18:30 03/20/17 18:42 Morphine Sulfate (Morphine Inj) 4 mg Q3H PRN IV PUSH Pain 6-10;if unable to take PO 03/15/17 18:30 03/21/17 19:34 Senna/Docusate Sodium (Re-Colace) 1 tab BID PO 03/15/17 21:00 03/24/17 08:14 Digoxin (Lanoxin) 0.125 mg DAILY PO 03/20/17 09:00 03/24/17 08:14 Pantoprazole Sodium (Protonix) 40 mg DAILY PO 03/20/17 09:00 03/24/17 08:14 Metoprolol Tartrate (Lopressor) 12.5 mg BID PO 03/20/17 11:30 03/24/17 08:13 Acetaminophen/ Hydrocodone Bitart ([place] 5-325 Mg) 1 tab Q4H PRN PO PAIN SCALE 3 TO 5 03/22/17 10:00 03/24/17 00:40 Bacitracin (Baciguent Oint) 1 applic Q12H TOPICAL 03/22/17 18:00 03/24/17 06:29 Objective Remarks GENERAL: Elderly male sitting up in room in nad. SKIN: Warm and dry. HEAD: Normocephalic. EYES: No injection or drainage. NECK: Supple, trachea midline. CARDIOVASCULAR: +S1/S2 RESPIRATORY: Breath sounds equal bilaterally. No accessory muscle use. GASTROINTESTINAL: Abdomen soft, non-tender, nondistended. EXTREMITIES: No cyanosis NEUROLOGICAL: awake and alert, normal speech. Assessment/Plan Problem List: (1) Colon cancer ICD Codes: C18.9 - Malignant neoplasm of colon, unspecified Plan: 03/24: fs faxed to new patient referrals for follow up in about 2 weeks post-discharge --Ileocecal colon cancer, status post surgery pT4a pN1 M0, Stage III colon cancer. --2016: diagnostic laparoscopy and laparoscopic lysis of adhesions and laparoscopic ileal/cystectomy with primary anastomosis. --pathology shows tumor at the ileocecal valve ++high-grade adenocarcinoma. The tumor penetrates to the surface of the visceral peritoneum. --margins are negative. No lymphovascular invasion noted. No perineural invasion noted. 2/3 lymph nodes positive for metastatic disease. --CT ab/pelvis: no liver mets --plan adjuvant FOLFOX chemotherapy in 3-4 weeks as outpatient. Assessment 81y/o male with newly diagnosed obstructive colon cancer. history of urinary bladder cancer diagnosed 40 years ago, underwent partial cystectomy. history of macular degeneration, glaucoma, mitral valve regurgitation, atrial fibrillation. Attending Statement The exam, history, and the medical decision-making described in the above note were completed with the assistance of the mid-level provider. I reviewed and agree with the findings presented. I attest that I had a [id number] encounter with the patient on the same day, and personally performed and documented my assessment and findings in the medical record. Patient feels better Wants to go home Appointment is scheduled to be seen in the office We'll arrange for chemotherapy clear to discharge Yuko Cedeño Mar 24, 2017 09:19 Malachi Good MD Mar 25, 2017 06:45
[2017-03-24 12:00] VITALS: BP 95/56; PULSE 60; RESP 18; TEMP 95.9; O2SAT 96
[2017-03-24 13:34] LABS: BICARBONATE 26.9 MEQ/L (21.0-32.0); MAGNESIUM 1.9 MG/DL (1.5-2.5); POTASSIUM 4.3 MEQ/L (3.5-5.1)
--- NOTE | 2017-03-24 13:39 | HHI.PR ---
Subjective Remarks Follow-up GI cancer. He is again changing his decision he wants to go home today. Discussed with , RN and case management. Patient will be discharged home with home care Objective Vitals Vital Signs Date Time Temp Pulse Resp B/P (MAP) Pulse Ox O2 Delivery O2 Flow Rate FiO2 03/24/17 08:00 96.0 66 18 96/57 (70) 96 03/24/17 04:00 97.0 63 18 108/69 (82) 97 03/24/17 00:00 96.7 77 16 98/55 (69) 96 03/23/17 20:00 97.3 73 15 109/69 (82) 94 03/23/17 16:21 98.3 64 17 101/70 (80) 97 I/O 03/23/17 03/23/17 03/23/17 03/24/17 03/24/17 03/24/17 07:00 15:00 23:00 07:00 15:00 23:00 Intake Total 120 ml 660 ml 480 ml 480 ml Output Total 550 ml 475 ml 600 ml 600 ml Balance -430 ml 185 ml -120 ml -120 ml Intake Oral 120 ml 660 ml 480 ml 480 ml Output Urine Total 550 ml 475 ml 600 ml 600 ml # Voids 0 # Bowel Movements 0 1 0 1 Result Diagram: 03/23/17 0755 03/24/17 1215 Objective Remarks GENERAL: Well-developed, well-nourished in no distress SKIN: Warm and dry. CARDIOVASCULAR: Regular rate and rhythm. Systolic murmur noted RESPIRATORY: No accessory muscle use. Clear to auscultation. Breath sounds equal bilaterally. GASTROINTESTINAL: Abdomen soft, tender over incision sites, nondistended. MUSCULOSKELETAL: Extremities without clubbing, cyanosis, or edema. No obvious deformities. NEUROLOGICAL: Awake and alert. No obvious cranial nerve deficits. Motor grossly within normal limits. Five out of 5 muscle strength in the arms and legs. Normal speech. Procedures 03/18/17 PROCEDURE PERFORMED 1. Diagnostic laparoscopy. 2. Laparoscopic lysis of adhesions. 3. Laparoscopic ileocecectomy with primary anastomosis. A/P Problem List: (1) H/O carcinoma of bladder ICD Code: Z85.51 - Personal history of malignant neoplasm of bladder (2) JOSEE (acute kidney injury) ICD Code: N17.9 - Acute kidney failure, unspecified (3) Small bowel obstruction ICD Code: K56.609 - Unspecified intestinal obstruction, unspecified as to partial versus complete obstruction (4) Dehydration ICD Code: E86.0 - Dehydration Assessment and Plan 81-year-old male admitted secondary to small bowel obstruction with history of bladder cancer and significant adhesions, now status post lysis of adhesions via laparoscopic surgery. Small bowel obstruction. Resolved Continue pain treatments Discontinue IV hydration Status post adhesion lysis surgery via laparoscopy Advance diet as tolerated per GS Path with invasive adeno Ca. Recommended op f/u with Onc needs to recover from surgery dw GS Ileus May be related to prior small bowel obstruction or postop or pain medication related Continue ice chips Follow clinically for improvement. Patient advised to get out of bed as frequent as possible. Patient has been noncompliant. Counseled Chronic neurogenic bladder. UA no evidence of infection Catheter is in place. Refuses to discontinue Alva catheter stating it's more convenient than straight catheterization. He is aware risk of UTI Monitor urine output Patient self catheterizes at baseline Atrial fibrillation with CVR. [id number] of 2. Not a candidate for NOAC because of valvulopathy. Refuses to be on Coumadin. He is on aspirin will clarify with general surgery if it can be restarted. Switch Lopressor to by mouth with improved BP Continue digoxin switch to by mouth Return to by mouth treatments once patient transitions to by mouth intake NSVT. TSH 4.6. Repeat labs unremarkable. Continue to monitor. Continue beta jerome. No recurrence . Patient states this is chronic and recurrent DVT prophylaxis - Lovenox Discharge Planning Discharge today Torito Frausto MD Mar 24, 2017 13:39
[2017-03-24] MEDS ORDERED: MAGNESIUM SULFATE 1 GM PREMIX 100 ML IV ONE (14:00)
== END 2017-03-24 15:48 | disposition home health service (06) | DRG 330 ==
LOC: NEPE 13:59 → NEDA 18:12 → N06A 19:50
PROVIDERS: ADMIT Internal Medicine; ATTEND Internal Medicine
PROC: 0DTH4ZZ Resection of Cecum, Percutaneous Endoscopic Approach (ICD-10-PCS; principal; 2017-03-18 13:44)
DX: C18.0 Malignant neoplasm of cecum (principal); N17.9 Acute kidney failure, unspecified; I47.2 Ventricular tachycardia; I48.91 Unspecified atrial fibrillation; K56.7 Ileus, unspecified; C77.2 Secondary and unspecified malignant neoplasm of intra-abdominal lymph nodes; I11.0 Hypertensive heart disease with heart failure; E86.0 Dehydration; N31.9 Neuromuscular dysfunction of bladder, unspecified; I50.9 Heart failure, unspecified; H40.9 Unspecified glaucoma; I08.0 Rheumatic disorders of both mitral and aortic valves; Z85.51 Personal history of malignant neoplasm of bladder; Z79.82 Long term (current) use of aspirin; Z91.19 Patient's noncompliance with other medical treatment and regimen
CPT/HCPCS: 74000; 74176; 80048; 80053; 81001; 82378; 83036; 83605; 83690; 83735; 83880; 84100; 84439; 84443; 84484; 85025; 85610; 85730; 87040; 88307; 88309; 93005; 94150; 96361; 96374; 96375; 96376; C9113; J1160; J1650; J2250; J2270; J2370; J2405; J3010; J3475; J3480; J7030; Q9963

== ENCOUNTER 2018-03-19 22:31 | Inpatient (IN) ==
[2018-03-20] MEDS ORDERED: Sod Chloride 0.9% Inj 1,000 ML IV.SIG ONE (00:20)
[2018-03-20] MEDS ORDERED: Morphine Inj 4 MG/ML Vial IV.PUSH ONE (00:20)
[2018-03-20 00:48] LABS: Baso % (Auto) 0.5 % (0.0-2.0); Eos # (Auto) 0.1 th/mm3 (0.0-0.4); Eos % (Auto) 0.5 % (0.0-4.0); Hematocrit 44.5 % (39.0-51.0); Hemoglobin 15.7 gm/dL (13.0-17.0); Mean Corpuscular HGB Conc 35.4 % (32.0-36.0); Mean Corpuscular Hemoglobin 33.4 pg (27.0-34.0); Mean Corpuscular Volume 94.3 fL (80.0-100.0); Mono % (Auto) 9.6 % (0.0-8.0); Neut # (Auto) 8.5 th/mm3 (1.8-7.7); Neut % (Auto) 80.4 % (16.0-70.0); Platelet Count 272 th/mm3 (150-450); Red Blood Count 4.72 mil/mm3 (4.50-5.90); Red Cell Distribution Width 14.8 % (11.6-17.2); White Blood Count 10.6 th/mm3 (4.0-11.0)
--- NOTE | 2018-03-20 00:57 | ED ---
HPI General Chief Complaint: Abdominal Pain Stated Complaint: abd pain Time Seen by Provider: 03/20/18 00:13 Source: patient and family () Mode of arrival: ambulatory Limitations: no limitations History of Present Illness HPI narrative: 82-year-old male came to the emergency room with history of severe abdominal pain since today. is giving the main history and says that he was diagnosed with UTI 2 weeks ago. He was started on antibiotic but after taking the medication for couple days he started having intense diarrhea. His primary care who had started him on the antibiotic stop the antibiotic. Once the diarrhea subsided which was 1 week ago antibiotic was restarted. He took the first dose of the antibiotic today and started having abdominal pain and diarrhea again. No blood in his stool. Pain comes and goes and is severe. Patient points to the center of his abdomen for pain. No history of nausea or vomiting. No history of fever or chills. Patient had an abdominal surgery about a year ago to get a malignant mass taken out from his intestine. Surgery was done by Dr. Villar. No radiation of the pain. No aggravating or relieving symptoms identified. MD complaint: Reports abdominal pain Onset (ago): hour(s) Pain Consistency: intermittent Location: Reports periumbilical Severity: severe Quality: Reports cramping Radiation: Reports none Relieving factors: nothing Exacerbating factors: nothing Related Data Home Medications Medication Instructions Recorded Confirmed aspirin 325 mg PO DAILY 03/19/18 03/19/18 calcium carbonate [Calcium 500] 500 mg PO DAILY 03/19/18 03/19/18 digoxin 0.125 mcg PO DAILY 03/19/18 03/19/18 enalapril maleate 5 mg PO DAILY 03/19/18 03/19/18 furosemide 20 mg PO DAILY 03/19/18 03/19/18 metoprolol tartrate 12.5 mg PO DAILY 03/19/18 03/19/18 pantoprazole 40 mg PO DAILY 03/19/18 03/19/18 Allergies Allergy/AdvReac Type Severity Reaction Status Date / Time iohexol Allergy Severe Anaphylaxis Verified 03/19/18 23:18 Penicillins Allergy Severe Anaphylaxis Verified 03/19/18 23:18 Review of Systems ROS: all other systems reviewed are negative Gastrointestinal Reports abdominal pain and Reports diarrhea PMFSH Medical History Medical History Adenocarcinoma of ileocecal valve (Acute) Adult failure to thrive (Acute) Aortic valve regurgitation (Acute) Atrial fibrillation (Acute) Bladder infection (Acute) Carcinoma of bladder (Acute) Frailty syndrome in geriatric patient (Acute) Hypertension (Acute) Mitral valve regurgitation (Acute) Surgical History Surgical History H/O exploratory laparotomy (Acute) History of cystoscopy (Acute) Social History Social History Substance History: No History of Abuse Second Hand Smoke Exposure: No Smoking Status: Former smoker How Often Do You Have a Drink Containing Alcohol: Never Recent Travel in [facility] within the Last 8 Weeks: No Recent Out of Country Travel within the Last 8 Weeks: No Immunization History Tetanus Immunization: >5 Years Exam Narrative Exam Narrative: GENERAL: Awake, alert, moderate distress, elderly SKIN: Focused skin assessment warm/dry. HEAD: Atraumatic. Normocephalic. EYES: Pupils equal and round. No scleral icterus. No injection or drainage. ENT: No nasal bleeding or discharge. Mucous membranes pink and moist. NECK: Trachea midline. No JVD. CARDIOVASCULAR: Regular rate and rhythm. No murmur appreciated. RESPIRATORY: No accessory muscle use. Clear to auscultation. Breath sounds equal bilaterally. GASTROINTESTINAL: Abdomen soft, tender on palpation, nondistended. Hepatic and splenic margins not palpable. MUSCULOSKELETAL: No obvious deformities. No clubbing. No cyanosis. No edema. NEUROLOGICAL: Awake and alert. No obvious cranial nerve deficits. Motor grossly within normal limits. Normal speech. PSYCHIATRIC: Appropriate mood and affect; insight and judgment normal. Course Initial Documented Vital Signs Temperature 97.6 F 03/19/18 23:00 Pulse Rate 65 03/19/18 23:00 Respiratory Rate 24 03/19/18 23:00 Blood Pressure 116/62 03/19/18 23:00 Pulse Oximetry 93 L 03/19/18 23:00 Last Documented Vital Signs Temperature 98.6 F 03/23/18 00:00 Pulse Rate 104 H 03/23/18 00:00 Respiratory Rate 17 03/23/18 00:00 Blood Pressure 100/63 03/23/18 00:00 Pulse Oximetry 97 03/23/18 00:00 Medical Decision Making MDM Narrative Medical decision making narrative: 3 AM blood test results are back and within acceptable limits. UA is grossly positive for UTI. CT scan without contrast was suggestive of possible small bowel obstruction as per the radiologist. Patient did not want any contrast. He was medicated for pain and IV Rocephin given for the UTI. Blood culture and lactic acid are pending. I explained to the patient and his the reason for admission. NG tube has been ordered. I discussed the case with the hospitalist who has accepted the patient. Medical Screen Exam Complete: Yes Emergency Medical Condition: Yes Lab Data Result diagrams: 03/21/18 10:10 03/21/18 10:10 Lab Results 03/20/18 03/20/18 03/20/18 Range/Units 00:40 00:40 01:55 WBC 10.6 (4.0-11.0) th/mm3 RBC 4.72 (4.50-5.90) mil/mm3 Hgb 15.7 (13.0-17.0) gm/dL Hct 44.5 (39.0-51.0) % MCV 94.3 (80.0-100.0) fL MCH 33.4 (27.0-34.0) pg MCHC 35.4 (32.0-36.0) % RDW 14.8 (11.6-17.2) % Plt Count 272 (150-450) th/mm3 MPV 9.0 (7.0-11.0) fL Neut % (Auto) 80.4 H (16.0-70.0) % Lymph % (Auto) 9.0 (9.0-44.0) % [place] % (Auto) 9.6 H (0.0-8.0) % Eos % (Auto) 0.5 (0.0-4.0) % Baso % (Auto) 0.5 (0.0-2.0) % Neut # (Auto) 8.5 H (1.8-7.7) th/mm3 Lymph # (Auto) 1.0 (1.0-4.8) th/mm3 [place] # (Auto) 1.0 H (0.0-0.9) th/mm3 Eos # (Auto) 0.1 (0.0-0.4) th/mm3 Baso # (Auto) 0.0 (0.0-0.2) th/mm3 WBC Differential . Differential Comment Auto diff final Sodium 137 (136-145) meq/L Potassium 4.8 (3.5-5.1) meq/L Chloride 101 (98-107) meq/L Carbon Dioxide 29.5 (21.0-32.0) meq/L Anion Gap 7 (5-15) meq/L BUN 23 H (7-18) mg/dL Creatinine 1.29 (0.60-1.30) mg/dL Estimated GFR 53 L (>89) mL/min Random Glucose 129 H (74-106) mg/dL Lactic Acid (0.4-2.0) mmol/L Calcium 8.6 (8.5-10.1) mg/dL Magnesium 2.3 (1.5-2.5) mg/dL Total Bilirubin 1.1 H (0.2-1.0) mg/dL AST 50 H (15-37) U/L ALT 27 (12-78) U/L Alkaline Phosphatase 206 H (45-117) U/L Total Protein 7.5 (6.4-8.2) g/dL Albumin 2.8 L (3.4-5.0) g/dL Lipase 120 (73-393) U/L Carcinoembryonic Ag (0.2-5.0) ng/mL Urine Color Anny (Yellw/Straw) Urine Clarity Cloudy H (Clear) Urine pH 5.0 (5.0-8.5) Ur Specific [place] 1.017 (1.002-1.035) Urine Protein 30 H (Neg-Trace) mg/dL Urine Glucose (UA) Negative (Negative) mg/dL Urine Ketones Negative (Negative) mg/dL Urine Occult Blood Small H (Negative) Urine Nitrate Positive H (Negative) Urine Bilirubin Negative (Negative) Urine Urobilinogen Less than 2 (Less than 2) mg/dL Ur Leukocyte Esterase Large H (Negative) Urine RBC 2 (0-3) /hpf Urine WBC (0-5) /hpf Urine WBC Clumps Few H (None) Ur Squamous Epith Cells 1 (0-5) /hpf Amorphous Sediment Rare H (None) /hpf Urine Bacteria Many H (None) /hpf Urine Mucus Few H (Occasional) /lpf Micro UA Comment Culture indicated Ur Microscopic Review Not Reportable Urine Culture Comments Culture indicated 03/20/18 03/20/18 03/21/18 Range/Units 03:00 15:05 10:10 WBC 6.8 (4.0-11.0) th/mm3 RBC 4.32 L (4.50-5.90) mil/mm3 Hgb 13.5 D (13.0-17.0) gm/dL Hct 42.7 (39.0-51.0) % MCV 99.0 D (80.0-100.0) fL MCH 31.2 (27.0-34.0) pg MCHC 31.5 L (32.0-36.0) % RDW 15.1 (11.6-17.2) % Plt Count 175 D (150-450) th/mm3 MPV 8.9 (7.0-11.0) fL Neut % (Auto) 81.2 H (16.0-70.0) % Lymph % (Auto) 8.1 L (9.0-44.0) % [place] % (Auto) 9.1 H (0.0-8.0) % Eos % (Auto) 1.2 (0.0-4.0) % Baso % (Auto) 0.4 (0.0-2.0) % Neut # (Auto) 5.5 (1.8-7.7) th/mm3 Lymph # (Auto) 0.6 L (1.0-4.8) th/mm3 [place] # (Auto) 0.6 (0.0-0.9) th/mm3 Eos # (Auto) 0.1 (0.0-0.4) th/mm3 Baso # (Auto) 0.0 (0.0-0.2) th/mm3 WBC Differential . Differential Comment Auto diff final Sodium (136-145) meq/L Potassium (3.5-5.1) meq/L Chloride (98-107) meq/L Carbon Dioxide (21.0-32.0) meq/L Anion Gap (5-15) meq/L BUN (7-18) mg/dL Creatinine (0.60-1.30) mg/dL Estimated GFR (>89) mL/min Random Glucose (74-106) mg/dL Lactic Acid 1.5 (0.4-2.0) mmol/L Calcium (8.5-10.1) mg/dL Magnesium (1.5-2.5) mg/dL Total Bilirubin (0.2-1.0) mg/dL AST (15-37) U/L ALT (12-78) U/L Alkaline Phosphatase (45-117) U/L Total Protein (6.4-8.2) g/dL Albumin (3.4-5.0) g/dL Lipase (73-393) U/L Carcinoembryonic Ag 537.2 H (0.2-5.0) ng/mL Urine Color (Yellw/Straw) Urine Clarity (Clear) Urine pH (5.0-8.5) Ur Specific [place] (1.002-1.035) Urine Protein (Neg-Trace) mg/dL Urine Glucose (UA) (Negative) mg/dL Urine Ketones (Negative) mg/dL Urine Occult Blood (Negative) Urine Nitrate (Negative) Urine Bilirubin (Negative) Urine Urobilinogen (Less than 2) mg/dL Ur Leukocyte Esterase (Negative) Urine RBC (0-3) /hpf Urine WBC (0-5) /hpf Urine WBC Clumps (None) Ur Squamous Epith Cells (0-5) /hpf Amorphous Sediment (None) /hpf Urine Bacteria (None) /hpf Urine Mucus (Occasional) /lpf Micro UA Comment Ur Microscopic Review Urine Culture Comments 03/21/18 Range/Units 10:10 WBC (4.0-11.0) th/mm3 RBC (4.50-5.90) mil/mm3 Hgb (13.0-17.0) gm/dL Hct (39.0-51.0) % MCV (80.0-100.0) fL MCH (27.0-34.0) pg MCHC (32.0-36.0) % RDW (11.6-17.2) % Plt Count (150-450) th/mm3 MPV (7.0-11.0) fL Neut % (Auto) (16.0-70.0) % Lymph % (Auto) (9.0-44.0) % [place] % (Auto) (0.0-8.0) % Eos % (Auto) (0.0-4.0) % Baso % (Auto) (0.0-2.0) % Neut # (Auto) (1.8-7.7) th/mm3 Lymph # (Auto) (1.0-4.8) th/mm3 [place] # (Auto) (0.0-0.9) th/mm3 Eos # (Auto) (0.0-0.4) th/mm3 Baso # (Auto) (0.0-0.2) th/mm3 WBC Differential Differential Comment Sodium 140 (136-145) meq/L Potassium 4.9 (3.5-5.1) meq/L Chloride 110 H D (98-107) meq/L Carbon Dioxide 22.5 (21.0-32.0) meq/L Anion Gap 8 (5-15) meq/L BUN 18 (7-18) mg/dL Creatinine 0.92 (0.60-1.30) mg/dL Estimated GFR 79 L (>89) mL/min Random Glucose 78 (74-106) mg/dL Lactic Acid (0.4-2.0) mmol/L Calcium 7.8 L D (8.5-10.1) mg/dL Magnesium (1.5-2.5) mg/dL Total Bilirubin 0.6 (0.2-1.0) mg/dL AST 33 (15-37) U/L ALT 15 (12-78) U/L Alkaline Phosphatase 129 H (45-117) U/L Total Protein 5.8 L D (6.4-8.2) g/dL Albumin 1.9 L D (3.4-5.0) g/dL Lipase (73-393) U/L Carcinoembryonic Ag 487.4 H (0.2-5.0) ng/mL Urine Color (Yellw/Straw) Urine Clarity (Clear) Urine pH (5.0-8.5) Ur Specific [place] (1.002-1.035) Urine Protein (Neg-Trace) mg/dL Urine Glucose (UA) (Negative) mg/dL Urine Ketones (Negative) mg/dL Urine Occult Blood (Negative) Urine Nitrate (Negative) Urine Bilirubin (Negative) Urine Urobilinogen (Less than 2) mg/dL Ur Leukocyte Esterase (Negative) Urine RBC (0-3) /hpf Urine WBC (0-5) /hpf Urine WBC Clumps (None) Ur Squamous Epith Cells (0-5) /hpf Amorphous Sediment (None) /hpf Urine Bacteria (None) /hpf Urine Mucus (Occasional) /lpf Micro UA Comment Ur Microscopic Review Urine Culture Comments Imaging Data Radiologist's impression: Abdomen/Pelvis CT 10/20/18 00:20 CONCLUSION: 1. Diverticulosis without diverticulitis. 2. Multiple dilated loops of small bowel with wall thickening could be related to partial obstruction. 3. Large area of low-density in the right lobe of the liver of unsure etiology but cannot exclude underlying mass/metastatic disease as other low-density lesions are seen. No small pleural effusions and bibasilar densities. 4. Diverticulosis without diverticulitis. 5. Small bilateral pleural effusions and bibasilar consolidation. Discharge Plan Discharge Disposition Patient Disposition: 30 Still Patient Physicians Team ED Provider: Shahab Sánchez Primary Care Provider: Rohith Sanders Attending Provider: Luis Angel Todd Other Providers: Johnny Villar ; Surgeons,[facility] ; Itz Good ; Azeem Gomez Status ED Status: Left Department Discharge Information Discharge Date/Time: 03/20/18 05:33
[2018-03-20 01:02] LABS: Alanine Aminotransferase 27 U/L (12-78); Albumin 2.8 g/dL (3.4-5.0); Anion Gap 7 meq/L (5-15); Aspartate Aminotransferase 50 U/L (15-37); Blood Urea Nitrogen 23 mg/dL (7-18); Calcium 8.6 mg/dL (8.5-10.1); Carbon Dioxide 29.5 meq/L (21.0-32.0); Chloride 101 meq/L (98-107); Glomerular Filtration Rate 53 mL/min (>89); Glucose,Random 129 mg/dL (74-106); Lipase 120 U/L (73-393); Magnesium 2.3 mg/dL (1.5-2.5); Potassium 4.8 meq/L (3.5-5.1); Sodium 137 meq/L (136-145)
[2018-03-20 01:05] LABS: Alkaline Phosphatase 206 U/L (45-117); Total Protein 7.5 g/dL (6.4-8.2)
[2018-03-20 02:07] LABS: Amorphous Sediment,Urine Rare /hpf; Bacteria,Urine Many /hpf; Bilirubin,Urine Negative (Negative); Clarity,Urine Cloudy (Clear); Color,Urine Amber (Yellw/Straw); Glucose,Urine (UA) Negative (Negative); Leukocyte Esterase,Urine Large (Negative); Mucus,Urine Few /lpf (Occasional); Nitrite,Urine Positive (Negative); Specific Gravity,Urine 1.017 (1.002-1.035); Squamous Epithelial Cell,Urine 1 /hpf (0-5)
--- NOTE | 2018-03-20 02:16 | CT ---
EXAM DATE: 03/20/2018 1:18 AM EDT AGE/SEX: 82 years / Male INDICATIONS: Right lower quadrant pain. CLINICAL DATA: This is the patient's initial encounter. Patient reports that signs and symptoms have been present for 1 day and indicates a pain score of 8/10. MEDICAL/SURGICAL HISTORY: Carcinoma, bladder. Carcinoma, colon. Colon resection. RADIATION DOSE: 6.64 CTDI (mGy) COMPARISON: [facility] [place], CT ABDOMEN & PELVIS W/O CONTRAST, 03/15/2017. . TECHNIQUE: Multiple contiguous axial images were obtained through the abdomen. Images were obtained using multiple row detector helical technique. Using automated exposure control and adjustment of the mA and/or kV according to patient size, radiation dose was kept as low as reasonably achievable to o btain optimal diagnostic quality images. DICOM format image data is available electronically for rev iew and comparison. FINDINGS: Lower Lungs: The visualized lower lungs are clear. Liver: The liver has a homogeneous density with large area of low-density in the right lobe measuring 6.8 cm. There is no dilation of the biliary tree. Spleen: Homogeneous density without enlargement. Pancreas: Unremarkable without mass or calcification. Kidneys: Normal in size and shape. No evidence of mass or hydronephrosis. Adrenal Glands: Unremarkable. Aorta: Atherosclerotic changes without aneurysmal dilation. Bowel/Mesentery: Diverticulosis of the descending and sigmoid colon. There is dilatation and wall th ickening involving multiple small bowel loops Abdominal Wall: Intact. Retroperitoneum: No evidence of adenopathy in the retrocrural, para-aortic, or deep pelvic regions. Bladder: Contours are smooth. Reproductive Organs: No abnormal masses or calcifications seen. Inguinal: The inguinal region is unremarkable without evidence of adenopathy. Bony Structures: Unremarkable. CONCLUSION: 1. Diverticulosis without diverticulitis. 2. Multiple dilated loops of small bowel with wall thickening could be related to partial obstructio n. 3. Large area of low-density in the right lobe of the liver of unsure etiology but cannot exclude un derlying mass/metastatic disease as other low-density lesions are seen. No small pleural effusions an d bibasilar densities. 4. Diverticulosis without diverticulitis. 5. Small bilateral pleural effusions and bibasilar consolidation. Electronically signed by: Jono Seth MD 03/20/2018 2:15 AM EDT
[2018-03-20] MEDS ORDERED: Bisacodyl 10 MG Supp RECTAL PRN (02:43)
[2018-03-20] MEDS: Sod Chloride 0.9% Inj 1,000 ML IV.CONT SCH ×3 (03:27→22:52)
--- NOTE | 2018-03-20 03:27 | P.HPIM ---
History of Present Illness Primary Care Physician: Rohith Sanders MD History of Present Illness: This is an 82-year-old male with a PMH of Bladder CA and Colon CA who presented to the ER w/ c/o abdominal pain and diarrhea. at bedside providing history , states pt was started on antibiotics for UTI last week, after 4 days developed significant diarrhea and abdominal cramping at which time he stopped the antibiotic, was re-started on a different antibiotic today and had recurrent symptoms of abdominal pain/diarrhea. Abd pain is generalized, severe , 10/10, non-radiating, no associated nausea/vomiting. On arrival, BP 116/62, HR 65, O2 sat 93% on RA, Afebrile. CBC unremarkable. Chemistry essentially unremarkable except for BUN 23, GFR 53. UA positive for UTI. CT Abdomen/ Pelvis multiple dilated loops of small bowel with wall thickening, possibly partial obstruction, large area of low density in right lobe of the liver of unknown etiology possibly mass/metastatic disease. Pt w/ h/o Stage III Ileocecal CA, s/p lap lysis of adhesions and ileal cystectomy w/ primary anastomosis by Dr. Villar on 03/18/17, states he was following w/ MD Olivarez in [place], however did not receive chemo/radiation because Oncologist thought "it was too much for my heart". - Diagnosis (1) SBO (small bowel obstruction) (2) UTI (urinary tract infection) (3) Failure of outpatient treatment (4) Liver mass Inpatient Certification: I certify that the inpatient services were ordered in accordance with Medicare regulations governing the order. This includes certification that hospital inpatient services are reasonable and necessary and in the case of services not specified as inpatient-only under 42 CFR 419.22(n), that they are appropriately provided as inpatient services in accordance to with the 2-midnight benchmark under 43 CFR 412.3(e) Estimated Total Length of Stay (Days): 2 Plans for Post Hospital Care: Not yet determined Review of Systems PAST FAMILY HISTORY: Reviewed. No h/o DM or CAD All other systems reviewed negative except as stated in HPI PMFSH - History History Provided By: Patient - Medical History Medical History: Medical History (Last Reviewed 03/20/18 @ 03:04 by Shahab Sánchez MD) Bladder infection Cancer - Surgical History Surgical History: Surgical History (Last Reviewed 03/20/18 @ 03:04 by Shahab Sánchez MD) H/O exploratory laparotomy - Tobacco History Smoking Status: Former smoker - Alcohol History How Often Do You Have a Drink Containing Alcohol: Never - Substance Use History Substance History: No History of Abuse - Travel History Recent Travel in the [place] Within the Last 8 Weeks: No Recent Travel Out of the Country Within the Last 8 Weeks: No - Immunization History Tetanus Immunization: >5 Years Medications and Allergies Active Medications: Active Medications Al Hydroxide/Mg Hydroxide (Milk Of Magnesia Liq) 30 ml PO Q12H PRN PRN Reason: Mild Constipation Bisacodyl (Dulcolax Supp) 10 mg RECTAL DAILY PRN PRN Reason: SEVERE CONSITIPATION Levofloxacin/Dextrose (Levaquin 750 Mg Premix Inj) 150 mls @ 100 mls/hr IV.SIG Q24H SUMAN Sodium Chloride (Ns Inj) 1,000 mls @ 100 mls/hr IV.CONT .Q10H SUMAN Lactulose (Lactulose Liq) 30 ml PO DAILY PRN PRN Reason: SEVERE CONSITIPATION Metoclopramide HCl (Reglan Inj) 10 mg IV.PUSH Q8HR SUMAN; Protocol Morphine Sulfate (Morphine Inj) 2 mg IV.PUSH Q4H PRN PRN Reason: PAIN 6-10 Ondansetron HCl (Zofran Inj) 4 mg IV.PUSH Q6H PRN PRN Reason: NAUSEA OR VOMITING Senna/Docusate Sodium (Re-Colace) 1 tab PO BID SUMAN Sennosides (Senokot) 17.2 mg PO Q12H PRN PRN Reason: Moderate Constipation Sodium Chloride (Ns Flush) 2 ml IV.FLUSH PRN PRN PRN Reason: FLUSH AFTER USING IV ACCESS Allergies Allergy/AdvReac Type Severity Reaction Status Date / Time iohexol Allergy Severe Anaphylaxis Verified 03/19/18 23:18 Penicillins Allergy Severe Anaphylaxis Verified 03/19/18 23:18 Home Medications Medication Instructions Recorded Confirmed Type aspirin 325 mg PO DAILY 03/19/18 03/19/18 History calcium carbonate [Calcium 500] 500 mg PO DAILY 03/19/18 03/19/18 History digoxin 0.125 mcg PO DAILY 03/19/18 03/19/18 History enalapril maleate 5 mg PO DAILY 03/19/18 03/19/18 History furosemide 20 mg PO DAILY 03/19/18 03/19/18 History metoprolol tartrate 12.5 mg PO DAILY 03/19/18 03/19/18 History pantoprazole 40 mg PO DAILY 03/19/18 03/19/18 History Exam Vital signs: Vital Signs 03/19/18 23:00 03/19/18 23:39 03/20/18 00:44 Temperature 97.6 F Pulse Rate 65 98 H Respiratory Rate 24 15 15 Blood Pressure 116/62 105/50 L Pulse Oximetry 93 L 99 Intake & Output 03/19/18 03/19/18 03/20/18 06:59 18:59 06:59 Intake Total 1000 / 1000 Balance 1000 / 1000 Weight 68.039 kg Intake: IV 1000 / 1000 NS Inj 1,000 ML @ Wide Open IV. 1000 / 1000 SIG BOLUS ONE Rx#:[id number] Narrative: PE: GENERAL: Elderly white male in no acute distress. at bedside. SKIN: Focused skin assessment warm and dry. HEENT: PERRLA, EOMI. No scleral icterus or conjunctival pallor. No lid lag or facial droop. CARDIOVASCULAR: Regular rate and rhythm. No obvious murmurs to auscultation. No chest tenderness to palpation. RESPIRATORY: No obvious rhonchi or wheezing. Clear to auscultation. Breath sounds equal bilaterally. GASTROINTESTINAL: Abdomen soft, non-tender, nondistended. BS normal. MUSCULOSKELETAL: Extremities without clubbing, cyanosis, or edema. No obvious deformities. NEUROLOGICAL: Awake, alert and oriented x4. No focal neurologic deficits. Moving both upper and lower extremities spontaneously. PSYCHIATRIC: Appropriate mood and affect. Insight and judgment normal. Results - Labs CBC & Chem 7: 03/20/18 00:40 03/20/18 00:40 Labs: Short CBC 03/20/18 Range/Units 00:40 WBC 10.6 (4.0-11.0) th/mm3 Hgb 15.7 (13.0-17.0) gm/dL Hct 44.5 (39.0-51.0) % Plt Count 272 (150-450) th/mm3 [facility] 03/20/18 00:40 Sodium 137 Potassium 4.8 Chloride 101 Carbon Dioxide 29.5 BUN 23 H Creatinine 1.29 Calcium 8.6 Liver Function 03/20/18 Range/Units 00:40 Total Bilirubin 1.1 H (0.2-1.0) mg/dL AST 50 H (15-37) U/L ALT 27 (12-78) U/L Alkaline Phosphatase 206 H (45-117) U/L Albumin 2.8 L (3.4-5.0) g/dL Urine 03/20/18 Range/Units 01:55 Urine Color Anny (Yellw/Straw) Urine Clarity Cloudy H (Clear) Urine pH 5.0 (5.0-8.5) Ur Specific [place] 1.017 (1.002-1.035) Urine Protein 30 H (Neg-Trace) mg/dL Urine Glucose (UA) Negative (Negative) mg/dL - Imaging Impressions Abdomen/Pelvis CT 03/20/18 00:20 CONCLUSION: 1. Diverticulosis without diverticulitis. 2. Multiple dilated loops of small bowel with wall thickening could be related to partial obstruction. 3. Large area of low-density in the right lobe of the liver of unsure etiology but cannot exclude underlying mass/metastatic disease as other low-density lesions are seen. No small pleural effusions and bibasilar densities. 4. Diverticulosis without diverticulitis. 5. Small bilateral pleural effusions and bibasilar consolidation. Caprini VTE Risk Assessment Caprini VTE Risk Assessment: No/Low Risk (score <= 1) Caprini Risk Assessment Model: Point Value = 1 Point Value = 2 Point Value = 3 Point Value = 5 Age 41-60 Minor surgery BMI > 25 kg/m2 Swollen legs Varicose veins or History of unexplained or recurrent spontaneous Oral contraceptives or hormone replacement Sepsis (< 1 month) Serious lung disease, including pneumonia (< 1 month) Abnormal pulmonary function Acute myocardial infarction Congestive heart failure (< 1 month) History of inflammatory bowel disease Medical patient at bed rest Age 61-74 Arthroscopic surgery Major open surgery (> 45 min) Laparoscopic surgery (> 45 min) Malignancy Confined to bed (> 72 hours) Immobilizing plaster cast Central venous access Age >= 75 History of VTE Family history of VTE Factor V Leiden Prothrombin [id number] Lupus anticoagulant Anticardiolipin antibodies Elevated serum homocysteine Heparin-induced thrombocytopenia Other congenital or acquired thrombophilia Stroke (< 1 month) Elective arthroplasty Hip, pelvis, or leg fracture Acute spinal cord injury (< 1 month) Prophylaxis Regimen: Total Risk Factor Score Risk Level Prophylaxis Regimen 0-1 Low Early ambulation 2 Moderate Order ONE of the following: *Sequential Compression Device (SCD) *Heparin 5000 units SQ BID 3-4 Higher Order ONE of the following medications: *Heparin 5000 units SQ TID *Enoxaparin/Lovenox 40 mg SQ daily (WT < 150 kg, CrCl > 30 mL/min) *Enoxaparin/Lovenox 30 mg SQ daily (WT < 150 kg, CrCl > 10-29 mL/min) *Enoxaparin/Lovenox 30 mg SQ BID (WT < 150 kg, CrCl > 30 mL/min) AND/OR *Sequential Compression Device (SCD) 5 or more Highest Order ONE of the following medications: *Heparin 5000 units SQ TID (Preferred with Epidurals) *Enoxaparin/Lovenox 40 mg SQ daily (WT < 150 kg, CrCl > 30 mL/min) *Enoxaparin/Lovenox 30 mg SQ daily (WT < 150 kg, CrCl > 10-29 mL/min) *Enoxaparin/Lovenox 30 mg SQ BID (WT < 150 kg, CrCl > 30 mL/min) AND *Sequential Compression Device (SCD) Assessment and Plan - Assessment (1) SBO (small bowel obstruction) Code(s): K56.609 - Unspecified intestinal obstruction, unspecified as to partial versus complete obstruction Status: Acute (2) UTI (urinary tract infection) Code(s): N39.0 - Urinary tract infection, site not specified Status: Acute (3) Failure of outpatient treatment Code(s): Z78.9 - Other specified health status Status: Acute (4) Liver mass Code(s): R16.0 - Hepatomegaly, not elsewhere classified Status: Acute - Plan A/P: 1. SBO: h/o Partial SBO w/ laparoscopic lysis of adhesions by Dr. Villar 2016, found to have Ileocecal CA at that time, no chemo/radiation. Now w/ recurrent Partial SBO on CT Abd/Pelvis, images reviewed. NGT, NPO, IVF, Reglan , analgesics/antiemetics as needed. Consult Gen Sx for further eval/ intervention. 2. UTI: w/ Failed Outpatient Tx, U/a w/ significant UTI, s/p Rocephin in ER, will continue w/ IV Abx, follow up urine cultures, monitor I/O. Pt straight caths at home. 3. Liver Mass: CT Abd/Pelvis w/ large area of low density right lobe liver, possibly mass/metastatic disease, h/o Ileocecal CA s/p surgical intervention, seen by Dr. Good at that time, followed w/ MD Olivarez in [place], no chemo/radiation as pt states Oncologist thought it was too much for his heart. Will consult Dr. Good in light of liver lesion for further recommendations. 4. DVT Prophylaxis: SCD/Teds 5. Social work for d/c planning as needed. 6. Case discussed w/ ER physician at length, labs/records/imaging reviewed by me.
[2018-03-20] MEDS: Senna/Docusate Sodium 8.6/50 MG Tablet PO SCH ×2 (08:17→20:56)
--- NOTE | 2018-03-20 11:45 | MB ---
cc: Johnny Villar MD DATE: 03/20/2018 REASON FOR CONSULTATION: Partial small-bowel obstruction. 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 Delilah Driscoll HISTORY OF PRESENT ILLNESS: The patient is an 82-year-old male who has several medical issues including history of stage III colon cancer, history of bladder cancer and mitral regurgitation. The patient presented with acute onset of abdominal pain, which was severe and diarrhea. Most of the history per states the patient was doing relatively well; however, in the last week he was placed on antibiotics for UTI. Following the 4 days, he developed significant diarrhea and abdominal cramping. The antibiotic was stopped and his antibiotic was changed by his primary care physician for which the patient developed generalized severe abdominal pain, 03/10, nonradiating. He did have mild nausea and denied any vomiting. He states the pain was worse with movement and better with lying still. He came to the emergency department for further evaluation including a UA, which was positive for UTI. CT scan showed multiple dilated loops of small bowel with distal small bowel wall thickening and a concern for partial obstruction. Also, questionable low intensity lesion in the liver, questionable unknown etiology. Further history, the patient does have a history of ileocecectomy in 03/18/2017, and was also being followed at [facility] in [place] for stage III colon cancer. The patient notes he did not receive any chemoradiation at the discretion of the [facility] oncologist. The patient further has a history of bladder cancer without treatment of chemoradiation. Bladder cancer was in the very distant past and the patient underwent resection. The patient further denies any significant fevers or chills. PAST MEDICAL HISTORY: Urinary, bladder cancer, colon cancer stage III, mitral regurgitation. PAST SURGICAL HISTORY: Partial cystectomy, diagnostic laparoscopy, laparoscopic ileocecectomy 03/2017. SOCIAL HISTORY: History of smoking many years ago. Denies current smoking, ETOH or IVDA. ALLERGIES: PENICILLIN AND IOHEXOL. MEDICATIONS: See EMR. FAMILY HISTORY: Denies diabetes or hypertension. REVIEW OF SYSTEMS: GENERAL: The patient denies fevers. HEENT: Denies eye pain, ear pain. NECK: Denies swelling or pain. LUNGS: Denies cough or wheeze. HEART: Denies palpitations or chest pain. ABDOMEN: Complains of abdominal pain, nausea, diarrhea. GENITOURINARY: Denies hematuria. ENDOCRINE: Denies polyuria or polydipsia. INTEGUMENT: Denies any new masses or lesions. PSYCHIATRIC: Denies any change in mood or sensorium. PHYSICAL EXAMINATION: GENERAL: The patient in no acute distress. VITAL SIGNS: Temperature 97.6, pulse 65, respirations 24, blood pressure 116/62, saturation 93%. HEENT: Pupils equal, round, reactive. NECK: Supple. Trachea midline. LUNGS: Bilateral expansion, clear. HEART: S1, S2 regular. ABDOMEN: Soft, minimal distention, mild tenderness to palpation. No rebound, no guarding, no peritoneal signs. EXTREMITIES: Warm and well perfused. NEUROLOGIC: AO x4, moving all extremities, 5/5 motor. PSYCHIATRIC: Appropriate mood, appropriate affect and judgment. LABORATORY AND DIAGNOSTIC DATA: WBC 10.6, hemoglobin 15.7, hematocrit 44.5, platelets 272. Sodium 137, potassium 4.8, chloride 101, BUN 23, creatinine 1.2, glucose 129, lactate 1.5, AST 50, ALT 27, alkaline phosphatase of 206, lipase 120. UA positive nitrites, cloudy, positive leukocyte esterase. CT, reviewed by myself, showing concern for possible small-bowel obstruction, thickening of bowel loops, diverticulosis. Low density right lower liver, small pleural effusion. ASSESSMENT: The patient is an 82-year-old male who presents with severe abdominal pain, urinary tract infection, possible partial bowel obstruction. History of several medical issues including bladder and colon cancer. PLAN: After a full clinical workup, the patient with the above-noted issues. At this point, the patient does have an NG tube in place. The patient is not currently vomiting and has mild distention. We will likely plan to clamp NG tube in 24 hours. We will check abdominal x-ray and possible small bowel follow-through to evaluate for bowel obstruction. My concern more is for infection and UTI and possible reactive enteritis, but we will continue to follow closely. We will plan for nonoperative management. In regards to a stage III colon cancer, we will follow up on CEA and possibly CA 19-9 level. The patient does have a questionable lesion in the liver. Again, we will continue to follow closely with this, could consider MRI for further delineation of liver lesion, and if warranted consider interventional radiology for possible biopsy. Thank you for consultation. MD Eleanor Perdomo , 10:28 AM , 10:42 AM
[2018-03-20] MEDS: Morphine Inj 4 MG/ML Vial IV.PUSH PRN (13:14)
--- NOTE | 2018-03-20 14:06 | P.CON ---
History of Present Illness Service: Hematology/oncology Consult date: 03/20/18 Reason for Consult: History of adenocarcinoma of the ileocecal valve, now with suspected metast Primary Care Provider: Rohith Sanders MD Chief Complaint: Abdominal pain, nausea, vomiting, diarrhea. History of Present Illness: Ms. John is an 82-year-old male who presents the hospital with the above- noted complaints. In March [address] [facility] with complaints of abdominal pain and distention. 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 He was evaluated by my associate Dr. Good who advised outpatient follow-up with consideration for adjuvant systemic chemotherapy. The patient and his significant other however elected to travel to [place] where they were seen at the [facility] oncology clinic. The patient was advised observation alone by their oncologist there because the patient was frail and weak. The patient and his significant other tell me that they were last seen on 2017 in [place], the patient underwent blood work which indicated recurrent malignancy. The patient's oncologist advised what sounds like palliation and follow-up with providers closer to where the patient lives. The patient had been reporting symptoms of abdominal pain, loss of appetite, weakness and weight loss over the past few weeks. The patient was prescribed antibiotics by his PCP (Dr. Blood). After taking the antibiotics the patient' s symptoms actually worsened with progressive diarrhea, he therefore elected to come into the [facility] ER for further workup and evaluation. CT scan of the abdomen performed on 03/20/2018 without IV contrast revealed multiple dilated loops of small bowel with wall thickening, partial obstruction was suspected. A large area of low density involving the right lobe of the liver was identified, it was hard to rule out metastatic disease given the lack of IV contrast. The oncology service is been asked to see him to assist with further workup and management. Review of Systems Constitutional: Reports anorexia, Reports chills, Reports fatigue, Reports lack of energy, Reports malaise, Reports weight loss Eyes: Reports blind spots, Reports blurry vision, Reports change in vision Comments: Poor vision, has macular degeneration, glaucoma and cataracts. Ears, Nose, Mouth, and Throat: Reports poor balance, Denies change in voice, Denies facial pain, Denies headache(s), Denies sore throat Cardiovascular: Reports shortness of breath with activity, Denies chest pain, Denies shortness of breath Respiratory: Denies cough, Denies shortness of breath Gastrointestinal: Reports abdominal pain, Reports bloating, Reports change in bowel habits, Reports change in stools, Reports cramping, Reports loose stools, Denies bright, red blood in stools, Denies vomiting blood Genitourinary: Reports painful urination, Denies blood in urine Musculoskeletal: Denies abnormal walking Skin/Breast: Denies redness, Denies sensitivity to light Neurologic: Reports abnormal speech, Reports loss of vision, Denies headache(s) , Denies numbness Psychiatric: Reports anxiety Endocrine: Reports cold intolerance Hematologic/Lymphatic: Denies easy bleeding Allergic/Immunologic: Denies GI upset with certain foods PMFSH - History History Provided By: Patient, Family Member - Medical History Medical History: Medical History (Last Updated 03/20/18 @ 13:58 by Roger Gutierrez MD) Adenocarcinoma of ileocecal valve Adult failure to thrive Aortic valve regurgitation Atrial fibrillation Bladder infection 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 Hypertension Mitral valve regurgitation - Surgical History Surgical History: Surgical History (Last Updated 03/20/18 @ 13:58 by Roger Gutierrez MD) H/O exploratory laparotomy History of cystoscopy - Social History I have reviewed the patient's Social History: Yes - Tobacco History Second Hand Smoke Exposure: No Tobacco Use In Past 30 Days: No Smoking Status: Former smoker - Alcohol History How Often Do You Have a Drink Containing Alcohol: Never - Substance Use History Substance History: No History of Abuse - Travel History Recent Travel in the [place] Within the Last 8 Weeks: No Recent Travel Out of the Country Within the Last 8 Weeks: No - Immunization History Tetanus Immunization: >5 Years Medications and Allergies Active Medications: Active Medications Al Hydroxide/Mg Hydroxide (Milk Of Magnesia Liq) 30 ml PO Q12H PRN PRN Reason: Mild Constipation Bisacodyl (Dulcolax Supp) 10 mg RECTAL DAILY PRN PRN Reason: SEVERE CONSITIPATION Levofloxacin/Dextrose (Levaquin 750 Mg Premix Inj) 150 mls @ 100 mls/hr IV.SIG Q24H SUMAN Last Infusion: 03/20/18 10:19 Dose: Infused Sodium Chloride (Ns Inj) 1,000 mls @ 100 mls/hr IV.CONT .Q10H SUMAN Last Admin: 03/20/18 13:20 Dose: 100 mls/hr Lactulose (Lactulose Liq) 30 ml PO DAILY PRN PRN Reason: SEVERE CONSITIPATION Metoclopramide HCl (Reglan Inj) 10 mg IV.PUSH Q8HR SUMAN; Protocol Last Admin: 03/20/18 13:12 Dose: 10 mg Morphine Sulfate (Morphine Inj) 2 mg IV.PUSH Q4H PRN PRN Reason: PAIN 6-10 Last Admin: 03/20/18 13:14 Dose: 2 mg Ondansetron HCl (Zofran Inj) 4 mg IV.PUSH Q6H PRN PRN Reason: NAUSEA OR VOMITING Senna/Docusate Sodium (Re-Colace) 1 tab PO BID [facility] Last Admin: 03/20/18 08:17 Dose: Not Given Sennosides (Senokot) 17.2 mg PO Q12H PRN PRN Reason: Moderate Constipation Sodium Chloride (Ns Flush) 2 ml IV.FLUSH PRN PRN PRN Reason: FLUSH AFTER USING IV ACCESS Allergies Allergy/AdvReac Type Severity Reaction Status Date / Time iohexol Allergy Severe Anaphylaxis Verified 03/19/18 23:18 Penicillins Allergy Severe Anaphylaxis Verified 03/19/18 23:18 Home Medications Medication Instructions Recorded Confirmed Type aspirin 325 mg PO DAILY 03/19/18 03/19/18 History calcium carbonate [Calcium 500] 500 mg PO DAILY 03/19/18 03/19/18 History digoxin 0.125 mcg PO DAILY 03/19/18 03/19/18 History enalapril maleate 5 mg PO DAILY 03/19/18 03/19/18 History furosemide 20 mg PO DAILY 03/19/18 03/19/18 History metoprolol tartrate 12.5 mg PO DAILY 03/19/18 03/19/18 History pantoprazole 40 mg PO DAILY 03/19/18 03/19/18 History Physical Exam Vital signs: Vital Signs 03/19/18 23:00 03/19/18 23:39 03/20/18 00:44 Temperature 97.6 F Pulse Rate 65 98 H Respiratory Rate 24 15 15 Blood Pressure 116/62 105/50 L Pulse Oximetry 93 L 99 03/20/18 05:33 03/20/18 07:18 03/20/18 12:00 Temperature 97.7 F 97.8 F Pulse Rate 85 84 116 H Respiratory Rate 18 18 Blood Pressure 102/63 91/65 L 105/76 Pulse Oximetry 96 96 95 Intake & Output 03/19/18 03/20/18 03/20/18 18:59 06:59 18:59 Intake Total 1100 / 1100 924 / 924 Balance 1100 / 1100 924 / 924 Weight 68.039 kg Intake: IV 1100 / 1100 924 / 924 NS Inj 1,000 ML @ 100 mls/hr IV 774 / 774 .CONT .Q10H SUMAN Rx#:[id number] Levaquin 750 mg Premix Inj 150 150 / 150 ML @ 100 mls/hr IV.SIG Q24H [facility] Rx#:[id number] NS Inj 1,000 ML @ Wide Open IV. 1000 / 1000 SIG BOLUS ONE Rx#:[id number] Rocephin Inj 1,000 MG In NS Inj 100 / 100 100 ML @ 200 mls/hr IV.SIG ONCE ONE Rx#:[id number] Other: Date of Last Bowel Movement 03/19/18 Narrative: Mr. John is an elderly and frail-appearing male, sitting up in bed, he appears to be pale. He allows his significant other to do most of the talking. - Constitutional no acute distress - Routine HEENT Exam Head: Present: normocephalic, atraumatic Eye: Present: EOMI, PERRL. Absent: conjunctival icterus, conjunctivae pink ENT: Present: mucous membranes moist - Routine Neck Exam Present: supple, lymphadenopathy. Absent: tenderness, swelling - Routine Respiratory Exam Present: CTA bilaterally. Absent: accessory muscle use, decreased breath sounds , rales, respiratory distress, rhonchi, stridor, wheezes, crackles - Routine Cardiovascular Exam Present: S1, S2, murmur, irregularly irregular - Routine Abdominal Exam Present: tenderness, distended, guarding. Absent: firm, rigid, organomegaly, mass - Routine Extremities Exam Absent: cyanosis, clubbing Comments: Generally decreased muscle mass, tone and strength. - Routine Skin Exam Present: intact, dry - Routine Neurological Exam Present: alert, oriented X3, CN II-XII intact. Absent: sensory deficit, motor deficit - Detailed Neurological Exam: Coma Scale Eye Opening: Spontaneous - Routine Psychiatric Exam Present: normal affect - Urinary Catheter Management Indwelling Urethral Catheter Cath placed during this visit: yes Urethral indwelling: Yes Reason for continuing: Acute urinary retention Insertion date: 03/20/18 Insertion time: 03:51 Assessment and Plan - Plan Mr. John is an 82-year-old male, he is a resident of [facility]. He lives at home with his significant other, they have been together for the past 32 years. The patient has adult children all of whom live in [place], the patient rarely communicates with them. Mr. 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 He underwent surgical resection, his disease was locally advanced with 2 out of the 3 sample lymph nodes involved with metastatic disease. The patient was found to have pT4a pN1b M0; stage IIIb disease at time of diagnosis. He was seen after his initial diagnosis by my associate Dr. Good who advised outpatient follow-up with adjuvant systemic therapy. The patient never followed up with Dr. Good, he instead traveled to [place] and was seen by an oncologist at the [facility]. Given the patient's frailty he was advised observation. No systemic therapeutic interventions have been rendered since he underwent surgery. Patient now presents the hospital with symptoms consistent with small bowel obstruction, he has radiographic evidence of what appears to be a metastatic deposit involving the right lobe of the liver. Clinical symptomatology is concerning for possible peritoneal involvement. He is allergic to IV contrast (CT IV contrast). And therefore underwent a CT without contrast as initial workup. From my interaction with the patient today and with his significant other it appears the patient does not wish to pursue aggressive therapeutic interventions. In fact does not make his intentions very clear, he is somewhat stoic and is content to allow his significant other to do most of the talking for him. Recommendations: 1. Obtain CEA level. 2. Continue supportive care for management of partial small bowel obstruction. 3. At some point additional imaging studies will be required to further help quantify disease burden. If he does wish to pursue therapeutic interventions a staged finding biopsy will also be required. 4. The patient will be considering his options as far as wanting to pursue aggressive workup versus pursuing palliation.
[2018-03-21] MEDS: Senna/Docusate Sodium 8.6/50 MG Tablet PO SCH ×2 (08:34→21:42)
[2018-03-21] MEDS: Sod Chloride 0.9% Inj 1,000 ML IV.CONT SCH ×2 (08:49→19:41)
[2018-03-21 10:47] LABS: Baso % (Auto) 0.4 % (0.0-2.0); Eos # (Auto) 0.1 th/mm3 (0.0-0.4); Eos % (Auto) 1.2 % (0.0-4.0); Hematocrit 42.7 % (39.0-51.0); Hemoglobin 13.5 gm/dL (13.0-17.0); Lymph # (Auto) 0.6 th/mm3 (1.0-4.8); Lymph % (Auto) 8.1 % (9.0-44.0); Mean Corpuscular HGB Conc 31.5 % (32.0-36.0); Mean Corpuscular Hemoglobin 31.2 pg (27.0-34.0); Mean Platelet Volume 8.9 fL (7.0-11.0); Mono # (Auto) 0.6 th/mm3 (0.0-0.9); Mono % (Auto) 9.1 % (0.0-8.0); Neut # (Auto) 5.5 th/mm3 (1.8-7.7); Neut % (Auto) 81.2 % (16.0-70.0); Platelet Count 175 th/mm3 (150-450); Red Blood Count 4.32 mil/mm3 (4.50-5.90); Red Cell Distribution Width 15.1 % (11.6-17.2); White Blood Count 6.8 th/mm3 (4.0-11.0)
[2018-03-21 11:00] LABS: Alanine Aminotransferase 15 U/L (12-78); Albumin 1.9 g/dL (3.4-5.0); Alkaline Phosphatase 129 U/L (45-117); Anion Gap 8 meq/L (5-15); Aspartate Aminotransferase 33 U/L (15-37); Blood Urea Nitrogen 18 mg/dL (7-18); Calcium 7.8 mg/dL (8.5-10.1); Carbon Dioxide 22.5 meq/L (21.0-32.0); Carcinoembryonic Antigen 487.4 ng/mL (0.2-5.0); Chloride 110 meq/L (98-107); Glomerular Filtration Rate 79 mL/min (>89); Glucose,Random 78 mg/dL (74-106); Potassium 4.9 meq/L (3.5-5.1); Sodium 140 meq/L (136-145); Total Protein 5.8 g/dL (6.4-8.2)
--- NOTE | 2018-03-21 11:52 | P.PNONC ---
Subjective Interval history: Afebrile. Patient sleeping on approach, awakens easily to voice. His is at the bedside. Currently has NG tube in place, to intermittent suction. He denies any nausea, vomiting or distention. I had a long discussion with the patient and his in regards to possible cancer recurrence. He was under the care of [facility]arez in [place] and was last seen by them on January 29. He states at that time his cancer markers were elevated and they told him that his cancer was active. They did not recommend treatment given his age and other comorbidities and severe allergy to contrast. The patient agreed. They told him to re-establish care locally so that he would not have to drive to [place] for supportive care. Patient has seen his primary care and discussed hospice. The patient states that his primary care has an order on his chart for hospice when needed. At this time the patient declines further workup and/or treatment for cancer. Objective Vital Signs/Intake & Output: Vital Signs 03/20/18 12:00 03/20/18 15:35 03/20/18 20:00 Temperature 97.8 F 97.5 F L Pulse Rate 116 H 82 98 H Respiratory Rate 18 18 18 Blood Pressure 105/76 117/59 L 114/73 Pulse Oximetry 95 96 94 L 03/20/18 23:28 03/21/18 03:21 03/21/18 08:00 Temperature 97.3 F L 97.6 F 97.6 F Pulse Rate 99 H 96 H 99 H Respiratory Rate 16 16 18 Blood Pressure 109/74 104/67 99/67 L Pulse Oximetry 95 91 L 92 L Intake & Output 03/20/18 03/21/18 03/21/18 18:59 06:59 18:59 Intake Total 924 / 924 1000 / 1000 1150 / 1150 Output Total 900 / 900 Balance 924 / 924 100 / 100 1150 / 1150 Weight 68.039 kg Intake: IV 924 / 924 1000 / 1000 1150 / 1150 NS Inj 1,000 ML @ 100 mls/hr IV 774 / 774 1000 / 1000 1000 / 1000 .CONT .Q10H SUMAN Rx#:[id number] Levaquin 750 mg Premix Inj 150 150 / 150 150 / 150 ML @ 100 mls/hr IV.SIG Q24H SUMAN Rx#:[id number] Oral 0 / 0 Output: Urine Amount (Catheter) 900 / 900 Indwelling Urethral Catheter 900 / 900 Other: Date of Last Bowel Movement 03/19/18 03/19/18 Weight On Admission 68.039 kg Result Diagrams: 03/21/18 10:10 03/21/18 10:10 Laboratory Results: Laboratory Results - last 24 hr 03/20/18 03/20/18 03/21/18 01:55 15:05 10:10 WBC 6.8 RBC 4.32 L Hgb 13.5 D Hct 42.7 MCV 99.0 D MCH 31.2 MCHC 31.5 L RDW 15.1 Plt Count 175 D MPV 8.9 Neut % (Auto) 81.2 H Lymph % (Auto) 8.1 L [place] % (Auto) 9.1 H Eos % (Auto) 1.2 Baso % (Auto) 0.4 Neut # (Auto) 5.5 Lymph # (Auto) 0.6 L [place] # (Auto) 0.6 Eos # (Auto) 0.1 Baso # (Auto) 0.0 WBC Differential . Differential Comment Auto diff final Sodium Potassium Chloride Carbon Dioxide Anion Gap BUN Creatinine Estimated GFR Random Glucose Calcium Total Bilirubin AST ALT Alkaline Phosphatase Total Protein Albumin Carcinoembryonic Ag 537.2 H Urine Color Anny Urine Clarity Cloudy H Urine pH 5.0 Ur Specific [place] 1.017 Urine Protein 30 H Urine Glucose (UA) Negative Urine Ketones Negative Urine Occult Blood Small H Urine Nitrate Positive H Urine Bilirubin Negative Urine Urobilinogen Less than 2 Ur Leukocyte Esterase Large H Urine RBC 2 Urine WBC Urine WBC Clumps Few H Ur Squamous Epith Cells 1 Amorphous Sediment Rare H Urine Bacteria Many H Urine Mucus Few H Micro UA Comment Culture indicated Urine Culture Comments Culture indicated 03/21/18 10:10 WBC RBC Hgb Hct MCV MCH MCHC RDW Plt Count MPV Neut % (Auto) Lymph % (Auto) [place] % (Auto) Eos % (Auto) Baso % (Auto) Neut # (Auto) Lymph # (Auto) [place]kin # (Auto) Eos # (Auto) Baso # (Auto) WBC Differential Differential Comment Sodium 140 Potassium 4.9 Chloride 110 H D Carbon Dioxide 22.5 Anion Gap 8 BUN 18 Creatinine 0.92 Estimated GFR 79 L Random Glucose 78 Calcium 7.8 L D Total Bilirubin 0.6 AST 33 ALT 15 Alkaline Phosphatase 129 H Total Protein 5.8 L D Albumin 1.9 L D Carcinoembryonic Ag 487.4 H Urine Color Urine Clarity Urine pH Ur Specific [place] Urine Protein Urine Glucose (UA) Urine Ketones Urine Occult Blood Urine Nitrate Urine Bilirubin Urine Urobilinogen Ur Leukocyte Esterase Urine RBC Urine WBC Urine WBC Clumps Ur Squamous Epith Cells Amorphous Sediment Urine Bacteria Urine Mucus Micro UA Comment Urine Culture Comments Culture Results: Microbiology 03/20/18 01:55 Urine Culture - Preliminary Clean Catch Urine gram negative rods 03/20/18 02:55 Aerobic Blood Culture - Preliminary Blood - Peripheral No growth in 1 day Anaerobic Blood Culture - Preliminary No growth in 1 day 03/20/18 03:00 Aerobic Blood Culture - Preliminary Blood - Peripheral No growth in 1 day Anaerobic Blood Culture - Preliminary No growth in 1 day Medications: Active Medications Generic Name Dose Route Start Last Admin Trade Name Freq PRN Reason Stop Dose Admin Levofloxacin/Dextrose 150 mls @ 100 mls/hr 03/20/18 09:00 03/21/18 10:20 Levaquin 750 Mg Premix Inj IV.SIG Infused Q24H [facility] Infusion Sodium Chloride 1,000 mls @ 100 mls/hr 03/20/18 02:45 03/21/18 08:49 Ns Inj IV.CONT 100 mls/hr .Q10H SUMAN Administration Metoclopramide HCl 10 mg 03/20/18 06:00 03/21/18 05:31 Reglan Inj IV.PUSH Not Given Q8HR [facility] Protocol Morphine Sulfate 2 mg 03/20/18 02:44 03/20/18 13:14 Morphine Inj IV.PUSH 2 mg Q4H PRN Administration PAIN 6-10 Senna/Docusate Sodium 1 tab 03/20/18 09:00 03/21/18 08:34 Re-Colace PO Not Given BID [facility] Objective Remarks: GENERAL: Ill-appearing thin, elderly male patient, in no acute distress. SKIN: Pale, warm and dry. HEAD: Normocephalic. NG tube to right nare, intermittent suction. EYES: No scleral icterus. No injection or drainage. NECK: Supple, trachea midline. CARDIOVASCULAR: Regular rate and rhythm without murmurs. RESPIRATORY: Breath sounds equal bilaterally. No accessory muscle use. GASTROINTESTINAL: Abdomen soft, non-tender, nondistended. EXTREMITIES: No cyanosis, or edema. MUSCULOSKELETAL: Decreased muscle tone. NEUROLOGICAL: No obvious focal deficit. Awake, alert, and oriented x3. PSYCHIATRIC: Appropriate mood and affect; insight and judgment normal. Assessment/Plan - Plan Mr. 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 He had a proximal colon surgery resection at this facility. He was evaluated by [facility] cancer Center and advised observation due to frailty and other comorbid conditions. He was seen at [facility] on 01/28/2018 and his blood work indicated recurrent malignancy. Per the patient, they recommended no further treatment and for him to reestablish with local providers for supportive care so that he did not have to drive to [place]. The patient has followed up with his primary care physician and he states that they have discussed hospice when he is ready. He is currently hospitalized for small bowel obstruction. 1. 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 CEA is elevated at 537. The patient declines further workup or treatment in regards to cancer recurrence. 2. Small bowel obstruction, currently with NG tube to intermittent suction. Management per attending/surgery. 3. After long discussion with the patient and his , the patient declines further workup and/or treatment of suspected metastasis. From an oncology standpoint we would recommend palliative care, he may be discharged home once medically stable. He will follow-up with his primary care, who has been following the patient and has offered hospice referral to the patient once he is ready. Oncology will sign off at this time, we appreciate the consult, kindly call if needed.
--- NOTE | 2018-03-21 13:38 | P.PN ---
Subjective Interval history: Follow-up for partial SBO, suspected metastatic colon cancer. Patient reports feeling better today. He reports much less abdominal pain, just feels sore. Denies any nausea, still has NG tube in place with total of 200 cc brown frothy output. He denies any bowel movement, however passing flatus. He states he has not has not ate anything in a week. Denies fevers or chills. He would like the NG tube out. He also voiced his decision for comfort care regarding his cancer. He has no other medical complaints at this time. Physical Exam Vital signs: Vital Signs 03/20/18 15:35 03/20/18 20:00 03/20/18 23:28 Temperature 97.8 F 97.5 F L 97.3 F L Pulse Rate 82 98 H 99 H Respiratory Rate 18 18 16 Blood Pressure 117/59 L 114/73 109/74 Pulse Oximetry 96 94 L 95 03/21/18 03:21 03/21/18 08:00 03/21/18 12:00 Temperature 97.6 F 97.6 F 97.7 F Pulse Rate 96 H 99 H 110 H Respiratory Rate 16 18 18 Blood Pressure 104/67 99/67 L 113/82 Pulse Oximetry 91 L 92 L 95 Intake & Output 03/20/18 03/21/18 03/21/18 18:59 06:59 18:59 Intake Total 924 / 924 1000 / 1000 1150 / 1150 Output Total 900 / 900 375 / 375 Balance 924 / 924 100 / 100 775 / 775 Weight 68.039 kg Intake: IV 924 / 924 1000 / 1000 1150 / 1150 NS Inj 1,000 ML @ 100 mls/hr IV 774 / 774 1000 / 1000 1000 / 1000 .CONT .Q10H [facility] Rx#:[id number] Levaquin 750 mg Premix Inj 150 150 / 150 150 / 150 ML @ 100 mls/hr IV.SIG Q24H [facility] Rx#:[id number] Oral 0 / 0 0 / 0 Output: Urine Amount (Catheter) 900 / 900 175 / 175 Indwelling Urethral Catheter 900 / 900 175 / 175 Gastric Drainage 200 / 200 Right Nare Nasogastric Tube 200 / 200 Other: Date of Last Bowel Movement 03/19/18 03/19/18 Weight On Admission 68.039 kg Narrative: GENERAL: Thin cachectic appearing pleasant male patient in NAD. SKIN: Warm and dry. No rash. HEENT: Normocephalic. Atraumatic. Pupils equal and round. Mucous membranes pink and moist. NG tube in place. CARDIOVASCULAR: Regular rate and rhythm. No murmur appreciated. RESPIRATORY: No accessory muscle use. Clear to auscultation. Breath sounds equal bilaterally. GASTROINTESTINAL: Abdomen soft, non-tender, nondistended. Normoactive bowel sounds x4. MUSCULOSKELETAL: No obvious deformities. Extremities without clubbing, cyanosis , or edema. NEUROLOGICAL: Awake and alert. No obvious cranial nerve deficits. Motor grossly within normal limits. Moving all extremities spontaneously. Normal speech. PSYCHIATRIC: Appropriate mood and affect; insight and judgment normal. - Urinary Catheter Management Indwelling Urethral Catheter Cath placed during this visit: yes Urethral indwelling: Yes Reason for continuing: Acute urinary retention Insertion date: 03/20/18 Insertion time: 03:51 Results - Labs CBC & Chem 7: 03/21/18 10:10 03/21/18 10:10 Laboratory Results - last 24 hr 03/20/18 03/20/18 03/21/18 01:55 15:05 10:10 WBC 6.8 RBC 4.32 L Hgb 13.5 D Hct 42.7 MCV 99.0 D MCH 31.2 MCHC 31.5 L RDW 15.1 Plt Count 175 D MPV 8.9 Neut % (Auto) 81.2 H Lymph % (Auto) 8.1 L [place] % (Auto) 9.1 H Eos % (Auto) 1.2 Baso % (Auto) 0.4 Neut # (Auto) 5.5 Lymph # (Auto) 0.6 L [place] # (Auto) 0.6 Eos # (Auto) 0.1 Baso # (Auto) 0.0 WBC Differential . Differential Comment Auto diff final Sodium Potassium Chloride Carbon Dioxide Anion Gap BUN Creatinine Estimated GFR Random Glucose Calcium Total Bilirubin AST ALT Alkaline Phosphatase Total Protein Albumin Carcinoembryonic Ag 537.2 H Urine Color Anny Urine Clarity Cloudy H Urine pH 5.0 Ur Specific [place] 1.017 Urine Protein 30 H Urine Glucose (UA) Negative Urine Ketones Negative Urine Occult Blood Small H Urine Nitrate Positive H Urine Bilirubin Negative Urine Urobilinogen Less than 2 Ur Leukocyte Esterase Large H Urine RBC 2 Urine WBC Urine WBC Clumps Few H Ur Squamous Epith Cells 1 Amorphous Sediment Rare H Urine Bacteria Many H Urine Mucus Few H Micro UA Comment Culture indicated Urine Culture Comments Culture indicated 03/21/18 10:10 WBC RBC Hgb Hct MCV MCH MCHC RDW Plt Count MPV Neut % (Auto) Lymph % (Auto) [place] % (Auto) Eos % (Auto) Baso % (Auto) Neut # (Auto) Lymph # (Auto) [place] # (Auto) Eos # (Auto) Baso # (Auto) WBC Differential Differential Comment Sodium 140 Potassium 4.9 Chloride 110 H D Carbon Dioxide 22.5 Anion Gap 8 BUN 18 Creatinine 0.92 Estimated GFR 79 L Random Glucose 78 Calcium 7.8 L D Total Bilirubin 0.6 AST 33 ALT 15 Alkaline Phosphatase 129 H Total Protein 5.8 L D Albumin 1.9 L D Carcinoembryonic Ag 487.4 H Urine Color Urine Clarity Urine pH Ur Specific [place] Urine Protein Urine Glucose (UA) Urine Ketones Urine Occult Blood Urine Nitrate Urine Bilirubin Urine Urobilinogen Ur Leukocyte Esterase Urine RBC Urine WBC Urine WBC Clumps Ur Squamous Epith Cells Amorphous Sediment Urine Bacteria Urine Mucus Micro UA Comment Urine Culture Comments Microbiology 03/20/18 01:55 Clean Catch Urine Urine Culture - Preliminary gram negative rods 03/20/18 02:55 Blood - Peripheral Aerobic Blood Culture - Preliminary No growth in 1 day 03/20/18 02:55 Blood - Peripheral Anaerobic Blood Culture - Preliminary No growth in 1 day 03/20/18 03:00 Blood - Peripheral Aerobic Blood Culture - Preliminary No growth in 1 day 03/20/18 03:00 Blood - Peripheral Anaerobic Blood Culture - Preliminary No growth in 1 day - Imaging Abdomen/Pelvis CT 03/20/18 00:20 CONCLUSION: 1. Diverticulosis without diverticulitis. 2. Multiple dilated loops of small bowel with wall thickening could be related to partial obstruction. 3. Large area of low-density in the right lobe of the liver of unsure etiology but cannot exclude underlying mass/metastatic disease as other low-density lesions are seen. No small pleural effusions and bibasilar densities. 4. Diverticulosis without diverticulitis. 5. Small bilateral pleural effusions and bibasilar consolidation. Assessment and Plan - Assessment (1) SBO (small bowel obstruction) Code(s): K56.609 - Unspecified intestinal obstruction, unspecified as to partial versus complete obstruction Status: Acute (2) UTI (urinary tract infection) Code(s): N39.0 - Urinary tract infection, site not specified Status: Acute (3) Failure of outpatient treatment Code(s): Z78.9 - Other specified health status Status: Acute (4) Liver mass Code(s): R16.0 - Hepatomegaly, not elsewhere classified Status: Acute - Plan 82-year-old male with a PMH of Bladder CA and Colon CA who presented to the ER w / c/o abdominal pain and diarrhea. SBO: h/o Partial SBO w/ laparoscopic lysis of adhesions by Dr. 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 -Now w/ recurrent Partial SBO on CT Abd/Pelvis, images reviewed. -NGT in place -NPO -Give IVF hydration -Reglan, analgesics/antiemetics as needed. -Consult Gen Sx, seen by Dr. Villar, appreciate assistance, NGT d/vita, advanced to clear liquid diet for dinner UTI: Pt straight caths at home. w/ Failed Outpatient Tx -U/a w/ significant UTI +leuks/nitrates/WBCs -Continue with IV Levaquin -monitor urine culture Liver Mass: CT Abd/Pelvis w/ large area of low density right lobe liver, possibly mass/metastatic disease, h/o Ileocecal CA s/p surgical intervention, seen by Dr. Good at that time, followed w/ MD Olivarez in [place], no chemo/radiation as pt states Oncologist thought it was too much for his heart. -Consult oncology in light of liver lesion for further recommendations. -The patient wishes to pursue comfort care only at this time. -No further work up/intervention from oncology standpoint. DVT Prophylaxis: SCD/Teds
--- NOTE | 2018-03-21 14:35 | P.PNGS ---
Subjective Patient reports: no new complaints, feels better, pain is less, flatus Physical Exam Vital signs: Vital Signs 03/20/18 15:35 03/20/18 20:00 03/20/18 23:28 Temperature 97.8 F 97.5 F L 97.3 F L Pulse Rate 82 98 H 99 H Respiratory Rate 18 18 16 Blood Pressure 117/59 L 114/73 109/74 Pulse Oximetry 96 94 L 95 03/21/18 03:21 03/21/18 08:00 03/21/18 12:00 Temperature 97.6 F 97.6 F 97.7 F Pulse Rate 96 H 99 H 110 H Respiratory Rate 16 18 18 Blood Pressure 104/67 99/67 L 113/82 Pulse Oximetry 91 L 92 L 95 03/21/18 14:14 Temperature 97.3 F L Pulse Rate 99 H Respiratory Rate 14 Blood Pressure 130/84 Pulse Oximetry 97 Intake & Output 03/20/18 03/21/18 03/21/18 18:59 06:59 18:59 Intake Total 924 / 924 1000 / 1000 1150 / 1150 Output Total 900 / 900 375 / 375 Balance 924 / 924 100 / 100 775 / 775 Weight 68.039 kg Intake: IV 924 / 924 1000 / 1000 1150 / 1150 NS Inj 1,000 ML @ 100 mls/hr IV 774 / 774 1000 / 1000 1000 / 1000 .CONT .Q10H [facility] Rx#:[id number] Levaquin 750 mg Premix Inj 150 150 / 150 150 / 150 ML @ 100 mls/hr IV.SIG Q24H [facility] Rx#:[id number] Oral 0 / 0 0 / 0 Output: Urine Amount (Catheter) 900 / 900 175 / 175 Indwelling Urethral Catheter 900 / 900 175 / 175 Gastric Drainage 200 / 200 Right Nare Nasogastric Tube 200 / 200 Other: Date of Last Bowel Movement 03/19/18 03/19/18 Weight On Admission 68.039 kg - Routine Abdominal Exam Present: soft (non distended, mild tender) - Urinary Catheter Management Indwelling Urethral Catheter Cath placed during this visit: yes Urethral indwelling: Yes Reason for continuing: Acute urinary retention Insertion date: 03/20/18 Insertion time: 03:51 Results - Labs 03/21/18 10:10 03/21/18 10:10 Laboratory Results - last 24 hr 03/20/18 03/20/18 03/21/18 01:55 15:05 10:10 WBC 6.8 RBC 4.32 L Hgb 13.5 D Hct 42.7 MCV 99.0 D MCH 31.2 MCHC 31.5 L RDW 15.1 Plt Count 175 D MPV 8.9 Neut % (Auto) 81.2 H Lymph % (Auto) 8.1 L [place] % (Auto) 9.1 H Eos % (Auto) 1.2 Baso % (Auto) 0.4 Neut # (Auto) 5.5 Lymph # (Auto) 0.6 L [place] # (Auto) 0.6 Eos # (Auto) 0.1 Baso # (Auto) 0.0 WBC Differential . Differential Comment Auto diff final Sodium Potassium Chloride Carbon Dioxide Anion Gap BUN Creatinine Estimated GFR Random Glucose Calcium Total Bilirubin AST ALT Alkaline Phosphatase Total Protein Albumin Carcinoembryonic Ag 537.2 H Urine Color Anny Urine Clarity Cloudy H Urine pH 5.0 Ur Specific [place] 1.017 Urine Protein 30 H Urine Glucose (UA) Negative Urine Ketones Negative Urine Occult Blood Small H Urine Nitrate Positive H Urine Bilirubin Negative Urine Urobilinogen Less than 2 Ur Leukocyte Esterase Large H Urine RBC 2 Urine WBC Urine WBC Clumps Few H Ur Squamous Epith Cells 1 Amorphous Sediment Rare H Urine Bacteria Many H Urine Mucus Few H Micro UA Comment Culture indicated Urine Culture Comments Culture indicated 03/21/18 10:10 WBC RBC Hgb Hct MCV MCH MCHC RDW Plt Count MPV Neut % (Auto) Lymph % (Auto) [place] % (Auto) Eos % (Auto) Baso % (Auto) Neut # (Auto) Lymph # (Auto) [place] # (Auto) Eos # (Auto) Baso # (Auto) WBC Differential Differential Comment Sodium 140 Potassium 4.9 Chloride 110 H D Carbon Dioxide 22.5 Anion Gap 8 BUN 18 Creatinine 0.92 Estimated GFR 79 L Random Glucose 78 Calcium 7.8 L D Total Bilirubin 0.6 AST 33 ALT 15 Alkaline Phosphatase 129 H Total Protein 5.8 L D Albumin 1.9 L D Carcinoembryonic Ag 487.4 H Urine Color Urine Clarity Urine pH Ur Specific [place] Urine Protein Urine Glucose (UA) Urine Ketones Urine Occult Blood Urine Nitrate Urine Bilirubin Urine Urobilinogen Ur Leukocyte Esterase Urine RBC Urine WBC Urine WBC Clumps Ur Squamous Epith Cells Amorphous Sediment Urine Bacteria Urine Mucus Micro UA Comment Urine Culture Comments - Imaging Imaging: ITS Impressions Abdomen/Pelvis CT 03/20/18 00:20 CONCLUSION: 1. Diverticulosis without diverticulitis. 2. Multiple dilated loops of small bowel with wall thickening could be related to partial obstruction. 3. Large area of low-density in the right lobe of the liver of unsure etiology but cannot exclude underlying mass/metastatic disease as other low-density lesions are seen. No small pleural effusions and bibasilar densities. 4. Diverticulosis without diverticulitis. 5. Small bilateral pleural effusions and bibasilar consolidation. Assessment and Plan - Plan Psbo, concern for metastatic colon ca PLAN D/C ng tube clear diet oob heme and onc following elevated CEA- pt requesting comfort measures will follow
--- NOTE | 2018-03-21 21:52 | P.PN ---
Subjective Interval history: NOT SEEN Physical Exam Vital signs: Vital Signs 03/20/18 23:28 03/21/18 03:21 03/21/18 08:00 Temperature 97.3 F L 97.6 F 97.6 F Pulse Rate 99 H 96 H 99 H Respiratory Rate 16 16 18 Blood Pressure 109/74 104/67 99/67 L Pulse Oximetry 95 91 L 92 L 03/21/18 12:00 03/21/18 14:14 03/21/18 20:00 Temperature 97.7 F 97.3 F L 97.7 F Pulse Rate 110 H 99 H 75 Respiratory Rate 18 14 17 Blood Pressure 113/82 130/84 125/69 Pulse Oximetry 95 97 94 L Intake & Output 03/21/18 03/21/18 03/22/18 06:59 18:59 06:59 Intake Total 1000 / 1000 2150 / 2150 Output Total 900 / 900 375 / 375 Balance 100 / 100 1775 / 1775 Weight 68.039 kg 68.039 kg Intake: IV 1000 / 1000 2150 / 2150 NS Inj 1,000 ML @ 100 mls/hr IV 1000 / 1000 2000 / 2000 .CONT .Q10H [facility] Rx#:[id number] Levaquin 750 mg Premix Inj 150 150 / 150 ML @ 100 mls/hr IV.SIG Q24H [facility] Rx#:[id number] Oral 0 / 0 0 / 0 Output: Urine Amount (Catheter) 900 / 900 175 / 175 Indwelling Urethral Catheter 900 / 900 175 / 175 Gastric Drainage 200 / 200 Right Nare Nasogastric Tube 200 / 200 Other: Date of Last Bowel Movement 03/19/18 Weight On Admission 68.039 kg Narrative: GENERAL: Thin cachectic appearing pleasant male patient in NAD. SKIN: Warm and dry. No rash. HEENT: Normocephalic. Atraumatic. Pupils equal and round. Mucous membranes pink and moist. NG tube in place. CARDIOVASCULAR: Regular rate and rhythm. No murmur appreciated. RESPIRATORY: No accessory muscle use. Clear to auscultation. Breath sounds equal bilaterally. GASTROINTESTINAL: Abdomen soft, non-tender, nondistended. Normoactive bowel sounds x4. MUSCULOSKELETAL: No obvious deformities. Extremities without clubbing, cyanosis , or edema. NEUROLOGICAL: Awake and alert. No obvious cranial nerve deficits. Motor grossly within normal limits. Moving all extremities spontaneously. Normal speech. PSYCHIATRIC: Appropriate mood and affect; insight and judgment normal. - Urinary Catheter Management Indwelling Urethral Catheter Cath placed during this visit: yes Urethral indwelling: Yes Reason for continuing: Chronic Urinary Retention Insertion date: 03/20/18 Insertion time: 03:51 Results - Labs CBC & Chem 7: 03/21/18 10:10 03/21/18 10:10 Laboratory Results - last 24 hr 03/20/18 03/21/18 03/21/18 01:55 10:10 10:10 WBC 6.8 RBC 4.32 L Hgb 13.5 D Hct 42.7 MCV 99.0 D MCH 31.2 MCHC 31.5 L RDW 15.1 Plt Count 175 D MPV 8.9 Neut % (Auto) 81.2 H Lymph % (Auto) 8.1 L [place] % (Auto) 9.1 H Eos % (Auto) 1.2 Baso % (Auto) 0.4 Neut # (Auto) 5.5 Lymph # (Auto) 0.6 L [place] # (Auto) 0.6 Eos # (Auto) 0.1 Baso # (Auto) 0.0 WBC Differential . Differential Comment Auto diff final Sodium 140 Potassium 4.9 Chloride 110 H D Carbon Dioxide 22.5 Anion Gap 8 BUN 18 Creatinine 0.92 Estimated GFR 79 L Random Glucose 78 Calcium 7.8 L D Total Bilirubin 0.6 AST 33 ALT 15 Alkaline Phosphatase 129 H Total Protein 5.8 L D Albumin 1.9 L D Carcinoembryonic Ag 487.4 H Urine Color Anny Urine Clarity Cloudy H Urine pH 5.0 Ur Specific [place] 1.017 Urine Protein 30 H Urine Glucose (UA) Negative Urine Ketones Negative Urine Occult Blood Small H Urine Nitrate Positive H Urine Bilirubin Negative Urine Urobilinogen Less than 2 Ur Leukocyte Esterase Large H Urine RBC 2 Urine WBC Urine WBC Clumps Few H Ur Squamous Epith Cells 1 Amorphous Sediment Rare H Urine Bacteria Many H Urine Mucus Few H Micro UA Comment Culture indicated Urine Culture Comments Culture indicated Microbiology 03/20/18 01:55 Clean Catch Urine Urine Culture - Preliminary gram negative rods 03/20/18 02:55 Blood - Peripheral Aerobic Blood Culture - Preliminary No growth in 1 day 03/20/18 02:55 Blood - Peripheral Anaerobic Blood Culture - Preliminary No growth in 1 day 03/20/18 03:00 Blood - Peripheral Aerobic Blood Culture - Preliminary No growth in 1 day 03/20/18 03:00 Blood - Peripheral Anaerobic Blood Culture - Preliminary No growth in 1 day - Imaging ITS Impressions Abdomen/Pelvis CT 03/20/18 00:20 CONCLUSION: 1. Diverticulosis without diverticulitis. 2. Multiple dilated loops of small bowel with wall thickening could be related to partial obstruction. 3. Large area of low-density in the right lobe of the liver of unsure etiology but cannot exclude underlying mass/metastatic disease as other low-density lesions are seen. No small pleural effusions and bibasilar densities. 4. Diverticulosis without diverticulitis. 5. Small bilateral pleural effusions and bibasilar consolidation. Assessment and Plan - Assessment (1) SBO (small bowel obstruction) Code(s): K56.609 - Unspecified intestinal obstruction, unspecified as to partial versus complete obstruction Status: Acute (2) UTI (urinary tract infection) Code(s): N39.0 - Urinary tract infection, site not specified Status: Acute (3) Failure of outpatient treatment Code(s): Z78.9 - Other specified health status Status: Acute (4) Liver mass Code(s): R16.0 - Hepatomegaly, not elsewhere classified Status: Acute - Plan 82-year-old male with a PMH of Bladder CA and Colon CA who presented to the ER w / c/o abdominal pain and diarrhea. SBO: h/o Partial SBO w/ laparoscopic lysis of adhesions by Dr. 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 -Now w/ recurrent Partial SBO on CT Abd/Pelvis, images reviewed. -NGT in place -NPO -Give IVF hydration -Reglan, analgesics/antiemetics as needed. -Consult Gen Sx, seen by Dr. Villar, appreciate assistance, NGT d/vita, advanced to clear liquid diet for dinner UTI: Pt straight caths at home. w/ Failed Outpatient Tx -U/a w/ significant UTI +leuks/nitrates/WBCs -Continue with IV Levaquin -monitor urine culture Liver Mass: CT Abd/Pelvis w/ large area of low density right lobe liver, possibly mass/metastatic disease, h/o Ileocecal CA s/p surgical intervention, seen by Dr. Good at that time, followed w/ MD Olivarez in [place], no chemo/radiation as pt states Oncologist thought it was too much for his heart. -Consult oncology in light of liver lesion for further recommendations. -The patient wishes to pursue comfort care only at this time. PCP has discussed hospice with pt. Consult Palliative consult -No further work up/intervention from oncology standpoint. DVT Prophylaxis: SCD/Teds
[2018-03-22] MEDS: Morphine Inj 4 MG/ML Vial IV.PUSH PRN (06:21)
[2018-03-22] MEDS: Sod Chloride 0.9% Inj 1,000 ML IV.CONT SCH (07:19)
--- NOTE | 2018-03-22 10:02 | P.PN ---
Subjective Interval history: Follow-up SBO. Tolerating liquid diet. Passing gas but no BM. He prefers to keep Alva catheter he does self straight cath at home. He also agrees to palliative care consultation Physical Exam Vital signs: Vital Signs 03/21/18 12:00 03/21/18 14:14 03/21/18 20:00 Temperature 97.7 F 97.3 F L 97.7 F Pulse Rate 110 H 99 H 75 Respiratory Rate 18 14 17 Blood Pressure 113/82 130/84 125/69 Pulse Oximetry 95 97 94 L 03/22/18 00:00 03/22/18 04:00 03/22/18 08:00 Temperature 98.1 F 98.3 F 97.8 F Pulse Rate 92 H 84 62 Respiratory Rate 17 17 14 Blood Pressure 105/73 102/75 85/52 L Pulse Oximetry 96 95 93 L Intake & Output 03/21/18 03/22/18 03/22/18 18:59 06:59 18:59 Intake Total 2150 / 2150 250 / 250 Output Total 375 / 375 550 / 550 Balance 1775 / 1775 -550 / -550 250 / 250 Weight 68.039 kg 70.2 kg Intake: IV 2150 / 2150 250 / 250 NS Inj 1,000 ML @ 100 mls/hr IV 2000 / 2000 250 / 250 .CONT .Q10H [facility] Rx#:[id number] Levaquin 750 mg Premix Inj 150 150 / 150 ML @ 100 mls/hr IV.SIG Q24H [facility] Rx#:[id number] Oral 0 / 0 Output: Urine Amount (Catheter) 175 / 175 550 / 550 Indwelling Urethral Catheter 175 / 175 550 / 550 Gastric Drainage 200 / 200 Right Nare Nasogastric Tube 200 / 200 Other: Date of Last Bowel Movement 03/19/18 03/14/18 Narrative: GENERAL: Thin cachectic appearing pleasant male patient in [facility]. SKIN: Warm and dry. No rash. CARDIOVASCULAR: Regular rate and rhythm. No murmur appreciated. RESPIRATORY: No accessory muscle use. Clear to auscultation. Breath sounds equal bilaterally. GASTROINTESTINAL: Abdomen soft, non-tender, nondistended. Normoactive bowel sounds x4. MUSCULOSKELETAL: No obvious deformities. Extremities without clubbing, cyanosis , or edema. NEUROLOGICAL: Awake and alert. No obvious cranial nerve deficits. Motor grossly within normal limits. Moving all extremities spontaneously. Normal speech. - Urinary Catheter Management Indwelling Urethral Catheter Cath placed during this visit: yes Urethral indwelling: Yes Reason for continuing: Chronic Urinary Retention Insertion date: 03/20/18 Insertion time: 03:51 Results - Labs CBC & Chem 7: 03/21/18 10:10 03/21/18 10:10 Laboratory Results - last 24 hr 03/20/18 03/21/18 03/21/18 01:55 10:10 10:10 WBC 6.8 RBC 4.32 L Hgb 13.5 D Hct 42.7 MCV 99.0 D MCH 31.2 MCHC 31.5 L RDW 15.1 Plt Count 175 D MPV 8.9 Neut % (Auto) 81.2 H Lymph % (Auto) 8.1 L Stark % (Auto) 9.1 H Eos % (Auto) 1.2 Baso % (Auto) 0.4 Neut # (Auto) 5.5 Lymph # (Auto) 0.6 L Stark # (Auto) 0.6 Eos # (Auto) 0.1 Baso # (Auto) 0.0 WBC Differential . Differential Comment Auto diff final Sodium 140 Potassium 4.9 Chloride 110 H D Carbon Dioxide 22.5 Anion Gap 8 BUN 18 Creatinine 0.92 Estimated GFR 79 L Random Glucose 78 Calcium 7.8 L D Total Bilirubin 0.6 AST 33 ALT 15 Alkaline Phosphatase 129 H Total Protein 5.8 L D Albumin 1.9 L D Carcinoembryonic Ag 487.4 H Urine Color Anny Urine Clarity Cloudy H Urine pH 5.0 Ur Specific [place] 1.017 Urine Protein 30 H Urine Glucose (UA) Negative Urine Ketones Negative Urine Occult Blood Small H Urine Nitrate Positive H Urine Bilirubin Negative Urine Urobilinogen Less than 2 Ur Leukocyte Esterase Large H Urine RBC 2 Urine WBC Urine WBC Clumps Few H Ur Squamous Epith Cells 1 Amorphous Sediment Rare H Urine Bacteria Many H Urine Mucus Few H Micro UA Comment Culture indicated Urine Culture Comments Culture indicated Microbiology 03/20/18 01:55 Clean Catch Urine Urine Culture - Preliminary gram negative rods 03/20/18 02:55 Blood - Peripheral Aerobic Blood Culture - Preliminary No growth in 1 day 03/20/18 02:55 Blood - Peripheral Anaerobic Blood Culture - Preliminary No growth in 1 day 03/20/18 03:00 Blood - Peripheral Aerobic Blood Culture - Preliminary No growth in 1 day 03/20/18 03:00 Blood - Peripheral Anaerobic Blood Culture - Preliminary No growth in 1 day - Imaging ITS Impressions Abdomen/Pelvis CT 03/20/18 00:20 CONCLUSION: 1. Diverticulosis without diverticulitis. 2. Multiple dilated loops of small bowel with wall thickening could be related to partial obstruction. 3. Large area of low-density in the right lobe of the liver of unsure etiology but cannot exclude underlying mass/metastatic disease as other low-density lesions are seen. No small pleural effusions and bibasilar densities. 4. Diverticulosis without diverticulitis. 5. Small bilateral pleural effusions and bibasilar consolidation. - Procedures ITS Impressions Abdomen/Pelvis CT 03/20/18 00:20 CONCLUSION: 1. Diverticulosis without diverticulitis. 2. Multiple dilated loops of small bowel with wall thickening could be related to partial obstruction. 3. Large area of low-density in the right lobe of the liver of unsure etiology but cannot exclude underlying mass/metastatic disease as other low-density lesions are seen. No small pleural effusions and bibasilar densities. 4. Diverticulosis without diverticulitis. 5. Small bilateral pleural effusions and bibasilar consolidation. Assessment and Plan - Assessment (1) SBO (small bowel obstruction) Code(s): K56.609 - Unspecified intestinal obstruction, unspecified as to partial versus complete obstruction Status: Acute (2) UTI (urinary tract infection) Code(s): N39.0 - Urinary tract infection, site not specified Status: Acute (3) Failure of outpatient treatment Code(s): Z78.9 - Other specified health status Status: Acute (4) Liver mass Code(s): R16.0 - Hepatomegaly, not elsewhere classified Status: Acute - Plan 82-year-old male with a PMH of Bladder CA and Colon CA who presented to the ER w / c/o abdominal pain and diarrhea. SBO: h/o Partial SBO w/ laparoscopic lysis of adhesions by Dr. 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 -Now w/ recurrent Partial SBO on CT Abd/Pelvis, images reviewed. -Clears -Give IVF hydration -Reglan, analgesics/antiemetics as needed. -Consult Gen Sx, seen by Dr. Villar, appreciate assistance, NGT d/vita, continue clear liquid diet advance as tolerated Complicated UTI: Pt straight caths at home. w/ Failed Outpatient Tx -U/a w/ significant UTI +leuks/nitrates/WBCs -Continue with IV Levaquin -monitor urine culture growing gram-negative mago Liver Mass: CT Abd/Pelvis w/ large area of low density right lobe liver, possibly mass/metastatic disease, h/o Ileocecal CA s/p surgical intervention, seen by Dr. Good at that time, followed w/ MD Olivarez in [place], no chemo/radiation as pt states Oncologist thought it was too much for his heart. -Consult oncology in light of liver lesion for further recommendations. Suspected metastasis with elevated tumor marker -The patient wishes to pursue comfort care only at this time. PCP has discussed hospice with pt. Consult Palliative consult -No further work up/intervention from oncology standpoint. DVT Prophylaxis: SCD/Teds Discharge Planning: Per general surgery
[2018-03-22] MEDS: Senna/Docusate Sodium 8.6/50 MG Tablet PO SCH ×2 (10:15→21:07)
[2018-03-22] MEDS: Digoxin 125 MCG Tablet PO SCH (15:06)
--- NOTE | 2018-03-22 15:45 | P.CONPAL ---
Consult Service: Palliative Care Requesting Physician: Torito Frausto Reason for Consult: a. To assist with evaluation and management of symptoms including: Pain, diarrhea b. To assist medical decision maker(s) with: better understanding of current medical conditions; weighing benefits/burdens of medical treatment options; making medical treatment decisions. 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 Dr. Good evaluated and recommended consideration for adjuvant systemic chemotherapy however the patient and his significant other elected to travel to [place] and obtain treatment at [facility]. The patient was advised observation only by that oncologist due to his poor performance status. They were last seen in [place] 01/28/18 where he underwent blood work indicating recurrent malignancy. At that time a palliative course of therapy was advised with follow -up with local providers. The patient continued to have progressive symptoms of abdominal pain, loss of appetite, weakness and weight loss over the prior few weeks. He had been prescribed antibiotics by his PCP causing intractable diarrhea and he subsequently came to [place] [facility] for further evaluation and treatment. He reported his abdominal pain is intermittent, mid abdomen, severe , crampy without exacerbating or relieving. His appetite had been progressively worsening increasing his weakness and weight loss, more pronounced over the prior few weeks. Diagnostic data on admission: * WBC 10.6, hemoglobin 15.7, hematocrit 44.5, platelets 272, sodium 137, potassium 4.8, BUN 23, creatinine 1.29, total bilirubin 1.1, AST 50, ALT 27, alkaline phosphatase 206, lipase 120. Urinalysis showed a cloudy robina specimen with a pH of 5.0, specific gravity 1.017, protein 30, occult blood small, nitrate positive, leukocyte esterase large, bacteria many. * CT of abdomen and pelvis shows diverticulosis without diverticulitis, multiple dilated loops of small bowel with wall thickening, could be related to partial obstruction, large area of low density in the right lobe of the liver of unsure etiology, but cannot exclude underlying mass/metastatic disease as other low-density lesions are seen, small pleural effusions and bibasilar densities. After discussion the patient is refusing any further workup or treatment in regards to his cancer recurrence. His CEA was elevated at 537. He continues to have a small bowel obstruction currently being treated with an NG tube to intermittent suction. He has spoken with his primary care regarding hospice in the past and received a consultation from Kathleen but has made no decisions at this time. The patient also has a long-term care policy providing long-term home health care from his old employer [employer]. Palliative care has been consulted to assist in symptom management and goals of medical treatment. Past medical history Bladder cancer Neurogenic bladder status post tumor resection Stage III colon cancer Mitral and aortic regurgitation Atrial fibrillation Hypertension Past surgical history Cystoscopy Partial cystectomy Diagnostic laparoscopy Laparoscopic ileocecectomy Social history Quit smoking many years ago No history of alcohol, prescription or IV drug abuse. Family history Parents , no history of cancer. . Function/Cognitive Trajectory: Cognitively, he remains sharp but does have progressive weakness and weight loss as a result of poor appetite, abdominal pain and nausea. He required a minimal x1 assist to return from chair to bed. . Review of Systems Constitutional: Reports anorexia, Reports weakness, Reports weight loss Gastrointestinal: Reports loose stools PMFSH - History History Provided By: Patient - Medical History Medical History: Medical History (Last Updated 03/20/18 @ 13:58 by Roger Gutierrez MD) Adenocarcinoma of ileocecal valve Adult failure to thrive Aortic valve regurgitation Atrial fibrillation Bladder infection 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 Hypertension Mitral valve regurgitation - Surgical History Surgical History: Surgical History (Last Updated 03/20/18 @ 13:58 by Roger Gutierrez MD) H/O exploratory laparotomy History of cystoscopy - Tobacco History Second Hand Smoke Exposure: No Tobacco Use In Past 30 Days: No Smoking Status: Former smoker - Alcohol History How Often Do You Have a Drink Containing Alcohol: Never - Substance Use History Substance History: No History of Abuse - Travel History Recent Travel in the [place] Within the Last 8 Weeks: No Recent Travel Out of the Country Within the Last 8 Weeks: No - Immunization History Tetanus Immunization: Unsure Hx Influenza Vaccine This Season: Yes Medications and Allergies Active Medications: Active Medications Al Hydroxide/Mg Hydroxide (Milk Of Teressa Liq) 30 ml PO Q12H PRN PRN Reason: Mild Constipation Bisacodyl (Dulcolax Supp) 10 mg RECTAL DAILY PRN PRN Reason: SEVERE CONSITIPATION Digoxin (Lanoxin) 125 mcg PO DAILY SUMAN Last Admin: 03/22/18 15:06 Dose: 125 mcg Levofloxacin/Dextrose (Levaquin 750 Mg Premix Inj) 150 mls @ 100 mls/hr IV.SIG Q24H FOR[facility]LY [facility], [facility]–1983 Last Admin: 03/22/18 10:14 Dose: 100 mls/hr Sodium Chloride (Ns Inj) 1,000 mls @ 100 mls/hr IV.CONT .Q10H FOR[facility]LY [facility], [facility]1983 Last Infusion: 03/22/18 07:19 Dose: 100 mls/hr Lactulose (Lactulose Liq) 30 ml PO DAILY PRN PRN Reason: SEVERE CONSITIPATION Metoclopramide HCl (Reglan Inj) 10 mg IV.PUSH Q8HR FOR[facility]LY [facility], [facility]1983; Protocol Last Admin: 03/22/18 15:06 Dose: 10 mg Morphine Sulfate (Morphine Inj) 2 mg IV.PUSH Q4H PRN PRN Reason: PAIN 6-10 Last Admin: 03/22/18 06:21 Dose: 2 mg Ondansetron HCl (Zofran Inj) 4 mg IV.PUSH Q6H PRN PRN Reason: NAUSEA OR VOMITING Pantoprazole Sodium (Protonix) 40 mg PO DAILY [facility], [facility]1983 Last Admin: 03/22/18 15:06 Dose: 40 mg Senna/Docusate Sodium (Re-Colace) 1 tab PO BID [facility], [facility]1983 Last Admin: 03/22/18 10:15 Dose: 1 tab Sennosides (Senokot) 17.2 mg PO Q12H PRN PRN Reason: Moderate Constipation Sodium Chloride (Ns Flush) 2 ml IV.FLUSH PRN PRN PRN Reason: FLUSH AFTER USING IV ACCESS Allergies Allergy/AdvReac Type Severity Reaction Status Date / Time iohexol Allergy Severe Anaphylaxis Verified 03/19/18 23:18 Penicillins Allergy Severe Anaphylaxis Verified 03/19/18 23:18 Home Medications Medication Instructions Recorded Confirmed Type aspirin 325 mg PO DAILY 03/19/18 03/19/18 History calcium carbonate [Calcium 500] 500 mg PO DAILY 03/19/18 03/19/18 History digoxin 0.125 mcg PO DAILY 03/19/18 03/19/18 History enalapril maleate 5 mg PO DAILY 03/19/18 03/19/18 History furosemide 20 mg PO DAILY 03/19/18 03/19/18 History metoprolol tartrate 12.5 mg PO DAILY 03/19/18 03/19/18 History pantoprazole 40 mg PO DAILY 03/19/18 03/19/18 History Advance Directives Living Will: No Healthcare Surrogate: Yes (Form not available at this time confirmed by patient and SO) Health Care Surrogate Name and Number: Nel Curtis Physical Exam Vital Signs: Vital Signs - 24 hr 03/21/18 20:00 03/22/18 00:00 03/22/18 04:00 Temperature 97.7 F 98.1 F 98.3 F Pulse Rate 75 92 H 84 Respiratory Rate 17 17 17 Blood Pressure 125/69 105/73 102/75 Pulse Oximetry 94 L 96 95 03/22/18 08:00 03/22/18 12:00 Temperature 97.8 F 97.4 F L Pulse Rate 62 94 H Respiratory Rate 14 16 Blood Pressure 85/52 L 106/60 Pulse Oximetry 93 L 95 I&O: Intake & Output 03/20/18 03/21/18 03/22/18 03/23/18 06:59 06:59 06:59 06:59 Intake Total 1100 / 1100 1924 / 1924 2150 / 2150 250 / 250 Output Total 900 / 900 925 / 925 Balance 1100 / 1100 1024 / 1024 1225 / 1225 250 / 250 Weight 150 lb 150 lb 154 lb 12.232 oz Physical Exam: CONSTITUTIONAL/GENERAL: This is a thin, elderly, male patient, in no apparent distress. TUBES/LINES/DRAINS: PIV SKIN: No jaundice, rashes, or lesions. Ecchymoses on upper extremities. No wounds seen anteriorly. Skin temperature appropriate. Not diaphoretic. HEAD: Atraumatic. Normocephalic. EYES: Pupils equal and round and reactive. Extraocular motions intact. No scleral icterus. No injection or drainage. Fundi not examined. ENT: Hearing grossly normal. Nose without bleeding or purulent drainage. Throat without visible erythema, exudates, masses, or lesions. NECK: Trachea midline. Supple, nontender. No palpable thyroid enlargement or nodularity. CARDIOVASCULAR: Regular rate and rhythm 2/6 systolic ejection murmur, no gallops , or rubs. No JVD. Peripheral pulses symmetric. RESPIRATORY/CHEST: Symmetric, unlabored respirations. Clear to auscultation. Breath sounds equal bilaterally. No wheezes, rales, or rhonchi. GASTROINTESTINAL: Abdomen soft, mildly tender, nondistended. No hepato- splenomegaly, or palpable masses. No guarding. Bowel sounds present. GENITOURINARY: Without palpable bladder distension. Alva catheter in place. MUSCULOSKELETAL: Extremities without clubbing, cyanosis, or edema. No joint tenderness or effusion noted. No calf tenderness. No mottling or clubbing. LYMPHATICS: No palpable cervical or supraclavicular adenopathy. NEUROLOGICAL: Awake and alert. Generalized weakness. Follows commands. Cognitively sharp. Moves all extremities. PSYCHIATRIC: No obvious anxiety/depression. no apparent hallucinations or other psychotic thought process. . Diagnostic Tests Laboratory: Laboratory Results - last 72 hr 03/20/18 03/20/18 03/20/18 00:40 00:40 01:55 WBC 10.6 RBC 4.72 Hgb 15.7 Hct 44.5 MCV 94.3 MCH 33.4 MCHC 35.4 RDW 14.8 Plt Count 272 MPV 9.0 Neut % (Auto) 80.4 H Lymph % (Auto) 9.0 Lander % (Auto) 9.6 H Eos % (Auto) 0.5 Baso % (Auto) 0.5 Neut # (Auto) 8.5 H Lymph # (Auto) 1.0 Lander # (Auto) 1.0 H Eos # (Auto) 0.1 Baso # (Auto) 0.0 WBC Differential . Differential Comment Auto diff final Sodium 137 Potassium 4.8 Chloride 101 Carbon Dioxide 29.5 Anion Gap 7 BUN 23 H Creatinine 1.29 Estimated GFR 53 L Random Glucose 129 H Lactic Acid Calcium 8.6 Magnesium 2.3 Total Bilirubin 1.1 H AST 50 H ALT 27 Alkaline Phosphatase 206 H Total Protein 7.5 Albumin 2.8 L Lipase 120 Carcinoembryonic Ag Urine Color Robina Urine Clarity Cloudy H Urine pH 5.0 Ur Specific [place] 1.017 Urine Protein 30 H Urine Glucose (UA) Negative Urine Ketones Negative Urine Occult Blood Small H Urine Nitrate Positive H Urine Bilirubin Negative Urine Urobilinogen Less than 2 Ur Leukocyte Esterase Large H Urine RBC 2 Urine WBC Urine WBC Clumps Few H Ur Squamous Epith Cells 1 Amorphous Sediment Rare H Urine Bacteria Many H Urine Mucus Few H Micro UA Comment Culture indicated Ur Microscopic Review Not Reportable Urine Culture Comments Culture indicated 03/20/18 03/20/18 03/21/18 03:00 15:05 10:10 WBC 6.8 RBC 4.32 L Hgb 13.5 D Hct 42.7 MCV 99.0 D MCH 31.2 MCHC 31.5 L RDW 15.1 Plt Count 175 D MPV 8.9 Neut % (Auto) 81.2 H Lymph % (Auto) 8.1 L Lander % (Auto) 9.1 H Eos % (Auto) 1.2 Baso % (Auto) 0.4 Neut # (Auto) 5.5 Lymph # (Auto) 0.6 L Lander # (Auto) 0.6 Eos # (Auto) 0.1 Baso # (Auto) 0.0 WBC Differential . Differential Comment Auto diff final Sodium Potassium Chloride Carbon Dioxide Anion Gap BUN Creatinine Estimated GFR Random Glucose Lactic Acid 1.5 Calcium Magnesium Total Bilirubin AST ALT Alkaline Phosphatase Total Protein Albumin Lipase Carcinoembryonic Ag 537.2 H Urine Color Urine Clarity Urine pH Ur Specific [place] Urine Protein Urine Glucose (UA) Urine Ketones Urine Occult Blood Urine Nitrate Urine Bilirubin Urine Urobilinogen Ur Leukocyte Esterase Urine RBC Urine WBC Urine WBC Clumps Ur Squamous Epith Cells Amorphous Sediment Urine Bacteria Urine Mucus Micro UA Comment Ur Microscopic Review Urine Culture Comments 03/21/18 10:10 WBC RBC Hgb Hct MCV MCH MCHC RDW Plt Count MPV Neut % (Auto) Lymph % (Auto) Lander % (Auto) Eos % (Auto) Baso % (Auto) Neut # (Auto) Lymph # (Auto) Lander # (Auto) Eos # (Auto) Baso # (Auto) WBC Differential Differential Comment Sodium 140 Potassium 4.9 Chloride 110 H D Carbon Dioxide 22.5 Anion Gap 8 BUN 18 Creatinine 0.92 Estimated GFR 79 L Random Glucose 78 Lactic Acid Calcium 7.8 L D Magnesium Total Bilirubin 0.6 AST 33 ALT 15 Alkaline Phosphatase 129 H Total Protein 5.8 L D Albumin 1.9 L D Lipase Carcinoembryonic Ag 487.4 H Urine Color Urine Clarity Urine pH Ur Specific [place] Urine Protein Urine Glucose (UA) Urine Ketones Urine Occult Blood Urine Nitrate Urine Bilirubin Urine Urobilinogen Ur Leukocyte Esterase Urine RBC Urine WBC Urine WBC Clumps Ur Squamous Epith Cells Amorphous Sediment Urine Bacteria Urine Mucus Micro UA Comment Ur Microscopic Review Urine Culture Comments Result Diagrams: 03/21/18 10:10 03/21/18 10:10 Microbiology: Microbiology 03/20/18 02:55 Aerobic Blood Culture - Preliminary Blood - Peripheral No growth in 2 days Anaerobic Blood Culture - Preliminary No growth in 2 days 03/20/18 03:00 Aerobic Blood Culture - Preliminary Blood - Peripheral No growth in 2 days Anaerobic Blood Culture - Preliminary No growth in 2 days 03/20/18 01:55 Urine Culture - Preliminary Clean Catch Urine gram negative rods Imaging: Abdomen/Pelvis CT 03/20/18 00:20 CONCLUSION: 1. Diverticulosis without diverticulitis. 2. Multiple dilated loops of small bowel with wall thickening could be related to partial obstruction. 3. Large area of low-density in the right lobe of the liver of unsure etiology but cannot exclude underlying mass/metastatic disease as other low-density lesions are seen. No small pleural effusions and bibasilar densities. 4. Diverticulosis without diverticulitis. 5. Small bilateral pleural effusions and bibasilar consolidation. Patient/Family Conference Present at Family Conference: Spoke with patient and his significant other at length regarding palliative care purpose and focus, past medical, social, surgical, psychosocial and family history as well as the below listed items. They state they wished to hear the opinion of Dr. Villar regarding possible surgical resection of his intestines prior to making any further decisions. Discussed options for maintaining quality of life. Provided contact information for any further questions or concerns with plan to follow-up tomorrow. . Family Conference Location: Bedside Issues Discussed: * Palliative care role, purpose, approach * Additional medical, psychosocial, and spiritual history * Patients general health, functional status, and cognitive changes in the months leading up to the current hospitalization * Patient/family understanding of the current medical problems * Patient/family understanding of prognosis * Patients goals of care as best understood from advance directives and/or conversations and/or values * Current medical treatment options and benefits/burdens of those options * Likely scenarios comparing ongoing aggressive care with a transition to comfort measures only * Questions answered to the best of my ability * Palliative care contact information provided Assessment and Plan - Disease Oriented Problem List (1) Malignant neoplasm of ileocecal valve (2) SBO (small bowel obstruction) (3) UTI (urinary tract infection) (4) Liver mass Pertinent Non-Medical Issues: Psychosocial: He was born in [place], [place] and 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 Legal: Patient states he has advanced directives at home naming his significant other, Nel, his healthcare surrogate. Copy of that paperwork has been requested. Ethical issues impacting care: None noted. . Prognosis: His prognosis is poor. He appears to have metastatic cancer poor performance status has been recommended palliative treatment locally. Patient is currently declining any further workup or treatment of his cancer which appears to have spread to the liver. He would be hospice appropriate if goals were consistent. . Code Status: Full Code Plan: PLAN: Legal decision maker: Patient at this time is capacitated to make his own decisions consults with his significant other. He states he has a healthcare surrogate, naming her as his healthcare surrogate. Goals: To be determined. CODE STATUS: FULL CODE SYMPTOMS: * Pain: Has had intermittent abdominal pain but currently is pain-free. Morphine available as needed and has used 2 mg today. No further recommendations at this time. * Anorexia: Poor appetite, likely multifactorial related to suspected metastasis , diarrhea, frequent UTIs. Could consider adding Remeron at at bedtime. * Weakness: Combination poor nutrition, debility from chronic illness. Pending evaluation by Dr. Villar or any surgical options available. * Diarrhea: Improving on current antibiotic. He is receiving Levaquin for a UTI , preliminarily showing gram-negative rods, pending completion of the culture and sensitivity. SUMMARY This is an 82-year-old male with a history of bladder cancer status post resection and ileocecal valve cancer with suspected metastasis, admitted with small bowel obstruction. He has been refusing chemotherapy and radiation at this admission, but had previously seen a physician at [facility] in [place] who declined chemo or radiation for him due to poor performance status and generalized weakness. In addition to his cancer he also has valvular heart disease with last echocardiogram in 03/07/2017 showing an EF of 40 -45% with moderate mitral valve regurgitation, posterior mitral valve leaflet prolapse and moderate tricuspid valve regurgitation. Pulmonary artery pressure was 48 mmHg showing mild pulmonary hypertension. He does have multiple comorbidities and will likely continue to have complications and decline. He would be hospice appropriate if goals were consistent. Family is currently considering their options. Palliative care will continue to follow the patient during hospital course as condition evolves, to assist patient/decision-maker with understanding of their medical conditions, weighing benefits/burdens of treatment options, for clarification of goals of treatment. Additionally will assist with any symptoms of palliative concern. . Appreciation Thank you for the opportunity to participate in the care of Nestor John. Attestation Attestation: To help prompt me to consider important information that might be impacting today's encounter and assessment, information from prior notes written by myself or my colleagues may have been "brought forward" into today's note. My signature on this note, however, is an attestation that I personally performed the exam, history, and/or decision-making noted today, and, unless otherwise indicated, the interactions with patient, family, and staff as well as the review of records all occurred today. I also attest that the listed assessment and stated plan reflect my best clinical judgment today based on the combination of historical information, prior notes, and today's exam/ interactions. When time spent is documented, it refers only to time spent today by the signer, or if indicated, combined time spent today by collaborating physician/nurse practitioner. .
--- NOTE | 2018-03-22 23:06 | P.PNONC ---
Subjective Interval history: Patient denies any nausea vomiting and diarrhea. Abdominal pain has now resolved He is feeling better. Objective Vital Signs/Intake & Output: Vital Signs 03/22/18 00:00 03/22/18 04:00 03/22/18 08:00 Temperature 98.1 F 98.3 F 97.8 F Pulse Rate 92 H 84 62 Respiratory Rate 17 17 14 Blood Pressure 105/73 102/75 85/52 L Pulse Oximetry 96 95 93 L 03/22/18 12:00 03/22/18 16:00 03/22/18 20:00 Temperature 97.4 F L 97.8 F 98.3 F Pulse Rate 94 H 92 H 97 H Respiratory Rate 16 16 17 Blood Pressure 106/60 110/82 120/74 Pulse Oximetry 95 97 98 Intake & Output 03/22/18 03/22/18 03/23/18 06:59 18:59 06:59 Intake Total 1750 / 1750 Output Total 550 / 550 Balance -550 / -550 1750 / 1750 Weight 70.2 kg Intake: IV 250 / 250 NS Inj 1,000 ML @ 100 mls/hr IV 250 / 250 .CONT .Q10H [facility] Rx#:[id number] Oral 1500 / 1500 Output: Urine Amount (Catheter) 550 / 550 Indwelling Urethral Catheter 550 / 550 Other: Date of Last Bowel Movement 03/14/18 Result Diagrams: 03/21/18 10:10 03/21/18 10:10 Culture Results: Microbiology 03/20/18 02:55 Aerobic Blood Culture - Preliminary Blood - Peripheral No growth in 2 days Anaerobic Blood Culture - Preliminary No growth in 2 days 03/20/18 03:00 Aerobic Blood Culture - Preliminary Blood - Peripheral No growth in 2 days Anaerobic Blood Culture - Preliminary No growth in 2 days 03/20/18 01:55 Urine Culture - Preliminary Clean Catch Urine gram negative rods Medications: Active Medications Generic Name Dose Route Start Last Admin Trade Name Freq PRN Reason Stop Dose Admin Digoxin 125 mcg 03/22/18 13:00 03/22/18 15:06 Lanoxin PO 125 mcg DAILY [facility] Administration Levofloxacin/Dextrose 150 mls @ 100 mls/hr 03/20/18 09:00 03/22/18 10:14 Levaquin 750 Mg Premix Inj IV.SIG 100 mls/hr Q24H [facility] Administration Sodium Chloride 1,000 mls @ 100 mls/hr 03/20/18 02:45 03/22/18 07:19 Ns Inj IV.CONT 100 mls/hr .Q10H [facility] Infusion Metoclopramide HCl 10 mg 03/20/18 06:00 03/22/18 21:07 Reglan Inj IV.PUSH Not Given Q8HR [facility] Protocol Morphine Sulfate 2 mg 03/20/18 02:44 03/22/18 06:21 Morphine Inj IV.PUSH 2 mg Q4H PRN Administration PAIN 6-10 Pantoprazole Sodium 40 mg 03/22/18 13:00 03/22/18 15:06 Protonix PO 40 mg DAILY [facility] Administration Senna/Docusate Sodium 1 tab 03/20/18 09:00 03/22/18 21:07 Re-Colace PO Not Given BID [facility] Objective Remarks: GENERAL: elderly patient. SKIN: Warm and dry. HEAD: Normocephalic. EYES: No scleral icterus. No injection or drainage. NECK: Supple, trachea midline. No JVD or lymphadenopathy. LYMPHATIC: No adenopathy. CARDIOVASCULAR: Regular rate and rhythm without murmurs. RESPIRATORY: Breath sounds equal bilaterally. No accessory muscle use. GASTROINTESTINAL: Abdomen soft, tender, nondistended. EXTREMITIES: No cyanosis, or edema. MUSCULOSKELETAL: decrease muscle tone. NEUROLOGICAL: No obvious focal deficit. Awake, alert, and oriented x3. PSYCHIATRIC: Appropriate mood and affect; insight and judgment normal. Assessment/Plan - Plan Mr. 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 He had a proximal colon surgery resection at this facility. He was evaluated by [facility] and advised observation due to frailty and other comorbid conditions. He was seen at [facility] on 01/28/2018 and his blood work indicated recurrent malignancy. Per the patient, they recommended no further treatment and for him to reestablish with local providers for supportive care so that he did not have to drive to [place]. The patient has followed up with his primary care physician and he states that they have discussed hospice when he is ready. He is currently hospitalized for small bowel obstruction. 1. 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 CEA is elevated at 537. The patient declines further workup or treatment in regards to cancer recurrence. 2. Small bowel obstruction, currently with NG tube to intermittent suction. Management per attending/surgery. 3. After long discussion with the patient and his , the patient declines further workup and/or treatment of suspected metastasis. From an oncology standpoint we would recommend palliative care, he may be discharged home once medically stable. He will follow-up with his primary care, who has been following the patient and has offered hospice referral to the patient once he is ready. Oncology will sign off at this time, we appreciate the consult, kindly call if needed. 03/22/2018 Records reviewed. I saw him last year March after the surgery by Dr. Villar for colon cancer. Given that he had lymph node metastasis stage III which carries a high risk for recurrent disease I have recommended adjuvant chemotherapy with FOLFOX. Patient was advised to make an appointment after the discharge. Patient never called our office for the appointment. He went to [facility] in [place] and saw oncologist. According to the patient and significant other(they have been living together for 32 years) the medical oncologist did not recommended adjuvant chemotherapy. Those records are not available. Patient was on active surveillance. 2 months ago in December 2017 his CEA went up and he was told that he has metastatic disease and should consider palliative care with hospice. The medical oncologist have discharged him from his care and advised to see local physician for symptom management. Patient recently had developed a urinary tract infection and he was given the antibiotics. He had developed nausea vomiting diarrhea. He was admitted to the hospital for small bowel obstruction. Dr. Villar saw him over the weekend and recommended conservative management. Patient now has improved. Palliative care was consulted. Patient wants to discuss with Dr. Villar to see if any surgical option available to prevent further bowel obstruction. He will discussed with Dr. Villar tomorrow when he will make rounds. We discussed that he is still can consider palliative chemotherapy to keep the cancer in a control and extend life if he wants it. Certainly low-dose Xeloda or low-dose FOLFOX chemotherapy can be given to control metastatic colon cancer which is now stage IV. If he does not want chemotherapy then he is hospice appropriate. Patient is going to think about it and will let us know. He wants to discuss with Dr. Villar surgeon and also Dr. Blood his new PCP who has to replace his previous PCP Dr. Rohith Sanders. Patient and his significant other have asked several questions and these were answered to their satisfaction.
[2018-03-23] MEDS: Sod Chloride 0.9% Inj 1,000 ML IV.CONT SCH ×5 (06:12→21:10)
--- NOTE | 2018-03-23 08:29 | P.PN ---
Subjective Interval history: Patient with Small Bowel obstruction, tolerating liquid diet, passing gas but no BM, at this time continue with Alva cath he is performing self cath at home, Palliative care following. 03/23: Seen in the presence of his , his wants him full code for now and did not decided about Hospice yet, he had a Large Bowel movement. Poor short term prognosis. he will start diet now and follow up. for probable discharge later today or in am tomorrow. Physical Exam Vital signs: Vital Signs 03/22/18 12:00 03/22/18 16:00 03/22/18 20:00 Temperature 97.4 F L 97.8 F 98.3 F Pulse Rate 94 H 92 H 97 H Respiratory Rate 16 16 17 Blood Pressure 106/60 110/82 120/74 Pulse Oximetry 95 97 98 03/23/18 00:00 Temperature 98.6 F Pulse Rate 104 H Respiratory Rate 17 Blood Pressure 100/63 Pulse Oximetry 97 Intake & Output 03/22/18 03/23/18 03/23/18 18:59 06:59 18:59 Intake Total 2500 / 2500 150 / 150 Output Total 675 / 675 Balance 2500 / 2500 -525 / -525 Intake: IV 1000 / 1000 150 / 150 NS Inj 1,000 ML @ 100 mls/hr IV 1000 / 1000 .CONT .Q10H [facility] Rx#:[id number] Levaquin 750 mg Premix Inj 150 150 / 150 ML @ 100 mls/hr IV.SIG Q24H [facility] Rx#:[id number] Oral 1500 / 1500 Output: Urine 675 / 675 Other: Date of Last Bowel Movement 03/17/18 Narrative: GENERAL: Thin cachectic appearing pleasant male patient in NAD. SKIN: Warm and dry. No rash. CARDIOVASCULAR: Regular rate and rhythm. No murmur appreciated. RESPIRATORY: No accessory muscle use. Clear to auscultation. Breath sounds equal bilaterally. GASTROINTESTINAL: Abdomen soft, non-tender, nondistended. Normoactive bowel sounds x4. MUSCULOSKELETAL: No obvious deformities. Extremities without clubbing, cyanosis , or edema. NEUROLOGICAL: Awake and alert. No obvious cranial nerve deficits. Motor grossly within normal limits. Moving all extremities spontaneously. Normal speech. - Urinary Catheter Management Indwelling Urethral Catheter Cath placed during this visit: yes Urethral indwelling: Yes Reason for continuing: Chronic Urinary Retention Insertion date: 03/20/18 Insertion time: 03:51 Results - Labs CBC & Chem 7: 03/21/18 10:10 03/21/18 10:10 Microbiology 03/20/18 02:55 Blood - Peripheral Aerobic Blood Culture - Preliminary No growth in 2 days 03/20/18 02:55 Blood - Peripheral Anaerobic Blood Culture - Preliminary No growth in 2 days 03/20/18 03:00 Blood - Peripheral Aerobic Blood Culture - Preliminary No growth in 2 days 03/20/18 03:00 Blood - Peripheral Anaerobic Blood Culture - Preliminary No growth in 2 days 03/20/18 01:55 Clean Catch Urine Urine Culture - Preliminary gram negative rods - Procedures Abdomen/Pelvis CT 03/20/18 00:20 CONCLUSION: 1. Diverticulosis without diverticulitis. 2. Multiple dilated loops of small bowel with wall thickening could be related to partial obstruction. 3. Large area of low-density in the right lobe of the liver of unsure etiology but cannot exclude underlying mass/metastatic disease as other low-density lesions are seen. No small pleural effusions and bibasilar densities. 4. Diverticulosis without diverticulitis. 5. Small bilateral pleural effusions and bibasilar consolidation. Assessment and Plan - Assessment (1) SBO (small bowel obstruction) Code(s): K56.609 - Unspecified intestinal obstruction, unspecified as to partial versus complete obstruction Status: Acute (2) UTI (urinary tract infection) Code(s): N39.0 - Urinary tract infection, site not specified Status: Acute (3) Failure of outpatient treatment Code(s): Z78.9 - Other specified health status Status: Acute (4) Liver mass Code(s): R16.0 - Hepatomegaly, not elsewhere classified Status: Acute - Plan 82-year-old male with a PMH of Bladder CA and Colon CA who presented to the ER w / c/o abdominal pain and diarrhea. SBO: h/o Partial SBO w/ laparoscopic lysis of adhesions by Dr. 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 -Now w/ recurrent Partial SBO on CT Abd/Pelvis, images reviewed. -tolerating clear liquid diet. at this time had large bowel movement, added Regular diet. -Reglan, analgesics/antiemetics as needed. -General Surgery following. Complicated UTI: Pt straight caths at home. w/ Failed Outpatient Tx -U/a w/ significant UTI +leuks/nitrates/WBCs -Continue with IV Levaquin -monitor urine culture growing gram-negative mago Liver Mass: CT Abd/Pelvis w/ large area of low density right lobe liver, possibly mass/metastatic disease, h/o Ileocecal CA s/p surgical intervention, seen by Dr. Good at that time, followed w/ MD Olivarez in [place], no chemo/radiation as pt states Oncologist thought it was too much for his heart. -Seen by oncology rep specialist he had Lymph node metastasis Stage III, adjuvant chemotherapy with FOLFOX, will need to follow with his own oncology rep specialist on discharge, recommended for Palliative Care with Hospice but his at this time is not willing to take decisions yet. DVT Prophylaxis: SCD/Teds Code Status: Full code Discussed Condition With: Patient, , Nurse Miss Saunders and MDR. Discharge Planning: Expected later today or in am tomorrow Discharge home with his . patient wants to go home
[2018-03-23] MEDS: Senna/Docusate Sodium 8.6/50 MG Tablet PO SCH ×2 (09:42→21:10)
[2018-03-23] MEDS: Digoxin 125 MCG Tablet PO SCH (09:42)
[2018-03-24 01:39] VITALS: TEMP 97.5
[2018-03-24] MEDS: Sod Chloride 0.9% Inj 1,000 ML IV.CONT SCH (06:04)
[2018-03-24] MEDS: Digoxin 125 MCG Tablet PO SCH (09:32)
[2018-03-24] MEDS: Senna/Docusate Sodium 8.6/50 MG Tablet PO SCH (09:33)
[2018-03-24 10:12] VITALS: BP 117/77; PULSE 82; RESP 16; O2SAT 98
--- NOTE | 2018-03-24 10:46 | P.PN ---
Subjective Interval history: Patient with Small Bowel obstruction, tolerating liquid diet, passing gas but no BM, at this time continue with Alva cath he is performing self cath at home, Palliative care following. 03/23: Seen in the presence of his , his wants him full code for now and did not decided about Hospice yet, he had a Large Bowel movement. Poor short term prognosis. he will start diet now and follow up. for probable discharge later today or in am tomorrow. 03/24: Seen in his bedroom, stable, no nausea, vomit or diarrhea, he refuse to leave the hospital until is able to discuss with his Primary General surgeon Doctor Jian, he will come to see his patient later today, also seen by security delivery specialist doctor Latisha offered to continue Palliative chemotherapy to keep the cancer in a control and extend life with low dose Xeloda or FOLFOX. Physical Exam Vital signs: Vital Signs 03/23/18 12:00 03/23/18 16:00 03/23/18 20:00 Temperature 97.6 F 97.8 F 98.1 F Pulse Rate 94 H 86 93 H Respiratory Rate 26 H 24 18 Blood Pressure 92/68 L 113/76 99/68 L Pulse Oximetry 97 96 96 03/24/18 00:00 03/24/18 08:00 Temperature 97.5 F L 97.5 F L Pulse Rate 89 82 Respiratory Rate 18 16 Blood Pressure 108/66 117/77 Pulse Oximetry 95 98 Intake & Output 03/23/18 03/24/18 03/24/18 18:59 06:59 18:59 Intake Total 2110 / 2110 1480 / 1480 Output Total 2600 / 2600 1000 / 1000 Balance -490 / -490 480 / 480 Weight 75.6 kg Intake: IV 1150 / 1150 1000 / 1000 NS Inj 1,000 ML @ 100 mls/hr IV 1000 / 1000 1000 / 1000 .CONT .Q10H [facility] Rx#:[id number] Levaquin 750 mg Premix Inj 150 150 / 150 ML @ 100 mls/hr IV.SIG Q24H [facility] Rx#:[id number] Oral 960 / 960 480 / 480 Output: Urine 2600 / 2600 1000 / 1000 Other: # Voids 2 Date of Last Bowel Movement 03/17/18 03/23/18 03/23/18 # Bowel Movements 1 Narrative: GENERAL: Thin cachectic appearing pleasant male patient in NAD. SKIN: Warm and dry. No rash. CARDIOVASCULAR: Regular rate and rhythm. No murmur appreciated. RESPIRATORY: No accessory muscle use. Clear to auscultation. Breath sounds equal bilaterally. GASTROINTESTINAL: Abdomen soft, non-tender, nondistended. Normoactive bowel sounds x4. MUSCULOSKELETAL: No obvious deformities. Extremities without clubbing, cyanosis , or edema. NEUROLOGICAL: Awake and alert. No obvious cranial nerve deficits. - Urinary Catheter Management Indwelling Urethral Catheter Cath placed during this visit: yes Urethral indwelling: Yes Reason for continuing: Chronic Urinary Retention Insertion date: 03/20/18 Insertion time: 03:51 Results - Labs CBC & Chem 7: 03/21/18 10:10 03/21/18 10:10 Laboratory Results - last 24 hr 03/23/18 13:55 Stl C.difficile DNA Amp Negative St C. diff Tox Epid 027 Negative Microbiology 03/20/18 02:55 Blood - Peripheral Aerobic Blood Culture - Preliminary No growth in 3 days 03/20/18 02:55 Blood - Peripheral Anaerobic Blood Culture - Preliminary No growth in 3 days 03/20/18 03:00 Blood - Peripheral Aerobic Blood Culture - Preliminary No growth in 3 days 03/20/18 03:00 Blood - Peripheral Anaerobic Blood Culture - Preliminary No growth in 3 days 03/20/18 01:55 Clean Catch Urine Urine Culture - Final Klebsiella pneumoniae - Imaging Abdomen/Pelvis CT 03/20/18 00:20 CONCLUSION: 1. Diverticulosis without diverticulitis. 2. Multiple dilated loops of small bowel with wall thickening could be related to partial obstruction. 3. Large area of low-density in the right lobe of the liver of unsure etiology but cannot exclude underlying mass/metastatic disease as other low-density lesions are seen. No small pleural effusions and bibasilar densities. 4. Diverticulosis without diverticulitis. 5. Small bilateral pleural effusions and bibasilar consolidation. - Procedures None Assessment and Plan - Assessment (1) SBO (small bowel obstruction) Code(s): K56.609 - Unspecified intestinal obstruction, unspecified as to partial versus complete obstruction Status: Acute (2) UTI (urinary tract infection) Code(s): N39.0 - Urinary tract infection, site not specified Status: Acute (3) Failure of outpatient treatment Code(s): Z78.9 - Other specified health status Status: Acute (4) Liver mass Code(s): R16.0 - Hepatomegaly, not elsewhere classified Status: Acute - Plan 82-year-old male with a PMH of Bladder CA and Colon CA who presented to the ER w / c/o abdominal pain and diarrhea. SBO: h/o Partial SBO w/ laparoscopic lysis of adhesions by Dr. 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 -Now w/ recurrent Partial SBO on CT Abd/Pelvis, images reviewed. -tolerating clear liquid diet. at this time had large bowel movement, added Regular diet. -Reglan, analgesics/antiemetics as needed. -General Surgery following patient will leave once discuss with Doctor Villar. Complicated UTI: Pt straight caths at home. w/ Failed Outpatient Tx -U/a w/ significant UTI +leuks/nitrates/WBCs -Continue with IV Levaquin -monitor urine culture growing gram-negative mago Liver Mass: CT Abd/Pelvis w/ large area of low density right lobe liver, possibly mass/metastatic disease, h/o Ileocecal CA s/p surgical intervention, seen by Dr. Good at that time, followed w/ MD Olivarez in [place], no chemo/radiation as pt states Oncologist thought it was too much for his heart. -Seen by security delivery specialist he had Lymph node metastasis Stage III, adjuvant chemotherapy with FOLFOX, will need to follow with his own 03/24: security delivery specialist doctor Latisha offered to continue Palliative chemotherapy to keep the cancer in a control and extend life with low dose Xeloda or FOLFOX. electrolyte derangement replaced. Code Status: Full Code. Discussed Condition With: patient and his Mrs. Calvillo. Discharge Planning: Expected later today after he discuss with Doctor Villar. Discharge home with his . will go with [facility] for skilled nurse and PT.
--- NOTE | 2018-03-24 10:49 | P.DCO ---
- Diagnosis (1) SBO (small bowel obstruction) Status: Acute (2) Liver mass Status: Acute (3) Malignant neoplasm of ileocecal valve Status: Acute (4) Weakness Status: Acute - Physical Therapy Order: Evaluate and treat, Improve ambulation, Strength and gait training - Home Health Nursing Order: Medical education, Signs/symptoms of disease process, Medication education-adverse effect, Nursing assessment with vital signs - Case Management Consult No - Certification I have seen patient Nestor John on 03/24/18. My clinical findings support the need for the requested home health care services because: Deconditioned with increased weakness I certify that my clinical findings support that this patient is homebound because: Unsafe to leave home unassisted
--- NOTE | 2018-03-24 11:56 | P.PNGS ---
Subjective Patient reports: feels better, bowel movement (doing better, pain resolved) Physical Exam Vital signs: Vital Signs 03/23/18 12:00 03/23/18 16:00 03/23/18 20:00 Temperature 97.6 F 97.8 F 98.1 F Pulse Rate 94 H 86 93 H Respiratory Rate 26 H 24 18 Blood Pressure 92/68 L 113/76 99/68 L Pulse Oximetry 97 96 96 03/24/18 00:00 03/24/18 08:00 Temperature 97.5 F L 97.5 F L Pulse Rate 89 82 Respiratory Rate 18 16 Blood Pressure 108/66 117/77 Pulse Oximetry 95 98 Intake & Output 03/23/18 03/24/18 03/24/18 18:59 06:59 18:59 Intake Total 2110 / 2110 1480 / 1480 Output Total 2600 / 2600 1000 / 1000 Balance -490 / -490 480 / 480 Weight 75.6 kg Intake: IV 1150 / 1150 1000 / 1000 NS Inj 1,000 ML @ 100 mls/hr IV 1000 / 1000 1000 / 1000 .CONT .Q10H [facility] Rx#:[id number] Levaquin 750 mg Premix Inj 150 150 / 150 ML @ 100 mls/hr IV.SIG Q24H [facility] Rx#:[id number] Oral 960 / 960 480 / 480 Output: Urine 2600 / 2600 1000 / 1000 Other: # Voids 2 Date of Last Bowel Movement 03/17/18 03/23/18 03/23/18 # Bowel Movements 1 - Routine Respiratory Exam Present: CTA bilaterally - Routine Cardiovascular Exam Present: RRR - Routine Abdominal Exam Present: soft (NT/ND) - Urinary Catheter Management Indwelling Urethral Catheter Cath placed during this visit: yes Urethral indwelling: Yes Reason for continuing: Chronic Urinary Retention Insertion date: 03/20/18 Insertion time: 03:51 Results - Labs 03/21/18 10:10 03/21/18 10:10 Laboratory Results - last 24 hr 03/23/18 13:55 Stl C.difficile DNA Amp Negative St C. diff Tox Epid 027 Negative - Imaging Imaging: ITS Impressions Abdomen/Pelvis CT 03/20/18 00:20 CONCLUSION: 1. Diverticulosis without diverticulitis. 2. Multiple dilated loops of small bowel with wall thickening could be related to partial obstruction. 3. Large area of low-density in the right lobe of the liver of unsure etiology but cannot exclude underlying mass/metastatic disease as other low-density lesions are seen. No small pleural effusions and bibasilar densities. 4. Diverticulosis without diverticulitis. 5. Small bilateral pleural effusions and bibasilar consolidation. Assessment and Plan - Plan Psbo, concern for metastatic colon ca PLAN Tolerating regular diet having bms oob I discussed multiple option with patient regarding consideration of low dose chemo tx vs no treatment. Pt considering low dose chemo, will defer to Dr. Bui I will be available if needed ok to d/c from surgery stand point
--- NOTE | 2018-03-24 12:07 | P.DS ---
Date of admission: 03/20/18 02:51 Primary care physician: Rohith Sanders MD Attending physician on discharge: Luis Angel Todd Anticipated date of discharge: 03/24/18 Brief History from admission: This is an 82-year-old male with a PMH of Bladder CA and Colon CA who presented to the ER w/ c/o abdominal pain and diarrhea. at bedside providing history , states pt was started on antibiotics for UTI last week, after 4 days developed significant diarrhea and abdominal cramping at which time he stopped the antibiotic, was re-started on a different antibiotic today and had recurrent symptoms of abdominal pain/diarrhea. Abd pain is generalized, severe , 10/10, non-radiating, no associated nausea/vomiting. On arrival, BP 116/62, HR 65, O2 sat 93% on RA, Afebrile. CBC unremarkable. Chemistry essentially unremarkable except for BUN 23, GFR 53. UA positive for UTI. CT Abdomen/ Pelvis multiple dilated loops of small bowel with wall thickening, possibly partial obstruction, large area of low density in right lobe of the liver of unknown etiology possibly mass/metastatic disease. Pt w/ h/o Stage III Ileocecal CA, s/p lap lysis of adhesions and ileal cystectomy w/ primary anastomosis by Dr. Villar on 03/18/17, states he was following w/ MD Olivarez in [place], however did not receive chemo/radiation because Oncologist thought "it was too much for my heart". DS: Diagnosis - Discharge Diagnosis (1) SBO (small bowel obstruction) Status: Acute (2) Liver mass Status: Acute (3) Malignant neoplasm of ileocecal valve Status: Acute (4) Weakness Status: Acute (5) UTI (urinary tract infection) Status: Acute (6) Failure of outpatient treatment Status: Acute DS: Summary Hospital Course: Patient with Small Bowel obstruction, tolerating liquid diet, passing gas but no BM, at this time continue with Alva cath he is performing self cath at home, Palliative care following. 03/23: Seen in the presence of his , his wants him full code for now and did not decided about Hospice yet, he had a Large Bowel movement. Poor short term prognosis. he will start diet now and follow up. for probable discharge later today or in am tomorrow. 03/24: Seen in his bedroom, stable, no nausea, vomit or diarrhea, he refuse to leave the hospital until is able to discuss with his Primary General surgeon Doctor Jian, he will come to see his patient later today, also seen by clinical operations specialist doctor Latisha offered to continue Palliative chemotherapy to keep the cancer in a control and extend life with low dose Xeloda or FOLFOX. [employer] Prescription Drug Monitoring Database has been queried and verified prior to prescribing the controlled substance. Acute pain exception. This patient has normal, predicted, physiological, and time limited response to an adverse mechanical stimulus associated with surgery, trauma, or acute illness as described in my notes. There is a lack of alternative treatment options other than to include the prescribed narcotic treatment for this condition. Assessment and Plan - Assessment (1) SBO (small bowel obstruction) Code(s): K56.609 - Unspecified intestinal obstruction, unspecified as to partial versus complete obstruction Status: Acute (2) UTI (urinary tract infection) Code(s): N39.0 - Urinary tract infection, site not specified Status: Acute (3) Failure of outpatient treatment Code(s): Z78.9 - Other specified health status Status: Acute (4) Liver mass Code(s): R16.0 - Hepatomegaly, not elsewhere classified Status: Acute - Plan 82-year-old male with a PMH of Bladder CA and Colon CA who presented to the ER w / c/o abdominal pain and diarrhea. SBO: h/o Partial SBO w/ laparoscopic lysis of adhesions by Dr. 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 -Now w/ recurrent Partial SBO on CT Abd/Pelvis, images reviewed. -tolerating clear liquid diet. at this time had large bowel movement, added Regular diet. -Reglan, analgesics/antiemetics as needed. -General Surgery following patient will leave once discuss with Doctor Villar. Complicated UTI: Pt straight caths at home. w/ Failed Outpatient Tx -U/a w/ significant UTI +leuks/nitrates/WBCs -Continue with IV Levaquin -monitor urine culture growing gram-negative mago Liver Mass: CT Abd/Pelvis w/ large area of low density right lobe liver, possibly mass/metastatic disease, h/o Ileocecal CA s/p surgical intervention, seen by Dr. Good at that time, followed w/ MD Olivarez in [place], no chemo/radiation as pt states Oncologist thought it was too much for his heart. -Seen by clinical operations specialist he had Lymph node metastasis Stage III, adjuvant chemotherapy with FOLFOX, will need to follow with his own 03/24: clinical operations specialist doctor Latisha offered to continue Palliative chemotherapy to keep the cancer in a control and extend life with low dose Xeloda or FOLFOX. Nauseated will go home with Metoclopramide. Code Status: Full Code. Discussed Condition With: patient and his Mrs. Calvillo. discussed at this time with doctor Johnny juarez to discharge patient home now. Discharge Planning: Discharge home with his . will go with [facility] for skilled nurse and PT. - Time Spent with Patient Total time spent providing and/or coordinating discharge services: Greater than 30 minutes - Quality: VTE Deep Vein Thrombosis/Pulmonary Embolism Present on Admission: No Exam Vital signs: Vital Signs 03/23/18 16:00 03/23/18 20:00 03/24/18 00:00 Temperature 97.8 F 98.1 F 97.5 F L Pulse Rate 86 93 H 89 Respiratory Rate 24 18 18 Blood Pressure 113/76 99/68 L 108/66 Pulse Oximetry 96 96 95 03/24/18 08:00 Temperature 97.5 F L Pulse Rate 82 Respiratory Rate 16 Blood Pressure 117/77 Pulse Oximetry 98 Intake & Output 03/23/18 03/24/18 03/24/18 18:59 06:59 18:59 Intake Total 2110 / 2110 1480 / 1480 150 / 150 Output Total 2600 / 2600 1000 / 1000 Balance -490 / -490 480 / 480 150 / 150 Weight 75.6 kg Intake: IV 1150 / 1150 1000 / 1000 150 / 150 NS Inj 1,000 ML @ 100 mls/hr IV 1000 / 1000 1000 / 1000 .CONT .Q10H [facility] Rx#:[id number] Levaquin 750 mg Premix Inj 150 150 / 150 150 / 150 ML @ 100 mls/hr IV.SIG Q24H [facility] Rx#:[id number] Oral 960 / 960 480 / 480 Output: Urine 2600 / 2600 1000 / 1000 Other: # Voids 2 Date of Last Bowel Movement 03/17/18 03/23/18 03/23/18 # Bowel Movements 1 Narrative: GENERAL: Thin cachectic appearing pleasant male patient in NAD. SKIN: Warm and dry. No rash. CARDIOVASCULAR: Regular rate and rhythm. No murmur appreciated. RESPIRATORY: No accessory muscle use. Clear to auscultation. Breath sounds equal bilaterally. GASTROINTESTINAL: Abdomen soft, non-tender, nondistended. Normoactive bowel sounds x4. MUSCULOSKELETAL: No obvious deformities. Extremities without clubbing, cyanosis , or edema. NEUROLOGICAL: Awake and alert. No obvious cranial nerve deficits. Results Procedures completed during hospitalization: None Labs on day of discharge: Labs from last 24 hours 03/23/18 13:55 Stl C.difficile DNA Amp Negative St C. diff Tox Epid 027 Negative Preliminary micro results at discharge 03/20/18 02:55 Aerobic Blood Culture - Preliminary Blood - Peripheral No growth in 4 days Anaerobic Blood Culture - Preliminary No growth in 4 days 03/20/18 03:00 Aerobic Blood Culture - Preliminary Blood - Peripheral No growth in 4 days Anaerobic Blood Culture - Preliminary No growth in 4 days Results - Labs CBC & Chem 7: 03/21/18 10:10 03/21/18 10:10 Laboratory Results - last 24 hr 03/23/18 13:55 Stl C.difficile DNA Amp Negative St C. diff Tox Epid 027 Negative Microbiology 03/20/18 02:55 Blood - Peripheral Aerobic Blood Culture - Preliminary No growth in 3 days 03/20/18 02:55 Blood - Peripheral Anaerobic Blood Culture - Preliminary No growth in 3 days 03/20/18 03:00 Blood - Peripheral Aerobic Blood Culture - Preliminary No growth in 3 days 03/20/18 03:00 Blood - Peripheral Anaerobic Blood Culture - Preliminary No growth in 3 days 03/20/18 01:55 Clean Catch Urine Urine Culture - Final Klebsiella pneumoniae - Impressions ITS Impressions Abdomen/Pelvis CT 03/20/18 00:20 CONCLUSION: 1. Diverticulosis without diverticulitis. 2. Multiple dilated loops of small bowel with wall thickening could be related to partial obstruction. 3. Large area of low-density in the right lobe of the liver of unsure etiology but cannot exclude underlying mass/metastatic disease as other low-density lesions are seen. No small pleural effusions and bibasilar densities. 4. Diverticulosis without diverticulitis. 5. Small bilateral pleural effusions and bibasilar consolidation. Discharge Plan - Discharge Disposition Patient Disposition: /Home Health Service - Discharge Condition Condition: Stable - Discharge Order Discharge Orders: Discharge Order (Routine); Ordered 03/24/18 Ordered By: Luis Angel Todd - Discharge Details Anticipated Discharge Date: 03/24/18 Discharge Comment: follow up with PCP in three days - Physicians Team Primary Care Provider: Rohith Sanders Attending Provider: Luis Angel Todd Other Providers: Johnny Villar MD ; Surgeons,[facility] ; Itz Good MD ; Azeem Gomez MD
[2018-03-24] MEDS ORDERED: Metoclopramide 10 MG Tablet PO PRN (13:16)
--- NOTE | 2018-03-24 17:23 | P.PNONC ---
Subjective Interval history: Patient is feeling better No more nausea vomiting or diarrhea. Start eating solid food and able to keep it down. Objective Vital Signs/Intake & Output: Vital Signs 03/23/18 20:00 03/24/18 00:00 03/24/18 08:00 Temperature 98.1 F 97.5 F L 97.5 F L Pulse Rate 93 H 89 82 Respiratory Rate 18 18 16 Blood Pressure 99/68 L 108/66 117/77 Pulse Oximetry 96 95 98 Intake & Output 03/23/18 03/24/18 03/24/18 18:59 06:59 18:59 Intake Total 2110 / 2110 1480 / 1480 150 / 150 Output Total 2600 / 2600 1000 / 1000 Balance -490 / -490 480 / 480 150 / 150 Weight 75.6 kg Intake: IV 1150 / 1150 1000 / 1000 150 / 150 NS Inj 1,000 ML @ 100 mls/hr IV 1000 / 1000 1000 / 1000 .CONT .Q10H [facility] Rx#:[id number] Levaquin 750 mg Premix Inj 150 150 / 150 150 / 150 ML @ 100 mls/hr IV.SIG Q24H [facility] Rx#:[id number] Oral 960 / 960 480 / 480 Output: Urine 2600 / 2600 1000 / 1000 Other: # Voids 2 Date of Last Bowel Movement 03/17/18 03/23/18 03/23/18 # Bowel Movements 1 Result Diagrams: 03/21/18 10:10 03/21/18 10:10 Culture Results: Microbiology 03/20/18 02:55 Aerobic Blood Culture - Preliminary Blood - Peripheral No growth in 4 days Anaerobic Blood Culture - Preliminary No growth in 4 days 03/20/18 03:00 Aerobic Blood Culture - Preliminary Blood - Peripheral No growth in 4 days Anaerobic Blood Culture - Preliminary No growth in 4 days 03/20/18 01:55 Urine Culture - Final Clean Catch Urine Klebsiella pneumoniae Objective Remarks: GENERAL: Well-nourished, well-developed patient. SKIN: Warm and dry. HEAD: Normocephalic. EYES: No scleral icterus. No injection or drainage. NECK: Supple, trachea midline. No JVD or lymphadenopathy. LYMPHATIC: No adenopathy. CARDIOVASCULAR: Regular rate and rhythm without murmurs. RESPIRATORY: Breath sounds equal bilaterally. No accessory muscle use. GASTROINTESTINAL: Abdomen soft, non-tender, nondistended. EXTREMITIES: No cyanosis, or edema. MUSCULOSKELETAL: Adequate muscle tone. NEUROLOGICAL: No obvious focal deficit. Awake, alert, and oriented x3. PSYCHIATRIC: Appropriate mood and affect; insight and judgment normal. Assessment/Plan - Plan Mr. 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 He had a proximal colon surgery resection at this facility. He was evaluated by [facility] and advised observation due to frailty and other comorbid conditions. He was seen at [facility] on 01/28/2018 and his blood work indicated recurrent malignancy. Per the patient, they recommended no further treatment and for him to reestablish with local providers for supportive care so that he did not have to drive to [place]. The patient has followed up with his primary care physician and he states that they have discussed hospice when he is ready. He is currently hospitalized for small bowel obstruction. 1. 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 CEA is elevated at 537. The patient declines further workup or treatment in regards to cancer recurrence. 2. Small bowel obstruction, currently with NG tube to intermittent suction. Management per attending/surgery. 3. After long discussion with the patient and his , the patient declines further workup and/or treatment of suspected metastasis. From an oncology standpoint we would recommend palliative care, he may be discharged home once medically stable. He will follow-up with his primary care, who has been following the patient and has offered hospice referral to the patient once he is ready. Oncology will sign off at this time, we appreciate the consult, kindly call if needed. 03/22/2018 Records reviewed. I saw him last year March after the surgery by Dr. Villar for colon cancer. Given that he had lymph node metastasis stage III which carries a high risk for recurrent disease I have recommended adjuvant chemotherapy with FOLFOX. Patient was advised to make an appointment after the discharge. Patient never called our office for the appointment. He went to [facility] in [place] and saw oncologist. According to the patient and significant other(they have been living together for 32 years) the medical oncologist did not recommended adjuvant chemotherapy. Those records are not available. Patient was on active surveillance. 2 months ago in December 2017 his CEA went up and he was told that he has metastatic disease and should consider palliative care with hospice. The medical oncologist have discharged him from his care and advised to see local physician for symptom management. Patient recently had developed a urinary tract infection and he was given the antibiotics. He had developed nausea vomiting diarrhea. He was admitted to the hospital for small bowel obstruction. Dr. Villar saw him over the weekend and recommended conservative management. Patient now has improved. Palliative care was consulted. Patient wants to discuss with Dr. Villar to see if any surgical option available to prevent further bowel obstruction. He will discussed with Dr. Villar tomorrow when he will make rounds. We discussed that he is still can consider palliative chemotherapy to keep the cancer in a control and extend life if he wants it. Certainly low-dose Xeloda or low-dose FOLFOX chemotherapy can be given to control metastatic colon cancer which is now stage IV. If he does not want chemotherapy then he is hospice appropriate. Patient is going to think about it and will let us know. He wants to discuss with Dr. Villar surgeon and also Dr. Blood his new PCP who has to replace his previous PCP Dr. Rohith Sanders. Patient and his significant other have asked several questions and these were answered to their satisfaction. 03/24/18 I have again discussed with the patient and his significant other who was present at the bedside. Both are anxiously waiting to talk to Dr. Villar before going home today. Low-dose oral Xeloda chemotherapy or low-dose FOLFOX IV chemotherapy options were discussed again His significant other wanted him to have palliative chemotherapy. However patient is not sure whether he wants to do it or not. He wants little bit more time to think about it I gave my office phone number for them to call for an appointment if they decide for palliative chemotherapy. Patient can be discharged from my standpoint I will sign off Available as needed
== END 2018-03-24 14:27 | disposition home health service (06) ==
LOC: NEPC 22:31 → NEDA 03-20 02:51 → NEPFCDU 03-20 05:23 → N06 03-21 14:06
PROVIDERS: ADMIT Internal Medicine; ATTEND Internal Medicine